=== PATIENT | male | born 1945 | race Caucasian/White ===

== ENCOUNTER 2016-05-06 10:18 | Emergency (ER) | payer MEDICARE ==
[~2016-05-06 10:18] MED LIST: ALLO100T PO; ALLO15TA GT; ASPI81TA85 PO; CARB20TA PO; CORD200T PO; CORE25TA PO; DEMA20TA6 PO; DIAB2.5T PO; GLIM2TAB PO; GLYB25TA PO; HUMA100I5 SC; INDO50CA PO; IRBE300T10 PO; LEVE1INJ5 SC; LIPI20TA PO; MECL-68 PO; METF1000 PO; PRIL20CA PO; TORS20TA2 PO; VITA500046 PO
[2016-05-06] MEDS ORDERED: hydrOXYzine 25 MG TAB As Ordered ONE (11:11)
[2016-05-06 11:15] LABS: BASO % 0.3 % (0.0-1.0); EOS # 0.3 K/mm3 (0.0-0.50); EOS % 3.7 % (0.0-3.0); LARGE UNSTAINED CELL # 0.4 K/mm3 (0.0-0.4); LARGE UNSTAINED CELL % 4.1 % (0.0-4.0); LYMPH # 1.6 K/mm3 (1.5-4.5); LYMPH % 18.3 % (24.0-44.0); MEAN CORPUSCULAR HEMOGLOBIN 31.2 pg (27.0-33.0); MEAN CORPUSCULAR HGB CONC 33.1 g/dl (32.0-36.5); MEAN CORPUSCULAR VOLUME 94.3 fl (80.0-96.0); MONO # 0.4 K/mm3 (0.0-0.8); MONO % 4.7 % (0.0-5.0); NEUTROPHILS % 68.9 % (36.0-66.0); PLATELET COUNT, AUTOMATED 284 k/mm3 (150-450); RED CELL DISTRIBUTION WIDTH 14.4 % (11.5-14.5); WHITE BLOOD COUNT 8.7 K/mm3 (4.0-10.0)
--- NOTE | 2016-05-06 11:52 | REP ---
Clinical: The left upper extremity swelling. Technique: Siu scale and color Doppler evaluation using linear high frequency transducer. Findings: Ultrasound examination of the left upper extremity deep venous structures including the jugular, subclavian, axillary, basilic, brachial, and cephalic veins demonstrates normal compressibility flow and wave patterns in response to respiration and augmentation. There is no evidence for deep venous thrombosis. Impression: No evidence for deep venous thrombosis. Signed by Nikunj Mathews MD 05/06/2016 11:44 A
[2016-05-06 12:30] LABS: ALBUMIN 3.2 GM/DL (3.2-5.2); ALBUMIN/GLOBULIN RATIO 0.86 (1.00-1.93); ALKALINE PHOSPHATASE 189 U/L (45-117); ALT/SGPT 23 U/L (12-78); ANION GAP 11 MEQ/L (8-16); AST/SGOT 10 U/L (15-37); BILIRUBIN,DIRECT < 0.1 MG/DL (0.0-0.2); BILIRUBIN,TOTAL 0.2 MG/DL (0.2-1.0); BLOOD UREA NITROGEN 80 MG/DL (7-18); CARBON DIOXIDE LEVEL 24 MEQ/L (21-32); CHLORIDE LEVEL 103 MEQ/L (98-107); GLOMERULAR FILTRATION RATE 22.1 (>42); GLUCOSE, FASTING 328 MG/DL (83-110); POTASSIUM SERUM 3.8 MEQ/L (3.5-5.1); SODIUM LEVEL 138 MEQ/L (136-145); TOTAL PROTEIN 6.9 GM/DL (6.4-8.2)
[2016-05-06 13:27] LABS: T UPTAKE 36 % (33-40)
[2016-05-06 13:40] LABS: MAGNESIUM LEVEL 2.3 MG/DL (1.8-2.4); PHOSPHORUS LEVEL 4.5 MG/DL (2.5-4.9); THYROXINE (T4) 6.4 UG/DL (4.5-12.0)
--- NOTE | 2016-05-06 13:40 | EDDOCDS ---
Nurse's Notes [facility] Name: Yovani Mead Age: 71 yrs Sex: Male : 1945 Arrival Date: 05/06/2016 Time: 10:18 Bed 15 Private MD: Maynor Tidwell A. Diagnosis: Pruritus;Unspecified kidney failure-chronic with acute worsening BUN/CRE 80/3 Presentation: 05/06 10:27 Presenting complaint: Patient states: rash and redness to left forearm and both lower po legs x3 days. Onset: The symptoms/episode began/occurred 3 day(s) ago. This patient has not experienced a previous allergic reaction. Anaphylaxis evaluation, the patient reports or I have noted the following symptoms which indicate a significant risk of anaphylaxis: no signs or symptoms of anaphylaxis were noted. Adult Sepsis Screening: The patient does not have new or worsening altered mentation. Patient's respiratory rate is less than 22. Systolic blood pressure is greater than 100. Patient has a qSOFA score of 0- Negative Sepsis Screen. Suicide/Homicide risk assessment- the patient denies having any suicidal and/or homicidal ideations and does not present with any other emotional, behavioral or mental health complaints. 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 Transition of care: patient was not received from another setting of care. 10:27 Acuity: NESTOR Level 3 po 10:27 Method Of Arrival: Walkin/Carried/Asstd po Triage Assessment: 10:35 General: Appears in no apparent distress, Behavior is appropriate for age, cooperative. po Pain: Denies pain. Respiratory: Airway is patent Respiratory effort is even, unlabored, Reports no respiratory complaints. Derm: Skin is pink, warm & dry. Rash noted that is red, raised, on right calf, right odn, left calf and left don. Historical: - Allergies: no known allergies; - Home Meds: 1. vit D2 1.25 mg weekly on 2. allopurinol 300 mg Oral tab 1 tab once daily 3. gabapentin 300 mg Oral cap 1 cap daily 4. calcitriol 0.25 mcg oral cap 1 cap once daily 5. atorvastatin 40 mg oral tab 1 tab nightly 6. aspirin 81 mg Oral chew 1 tab nightly 7. torsemide 20 mg oral tab 1 tab twice a day 2 tabs in the morning and one tab in the evening 8. amiodarone 200 mg Oral tab 1 tab once daily 9. fexofenadine 180 mg Oral tab 1 tab once daily 10. omeprazole 20 mg Oral cpDR 1 cap once daily 11. carvedilol 25 mg oral tab 1 tab 2 times per day 12. acetaminophen-codeine 325-30 mg Oral cap 1 tablet as needed 13. losartan 50 mg oral tab 1 tab once daily 14. carbamazepine 200 mg Oral tab even days 1 am 2 pm odd days 1 BID 15. Levemir FlexTouch 100 unit/mL (3 mL) subcutaneous inpn 20 unit nightly 16. Humalog Pen sliding scale Sub-Q 6 unit before meals sliding scale before each meal - PMHx: CAD; Diabetes - IDDM: controlled; GERD; Hypertension; Renal Failure w/o Dialysis; Gout; - PSHx: pacemaker/defibrillator; Hernia repair; removal skin cancer; - Social history: Smoking status: Patient states was never smoker of tobacco. No barriers to communication noted, The patient speaks fluent Khmer. - Family history: Not pertinent. - : The pt / caregiver states he / she is not on anticoagulants. Home medication list is obtained from the patient, pill bottles. - Exposure Risk Screening:: None identified. Screenin:54 Screening information is obtained from the patient. Fall risk: No risks identified. jjr Assistance ADL's: requires no assistance with activities of daily living. Abuse/DV Screen: The patient / caregiver reports he/she is: not in a situation that causes fear, pain or injury. Nutritional screening: No deficits noted. Advance Directives: There is no active DNR order. home support is adequate. Assessment: 10:53 General: Appears in no apparent distress, well nourished, well groomed, Behavior is jjr appropriate for age. Neurological: No deficits noted. Respiratory: Airway is patent Respiratory effort is even, unlabored, Respiratory pattern is regular, Breath sounds are clear bilaterally. Derm: Rash noted that is urticaria, on bilateral forearms, bilateral shins and calves, left forearm greater than right. 11:59 General: Appears in no apparent distress, Behavior is appropriate for age. Respiratory: jjr No deficits noted. Derm: no change in rash. 12:54 General: Appears in no apparent distress, Behavior is appropriate for age. Respiratory: jjr No deficits noted. Derm: no change in redness to forearms and lower legs. 13:35 Reassessment: Patient appears in no apparent distress at this time. pt states he is ttb comfortable going home. DC instructions given. . Adult Sepsis Screening: The patient does not have new or worsening altered mentation. Patient's respiratory rate is less than 22. Systolic blood pressure is greater than 100. Patient has a qSOFA score of 0- Negative Sepsis Screen. Pain: Denies pain. Cardiovascular: Chest pain is denied. Respiratory: No deficits noted. Airway is patent. Vital Signs: 10:20 BP 131 / 57; Pulse 61; Resp 18; Temp 95.2(T); Pulse Ox 99% on R/A; Weight 102.97 kg; sar1 Height 5 ft. 6 in. (167.64 cm); Pain 4/10; 13:31 BP 121 / 55 (auto/); ttb 13:32 Resp 18 S; Temp 97.4(TE); Pulse Ox 95% on R/A; Pain 0/10; ttb 10:20 Body Mass Index 36.64 (102.97 kg, 167.64 cm) [facility] Vitals: 10:20 Log In Time: May 06, 2016 at 10:21. sar1 ED Course: 10:20 Patient visited by Nan Garcia, Debby Ramachandran. sar1 10:20 Maynor Tidwell is Private Physician. sar1 10:20 Patient moved to Waiting sar1 10:25 Patient moved to Pre RCE sar1 10:28 Triage Initiated po 10:35 Arm band placed on left wrist. Patient placed in waiting room. po 10:37 Patient visited by Ashkan Garcia RN. po 10:38 Patient moved to 15 po 10:40 Nia Willoughby MD is Attending Physician. sd1 10:43 Patient visited by Nia Willoughby MD. sd1 10:54 The patient / caregiver is instructed regarding the plan of care and ED course. jjr 10:55 Patient visited by Cortney Acosta RN. jjr 11:09 Sed Rate Sent. jjr 11:09 Liver Profile Sent. jjr 11:09 MED Profile Sent. jjr 11:09 CBC with Diff Sent. jjr 11:10 Missed attempts: 22 gauge X 1 in right antecubital area, Bleeding controlled, band aid jjr applied, catheter tip intact. Labs drawn. (by ED staff). Sent per order to lab. 11:18 Patient moved to Ultrasound hgl 11:36 Patient moved to 15 hgl 12:00 Patient visited by Cortney Acosta RN. jjr 12:17 Upper Extremity R/O DVT Returned. EDMS 12:54 Patient visited by Cortney Acosta RN. jjr 13:21 Meagan Garcia is Referral Physician. sd1 13:22 Maynor Tidwell MD is Referral Physician. sd1 13:37 Patient visited by Rhiannon Beavers RN. ttb 13:37 No procedures done that require assistance. ttb Administered Medications: 11:15 Drug: hydrOXYzine 25 mg [hydroxyzine HCl 25 mg tablet (1 tabs)] Route: PO; jjr Order Results: Lab Order: CBC with Diff; SPEC'M 05/06/16 11:07 Test: WHITE BLOOD COUNT; Value: 8.7; Range: 4.0-10.0; Units: K/mm3; Status: F Test: RED BLOOD COUNT; Value: 3.72; Range: 4.30-6.10; Abnormal: Below low normal; Units: M/mm3; Status: F Test: HEMOGLOBIN; Value: 11.6; Range: 14.0-18.0; Abnormal: Below low normal; Units: g/dl; Status: F Test: HEMATOCRIT; Value: 35.1; Range: 42.0-52.0; Abnormal: Below low normal; Units: %; Status: F Test: MEAN CORPUSCULAR VOLUME; Value: 94.3; Range: 80.0-96.0; Units: fl; Status: F Test: MEAN CORPUSCULAR HEMOGLOBIN; Value: 31.2; Range: 27.0-33.0; Units: pg; Status: F Test: MEAN CORPUSCULAR HGB CONC; Value: 33.1; Range: 32.0-36.5; Units: g/dl; Status: F Test: RED CELL DISTRIBUTION WIDTH; Value: 14.4; Range: 11.5-14.5; Units: %; Status: F Test: PLATELET COUNT, AUTOMATED; Value: 284; Range: 150-450; Units: k/mm3; Status: F Test: NEUTROPHILS %; Value: 68.9; Range: 36.0-66.0; Abnormal: Above high normal; Units: %; Status: F Test: LYMPH %; Value: 18.3; Range: 24.0-44.0; Abnormal: Below low normal; Units: %; Status: F Test: MONO %; Value: 4.7; Range: 0.0-5.0; Units: %; Status: F Test: EOS %; Value: 3.7; Range: 0.0-3.0; Abnormal: Above high normal; Units: %; Status: F Test: BASO %; Value: 0.3; Range: 0.0-1.0; Units: %; Status: F Test: LARGE UNSTAINED CELL %; Value: 4.1; Range: 0.0-4.0; Abnormal: Above high normal; Units: %; Status: F Test: NEUTROPHILS #; Value: 6.0; Range: 1.8-7.7; Units: K/mm3; Status: F Test: LYMPH #; Value: 1.6; Range: 1.5-4.5; Units: K/mm3; Status: F Test: MONO #; Value: 0.4; Range: 0.0-0.8; Units: K/mm3; Status: F Test: EOS #; Value: 0.3; Range: 0.0-0.50; Units: K/mm3; Status: F Test: BASO #; Value: 0.0; Range: 0.0-0.2; Units: K/mm3; Status: F Test: LARGE UNSTAINED CELL #; Value: 0.4; Range: 0.0-0.4; Units: K/mm3; Status: F Lab Order: [facility] Profile; SPEC'M 05/06/16 11:51 Test: GLUCOSE, FASTING; Value: 328; Range: 83-110; Abnormal: Above high normal; Units: MG/DL; Status: F Test: BLOOD UREA NITROGEN; Value: 80; Range: 7-18; Abnormal: Above high normal; Units: MG/DL; Status: F Test: CREATININE FOR GFR; Value: 3.00; Range: 0.70-1.30; Abnormal: Above high normal; Units: MG/DL; Status: F Test: GLOMERULAR FILTRATION RATE; Value: 22.1; Range: >42; Abnormal: Below low normal; Status: F Test: SODIUM LEVEL; Value: 138; Range: 136-145; Units: MEQ/L; Status: F Test: POTASSIUM SERUM; Value: 3.8; Range: 3.5-5.1; Units: MEQ/L; Status: F Test: CHLORIDE LEVEL; Value: 103; Range: 98-107; Units: MEQ/L; Status: F Test: CARBON DIOXIDE LEVEL; Value: 24; Range: 21-32; Units: MEQ/L; Status: F Test: ANION GAP; Value: 11; Range: 8-16; Units: MEQ/L; Status: F Test: CALCIUM LEVEL; Value: 8.0; Range: 8.8-10.2; Abnormal: Below low normal; Units: MG/DL; Status: F Test Note: ; Units are mL/min/1.73 m2 Chronic Kidney Disease Staging per NKF: Stage I & II GFR >=60 Normal to Mildly Decreased Stage III GFR 30-59 Moderately Decreased Stage IV GFR 15-29 Severely Decreased Stage V GFR <15 Very Little GFR Left ESRD GFR <15 on ELIGIBILITY COUNSELOR Lab Order: Liver Profile; [facility] 05/06/16 11:51 Test: AST/SGOT; Value: 10; Range: 15-37; Abnormal: Below low normal; Units: U/L; Status: F Test: ALT/SGPT; Value: 23; Range: 12-78; Units: U/L; Status: F Test: ALKALINE PHOSPHATASE; Value: 189; Range: 45-117; Abnormal: Above high normal; Units: U/L; Status: F Test: BILIRUBIN,TOTAL; Value: 0.2; Range: 0.2-1.0; Units: MG/DL; Status: F Test: BILIRUBIN,DIRECT; Value: < 0.1; Range: 0.0-0.2; Units: MG/DL; Status: F Test: TOTAL PROTEIN; Value: 6.9; Range: 6.4-8.2; Units: GM/DL; Status: F Test: ALBUMIN; Value: 3.2; Range: 3.2-5.2; Units: GM/DL; Status: F Test: ALBUMIN/GLOBULIN RATIO; Value: 0.86; Range: 1.00-1.93; Abnormal: Below low normal; Status: F Lab Order: Sed Rate; [facility] 11:07 Test: ERYTHROCYTE SEDIMENTATION RATE; Value: 41; Range: 0-20; Abnormal: Above high normal; Units: mm/hr; Status: F Lab Order: C REACTIVE PROTEIN QUANTITATIV; 05/06/16 11:51 Test: C REACTIVE PROTEIN QUANTITATIV; Value: 1.75; Range: 0.00-0.30; Abnormal: Above high normal; Units: MG/DL; Status: F Lab Order: MAGNESIUM LEVEL; 05/06/16 11:51 Test: MAGNESIUM LEVEL; Range: 1.8-2.4; Units: MG/DL; Status: I Lab Order: PHOSPHOROUS LEVEL; 05/06/16 11:51 Test: PHOSPHORUS LEVEL; Range: 2.5-4.9; Units: MG/DL; Status: I Lab Order: THYROID PROFILE; 05/06/16 11:51 Test: T UPTAKE; Range: 33-40; Units: %; Status: I Test: THYROXINE (T4); Range: 4.5-12.0; Units: UG/DL; Status: I Test: FREE THYROXINE INDEX; Range: 1.4-3.8; Units: %; Status: I Test: THYROID STIMULATING HORMONE; Range: 0.358-3.740; Units: uIU/ML; Status: I Radiology Order: US Upper Extremity R/O DVT Test: US Upper Extremity R/O DVT REASON FOR EXAMINATION: swelling; Clinical: The left upper extremity swelling.; ; Technique: Siu scale and color Doppler evaluation using linear high frequency; transducer.; ; Findings:; Ultrasound examination of the left upper extremity deep venous structures; including the jugular, subclavian, axillary, basilic, brachial, and cephalic; veins demonstrates normal compressibility flow and wave patterns in response to; respiration and augmentation. There is no evidence for deep venous thrombosis.; ; Impression:; No evidence for deep venous thrombosis.; ; ; Signed by; Nikunj Mathews MD 05/06/2016 11:44 A; Outcome: 13:23 Discharge ordered by Provider. sd1 13:32 Discharge Assessment: Patient awake, alert and oriented x 3. No cognitive and/or ttb functional deficits noted. Patient verbalized understanding of disposition instructions. Patient awake and alert. patient administered narcotics - no. The following High Risk Discharge criteria are identified: None. Discharged to home ambulatory, with significant other. Condition: good Condition: stable Condition: improved. Discharge instructions given to patient, significant other, Instructed on discharge instructions, follow up and referral plans. medication usage, no change in meds at this time. Use cool compresses, showers for itch relief. Demonstrated understanding of instructions, medications, Pt was receptive of discharge instructions/ teaching. Ultrasound Study completed. Property :Personal belongings accompany Pt. 13:39 Patient left the ED. ttb Signatures: Dispatcher [employer] EDAL Nia Willoughby MD MD sd1 Ashkan GarciaRN RN po Cortney Acosta RN RN jr Diana, Rhiannon Barron RN RN ttb Nan Garcia, Detective Sergeant Unit sar1 Corrections: (The following items were deleted from the chart) 10:37 10:27 Presenting complaint: Patient states: rash and redness to left forearm x3 days po po 10:37 10:35 Derm: Skin is pink, warm & dry. Rash noted that is red, raised, on left forearm efrain 11:58 11:09 C REACTIVE PROTEIN QUANTITATIV+LAB sent. [facility] EDAL 13:37 13:32 No special radiology studies were completed ttb ttb MTDD
--- NOTE | 2016-05-06 13:40 | EDDOCDS ---
Physician Documentation [facility] Name: Yovani Mead Age: 71 yrs Sex: Male : 1945 Arrival Date: 05/06/2016 Time: 10:18 Bed 15 Private MD: Maynor Tidwell A. Disposition: 05/06/16 13:23 Discharged to Home/Self Care. Impression: Pruritus, Unspecified kidney failure - chronic with acute worsening BUN/CRE 80/3 . - Condition is Stable. - Discharge Instructions: End-Stage Kidney Disease, Pruritus. - Medication Reconciliation, Local Pharmacy Hours, Work Release Form - 1 day form. - Follow up: Meagan Garcia; When: 1 - 2 days. Follow up: Maynor Tidwell MD; When: 1 - 2 days. - Problem is chronic. - Symptoms are unchanged. Historical: - Allergies: no known allergies; - Home Meds: 1. vit D2 1.25 mg weekly on 2. allopurinol 300 mg Oral tab 1 tab once daily 3. gabapentin 300 mg Oral cap 1 cap daily 4. calcitriol 0.25 mcg oral cap 1 cap once daily 5. atorvastatin 40 mg oral tab 1 tab nightly 6. aspirin 81 mg Oral chew 1 tab nightly 7. torsemide 20 mg oral tab 1 tab twice a day 2 tabs in the morning and one tab in the evening 8. amiodarone 200 mg Oral tab 1 tab once daily 9. fexofenadine 180 mg Oral tab 1 tab once daily 10. omeprazole 20 mg Oral cpDR 1 cap once daily 11. carvedilol 25 mg oral tab 1 tab 2 times per day 12. acetaminophen-codeine 325-30 mg Oral cap 1 tablet as needed 13. losartan 50 mg oral tab 1 tab once daily 14. carbamazepine 200 mg Oral tab even days 1 am 2 pm odd days 1 BID 15. Levemir FlexTouch 100 unit/mL (3 mL) subcutaneous inpn 20 unit nightly 16. Humalog Pen sliding scale Sub-Q 6 unit before meals sliding scale before each meal - PMHx: CAD; Diabetes - IDDM: controlled; GERD; Hypertension; Renal Failure w/o Dialysis; Gout; - PSHx: pacemaker/defibrillator; Hernia repair; removal skin cancer; - Social history: Smoking status: Patient states was never smoker of tobacco. No barriers to communication noted, The patient speaks fluent Swedish. - Family history: Not pertinent. - : The pt / caregiver states he / she is not on anticoagulants. Home medication list is obtained from the patient, pill bottles. - Exposure Risk Screening:: None identified. Vital Signs: 05/06 10:20 BP 131 / 57; Pulse 61; Resp 18; Temp 95.2(T); Pulse Ox 99% on R/A; Weight 102.97 kg / sar1 227.01 lbs; Height 5 ft. 6 in. (167.64 cm); Pain 4/10; 13:31 BP 121 / 55 (auto/); ttb 13:32 Resp 18 S; Temp 97.4(TE); Pulse Ox 95% on R/A; Pain 0/10; ttb 10:20 Body Mass Index 36.64 (102.97 kg, 167.64 cm) sar1 MDM: 10:52 IV Saline Lock ordered. sd1 10:52 hydrOXYzine 25 mg PO once ordered. sd1 10:52 CBC with Diff Ordered. EDMS 10:52 MED Profile Ordered. EDMS 10:52 Liver Profile Ordered. EDMS 10:54 US Upper Extremity R/O DVT Ordered. EDMS 10:55 Sed Rate Ordered. EDMS 11:57 C REACTIVE PROTEIN QUANTITATIV Ordered. EDMS 12:34 CBC with Diff Reviewed. sd1 12:34 MED Profile Reviewed. sd1 12:34 Liver Profile Reviewed. sd1 12:34 Sed Rate Reviewed. sd1 12:34 C REACTIVE PROTEIN QUANTITATIV Reviewed. sd1 12:34 US Upper Extremity R/O DVT Reviewed. sd1 13:19 MAGNESIUM LEVEL Ordered. EDMS 13:19 PHOSPHOROUS LEVEL Ordered. EDMS 13:19 THYROID PROFILE Ordered. EDMS 13:21 MED Profile Reviewed. sd1 13:21 Liver Profile Reviewed. sd1 13:21 C REACTIVE PROTEIN QUANTITATIV Reviewed. sd1 Administered Medications: 11:15 Drug: hydrOXYzine 25 mg [hydroxyzine HCl 25 mg tablet (1 tabs)] Route: PO; jjr Signatures: Dispatcher [employer] EDMS Nia Willoughby MD MD sd1 Ashkan Garcia RN RN po Conner, Teresa, RN RN ttb Cortney Acosta RN jjr The chart was reviewed and I authenticate all verbal orders and agree with the evaluation and treatment provided.Corrections: (The following items were deleted from the chart) 11:58 10:55 C REACTIVE PROTEIN QUANTITATIV+LAB ordered. EDMS EDMS 13:19 13:16 MAGNESIUM LEVEL+LAB ordered. EDMS EDMS 13:19 13:16 PHOSPHOROUS LEVEL+LAB ordered. EDMS EDMS 13:19 13:16 THYROID PROFILE+LAB ordered. EDMS EDMS MTDD
--- NOTE | 2016-05-08 14:40 | EDDOCDS ---
Physician Documentation [facility] Name: Yovani Mead Age: 71 yrs Sex: Male : 1945 Arrival Date: 05/06/2016 Time: 10:18 Bed 15 Private MD: Maynor Tidwell A. Disposition: 05/06/16 13:23 Discharged to Home/Self Care. Impression: Pruritus, Unspecified kidney failure - chronic with acute worsening BUN/CRE 80/3 . - Condition is Stable. - Discharge Instructions: End-Stage Kidney Disease, Pruritus. - Medication Reconciliation, Local Pharmacy Hours, Work Release Form - 1 day form. - Follow up: Meagan Garcia; When: 1 - 2 days. Follow up: Maynor Tidwell MD; When: 1 - 2 days. - Problem is chronic. - Symptoms are unchanged. Historical: - Allergies: no known allergies; - Home Meds: 1. vit D2 1.25 mg weekly on 2. allopurinol 300 mg Oral tab 1 tab once daily 3. gabapentin 300 mg Oral cap 1 cap daily 4. calcitriol 0.25 mcg oral cap 1 cap once daily 5. atorvastatin 40 mg oral tab 1 tab nightly 6. aspirin 81 mg Oral chew 1 tab nightly 7. torsemide 20 mg oral tab 1 tab twice a day 2 tabs in the morning and one tab in the evening 8. amiodarone 200 mg Oral tab 1 tab once daily 9. fexofenadine 180 mg Oral tab 1 tab once daily 10. omeprazole 20 mg Oral cpDR 1 cap once daily 11. carvedilol 25 mg oral tab 1 tab 2 times per day 12. acetaminophen-codeine 325-30 mg Oral cap 1 tablet as needed 13. losartan 50 mg oral tab 1 tab once daily 14. carbamazepine 200 mg Oral tab even days 1 am 2 pm odd days 1 BID 15. Levemir FlexTouch 100 unit/mL (3 mL) subcutaneous inpn 20 unit nightly 16. Humalog Pen sliding scale Sub-Q 6 unit before meals sliding scale before each meal - PMHx: CAD; Diabetes - IDDM: controlled; GERD; Hypertension; Renal Failure w/o Dialysis; Gout; - PSHx: pacemaker/defibrillator; Hernia repair; removal skin cancer; - Social history: Smoking status: Patient states was never smoker of tobacco. No barriers to communication noted, The patient speaks fluent Czech. - Family history: Not pertinent. - : The pt / caregiver states he / she is not on anticoagulants. Home medication list is obtained from the patient, pill bottles. - Exposure Risk Screening:: None identified. Vital Signs: 05/06 10:20 BP 131 / 57; Pulse 61; Resp 18; Temp 95.2(T); Pulse Ox 99% on R/A; Weight 102.97 kg / sar1 227.01 lbs; Height 5 ft. 6 in. (167.64 cm); Pain 4/10; 13:31 BP 121 / 55 (auto/); ttb 13:32 Resp 18 S; Temp 97.4(TE); Pulse Ox 95% on R/A; Pain 0/10; ttb 10:20 Body Mass Index 36.64 (102.97 kg, 167.64 cm) sar1 MDM: 10:52 IV Saline Lock ordered. sd1 10:52 hydrOXYzine 25 mg PO once ordered. sd1 10:52 CBC with Diff Ordered. EDMS 10:52 MED Profile Ordered. EDMS 10:52 Liver Profile Ordered. EDMS 10:54 US Upper Extremity R/O DVT Ordered. EDMS 10:55 Sed Rate Ordered. EDMS 11:57 C REACTIVE PROTEIN QUANTITATIV Ordered. EDMS 12:34 CBC with Diff Reviewed. sd1 12:34 MED Profile Reviewed. sd1 12:34 Liver Profile Reviewed. sd1 12:34 Sed Rate Reviewed. sd1 12:34 C REACTIVE PROTEIN QUANTITATIV Reviewed. sd1 12:34 US Upper Extremity R/O DVT Reviewed. sd1 13:19 MAGNESIUM LEVEL Ordered. EDMS 13:19 PHOSPHOROUS LEVEL Ordered. EDMS 13:19 THYROID PROFILE Ordered. EDMS 13:21 MED Profile Reviewed. sd1 13:21 Liver Profile Reviewed. sd1 13:21 C REACTIVE PROTEIN QUANTITATIV Reviewed. sd1 13:41 [facility] Payment Agreement was scanned into [employer] and attached to record. jp5 13:41 Financial registration complete. jp5 16:58 T-Sheet-- Draft Copy was scanned into [employer] and attached to record. klr Administered Medications: 11:15 Drug: hydrOXYzine 25 mg [hydroxyzine HCl 25 mg tablet (1 tabs)] Route: PO; jjr Signatures: Dispatcher [employer] EDMS Nia Willoughby MD MD sd1 Ashkan Garcia,RN RN Rhiannon Shannon RN RN Ignacia Reyes jp5 Linda Gaines Jessica RN jjr The chart was reviewed and I authenticate all verbal orders and agree with the evaluation and treatment provided.Corrections: (The following items were deleted from the chart) 11:58 10:55 C REACTIVE PROTEIN QUANTITATIV+LAB ordered. EDMS EDMS 13:19 13:16 MAGNESIUM LEVEL+LAB ordered. EDMS EDMS 13:19 13:16 PHOSPHOROUS LEVEL+LAB ordered. EDMS EDMS 13:19 13:16 THYROID PROFILE+LAB ordered. EDMS EDMS Attachments: 13:41 [facility] Payment Agreement jp5 16:58 T-Sheet-- Draft Copy klr Chart Complete [id number]
--- NOTE | 2016-05-08 14:40 | EDDOCDS ---
Nurse's Notes [facility] Name: Yovani Mead Age: 71 yrs Sex: Male : 1945 Arrival Date: 05/06/2016 Time: 10:18 Bed 15 Private MD: Maynor Tidwell A. Diagnosis: Pruritus;Unspecified kidney failure-chronic with acute worsening BUN/CRE 80/3 Presentation: 05/06 10:27 Presenting complaint: Patient states: rash and redness to left forearm and both lower po legs x3 days. Onset: The symptoms/episode began/occurred 3 day(s) ago. This patient has not experienced a previous allergic reaction. Anaphylaxis evaluation, the patient reports or I have noted the following symptoms which indicate a significant risk of anaphylaxis: no signs or symptoms of anaphylaxis were noted. Adult Sepsis Screening: The patient does not have new or worsening altered mentation. Patient's respiratory rate is less than 22. Systolic blood pressure is greater than 100. Patient has a qSOFA score of 0- Negative Sepsis Screen. Suicide/Homicide risk assessment- the patient denies having any suicidal and/or homicidal ideations and does not present with any other emotional, behavioral or mental health complaints. Status: Patient is not a health services information specialist or dependent. Transition of care: patient was not received from another setting of care. 10:27 Acuity: NESTOR Level 3 po 10:27 Method Of Arrival: Walkin/Carried/Asstd po Triage Assessment: 10:35 General: Appears in no apparent distress, Behavior is appropriate for age, cooperative. po Pain: Denies pain. Respiratory: Airway is patent Respiratory effort is even, unlabored, Reports no respiratory complaints. Derm: Skin is pink, warm & dry. Rash noted that is red, raised, on right calf, right don, left calf and left don. Historical: - Allergies: no known allergies; - Home Meds: 1. vit D2 1.25 mg weekly on 2. allopurinol 300 mg Oral tab 1 tab once daily 3. gabapentin 300 mg Oral cap 1 cap daily 4. calcitriol 0.25 mcg oral cap 1 cap once daily 5. atorvastatin 40 mg oral tab 1 tab nightly 6. aspirin 81 mg Oral chew 1 tab nightly 7. torsemide 20 mg oral tab 1 tab twice a day 2 tabs in the morning and one tab in the evening 8. amiodarone 200 mg Oral tab 1 tab once daily 9. fexofenadine 180 mg Oral tab 1 tab once daily 10. omeprazole 20 mg Oral cpDR 1 cap once daily 11. carvedilol 25 mg oral tab 1 tab 2 times per day 12. acetaminophen-codeine 325-30 mg Oral cap 1 tablet as needed 13. losartan 50 mg oral tab 1 tab once daily 14. carbamazepine 200 mg Oral tab even days 1 am 2 pm odd days 1 BID 15. Levemir FlexTouch 100 unit/mL (3 mL) subcutaneous inpn 20 unit nightly 16. Humalog Pen sliding scale Sub-Q 6 unit before meals sliding scale before each meal - PMHx: CAD; Diabetes - IDDM: controlled; GERD; Hypertension; Renal Failure w/o Dialysis; Gout; - PSHx: pacemaker/defibrillator; Hernia repair; removal skin cancer; - Social history: Smoking status: Patient states was never smoker of tobacco. No barriers to communication noted, The patient speaks fluent Khmer. - Family history: Not pertinent. - : The pt / caregiver states he / she is not on anticoagulants. Home medication list is obtained from the patient, pill bottles. - Exposure Risk Screening:: None identified. Screenin:54 Screening information is obtained from the patient. Fall risk: No risks identified. jjr Assistance ADL's: requires no assistance with activities of daily living. Abuse/DV Screen: The patient / caregiver reports he/she is: not in a situation that causes fear, pain or injury. Nutritional screening: No deficits noted. Advance Directives: There is no active DNR order. home support is adequate. Assessment: 10:53 General: Appears in no apparent distress, well nourished, well groomed, Behavior is jjr appropriate for age. Neurological: No deficits noted. Respiratory: Airway is patent Respiratory effort is even, unlabored, Respiratory pattern is regular, Breath sounds are clear bilaterally. Derm: Rash noted that is urticaria, on bilateral forearms, bilateral shins and calves, left forearm greater than right. 11:59 General: Appears in no apparent distress, Behavior is appropriate for age. Respiratory: jjr No deficits noted. Derm: no change in rash. 12:54 General: Appears in no apparent distress, Behavior is appropriate for age. Respiratory: jjr No deficits noted. Derm: no change in redness to forearms and lower legs. 13:35 Reassessment: Patient appears in no apparent distress at this time. pt states he is ttb comfortable going home. DC instructions given. . Adult Sepsis Screening: The patient does not have new or worsening altered mentation. Patient's respiratory rate is less than 22. Systolic blood pressure is greater than 100. Patient has a qSOFA score of 0- Negative Sepsis Screen. Pain: Denies pain. Cardiovascular: Chest pain is denied. Respiratory: No deficits noted. Airway is patent. Vital Signs: 10:20 BP 131 / 57; Pulse 61; Resp 18; Temp 95.2(T); Pulse Ox 99% on R/A; Weight 102.97 kg; sar1 Height 5 ft. 6 in. (167.64 cm); Pain 4/10; 13:31 BP 121 / 55 (auto/); ttb 13:32 Resp 18 S; Temp 97.4(TE); Pulse Ox 95% on R/A; Pain 0/10; ttb 10:20 Body Mass Index 36.64 (102.97 kg, 167.64 cm) [facility] Vitals: 10:20 Log In Time: May 06, 2016 at 10:21. sar1 ED Course: 10:20 Patient visited by Nan Garcia, Debby Ramachandran. sar1 10:20 Maynor Tidwell is Private Physician. sar1 10:20 Patient moved to Waiting sar1 10:25 Patient moved to Pre RCE sar1 10:28 Triage Initiated po 10:35 Arm band placed on left wrist. Patient placed in waiting room. po 10:37 Patient visited by Ashkan Garcia RN. po 10:38 Patient moved to 15 po 10:40 Nia Willoughby MD is Attending Physician. sd1 10:43 Patient visited by Nia Willoughby MD. sd1 10:54 The patient / caregiver is instructed regarding the plan of care and ED course. jjr 10:55 Patient visited by Cortney Acosta RN. jjr 11:09 Sed Rate Sent. jjr 11:09 Liver Profile Sent. jjr 11:09 MED Profile Sent. jjr 11:09 CBC with Diff Sent. jjr 11:10 Missed attempts: 22 gauge X 1 in right antecubital area, Bleeding controlled, band aid jjr applied, catheter tip intact. Labs drawn. (by ED staff). Sent per order to lab. 11:18 Patient moved to Ultrasound hgl 11:36 Patient moved to 15 hgl 12:00 Patient visited by Cortney Acosta RN. jjr 12:17 Upper Extremity R/O DVT Returned. EDMS 12:54 Patient visited by Cortney Acosta RN. jjr 13:21 Meagan Garcia is Referral Physician. sd1 13:22 Maynor Tidwell MD is Referral Physician. sd1 13:37 Patient visited by Rhiannon Beavers RN. ttb 13:37 No procedures done that require assistance. ttb 13:41 [facility] [place] [place] Payment Agreement was scanned into [employer] and attached to record. jp5 16:58 T-Sheet-- Draft Copy was scanned into [employer] and attached to record. klr Administered Medications: 11:15 Drug: hydrOXYzine 25 mg [hydroxyzine HCl 25 mg tablet (1 tabs)] Route: PO; jjr Order Results: Lab Order: CBC with Diff; SPEC'M 05/06/16 11:07 Test: WHITE BLOOD COUNT; Value: 8.7; Range: 4.0-10.0; Units: K/mm3; Status: F Test: RED BLOOD COUNT; Value: 3.72; Range: 4.30-6.10; Abnormal: Below low normal; Units: M/mm3; Status: F Test: HEMOGLOBIN; Value: 11.6; Range: 14.0-18.0; Abnormal: Below low normal; Units: g/dl; Status: F Test: HEMATOCRIT; Value: 35.1; Range: 42.0-52.0; Abnormal: Below low normal; Units: %; Status: F Test: MEAN CORPUSCULAR VOLUME; Value: 94.3; Range: 80.0-96.0; Units: fl; Status: F Test: MEAN CORPUSCULAR HEMOGLOBIN; Value: 31.2; Range: 27.0-33.0; Units: pg; Status: F Test: MEAN CORPUSCULAR HGB CONC; Value: 33.1; Range: 32.0-36.5; Units: g/dl; Status: F Test: RED CELL DISTRIBUTION WIDTH; Value: 14.4; Range: 11.5-14.5; Units: %; Status: F Test: PLATELET COUNT, AUTOMATED; Value: 284; Range: 150-450; Units: k/mm3; Status: F Test: NEUTROPHILS %; Value: 68.9; Range: 36.0-66.0; Abnormal: Above high normal; Units: %; Status: F Test: LYMPH %; Value: 18.3; Range: 24.0-44.0; Abnormal: Below low normal; Units: %; Status: F Test: MONO %; Value: 4.7; Range: 0.0-5.0; Units: %; Status: F Test: EOS %; Value: 3.7; Range: 0.0-3.0; Abnormal: Above high normal; Units: %; Status: F Test: BASO %; Value: 0.3; Range: 0.0-1.0; Units: %; Status: F Test: LARGE UNSTAINED CELL %; Value: 4.1; Range: 0.0-4.0; Abnormal: Above high normal; Units: %; Status: F Test: NEUTROPHILS #; Value: 6.0; Range: 1.8-7.7; Units: K/mm3; Status: F Test: LYMPH #; Value: 1.6; Range: 1.5-4.5; Units: K/mm3; Status: F Test: MONO #; Value: 0.4; Range: 0.0-0.8; Units: K/mm3; Status: F Test: EOS #; Value: 0.3; Range: 0.0-0.50; Units: K/mm3; Status: F Test: BASO #; Value: 0.0; Range: 0.0-0.2; Units: K/mm3; Status: F Test: LARGE UNSTAINED CELL #; Value: 0.4; Range: 0.0-0.4; Units: K/mm3; Status: F Lab Order: MED Profile; SPEC'M 05/06/16 11:51 Test: GLUCOSE, FASTING; Value: 328; Range: 83-110; Abnormal: Above high normal; Units: MG/DL; Status: F Test: BLOOD UREA NITROGEN; Value: 80; Range: 7-18; Abnormal: Above high normal; Units: MG/DL; Status: F Test: CREATININE FOR GFR; Value: 3.00; Range: 0.70-1.30; Abnormal: Above high normal; Units: MG/DL; Status: F Test: GLOMERULAR FILTRATION RATE; Value: 22.1; Range: >42; Abnormal: Below low normal; Status: F Test: SODIUM LEVEL; Value: 138; Range: 136-145; Units: MEQ/L; Status: F Test: POTASSIUM SERUM; Value: 3.8; Range: 3.5-5.1; Units: MEQ/L; Status: F Test: CHLORIDE LEVEL; Value: 103; Range: 98-107; Units: MEQ/L; Status: F Test: CARBON DIOXIDE LEVEL; Value: 24; Range: 21-32; Units: MEQ/L; Status: F Test: ANION GAP; Value: 11; Range: 8-16; Units: MEQ/L; Status: F Test: CALCIUM LEVEL; Value: 8.0; Range: 8.8-10.2; Abnormal: Below low normal; Units: MG/DL; Status: F Test Note: ; Units are mL/min/1.73 m2 Chronic Kidney Disease Staging per NKF: Stage I & II GFR >=60 Normal to Mildly Decreased Stage III GFR 30-59 Moderately Decreased Stage IV GFR 15-29 Severely Decreased Stage V GFR <15 Very Little GFR Left ESRD GFR <15 on E[employer] ASSISTANT MANAGER Lab Order: Liver Profile; SPEC'M 05/06/16 11:51 Test: AST/SGOT; Value: 10; Range: 15-37; Abnormal: Below low normal; Units: U/L; Status: F Test: ALT/SGPT; Value: 23; Range: 12-78; Units: U/L; Status: F Test: ALKALINE PHOSPHATASE; Value: 189; Range: 45-117; Abnormal: Above high normal; Units: U/L; Status: F Test: BILIRUBIN,TOTAL; Value: 0.2; Range: 0.2-1.0; Units: MG/DL; Status: F Test: BILIRUBIN,DIRECT; Value: < 0.1; Range: 0.0-0.2; Units: MG/DL; Status: F Test: TOTAL PROTEIN; Value: 6.9; Range: 6.4-8.2; Units: GM/DL; Status: F Test: ALBUMIN; Value: 3.2; Range: 3.2-5.2; Units: GM/DL; Status: F Test: ALBUMIN/GLOBULIN RATIO; Value: 0.86; Range: 1.00-1.93; Abnormal: Below low normal; Status: F Lab Order: Sed Rate; [facility] 05/06/16 11:07 Test: ERYTHROCYTE SEDIMENTATION RATE; Value: 41; Range: 0-20; Abnormal: Above high normal; Units: mm/hr; Status: F Lab Order: C REACTIVE PROTEIN QUANTITATIV; 05/06/16 11:51 Test: C REACTIVE PROTEIN QUANTITATIV; Value: 1.75; Range: 0.00-0.30; Abnormal: Above high normal; Units: MG/DL; Status: F Lab Order: MAGNESIUM LEVEL; 05/06/16 11:51 Test: MAGNESIUM LEVEL; Value: 2.3; Range: 1.8-2.4; Units: MG/DL; Status: F Lab Order: PHOSPHOROUS LEVEL; [facility] 05/06/16 11:51 Test: PHOSPHORUS LEVEL; Value: 4.5; Range: 2.5-4.9; Units: MG/DL; Status: F Lab Order: THYROID PROFILE; 05/06/16 11:51 Test: T UPTAKE; Value: 36; Range: 33-40; Units: %; Status: F Test: THYROXINE (T4); Value: 6.4; Range: 4.5-12.0; Units: UG/DL; Status: F Test: FREE THYROXINE INDEX; Value: 2.3; Range: 1.4-3.8; Units: %; Status: F Test: THYROID STIMULATING HORMONE; Value: 2.720; Range: 0.358-3.740; Units: uIU/ML; Status: F Radiology Order: US Upper Extremity R/O DVT Test: US Upper Extremity R/O DVT REASON FOR EXAMINATION: swelling; Clinical: The left upper extremity swelling.; ; Technique: Siu scale and color Doppler evaluation using linear high frequency; transducer.; ; Findings:; Ultrasound examination of the left upper extremity deep venous structures; including the jugular, subclavian, axillary, basilic, brachial, and cephalic; veins demonstrates normal compressibility flow and wave patterns in response to; respiration and augmentation. There is no evidence for deep venous thrombosis.; ; Impression:; No evidence for deep venous thrombosis.; ; ; Signed by; Nikunj Mathews MD 05/06/2016 11:44 A; Outcome: 13:23 Discharge ordered by Provider. sd1 13:32 Discharge Assessment: Patient awake, alert and oriented x 3. No cognitive and/or ttb functional deficits noted. Patient verbalized understanding of disposition instructions. Patient awake and alert. patient administered narcotics - no. The following High Risk Discharge criteria are identified: None. Discharged to home ambulatory, with significant other. Condition: good Condition: stable Condition: improved. Discharge instructions given to patient, significant other, Instructed on discharge instructions, follow up and referral plans. medication usage, no change in meds at this time. Use cool compresses, showers for itch relief. Demonstrated understanding of instructions, medications, Pt was receptive of discharge instructions/ teaching. Ultrasound Study completed. Property :Personal belongings accompany Pt. 13:39 Patient left the ED. ttb Signatures: Dispatcher [employer] EDMS Nia Willoughby MD MD sd1 Ashkan Garcia,RN RN po Cortney Acosta RN RN jjr Diana, Rhiannon Barron RN RN ttb Nan Garcia, Director Funds Development Unit sar1 Ignacia Suresh Kathie klr Corrections: (The following items were deleted from the chart) 10:37 10:27 Presenting complaint: Patient states: rash and redness to left forearm x3 days po po 10:37 10:35 Derm: Skin is pink, warm & dry. Rash noted that is red, raised, on left forearm efrain 11:58 11:09 C REACTIVE PROTEIN QUANTITATIV+LAB sent. j EDND 13:37 13:32 No special radiology studies were completed ttb ttb Chart Complete MTDD
--- NOTE | 2016-05-08 14:40 | EDDOCDS ---
Physician Documentation [facility] Name: Yovani Mead Age: 71 yrs Sex: Male : 1945 Arrival Date: 05/06/2016 Time: 10:18 Bed 15 Private MD: Maynor Tidwell A. Disposition: 05/06/16 13:23 Discharged to Home/Self Care. Impression: Pruritus, Unspecified kidney failure - chronic with acute worsening BUN/CRE 80/3 . - Condition is Stable. - Discharge Instructions: End-Stage Kidney Disease, Pruritus. - Medication Reconciliation, Local Pharmacy Hours, Work Release Form - 1 day form. - Follow up: Meagan Garcia; When: 1 - 2 days. Follow up: Maynor Tidwell MD; When: 1 - 2 days. - Problem is chronic. - Symptoms are unchanged. Historical: - Allergies: no known allergies; - Home Meds: 1. vit D2 1.25 mg weekly on 2. allopurinol 300 mg Oral tab 1 tab once daily 3. gabapentin 300 mg Oral cap 1 cap daily 4. calcitriol 0.25 mcg oral cap 1 cap once daily 5. atorvastatin 40 mg oral tab 1 tab nightly 6. aspirin 81 mg Oral chew 1 tab nightly 7. torsemide 20 mg oral tab 1 tab twice a day 2 tabs in the morning and one tab in the evening 8. amiodarone 200 mg Oral tab 1 tab once daily 9. fexofenadine 180 mg Oral tab 1 tab once daily 10. omeprazole 20 mg Oral cpDR 1 cap once daily 11. carvedilol 25 mg oral tab 1 tab 2 times per day 12. acetaminophen-codeine 325-30 mg Oral cap 1 tablet as needed 13. losartan 50 mg oral tab 1 tab once daily 14. carbamazepine 200 mg Oral tab even days 1 am 2 pm odd days 1 BID 15. Levemir FlexTouch 100 unit/mL (3 mL) subcutaneous inpn 20 unit nightly 16. Humalog Pen sliding scale Sub-Q 6 unit before meals sliding scale before each meal - PMHx: CAD; Diabetes - IDDM: controlled; GERD; Hypertension; Renal Failure w/o Dialysis; Gout; - PSHx: pacemaker/defibrillator; Hernia repair; removal skin cancer; - Social history: Smoking status: Patient states was never smoker of tobacco. No barriers to communication noted, The patient speaks fluent Serbian. - Family history: Not pertinent. - : The pt / caregiver states he / she is not on anticoagulants. Home medication list is obtained from the patient, pill bottles. - Exposure Risk Screening:: None identified. Vital Signs: 05/06 10:20 BP 131 / 57; Pulse 61; Resp 18; Temp 95.2(T); Pulse Ox 99% on R/A; Weight 102.97 kg / sar1 227.01 lbs; Height 5 ft. 6 in. (167.64 cm); Pain 4/10; 13:31 BP 121 / 55 (auto/); ttb 13:32 Resp 18 S; Temp 97.4(TE); Pulse Ox 95% on R/A; Pain 0/10; ttb 10:20 Body Mass Index 36.64 (102.97 kg, 167.64 cm) sar1 MDM: 10:52 IV Saline Lock ordered. sd1 10:52 hydrOXYzine 25 mg PO once ordered. sd1 10:52 CBC with Diff Ordered. EDMS 10:52 MED Profile Ordered. EDMS 10:52 Liver Profile Ordered. EDMS 10:54 US Upper Extremity R/O DVT Ordered. EDMS 10:55 Sed Rate Ordered. EDMS 11:57 C REACTIVE PROTEIN QUANTITATIV Ordered. EDMS 12:34 CBC with Diff Reviewed. sd1 12:34 MED Profile Reviewed. sd1 12:34 Liver Profile Reviewed. sd1 12:34 Sed Rate Reviewed. sd1 12:34 C REACTIVE PROTEIN QUANTITATIV Reviewed. sd1 12:34 US Upper Extremity R/O DVT Reviewed. sd1 13:19 MAGNESIUM LEVEL Ordered. EDMS 13:19 PHOSPHOROUS LEVEL Ordered. EDMS 13:19 THYROID PROFILE Ordered. EDMS 13:21 MED Profile Reviewed. sd1 13:21 Liver Profile Reviewed. sd1 13:21 C REACTIVE PROTEIN QUANTITATIV Reviewed. sd1 13:41 [facility] [place] Payment Agreement was scanned into [employer] and attached to record. jp5 13:41 Financial registration complete. jp5 16:58 T-Sheet-- Draft Copy was scanned into [employer] and attached to record. klr Administered Medications: 11:15 Drug: hydrOXYzine 25 mg [hydroxyzine HCl 25 mg tablet (1 tabs)] Route: PO; jjr Signatures: Dispatcher [employer] EDMS Nia Willoughby MD MD sd1 Ashkan Garcia,RN RN Rhiannon Shannon RN RN Ignacia Reyes jp5 Linda Gaines Jessica RN jjr The chart was reviewed and I authenticate all verbal orders and agree with the evaluation and treatment provided.Corrections: (The following items were deleted from the chart) 11:58 10:55 C REACTIVE PROTEIN QUANTITATIV+LAB ordered. EDMS EDMS 13:19 13:16 MAGNESIUM LEVEL+LAB ordered. EDMS EDMS 13:19 13:16 PHOSPHOROUS LEVEL+LAB ordered. EDMS EDMS 13:19 13:16 THYROID PROFILE+LAB ordered. EDMS EDMS Attachments: 13:41 [facility] Payment Agreement jp5 16:58 T-Sheet-- Draft Copy klr Chart Complete [email or web address]
== END 2016-05-06 13:39 | disposition home or self-care (01) ==
LOC: M ED 10:18
DX: L29.9 Pruritus, unspecified (principal); I25.10 Atherosclerotic heart disease of native coronary artery without angina pectoris; E10.22 Type 1 diabetes mellitus with diabetic chronic kidney disease; I12.0 Hypertensive chronic kidney disease with stage 5 chronic kidney disease or end stage renal disease; N18.6 End stage renal disease; M10.9 Gout, unspecified; K21.9 Gastro-esophageal reflux disease without esophagitis; Z95.0 Presence of cardiac pacemaker; Z85.828 Personal history of other malignant neoplasm of skin; Z79.82 Long term (current) use of aspirin; Z79.4 Long term (current) use of insulin; Z79.899 Other long term (current) drug therapy

== ENCOUNTER 2018-01-24 10:33 | Emergency (ER) | payer OTHER, MEDICARE | END 2018-01-24 12:20 | disposition home or self-care (01) | LOC: M ED 10:33 | DX: S40.021A Contusion of right upper arm, initial encounter (principal); S70.11XA Contusion of right thigh, initial encounter; W01.0XXA Fall on same level from slipping, tripping and stumbling without subsequent striking against object, initial encounter; Y92.9 Unspecified place or not applicable; Y93.9 Activity, unspecified; Y99.0 Civilian activity done for income or pay; I50.9 Heart failure, unspecified; I10 Essential (primary) hypertension; E11.9 Type 2 diabetes mellitus without complications; R56.9 Unspecified convulsions; E78.00 Pure hypercholesterolemia, unspecified; G47.30 Sleep apnea, unspecified; K21.9 Gastro-esophageal reflux disease without esophagitis; N17.9 Acute kidney failure, unspecified; M16.11 Unilateral primary osteoarthritis, right hip; M17.11 Unilateral primary osteoarthritis, right knee; M79.89 Other specified soft tissue disorders; I70.201 Unspecified atherosclerosis of native arteries of extremities, right leg; Z79.82 Long term (current) use of aspirin; Z79.4 Long term (current) use of insulin; Z79.899 Other long term (current) drug therapy | CPT/HCPCS: 73060 ==

== ENCOUNTER → 2018-04-03 | Outpatient (CLI) | payer OTHER, MEDICARE | LOC: M RAD 09:17 | DX: M17.11 Unilateral primary osteoarthritis, right knee (principal); S80.01XA Contusion of right knee, initial encounter; M25.561 Pain in right knee; M79.601 Pain in right arm; I70.201 Unspecified atherosclerosis of native arteries of extremities, right leg; X58.XXXA Exposure to other specified factors, initial encounter; Y92.9 Unspecified place or not applicable; Y93.9 Activity, unspecified; Y99.9 Unspecified external cause status | CPT/HCPCS: 73700 ==

== ENCOUNTER 2018-05-25 15:07 | Inpatient (IN) | payer MEDICARE, OTHER ==
[~2018-05-25] VITALS: Ht 165.1 cm; Wt 108.6 kg
[~2018-05-25 15:07] MED LIST changes: +FLUT0.003; +GABAPOW41; -METF1000 PO; +METF10004 PO; -PRIL20CA PO; +PRIL20CA9 PO
[2018-05-25] MEDS ORDERED: DEXTROSE 50% 50 ML SYRINGE IV STA (15:26)
[2018-05-25] MEDS ORDERED: DEXTROSE 50% 50 ML SYRINGE As Ordered ONE (15:26)
[2018-05-25] MEDS ORDERED: NS 1,000 ML IV ONE (15:30)
[2018-05-25 15:37] LABS: ABG BASE EXCESS -5.2 (-2.0-2.0); ABG HCO3 20.4 MEQ/L (22.0-26.0); ABG O2 SATURATION 96.7 % (95.0-99.0); ABG PARTIAL PRESSURE O2 92.1 mmHg (75.0-100.0); ABG STANDARD HCO3 20.2 MEQ/L (22.0-26.0); ABG TOTAL CO2 21.6 MEQ/L (23.0-31.0); ABG pH (ARTERIAL) 7.325 UNITS (7.350-7.450)
[2018-05-25 15:48] LABS: BASO % 0.2 % (0.0-1.0); EOS # 0.1 10^3/uL (0.0-0.50); EOS % 0.7 % (0.0-3.0); HEMATOCRIT 34.5 % (42.0-52.0); HEMOGLOBIN 11.6 g/dl (13.5-17.5); LYMPH # 1.5 10^3/uL (1.5-4.5); LYMPH % 8.6 % (24.0-44.0); MEAN CORPUSCULAR HGB CONC 33.6 g/dl (32.0-36.5); MONO # 1.7 10^3/uL (0.0-0.8); MONO % 9.3 % (0.0-5.0); NEUTROPHILS # 14.4 10^3/uL (1.8-7.7); NEUTROPHILS % 79.9 % (36.0-66.0); PLATELET COUNT, AUTOMATED 229 10^3/uL (150-450); RED BLOOD COUNT 3.63 10^6/uL (4.30-6.10)
[2018-05-25] MEDS ORDERED: NS 2,140 ML in APPROPRIATE DILUENT 1 EA IV ONE (16:00)
[2018-05-25] MEDS ORDERED: PIPERACILLIN/TAZOBACTAM SOD 4.5 GM in D5W MINI-BAG PLUS 50 ML IV ONE (16:00)
[2018-05-25] MEDS ORDERED: TAMS1CAP17 PO (16:06)
[2018-05-25] MEDS ORDERED: MINO100C4 PO (16:06)
[2018-05-25] MEDS ORDERED: VITA200028 PO (16:06)
[2018-05-25] MEDS ORDERED: CALC1CAP31 PO (16:06)
[2018-05-25] MEDS ORDERED: LOSA50TA88 PO (16:06)
[2018-05-25] MEDS ORDERED: GABA-843 PO (16:06)
[2018-05-25 16:14] LABS: INR 1.05; PROTHROMBIN TIME 13.8 SECONDS (12.1-14.4)
[2018-05-25 16:15] LABS: PARTIAL THROMBOPLASTIN TIME 39.2 SECONDS (25.4-37.6)
[2018-05-25 16:27] LABS: ALBUMIN 2.3 GM/DL (3.2-5.2); ALT/SGPT 27 U/L (12-78); AMYLASE 74 U/L (25-115); BILIRUBIN,DIRECT < 0.1 MG/DL (0.0-0.2); BILIRUBIN,TOTAL 0.5 MG/DL (0.2-1.0); BLOOD UREA NITROGEN 91 MG/DL (7-18); C REACTIVE PROTEIN QUANTITATIV 3.53 MG/DL (0.00-0.30); CALCIUM LEVEL 7.4 MG/DL (8.8-10.2); CARBON DIOXIDE LEVEL 20 MEQ/L (21-32); CHLORIDE LEVEL 105 MEQ/L (98-107); CPK CREATINE PHOSPHOKINASE 98 U/L (39-308); CREATININE FOR GFR 2.37 MG/DL (0.70-1.30); FREE T4 0.64 NG/DL (0.76-1.46); GLOMERULAR FILTRATION RATE 28.9 (>42); GLUCOSE, FASTING 69 MG/DL (70-100); LIPASE 249 U/L (73-393); MB/CK RELATIVE INDEX 2.35 (< OR =4); POTASSIUM SERUM 4.9 MEQ/L (3.5-5.1); SODIUM LEVEL 136 MEQ/L (136-145); TOTAL PROTEIN 5.7 GM/DL (6.4-8.2); TROPONIN I 0.02 NG/ML (< 0.10)
[2018-05-25] MEDS ORDERED: CARB20TA PO (17:03)
[2018-05-25] MEDS ORDERED: ATOR40TA75 PO (17:03)
[2018-05-25] MEDS ORDERED: AMIO0.1T PO (17:03)
[2018-05-25 17:07] LABS: APPEARANCE, URINE HAZY (CLEAR); BACTERIA, URINE AUTO NEGATIVE (NEGATIVE); BILIRUBIN, URINE AUTO NEGATIVE (NEGATIVE); BLOOD, URINE BLOOD NEGATIVE (NEGATIVE); COLOR, URINE YELLOW (YELLOW); GLUCOSE, URINE (UA) AUTO NEGATIVE (NEGATIVE); KETONE, URINE AUTO NEGATIVE (NEGATIVE); LEUKOCYTE ESTERASE, URINE AUTO NEGATIVE (NEGATIVE); NITRITE, URINE AUTO NEGATIVE (NEGATIVE); PROTEIN, URINE AUTO NEGATIVE (NEGATIVE); RBC, URINE AUTO 2 /HPF (0-3); SPECIFIC GRAVITY URINE AUTO 1.008 (1.002-1.035); SQUAMOUS EPITHELIAL CELL UR AU 0 /HPF (0-6); UROBILINOGEN, URINE AUTO 0.2 mg/dL (0.0-2.0); WBC, URINE AUTO 1 /HPF (0-3)
[2018-05-25] MEDS ORDERED: OMEP20CA3 PO (17:08)
[2018-05-25] MEDS ORDERED: TORS20TA2 PO ×2 (17:10)
[2018-05-25 17:23] LABS: INFLUENZA A AMPLIFICATION NEGATIVE (NEGATIVE); INFLUENZA B AMPLIFICATION NEGATIVE (NEGATIVE)
[2018-05-25] MEDS ORDERED: NS 1,000 ML IV SCH (18:39)
[2018-05-25] MEDS ORDERED: ACETAMINOPHEN TAB 650MG DOSE (2X325MG) PO PRN (18:45)
--- NOTE | 2018-05-25 18:59 | ECGEPIP ---
Stationary ECG Study 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
[2018-05-25] MEDS ORDERED: GLUCAGON FOR INJ 1 MG VIAL (J1610) SC PRN ×2 (19:15→21:45)
[2018-05-25] MEDS ORDERED: GLUCOSE 4 GM CHEW TABLET PO PRN ×2 (19:15→21:45)
[2018-05-25] MEDS ORDERED: DEXTROSE 50% 50 ML SYRINGE IV PRN ×2 (19:15→21:45)
[2018-05-25 21:00] VITALS: BP 130/61
[2018-05-25] MEDS ORDERED: HumaLOG INSULIN (NovoLOG) PER UNIT SC SCH (21:00)
[2018-05-25] MEDS: ATORVASTATIN 20 MG TAB PO SCH (22:17)
[2018-05-25] MEDS: GABAPENTIN 300 MG CAP PO SCH (22:17)
[2018-05-25] MEDS: carBAMazepine 200 MG TAB PO SCH (22:18)
[2018-05-25] MEDS: HEPARIN SOD (PORCINE) 5000 UNITS/ML VIAL SQ SCH (22:25)
[2018-05-26] VITALS (7 sets, daily range): BP systolic 104–134; BP diastolic 60–68
[2018-05-26] MEDS: PIPERACILLIN/TAZOBACTAM SOD 2.25 GM in D5W MINI-BAG PLUS 50 ML IV SCH ×4 (01:47→17:14)
[2018-05-26 05:34] LABS: BASO % 0.2 % (0.0-1.0); EOS # 0.2 10^3/uL (0.0-0.50); HEMATOCRIT 33.4 % (42.0-52.0); HEMOGLOBIN 11.1 g/dl (13.5-17.5); LYMPH # 1.8 10^3/uL (1.5-4.5); LYMPH % 10.9 % (24.0-44.0); MEAN CORPUSCULAR HEMOGLOBIN 31.7 pg (27.0-33.0); MEAN CORPUSCULAR HGB CONC 33.2 g/dl (32.0-36.5); MEAN CORPUSCULAR VOLUME 95.4 fl (80.0-96.0); MONO # 1.5 10^3/uL (0.0-0.8); MONO % 8.8 % (0.0-5.0); NEUTROPHILS # 13.1 10^3/uL (1.8-7.7); NEUTROPHILS % 78.1 % (36.0-66.0); PLATELET COUNT, AUTOMATED 198 10^3/uL (150-450); WHITE BLOOD COUNT 16.8 10^3/uL (4.0-10.0)
[2018-05-26 05:50] LABS: CALCIUM LEVEL 7.1 MG/DL (8.8-10.2); CREATININE FOR GFR 2.18 MG/DL (0.70-1.30); GLOMERULAR FILTRATION RATE 31.8 (>42); POTASSIUM SERUM 4.2 MEQ/L (3.5-5.1)
--- NOTE | 2018-05-26 08:00 | REP ---
CT BRAIN WITHOUT CONTRAST: 05/25/2018. COMPARISON: 02/28/2016, 05/22/2014. CLINICAL HISTORY: Altered mental status. FINDINGS: Noncontrast images of the brain with bone and soft tissue windows reviewed for each slice level. Ventricles are midline, mildly dilated but without a shift. The bifrontal diameter 46 mm is unchanged. Slight prominence of the third and fourth ventricles. All this is proportionate to the moderately severe diffuse atrophy. There is no intracranial intraventricular hemorrhage or mass. Basal ganglia are symmetric except for old lacunar infarct of the inferior margin of the right globus pallidus, which is seen dating back to 2006 on MRI. Temporal and frontal lobes show the greatest atrophy. There is heterogeneous low attenuation white matter change consistent with chronic small vessel ischemic disease. The cortical stripe, although atrophic, is otherwise preserved without vascular territory infarct, hemorrhage, mass or mass effect. No extra-axial fluid collection. Brainstem intact. Cerebellum shows some atrophy. The basal cisterns are intact. There is no posterior fossa hemorrhage. Mastoids, visualized sinuses, skull base and calvarium are grossly unremarkable. There are vascular calcifications, fairly heavy, in the carotid siphons. IMPRESSION: 1. Atrophy and ventricular dilatation in proportion. Unchanged from multiple prior studies. 2. Old lacunar infarct suggested left basal ganglia, unchanged from multiple prior studies dating back to an MRI in 2006. 3. No acute infarct, intracranial hemorrhage, mass or mass effect. 4. Chronic small vessel white matter ischemic change in both hemispheres stable. 5. Heavy vascular calcifications in the carotid siphons with the sinuses, mastoids, skull base and calvarium show no acute finding. Electronically Signed by Az Blel MD 05/26/2018 01:03 P
--- NOTE | 2018-05-26 08:03 | REP ---
AP PORTABLE CHEST: 05/25/2018 CLINICAL HISTORY: Altered mental status. COMPARISON: AP chest 05/22/2014. FINDINGS: Single AP portable view shows a multilead AICD pacer with those leads in the right atrium, right ventricle and an epicardial lead, all unchanged. Lungs are adequately inflated. There is no pleural effusion, lateral pleural thickening apical scar or pneumothorax. No parenchymal lung mass, nodule or infiltrate. Some oxygen tubing overlies the right lung field. Suspect some mild cardiomegaly but no vascular redistribution, pulmonary edema or other acute finding. The aorta is mildly tortuous but without aneurysm. The airway is intact. Bones without acute finding. There is some minor degenerative changes spine and shoulders. IMPRESSION: 1. Mild cardiomegaly without edema or effusion. 2. Multilead AICD pacer unchanged. 3. No effusion, infiltrate, edema, pulmonary nodule or parenchymal mass. Electronically Signed by Az Bell MD 05/26/2018 01:04 P
--- NOTE | 2018-05-26 08:13 | REP ---
CT ABDOMEN PELVIS WITHOUT CONTRAST: 05/25/2018. CLINICAL HISTORY: SIRS. Evaluate for infection or other inflammatory process. COMPARISON: CT 04/18/2014. TECHNIQUE: Noncontrast images with coronal and sagittal reconstructions performed. FINDINGS: CT ABDOMEN: There is no hiatal hernia. Stomach partially filled with some retained food material. No gross mass or air-fluid levels. I see no hepatomegaly, focal hepatic lesion, intrahepatic biliary dilatation or cyst. Gallbladder shows no definite calcified stone or mass. Pancreas shows no calcification or mass. In the tail of the pancreas, there is some mild stranding and fat adjacent to it. I could not exclude some mild pancreatitis. No fluid collection, adenopathy, abscess or mass. Lung window review of all CT slices in the abdomen pelvis shows no perforation or free air. Spleen is not grossly enlarged and shows no masses. No adjacent ascites. There is a tiny splenule adjacent to the upper pole of the spleen and measuring about 8 mm. Two views are visualized on the previous study. Only one today. Adrenal glands normal. No periaortic or retroperitoneal pathologic sized adenopathy. The aorta has atherosclerotic calcification without aneurysm. Right and left kidneys show no mass, cyst, hydronephrosis or stone. Ureters show normal course to the bladder without dilatation or stone. Small bowel loops grossly unremarkable. Colon shows stool and gas scattered throughout without signs of colitis or diverticulitis. Appendix is seen and normal. No umbilical or ventral hernia. Bone windows show diffuse degenerative disc changes and vacuum phenomenon from L1-2 through L4-5. Narrowing of all those disc levels with less narrowing and no vacuum phenomena at L5-S1. No compression deformity in any of the lumbar lower thoracic vertebral levels visible. Some hypertrophic facet changes lower lumbar spine but no spondylolysis. CT PELVIS: SI joints, sacrum, pelvis and hip show no fracture. There are degenerative changes at the bilateral hips but these are mild. There is a bone island in the right. Heavy atherosclerotic calcification of the iliac vessels without aneurysm. There is no ventral or inguinal hernia. Bladder only minimally filled therefore, wall thickness is difficult to data entry representative. However no gross mass and no calcifications within the bladder. The distal left colon, sigmoid and rectum are filled with stool but not abnormally dilated without mass, colitis or diverticulitis. Appendix seen and normal. No ventral or inguinal hernia. IMPRESSION: 1. Infiltration of the peripancreatic fat around the tail of the pancreas which may reflect some early pancreatitis. No definite fluid collection or abscess. No peripancreatic adenopathy or pseudocyst at this time. 2. Liver, spleen, gallbladder, adrenal glands, kidneys and small bowel loops grossly unremarkable. 3. Stool and gas scattered throughout the colon without signs of colitis or diverticulitis. 4. No sign of appendicitis, abscess, perforation or free air. A few scattered diverticula without diverticulitis in the colon. 5. Bones without destructive lesion, fracture or other acute abnormality. 6. No renal, ureteral or bladder stone. No hydronephrosis. Electronically Signed by Az Bell MD 05/26/2018 01:06 P
--- NOTE | 2018-05-26 08:27 | REP ---
CT CHEST WITHOUT CONTRAST: 05/25/2018. Clinical history: SIRS. Technique: Noncontrast CT chest with axial soft-tissue and lung windows and both coronal and sagittal reconstructions. Comparison: Portable chest 05/25/2018. Findings: The lung coffey are well inflated. There is no pleural effusion, lateral pleural thickening, calcified pleural plaque or pleural-based mass. I see no pulmonary nodule, parenchymal mass, acute infiltrate or pneumothorax. There is no pneumomediastinum. Heart is not grossly enlarged. There is no pericardial thickening or effusion. A multi-lead pacer is present over the left upper chest and leads are the right atrium, right ventricle and an epicardial lead is also present. There are some calcifications over the aortic root and mitral annulus. Calcifications in the ascending arch and descending aorta noted without aneurysm. No pathologic sized mediastinal or hilar adenopathy. No significant pericardial thickening or effusion. There are some coronary artery calcifications. There is no axillary or supraclavicular mass. Bone windows show the sternum, manubrium, medial clavicles, right AC joint, visualized portions of scapulae, that portion of humeral heads, ribs all intact. The spine shows marginal osteophytes at all thoracic levels but no compression deformity or destructive lesions. There was no hiatal hernia. Please see the CT abdomen report this date for details of the abdominal structures. Impression: 1. Lung coffey are well inflated and clear and without infiltrate, effusion, nodule or mass. 2. Multi-lead AICD pacer without gross cardiomegaly, there is no pericardial effusion and no mediastinal or hilar mass. 3. No aortic aneurysm and no pathologic sized adenopathy. 4. Degenerative changes throughout the thoracic spine without compression deformity. The other bones unremarkable. Electronically Signed by Az Bell MD 05/26/2018 01:06 P
[2018-05-26] MEDS ORDERED: FLUBLOK(EGG FREE)(QUAD)INFLUENZA VACC 0.5ML SYRINGE (90682)18YRS&OLDER IM ONE (09:00)
[2018-05-26 09:32] LABS: CREATININE,RANDOM URINE 35.3 MG/DL
[2018-05-26] MEDS: HumaLOG INSULIN (NovoLOG) PER UNIT SC SCH ×3 (09:43→17:13)
[2018-05-26] MEDS: HEPARIN SOD (PORCINE) 5000 UNITS/ML VIAL SQ SCH ×2 (09:43→20:20)
[2018-05-26] MEDS: OMEPRAZOLE 20 MG CAP PO SCH (09:44)
[2018-05-26] MEDS: CARVedilol 12.5 MG TAB PO SCH ×2 (09:44→20:20)
[2018-05-26] MEDS: GABAPENTIN 300 MG CAP PO SCH ×3 (09:44→20:20)
[2018-05-26] MEDS: ASPIRIN 81 MG ENTERIC TAB PO SCH (09:45)
--- NOTE | 2018-05-26 10:39 | HPE ---
DATE OF ADMISSION: 05/25/2018 73-year-old male with a past medical history of seizure disorder, congestive heart failure (CHF), history of diabetes, coronary artery disease, chronic kidney disease stage III, who presents to the emergency room after being found altered at home. Apparently, the patient was out in the cold trying to clear the car. When he finished cleaning the car, his son-in-law found him sleeping in the car, difficult to arouse and so brought him to the emergency room for evaluation. As of yesterday, he was fine and today he was found altered. In the emergency room, he was found to be hypothermic with a rectal temperature of 94 and hypotensive with a systolic blood pressure of 80. He was given bolus 1 liter of normal saline and was given another liter, which brought his blood pressure up to systolic 130. They put the heating lamps on him and his new rectal temperature was 97. He was started on IV Zosyn empirically and blood cultures were sent out. The patient at this time is awake, alert, oriented times three. He was found to give a good history, though he does not really remember the morning that well. The was there to help connect the puzzle of what happened and verify what I was told by the emergency room attending. The patient denies any subjective feeling of fevers, aches or chills. He did have a CT scan of the chest, abdomen, pelvis and head, all which were negative. Urinalysis was negative as well. At this time, since his septic shock was reversed with IV fluids only, he will be admitted to the progressive care unit (PCU) for further management. PAST MEDICAL HISTORY: 1. Seizure disorder. 2. Congestive heart failure (CHF). 3. History of diabetes type 2. 4. Gout. 5. History of melanoma of the head, status post resection. 6. Coronary artery disease. 7. History of sleep apnea, on CPAP. 8. Chronic kidney disease stage III, baseline creatinine approximately 2.5. ALLERGIES: He has no known drug allergies. FAMILY HISTORY: Noncontributory. SOCIAL HISTORY: He denies tobacco, alcohol or illicit drugs. MEDICATIONS: He takes at home: - allopurinol 100 mg orally daily - amiodarone 100 mg orally daily - aspirin 81 mg orally daily - atorvastatin 40 mg orally at bedtime - calcitriol 0.25 mg orally daily - Tegretol 200 mg orally twice a day - carbamazepine 200 mg orally every two days - Coreg 25 mg orally twice a day - cholecalciferol 50,000 units weekly - gabapentin 300 mg orally three times a day - insulin Detemir 36 units subcutaneously at night - insulin Lispro per sliding scale - losartan 50 mg orally daily - minocycline 100 mg orally twice a day - omeprazole 20 mg orally daily - tamsulosin 0.4 mg orally at bedtime - torsemide 40 mg orally daily REVIEW OF SYSTEMS: Negative for all ten major systems except what is mentioned in the history of present illness. VITAL SIGNS: Blood pressure 109/50, heart rate 63 and regular, respiratory rate is 15, temperature 96.9 rectally, oxygen saturation 100% on room air. Head is atraumatic, normocephalic. Neck is supple with no jugular venous distention (JVD). Lungs are clear to auscultation. S1, S2 audible. No murmurs appreciated. Abdomen is soft. Positive bowel sounds. No pedal edema. Skin intact. Erythematous rash noted across his lower abdomen where his pannus is located. Neurologic examination, the patient is awake, alert and oriented times three. LABORATORIES: WBC 18,000, hemoglobin is 11.6, hematocrit 34.5, platelets 229,000. Neutrophil percent was 79.9. Sodium 136, potassium 4.9, chloride 105, CO2 of 20, anion gap 11, BUN 91, creatinine 2.37, glucose 69, lactic acid is 0.5, lipase 249, TSH 1.5, troponin 0.02. Urinalysis is negative for urinary tract infection (UTI) IMPRESSION: 1. Septic shock. 2. Cellulitis. PLAN: The patient is to be admitted to the progressive care unit (PCU). We will continue the patient on IV Zosyn. He patient was mildly hypoglycemic with a fingerstick of 60. For this, I will just hold him on a sliding scale for this evening and then we can resume his long-acting insulin in the morning. We will followup pancultures and continue his IV fluids at this time of normal saline at 125 an hour and titrate it down as needed. Right now he is responding very well to fluids. We will get morning CBC, BMP, and we will continue following his care in the progressive care unit (PCU).
[2018-05-26] MEDS: carBAMazepine 200 MG TAB PO SCH ×2 (10:46→20:21)
[2018-05-26] MEDS: AMIODARONE 100MG TABLET (PACERONE) PO SCH (10:46)
[2018-05-26] MEDS: NYSTATIN 100,000 UNITS/GM TOPICAL PWD 15 GM TOP SCH ×2 (12:00→20:21)
[2018-05-26] MEDS: D5W/0.9% SODIUM CHLORIDE 1,000 ML IV SCH ×2 (14:58→20:19)
--- NOTE | 2018-05-26 16:07 | IPNPDOC ---
Text Note Date of Service The patient was seen on 05/26/18. NOTE Subjective: Pt states he is felling much better. No longer has generalized we akness. Had fevers yesterday. Objective: Vitals: (see below) General: No acute distress, laying comfortably in bed. HEENT: Moist mucous membranes. Neck: No JVD or lymphadenopathy Cardiac: RRR, No murmurs Pulm: Diminished breath sounds b/l. No wheezing, rhonchi Abd: NT/ND + BS. Fungal rash in groin skin folds. Ext: 1+ edema BLE. No cyanosis Labs (see below) Images: CT Abd/pelvis 05/25/18 IMPRESSION: 1. Infiltration of the peripancreatic fat around the tail of the pancreas which may reflect some early pancreatitis. No definite fluid collection or abscess. No peripancreatic adenopathy or pseudocyst at this time. 2. Liver, spleen, gallbladder, adrenal glands, kidneys and small bowel loops grossly unremarkable. 3. Stool and gas scattered throughout the colon without signs of colitis or diverticulitis. 4. No sign of appendicitis, abscess, perforation or free air. A few scattered diverticula without diverticulitis in the colon. 5. Bones without destructive lesion, fracture or other acute abnormality. 6. No renal, ureteral or bladder stone. No hydronephrosis. CT Chest 05/25/18 Impression: 1. Lung coffey are well inflated and clear and without infiltrate, effusion, nodule or mass. 2. Multi-lead AICD pacer without gross cardiomegaly, there is no pericardial effusion and no mediastinal or hilar mass. 3. No aortic aneurysm and no pathologic sized adenopathy. 4. Degenerative changes throughout the thoracic spine without compression deformity. The other bones unremarkable CT Head 05/25/18 IMPRESSION: 1. Atrophy and ventricular dilatation in proportion. Unchanged from multiple prior studies. 2. Old lacunar infarct suggested left basal ganglia, unchanged from multiple prior studies dating back to an MRI in 2006. 3. No acute infarct, intracranial hemorrhage, mass or mass effect. 4. Chronic small vessel white matter ischemic change in both hemispheres stable. 5. Heavy vascular calcifications in the carotid siphons with the sinuses, mastoids, skull base and calvarium show no acute finding. Assessment/Plan 1. Sepsis 2/2 Cellulitis of skin groin folds. On Zosyn. Started on Nystatin as well. Improving. Received IVF. Blood cx pending. 2. H/o CHF s/p AICD. Compensated. Hold diuretics for now. 3. DM - cont SSI. Consistent carb diet. 4. H/o CAD - cont home meds 5. H/o VENTURA on CPAP 6. H/o CKD baseline Cr. 2.5. Avoid nephrotoxins. 7. H/o Melanoma of the head. s/p resection. 8. H/o seizure d/o. Cont carbamazepine. DVT prophy: Hep SQ Overall prognosis guarded. VS,Fishbone, I+O VS, Fishbone, I+O Laboratory Tests 05/26/18 04:49 Red Blood Count 3.50 L, Mean Corpuscular Volume 95.4, Mean Corpuscular Hemog lobin 31.7, Mean Corpuscular Hemoglobin Concent 33.2, Red Cell Distribution Width 14.3, Neutrophils (%) (Auto) 78.1 H, Lymphocytes (%) (Auto) 10.9 L, Monocytes (%) (Auto) 8.8 H, Eosinophils (%) (Auto) 1.0, Basophils (%) (Auto) 0.2, Neutrophils # (Auto) 13.1 H, Lymphocytes # (Auto) 1.8, Monocytes # (Auto) 1.5 H, Eosinophils # (Auto) 0.2, Basophils # (Auto) 0.0, Calcium Level 7.1 L Vital Signs Date Time Temp Pulse Resp B/P (MAP) Pulse Ox O2 Delivery O2 Flow Rate FiO2 05/26/18 12:00 97.8 70 19 124/61 (82) 98 05/26/18 08:00 Room Air I&O- Last 24 Hours up to 6 AM 05/26/18 06:00 Intake Total 3250 ml Output Total 400 ml Balance 2850 ml DIO KURTZ MD May 26, 2018 16:07
[2018-05-26] MEDS: ATORVASTATIN 20 MG TAB PO SCH (20:19)
[2018-05-26] MEDS ORDERED: TORSEMIDE 20 MG TAB PO SCH (21:00)
[2018-05-27] MEDS: PIPERACILLIN/TAZOBACTAM SOD 2.25 GM in D5W MINI-BAG PLUS 50 ML IV SCH ×2 (01:25→09:50)
[2018-05-27] MEDS: HumaLOG INSULIN (NovoLOG) PER UNIT SC SCH ×3 (07:25→17:20)
[2018-05-27 08:00] VITALS: BP 132/60
[2018-05-27] MEDS: NYSTATIN 100,000 UNITS/GM TOPICAL PWD 15 GM TOP SCH ×2 (08:02→20:34)
[2018-05-27] MEDS: HEPARIN SOD (PORCINE) 5000 UNITS/ML VIAL SQ SCH ×2 (08:02→20:33)
[2018-05-27] MEDS: ASPIRIN 81 MG ENTERIC TAB PO SCH (08:03)
[2018-05-27] MEDS: carBAMazepine 200 MG TAB PO SCH ×2 (08:03→20:33)
[2018-05-27] MEDS: CARVedilol 12.5 MG TAB PO SCH ×2 (08:03→20:33)
[2018-05-27] MEDS: OMEPRAZOLE 20 MG CAP PO SCH (08:03)
[2018-05-27] MEDS: GABAPENTIN 300 MG CAP PO SCH ×3 (08:03→20:33)
[2018-05-27] MEDS: AMIODARONE 100MG TABLET (PACERONE) PO SCH (08:03)
[2018-05-27 08:42] LABS: BASO % 0.2 % (0.0-1.0); EOS # 0.2 10^3/uL (0.0-0.50); EOS % 1.5 % (0.0-3.0); HEMATOCRIT 31.9 % (42.0-52.0); HEMOGLOBIN 10.6 g/dl (13.5-17.5); LYMPH # 1.4 10^3/uL (1.5-4.5); LYMPH % 10.8 % (24.0-44.0); MEAN CORPUSCULAR HEMOGLOBIN 32.1 pg (27.0-33.0); MEAN CORPUSCULAR HGB CONC 33.2 g/dl (32.0-36.5); MEAN CORPUSCULAR VOLUME 96.7 fl (80.0-96.0); MONO # 1.2 10^3/uL (0.0-0.8); MONO % 8.8 % (0.0-5.0); NEUTROPHILS # 10.1 10^3/uL (1.8-7.7); NEUTROPHILS % 77.9 % (36.0-66.0); PLATELET COUNT, AUTOMATED 175 10^3/uL (150-450)
[2018-05-27 09:03] LABS: ALBUMIN 2.1 GM/DL (3.2-5.2); BILIRUBIN,TOTAL 0.3 MG/DL (0.2-1.0); C REACTIVE PROTEIN QUANTITATIV 7.14 MG/DL (0.00-0.30); CALCIUM LEVEL 7.2 MG/DL (8.8-10.2); CREATININE FOR GFR 1.93 MG/DL (0.70-1.30); GLOMERULAR FILTRATION RATE 36.6 (>42); MAGNESIUM LEVEL 1.7 MG/DL (1.8-2.4); POTASSIUM SERUM 4.5 MEQ/L (3.5-5.1)
--- NOTE | 2018-05-27 09:09 | IPNPDOC ---
Date Seen The patient was seen on 05/27/18. Progress Note Subjective: 73 Year old male seen today and examined at bedside. States to be feeling great. Has no complaint this AM. Would like to know when he can go home. has not worked with PT yet and he is tolerating his medication. He denies SOB, CP, N/V/D/C. He has good urine output and is having good bowl movements with no problem. Objective: Vitals: (see below) General: No acute distress, laying comfortably in bed appriopately answering questions. HEENT: Moist mucous membranes. Neck: No JVD or lymphadenopathy Cardiac: RRR, No murmurs Pulm: CTA-B. No wheezing, rhonchi Abd: NT/ND + BS. Fungal rash in groin skin folds, slightly erythematous Ext: 1+ edema BLE. No cyanosis Labs (see below) Images: CT Abd/pelvis 05/25/18 IMPRESSION: 1. Infiltration of the peripancreatic fat around the tail of the pancreas which may reflect some early pancreatitis. No definite fluid collection or abscess. No peripancreatic adenopathy or pseudocyst at this time. 2. Liver, spleen, gallbladder, adrenal glands, kidneys and small bowel loops grossly unremarkable. 3. Stool and gas scattered throughout the colon without signs of colitis or diverticulitis. 4. No sign of appendicitis, abscess, perforation or free air. A few scattered diverticula without diverticulitis in the colon. 5. Bones without destructive lesion, fracture or other acute abnormality. 6. No renal, ureteral or bladder stone. No hydronephrosis. CT Chest 05/25/18 Impression: 1. Lung coffey are well inflated and clear and without infiltrate, effusion, nodule or mass. 2. Multi-lead AICD pacer without gross cardiomegaly, there is no pericardial effusion and no mediastinal or hilar mass. 3. No aortic aneurysm and no pathologic sized adenopathy. 4. Degenerative changes throughout the thoracic spine without compression d eformity. The other bones unremarkable CT Head 05/25/18 IMPRESSION: 1. Atrophy and ventricular dilatation in proportion. Unchanged from multiple prior studies. 2. Old lacunar infarct suggested left basal ganglia, unchanged from multiple prior studies dating back to an MRI in 2006. 3. No acute infarct, intracranial hemorrhage, mass or mass effect. 4. Chronic small vessel white matter ischemic change in both hemispheres stable. 5. Heavy vascular calcifications in the carotid siphons with the sinuses, mastoids, skull base and calvarium show no acute finding. Assessment/Plan 1. Sepsis 2/2 Cellulitis of skin groin folds. -clinically improving -d.c Dinahn for board coverage. -start renal dosed cefdinir x9 DAYS -c/w Nystatin -Blood cx x2 negative for growth. -Leukocytosis improving 2. H/o CHF s/p AICD. -Compensated. -continue to hold diuretics. -c/w Coreg, 3. DM -c/w SSI -Home levemir 36 units held. current sugar are low. will continue to monitor before restarting. -Consistent carbohydrate diet. 4. H/o CAD -c/w Coreg, amiodarone, Lipitor 5. Hx of Hypertension: -Home medication held because of soft pressure (Losartan and Torsemide) -will continue to monitor 6. H/o VENTURA -c/w CPAP 7. H/o CKD baseline Cr. 2.5. -Avoid nephrotoxins (held lorsatan and allopurinol) 8. Hx of Gout -currently asymptomatic. 8. H/o Melanoma of the head. s/p resection. 9. H/o seizure d/o. -c/w carbamazepine. 10. DVT prophy: Hep SQ 11. PT - consulted. -awaiting clearance and recommendation prior to discharge. -possible D.C in 24-48 hours pending PT clearance, VS, I&O, 24H, Fishbone Vital Signs/I&O Vital Signs Date Time Temp Pulse Resp B/P (MAP) Pulse Ox O2 Delivery O2 Flow Rate FiO2 05/27/18 08:03 65 132/60 05/27/18 08:00 97.5 20 96 Room Air I&O- Last 24 Hours up to 6 AM 05/27/18 05:59 Intake Total 2190 ml Output Total 0 ml Balance 2190 ml Laboratory Data 24H LABS Laboratory Tests 2 05/26/18 08:59: Urine Random Creatinine 35.3, Urine Random Sodium 56 05/26/18 11:02: Bedside Glucose (Misc Panel) 209H 05/26/18 16:47: Bedside Glucose (Misc Panel) 129H 05/27/18 07:11: Bedside Glucose (Misc Panel) 161H 05/27/18 08:30: Immature Granulocyte % (Auto) 0.8, White Blood Count 13.0H, Red Blood Count 3.30L, Hemoglobin 10.6L, Hematocrit 31.9L, Mean Corpuscular Volume 96.7H, Mean Corpuscular Hemoglobin 32.1, Mean Corpuscular Hemoglobin Concent 33.2, Red Cell Distribution Width 14.4, Platelet Count 175, Neutrophils (%) (Auto) 77.9H, Lymphocytes (%) (Auto) 10.8L, Monocytes (%) (Auto) 8.8H, Eosinophils (%) (Auto) 1.5, Basophils (%) (Auto) 0.2, Neutrophils # (Auto) 10.1H, Lymphocytes # (Auto) 1.4L, Monocytes # (Auto) 1.2H, Eosinophils # (Auto) 0.2, Basophils # (Auto) 0.0, Nucleated Red Blood Cells % (auto) 0.0 CBC/BMP Laboratory Tests 05/27/18 08:30 Red Blood Count 3.30 L, Mean Corpuscular Volume 96.7 H, Mean Corpuscular Hemoglobin 32.1, Mean Corpuscular Hemoglobin Concent 33.2, Red Cell Distribution Width 14.4, Neutrophils (%) (Auto) 77.9 H, Lymphocytes (%) (Auto) 10.8 L, Monocytes (%) (Auto) 8.8 H, Eosinophils (%) (Auto) 1.5, Basophils (%) (Auto) 0.2, Neutrophils # (Auto) 10.1 H, Lymphocytes # (Auto) 1.4 L, Monocytes # (Auto) 1.2 H, Eosinophils # (Auto) 0.2, Basophils # (Auto) 0.0 Microbiology Microbiology 05/25/18 Blood Culture - Preliminary, Resulted No growth after 24 hours . All specim... 05/25/18 Blood Culture - Preliminary, Resulted No growth after 24 hours . All specim... 05/25/18 Urine Culture - Final, Complete GME ATTESTATION GME ATTESTATION My faculty preceptor for this patient encounter was physically present during the encounter and was fully available. All aspects of the patient interview, examination, medical decision making process, and medical care plan development were reviewed and approved by the faculty preceptor. The faculty preceptor is aware and concurs with the plan as stated in the body of this note and will attest to such by his/her cosignature. HAIDER SANCHEZ DO May 27, 2018 09:09
[2018-05-27] MEDS ORDERED: MAG SULF 1GM/100ML (MAG RUN) 1 GM in APPROPRIATE DILUENT 1 EA IV ONE (09:15)
[2018-05-27 12:00] VITALS: BP 124/68
[2018-05-27 16:00] VITALS: BP 151/64
[2018-05-27] MEDS ORDERED: SLF 3 ML SYR IV PRN (16:45)
[2018-05-27 20:00] VITALS: BP 166/62
[2018-05-27] MEDS: ATORVASTATIN 20 MG TAB PO SCH (20:32)
[2018-05-27] MEDS: SLF 3 ML SYR IV SCH (20:33)
[2018-05-27] MEDS: CEFDINIR 300 MG CAP (OMNICEF) PO SCH (21:24)
[2018-05-27] MEDS ORDERED: LABETALOL HCL 100 MG/20 ML VIAL IV STA (23:48)
[2018-05-27 23:59] VITALS: BP 180/60
[2018-05-28] MEDS: TORSEMIDE 20 MG TAB PO SCH ×2 (00:01→09:10)
[2018-05-28 01:07] VITALS: BP 140/80
[2018-05-28 04:00] VITALS: BP 160/64
[2018-05-28 05:39] LABS: BASO % 0.2 % (0.0-1.0); EOS # 0.3 10^3/uL (0.0-0.50); EOS % 2.2 % (0.0-3.0); HEMATOCRIT 33.5 % (42.0-52.0); HEMOGLOBIN 11.2 g/dl (13.5-17.5); LYMPH % 15.5 % (24.0-44.0); MEAN CORPUSCULAR HEMOGLOBIN 31.5 pg (27.0-33.0); MEAN CORPUSCULAR HGB CONC 33.4 g/dl (32.0-36.5); MEAN CORPUSCULAR VOLUME 94.1 fl (80.0-96.0); MONO % 7.5 % (0.0-5.0); NEUTROPHILS # 9.4 10^3/uL (1.8-7.7); NEUTROPHILS % 73.7 % (36.0-66.0); PLATELET COUNT, AUTOMATED 170 10^3/uL (150-450); RED BLOOD COUNT 3.56 10^6/uL (4.30-6.10); WHITE BLOOD COUNT 12.8 10^3/uL (4.0-10.0)
[2018-05-28] MEDS: SLF 3 ML SYR IV SCH (05:57)
[2018-05-28 06:04] LABS: ALBUMIN 2.1 GM/DL (3.2-5.2); BILIRUBIN,TOTAL 0.4 MG/DL (0.2-1.0); CALCIUM LEVEL 7.6 MG/DL (8.8-10.2); CREATININE FOR GFR 1.9 MG/DL (0.70-1.30); GLOMERULAR FILTRATION RATE 37.3 (>42); MAGNESIUM LEVEL 1.7 MG/DL (1.8-2.4); POTASSIUM SERUM 4.3 MEQ/L (3.5-5.1); TOTAL PROTEIN 5.7 GM/DL (6.4-8.2)
[2018-05-28] MEDS ORDERED: CEFD300CAP PO (07:59)
[2018-05-28 08:00] VITALS: BP 130/58
[2018-05-28] MEDS ORDERED: MAG SULF 1GM/100ML (MAG RUN) 1 GM in APPROPRIATE DILUENT 1 EA IV ONE (08:00)
[2018-05-28] MEDS ORDERED: LOSARTAN 50 MG TAB PO SCH (09:00)
[2018-05-28] MEDS: HumaLOG INSULIN (NovoLOG) PER UNIT SC SCH ×2 (09:09→12:00)
[2018-05-28] MEDS: CEFDINIR 300 MG CAP (OMNICEF) PO SCH (09:10)
[2018-05-28] MEDS: NYSTATIN 100,000 UNITS/GM TOPICAL PWD 15 GM TOP SCH (09:10)
[2018-05-28] MEDS: HEPARIN SOD (PORCINE) 5000 UNITS/ML VIAL SQ SCH (09:10)
[2018-05-28] MEDS: GABAPENTIN 300 MG CAP PO SCH (09:11)
[2018-05-28] MEDS: ASPIRIN 81 MG ENTERIC TAB PO SCH (09:11)
[2018-05-28] MEDS: OMEPRAZOLE 20 MG CAP PO SCH (09:11)
[2018-05-28 09:12] VITALS: BP 130/58
[2018-05-28] MEDS: CARVedilol 12.5 MG TAB PO SCH (09:12)
[2018-05-28] MEDS: AMIODARONE 100MG TABLET (PACERONE) PO SCH (10:29)
[2018-05-28] MEDS: carBAMazepine 200 MG TAB PO SCH (10:29)
--- NOTE | 2018-05-28 11:36 | DS.PDOC ---
Discharge Summary General Date of Admission May 25, 2018 at 18:39 Date of Discharge 05/28/18 Primary Care Physician: JESSE GUAJARDO MD [facility] Discharge Summary PROCEDURES PERFORMED DURING STAY: None. ADMITTING/DISCHARGE DIAGNOSES: 1. Sepsis 2/2 Cellulitis of skin groin folds. 2. H/o CHF s/p AICD. 3. DM 4. H/o CAD 5. Hx of Hypertension: 6. H/o VENTURA 7. H/o CKD baseline Cr. 2.5. 8. Hx of Gout 9. H/o Melanoma of the head. s/p resection. 10. H/o seizure d/o. COMPLICATIONS/CHIEF COMPLAINT: Colitis,Sepsis. HISTORY OF PRESENT ILLNESS/ HOSPITAL COURSE: 73-year-old male with a past medical history of seizure disorder, congestive heart failure (CHF), history of diabetes, coronary artery disease, chronic kidney disease stage III, who presents to the emergency room after being found altered at home. Apparently, the patient was out in the cold trying to clear the car. When he finished cleaning the car, his son-in-law found him sleeping in the car, difficult to arouse and so brought him to the emergency room for evaluation. As of yesterday, he was fine and today he was found altered. In the emergency room, he was found to be hypothermic with a rectal temperature of 94 and hypotensive with a systolic blood pressure of 80. He was given bolus 1 liter of normal saline and was given another liter, which brought his blood pressure up to systolic 130. They put the heating lamps on him and his new rectal temperature was 97. He was started on IV Zosyn empirically and blood cultures were sent out. The patient at this time is awake, alert, oriented times three. He was fo und to give a good history, though he does not really remember the morning that well. The was there to help connect the puzzle of what happened and verify what I was told by the emergency room attending. The patient denies any subjective feeling of fevers, aches or chills. He did have a CT scan of the chest, abdomen, pelvis and head, all which were negative. He Urinalysis was negative as well. At this time, since his septic shock was reversed with IV fluids only, He was admitted to PCU and was started on IV antibiotics as well as fluids. Symptoms improved with medical therapy. He was advised to follow up with his PCP in 7-10 days. PO antibiotics were sent to his pharamcy. He was cleared by PT as well. DISCHARGE MEDICATIONS: Please see below. ALLERGIES: Please see below. PHYSICAL EXAMINATION ON DISCHARGE: Vitals: (see below) General: No acute distress, laying comfortably in bed appriopately answering questions. HEENT: Moist mucous membranes. Neck: No JVD or lymphadenopathy Cardiac: RRR, No murmurs Pulm: CTA-B. No wheezing, rhonchi Abd: NT/ND + BS. Fungal rash in groin skin folds, slightly erythematous Ext: 1+ edema BLE. No cyanosis IMAGIN05/25/[address] IMPRESSION: 1. Atrophy and ventricular dilatation in proportion. Unchanged from multiple prior studies. 2. Old lacunar infarct suggested left basal ganglia, unchanged from multiple prior studies dating back to an MRI in 2006. 3. No acute infarct, intracranial hemorrhage, mass or mass effect. 4. Chronic small vessel white matter ischemic change in both hemispheres stable. 5. Heavy vascular calcifications in the carotid siphons with the sinuses, mastoids, skull base and calvarium show no acute finding. CXR IMPRESSION: 1. Mild cardiomegaly without edema or effusion. 2. Multilead AICD pacer unchanged. 3. No effusion, infiltrate, edema, pulmonary nodule or parenchymal mass. CHEST CT Impression: 1. Lung coffey are well inflated and clear and without infiltrate, effusion, nodule or mass. 2. Multi-lead AICD pacer without gross cardiomegaly, there is no pericardial effusion and no mediastinal or hilar mass. 3. No aortic aneurysm and no pathologic sized adenopathy. 4. Degenerative changes throughout the thoracic spine without compression deformity. The other bones unremarkable. ABD/PEL CT IMPRESSION: 1. Infiltration of the peripancreatic fat around the tail of the pancreas which may reflect some early pancreatitis. No definite fluid collection or abscess. No peripancreatic adenopathy or pseudocyst at this time. 2. Liver, spleen, gallbladder, adrenal glands, kidneys and small bowel loops grossly unremarkable. 3. Stool and gas scattered throughout the colon without signs of colitis or diverticulitis. 4. No sign of appendicitis, abscess, perforation or free air. A few scattered diverticula without diverticulitis in the colon. 5. Bones without destructive lesion, fracture or other acute abnormality. 6. No renal, ureteral or bladder stone. No hydronephrosis. PROGNOSIS: Fair ACTIVITY: As tolerated DIET: 2 GRAM Sodium + Consistent Carbohydrate +Low Fat Low Cholesterol diet DISPOSITION: Home DISCHARGE INSTRUCTIONS: 1. Follow with pcp in 7-10 days. 2. Complete antibiotics as proscribe. 3. If symptoms return or worsen call PCP or return to the ER. DISCHARGE CONDITION: Stable. TIME SPENT ON DISCHARGE: Greater than 35 minutes. Vital Signs/I&Os Vital Signs Date Time Temp Pulse Resp B/P (MAP) Pulse Ox O2 Delivery O2 Flow Rate FiO2 05/28/18 04:00 96.0 62 20 160/64 (96) 95 Room Air I&O- Last 24 Hours up to 6 AM 05/28/18 06:00 Intake Total 1910 ml Output Total 700 ml Balance 1210 ml Laboratory Data Labs 24H Laboratory Tests 2 05/27/18 08:30: Immature Granulocyte % (Auto) 0.8, White Blood Count 13.0H, Red Blood Count 3.30L, Hemoglobin 10.6L, Hematocrit 31.9L, Mean Corpuscular Volume 96.7H, Mean Corpuscular Hemoglobin 32.1, Mean Corpuscular Hemoglobin Concent 33.2, Red Cell Distribution Width 14.4, Platelet Count 175, Neutrophils (%) (Auto) 77.9H, Lymphocytes (%) (Auto) 10.8L, Monocytes (%) (Auto) 8.8H, Eosinophils (%) (Auto) 1.5, Basophils (%) (Auto) 0.2, Neutrophils # (Auto) 10.1H, Lymphocytes # (Auto) 1.4L, Monocytes # (Auto) 1.2H, Eosinophils # (Auto) 0.2, Basophils # (Auto) 0.0, Nucleated Red Blood Cells % (auto) 0.0, Anion Gap 7L, Glomerular Filtration Rate 36.6L, Blood Urea Nitrogen 53H, Creatinine 1.93H, Sodium Level 137, Potassium Level 4.5, Chloride Level 110H, Carbon Dioxide Level 20L, Calcium Level 7.2L, Aspartate Amino Transf (AST/SGOT) 16, Alanine Aminotransferase (ALT/SGPT) 22, Alkaline Phosphatase 149H, Total Bilirubin 0.3, Total Protein 5.0L, Albumin 2.1L, Magnesium Level 1.7L, C-Reactive Protein, Quantitative 7.14H, Albumin/Globulin Ratio 0.72L 05/27/18 11:56: Bedside Glucose (Misc Panel) 218H 05/27/18 17:16: Bedside Glucose (Misc Panel) 192H 05/27/18 20:40: Bedside Glucose (Misc Panel) 190H 05/28/18 05:20: Immature Granulocyte % (Auto) 0.9, White Blood Count 12.8H, Red Blood Count 3.56L, Hemoglobin 11.2L, Hematocrit 33.5L, Mean Corpuscular Volume 94.1, Mean Corpuscular Hemoglobin 31.5, Mean Corpuscular Hemoglobin Concent 33.4, Red Cell Distribution Width 13.8, Platelet Count 170, Neutrophils (%) (Auto) 73.7H, Lymphocytes (%) (Auto) 15.5L, Monocytes (%) (Auto) 7.5H, Eosinophils (%) (Auto) 2.2, Basophils (%) (Auto) 0.2, Neutrophils # (Auto) 9.4H, Lymphocytes # (Auto) 2.0, Monocytes # (Auto) 1.0H, Eosinophils # (Auto) 0.3, Basophils # (Auto) 0.0, Nucleated Red Blood Cells % (auto) 0.0, Anion Gap 6L, Glomerular Filtration Rate 37.3L, Blood Urea Nitrogen 43H, Creatinine 1.90H, Sodium Level 136, Potassium Level 4.3, Chloride Level 106, Carbon Dioxide Level 24, Calcium Level 7.6L, Aspartate Amino Transf (AST/SGOT) 16, Alanine Aminotransferase (ALT/SGPT) 26, Alkaline Phosphatase 152H, Total Bilirubin 0.4, Total Protein 5.7L, Albumin 2 .1L, Magnesium Level 1.7L, Albumin/Globulin Ratio 0.58L CBC/BMP Laboratory Tests 05/27/18 08:30 Red Blood Count 3.30 L, Mean Corpuscular Volume 96.7 H, Mean Corpuscular Hemoglobin 32.1, Mean Corpuscular Hemoglobin Concent 33.2, Red Cell Distribution Width 14.4, Neutrophils (%) (Auto) 77.9 H, Lymphocytes (%) (Auto) 10.8 L, Monocytes (%) (Auto) 8.8 H, Eosinophils (%) (Auto) 1.5, Basophils (%) (Auto) 0.2, Neutrophils # (Auto) 10.1 H, Lymphocytes # (Auto) 1.4 L, Monocytes # (Auto) 1.2 H, Eosinophils # (Auto) 0.2, Basophils # (Auto) 0.0, Calcium Level 7.2 L, Aspartate Amino Transf (AST/SGOT) 16, Alanine Aminotransferase (ALT/SGPT) 22, Alkaline Phosphatase 149 H, Total Bilirubin 0.3, Total Protein 5.0 L, Albumin 2.1 L 05/28/18 05:20 Red Blood Count 3.56 L, Mean Corpuscular Volume 94.1, Mean Corpuscular Hemoglobin 31.5, Mean Corpuscular Hemoglobin Concent 33.4, Red Cell Distribution Width 13.8, Neutrophils (%) (Auto) 73.7 H, Lymphocytes (%) (Auto) 15.5 L, Monocytes (%) (Auto) 7.5 H, Eosinophils (%) (Auto) 2.2, Basophils (%) (Auto) 0.2, Neutrophils # (Auto) 9.4 H, Lymphocytes # (Auto) 2.0, Monocytes # (Auto) 1.0 H, Eosinophils # (Auto) 0.3, Basophils # (Auto) 0.0, Calcium Level 7.6 L, Aspartate Amino Transf (AST/SGOT) 16, Alanine Aminotransferase (ALT/SGPT) 26, Alkaline Phosphatase 152 H, Total Bilirubin 0.4, Total Protein 5.7 L, Albumin 2.1 L FSBS Laboratory Tests Test 05/27/18 11:56 05/27/18 17:16 05/27/18 20:40 Range/Units Bedside Glucose (Misc Panel) 218 192 190 83-110 MG/DL Microbiology Microbiology 05/25/18 Blood Culture - Preliminary, Resulted No Growth after 48 hours. All Specime... 05/25/18 Blood Culture - Preliminary, Resulted No Growth after 48 hours. All Specime... 05/25/18 Urine Culture - Final, Complete Discharge Medications Scheduled (Tamsulosin Hydrochloride) 0.4 Mg Cap, 0.4 MG PO QHS, (Reported) Allopurinol (Allopurinol) 100 Mg Tab, 300 MG PO DAILY, (Reported) Amiodarone HCl (Amiodarone HCl) 100 Mg Tab, 100 MG PO DAILY, (Reported) Aspirin (Aspir-81) 81 Mg Tab, 81 MG PO DAILY, (Reported) Atorvastatin Calcium (Atorvastatin Calcium) 40 Mg Tab, 40 MG PO QHS, (Reported) Calcitriol (Calcitriol) 0.25 Mcg Cap, 0.25 MCG PO DAILY, (Reported) Carbamazepine (TEGretol) 200 Mg Tab, 200 MG PO BID, (Reported) Carbamazepine (TEGretol) 200 Mg Tab, 200 MG PO Q2D, (Reported) QHS: 400MG TOTAL. Carvedilol (Coreg) 25 Mg Tab, 25 MG PO BID, (Reported) Cefdinir (Cefdinir) 300 Mg Cap, 300 MG PO BID Ergocalciferol (Vitamin D2) 2,000 Unit Tab, 50,000 UNITS PO QWEEK, (Reported) TAKES ON THURSDAYS. Gabapentin (Gabapentin) 300 Mg Cap, 300 MG PO TID, (Reported) Insulin Detemir (Levemir Flextouch) 100 Unit/Ml Inj, 36 UNIT SC QHS, (Reported) Insulin Human Lispro (Humalog Kwikpen) 100 Unit/Ml Inj, SC ACHS, (Reported) PER SLIDING SCALE. Losartan Potassium (Losartan Potassium) 50 Mg Tab, 50 MG PO DAILY, (Reported) Minocycline HCl (Minocycline HCl) 100 Mg Cap, 100 MG PO BID, (Reported) Omeprazole (Omeprazole) 20 Mg Cap, 20 MG PO DAILY, (Reported) Torsemide (Torsemide) 20 Mg Tab, 40 MG PO DAILY, (Reported) Allergies Coded Allergies: No Known Allergies (Unverified , 04/18/14) GME ATTESTATION GME ATTESTATION My faculty preceptor for this patient encounter was physically present during the encounter and was fully available. All aspects of the patient interview, examination, medical decision making process, and medical care plan development were reviewed and approved by the faculty preceptor. The faculty preceptor is aware and concurs with the plan as stated in the body of this note and will attest to such by his/her cosignature. HAIDER SANCHEZ DO May 28, 2018 08:01
== END 2018-05-28 13:15 | disposition home or self-care (01) | DRG 872 ==
LOC: M ED 15:07 → M ED INP 18:39 → M PCU 20:48
PROVIDERS: ADMIT Internal Medicine; ATTEND Internal Medicine
DX: A41.9 Sepsis, unspecified organism (principal); L03.314 Cellulitis of groin; G40.909 Epilepsy, unspecified, not intractable, without status epilepticus; I50.9 Heart failure, unspecified; E11.22 Type 2 diabetes mellitus with diabetic chronic kidney disease; M10.9 Gout, unspecified; I25.10 Atherosclerotic heart disease of native coronary artery without angina pectoris; N18.3 Chronic kidney disease, stage 3 (moderate); G47.33 Obstructive sleep apnea (adult) (pediatric); Z79.82 Long term (current) use of aspirin; Z79.4 Long term (current) use of insulin; Z79.899 Other long term (current) drug therapy; Z85.820 Personal history of malignant melanoma of skin; Z95.810 Presence of automatic (implantable) cardiac defibrillator; T68.XXXA Hypothermia, initial encounter; X31.XXXA Exposure to excessive natural cold, initial encounter; Y92.009 Unspecified place in unspecified non-institutional (private) residence as the place of occurrence of the external cause

== ENCOUNTER 2018-06-07 07:48 | Inpatient (IN) | payer MEDICARE ==
[~2018-06-07] VITALS: Ht 162.6 cm; Wt 116.6 kg
[~2018-06-07 07:48] MED LIST changes: +AMIO0.1T PO; +ATOR40TA75 PO; +CALC1CAP31 PO; +CEFD300CAP PO; +GABA-843 PO; +LOSA50TA88 PO; +MINO100C4 PO; +OMEP20CA3 PO; +TAMS1CAP17 PO; +VITA200028 PO
--- NOTE | 2018-06-07 08:49 | ECGEPIP ---
Stationary ECG Study [facility] - ED Test Date: 2018-06-07 Pat Name: RUPAL CARVER Department: Room: - Gender: M Technical Producer: : [id number] Requested By: Nia Willoughby Order Number: [id number] Reading MD: Nia Willoughby Measurements Intervals [place] Rate: 60 P: 259 CA: 198 QRS: 241 QRSD: 171 T: 26 QT: 513 QTc: 513 Interpretive Statements ELECTRONIC ATRIAL PACEMAKER ELECTRONIC VENTRICULAR PACEMAKER ABNORMAL RHYTHM ECG SIMILAR 05/25/18 Electronically Signed On 06-07-2018 8:49:26 EST by Nia Willoughby
[2018-06-07 08:54] LABS: ABG BASE EXCESS -5.3 (-2.0-2.0); ABG HCO3 20.9 MEQ/L (22.0-26.0); ABG O2 SATURATION 96.5 % (95.0-99.0); ABG PARTIAL PRESSURE CO2 43.2 mmHg (35.0-45.0); ABG PARTIAL PRESSURE O2 95.8 mmHg (75.0-100.0); ABG STANDARD HCO3 20.1 MEQ/L (22.0-26.0); ABG TOTAL CO2 22.2 MEQ/L (23.0-31.0); ABG pH (ARTERIAL) 7.302 UNITS (7.350-7.450)
[2018-06-07] MEDS ORDERED: ZYLO300T6 PO (08:56)
[2018-06-07] MEDS ORDERED: CARB20TA PO (08:56)
[2018-06-07] MEDS ORDERED: CEFD1CAP8 PO (08:59)
[2018-06-07] MEDS ORDERED: TORS20TA2 PO (09:04)
[2018-06-07 09:08] LABS: INFLUENZA A AMPLIFICATION NEGATIVE (NEGATIVE); INFLUENZA B AMPLIFICATION NEGATIVE (NEGATIVE)
[2018-06-07 09:11] LABS: BASO % 0.6 % (0.0-1.0); EOS # 0.1 10^3/uL (0.0-0.50); EOS % 1.8 % (0.0-3.0); HEMATOCRIT 39.3 % (42.0-52.0); LYMPH # 1.1 10^3/uL (1.5-4.5); LYMPH % 16.1 % (24.0-44.0); MEAN CORPUSCULAR HEMOGLOBIN 31.7 pg (27.0-33.0); MEAN CORPUSCULAR HGB CONC 33.1 g/dl (32.0-36.5); MEAN CORPUSCULAR VOLUME 95.9 fl (80.0-96.0); MONO # 0.4 10^3/uL (0.0-0.8); MONO % 5.8 % (0.0-5.0); NEUTROPHILS % 73.9 % (36.0-66.0); PLATELET COUNT, AUTOMATED 220 10^3/uL (150-450); WHITE BLOOD COUNT 6.7 10^3/uL (4.0-10.0)
[2018-06-07 09:19] LABS: INR 1.03; PROTHROMBIN TIME 13.6 SECONDS (12.1-14.4)
--- NOTE | 2018-06-07 09:19 | REP ---
Clinical: Sepsis . Comparison: 05/25/2018 . Findings: The mediastinum and cardiac silhouette are stable and within normal limits for portable technique. Pacemaker in stable position. The lung coffey are clear without acute consolidation, effusion, or pneumothorax. Skeletal structures are intact. Impression: No acute cardiopulmonary process appreciated. Electronically Signed by Nikunj Mathews MD 06/07/2018 09:09 A
[2018-06-07 09:20] LABS: PARTIAL THROMBOPLASTIN TIME 49.4 SECONDS (25.4-37.6)
[2018-06-07 09:36] LABS: ALBUMIN 2.9 GM/DL (3.2-5.2); ALT/SGPT 39 U/L (12-78); AMYLASE 79 U/L (25-115); BILIRUBIN,DIRECT 0.1 MG/DL (0.0-0.2); BILIRUBIN,TOTAL 0.2 MG/DL (0.2-1.0); BLOOD UREA NITROGEN 36 MG/DL (7-18); C REACTIVE PROTEIN QUANTITATIV 1.72 MG/DL (0.00-0.30); CALCIUM LEVEL 7.9 MG/DL (8.8-10.2); CARBON DIOXIDE LEVEL 26 MEQ/L (21-32); CHLORIDE LEVEL 102 MEQ/L (98-107); CPK CREATINE PHOSPHOKINASE 44 U/L (39-308); CREATININE FOR GFR 1.62 MG/DL (0.70-1.30); GLOMERULAR FILTRATION RATE 44.8 (>42); GLUCOSE, FASTING 104 MG/DL (70-100); MB/CK RELATIVE INDEX 5.45 (< OR =4); POTASSIUM SERUM 4.3 MEQ/L (3.5-5.1); SODIUM LEVEL 135 MEQ/L (136-145); TOTAL PROTEIN 6.8 GM/DL (6.4-8.2); TROPONIN I < 0.02 NG/ML (< 0.10)
[2018-06-07 11:39] LABS: FREE T4 0.78 NG/DL (0.76-1.46)
[2018-06-07] MEDS ORDERED: DEXTROSE 50% 50 ML SYRINGE IV PRN (11:45)
[2018-06-07] MEDS ORDERED: GLUCOSE 4 GM CHEW TABLET PO PRN (11:45)
[2018-06-07] MEDS ORDERED: GLUCAGON FOR INJ 1 MG VIAL (J1610) SC PRN (11:45)
[2018-06-07] MEDS ORDERED: HumaLOG INSULIN (NovoLOG) PER UNIT SC SCH (12:00)
[2018-06-07 12:16] LABS: HEMOGLOBIN A1c 9.7 %
[2018-06-07 12:41] LABS: AMPHETAMINES LEVEL URINE NEGATIVE (NEGATIVE); BARBITURATES URINE NEGATIVE (NEGATIVE); BENZODIAZEPINES URINE NEGATIVE (NEGATIVE); CANNABINOIDS URINE NEGATIVE (NEGATIVE); COCAINE METABOLITE URINE NEGATIVE (NEGATIVE); METHADONE URINE NEGATIVE (NEGATIVE); OPIATES URINE NEGATIVE (NEGATIVE); PHENCYCLIDINE URINE NEGATIVE (NEGATIVE)
--- NOTE | 2018-06-07 12:58 | HPEPDOC ---
General Date of Admission 06/07/2018 Primary Care Physician: JESSE GUAJARDO MD [facility] Attending Physician: SIS MALIK MD Chief Complaint The patient is a 73-year-old male admitted with a reason for visit of hypoglycemia. Source: Patient, Family, Old records Exam Limitations: No limitations Timing/Duration: 4-6 hours History of Present Illness Mr. Mead 73-year-old male who presents to [facility]'s emergency Department with unwitnessed syncope. Patient is accompanied by his . Patient's provides much of the history. She notes that approximately around 6:30 to 7 AM this morning she heard what sounded like a wounded animal with loud moaning and yowling. She got up to investigate and called for her who did not respond. She noted that the bathroom light was on and she found her laying on the bathroom floor. She says that he was noncommunicative and that his eyes were "as round as saucers." Patient and note that these episodes have never occurred before. The does not recall noticing urine or stool and the patient was not noted to be shaking. called EMS and when they arrived they checked the patient's blood sugar which was 41. EMS administered glucose and patient was able to correctly identify his name and location. Patient states that he remembers getting up this morning to use the restroom and feeling dizzy, which he describes as being off balance, while standing to pull up his pants after using the toilet. The next thing he remembers is being taken down the stairs by EMS. He is currently alert and oriented 4. Patient notes that for dinner the prior evening they had chicken and rice. Later on in the evening he had a bowl of cereal. He states that he checks his blood glucose level 3 times a day before meals. His blood glucose was in the mid 100s prior to dinner. He administered short-acting insulin using his sliding scale. He also takes his long-acting insulin in the evening which he did last evening. 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 notes that patient has history of hyperglycemia, but recently his blood glucose levels have normalized which she thinks is unusual. Patient notes that he is always cold. Emergency department evaluation reveals a rectal temperature 94.9 with a r espiratory rate of 11 at time of presentation. CBC and BMP were within normal limits. No lactic acidosis identified. Influenza screen was negative. ABG was obtained with a pH of 7.3, PCO2 43, PO2 of 96. Chest x-ray was negative. Head CT did not reveal any acute intracranial pathology. EKG revealed atrial pacemaker. Hospitalist service was consulted and patient was admitted for further medical management. Home Medications Scheduled (Tamsulosin Hydrochloride) 0.4 Mg Cap, 0.4 MG PO QHS, (Reported) Allopurinol (Zyloprim) 300 Mg Tab, 300 MG PO DAILY, (Reported) Amiodarone HCl (Amiodarone HCl) 100 Mg Tab, 100 MG PO DAILY, (Reported) Aspirin (Aspir-81) 81 Mg Tab, 81 MG PO DAILY, (Reported) Atorvastatin Calcium (Atorvastatin Calcium) 40 Mg Tab, 40 MG PO QHS, (Reported) Calcitriol (Calcitriol) 0.25 Mcg Cap, 0.25 MCG PO DAILY, (Reported) Carbamazepine (TEGretol) 200 Mg Tab, 200 MG PO DAILY, (Reported) Carbamazepine (TEGretol) 200 Mg Tab, 200 MG PO Q2D, (Reported) ON ODD DAYS TAKES ONE 200MG TABLET AT BEDTIME. ON EVEN DAYS TAKES TWO 200MG TABLETS AT BEDTIME. Carbamazepine (TEGretol) 200 Mg Tab, 400 MG PO Q2D, (Reported) ON ODD DAYS TAKES ONE 200MG TABLET AT BEDTIME. ON EVEN DAYS TAKES TWO 200MG TABLETS AT BEDTIME. Carvedilol (Coreg) 25 Mg Tab, 25 MG PO BID, (Reported) Cefdinir (Cefdinir) 300 Mg Cap, 300 MG PO BID, (Reported) X 9 DAYS. STARTED: 05/29/18 ENDED: 06/09/18. Ergocalciferol (Vitamin D2) 2,000 Unit Tab, 50,000 UNITS PO QWEEK, (Reported) TAKES ON THURSDAYS. Gabapentin (Gabapentin) 300 Mg Cap, 300 MG PO TID, (Reported) Insulin Detemir (Levemir Flextouch) 100 Unit/Ml Inj, 34 UNIT SC QHS, (Reported) Insulin Human Lispro (Humalog Kwikpen) 100 Unit/Ml Inj, 48 UNITS SC TID, (Reported) PER SLIDING SCALE. Losartan Potassium (Losartan Potassium) 50 Mg Tab, 50 MG PO DAILY, (Reported) Minocycline HCl (Minocycline HCl) 100 Mg Cap, 100 MG PO BID, (Reported) Omeprazole (Omeprazole) 20 Mg Cap, 20 MG PO DAILY, (Reported) Torsemide (Torsemide) 20 Mg Tab, 40 MG PO DAILY, (Reported) TAKES TWO 20MG TABLETS IN THE MORNING AND ONE 20MG TABLET IN THE EVENING. Torsemide (Torsemide) 20 Mg Tab, 20 MG PO QHS, (Reported) TAKES TWO 20MG TABLETS IN THE MORNING AND ONE 20MG TABLET IN THE EVENING. Allergies Coded Allergies: No Known Allergies (Unverified , 04/18/14) Past Medical History Medical History 1. Seizure disorder 2. Congestive heart failure, unspecified type 3. Diabetes mellitus 4. Diabetic neuropathy 5. Coronary artery disease 6. Chronic kidney disease, stage III 7. White count 8. History of melanoma the 9. Obstructive sleep apnea 10. History of basal cell carcinoma 11. History of atrial fibrillation 12. Dyslipidemia 13. Benign prostatic hyperplasia 14. Gastroesophageal reflux disease Surgical History 1. Upper endoscopy 2. Colonoscopy 3. Pacemaker and defibrillator insertion 4. Inguinal hernia repair 5. Scalp melanoma removal Family History Father is in his 80s from heart disease. Mother is in her 80s from urinary cancer. Patient has 2 brothers who are alive and in their 60s. They have significant history of heart disease and diabetes. Social History Patient lives independently at home with his of 22 years. They have a arellano retriever in the home named Kaley. Patient is a lifelong tobacco abstainer. Has a remote history of alcohol dependence. Does not currently drink alcohol. Denies illicit drug use. 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 Patient has 1 biological child. His has 4 biological children. Together they have 12 grandchildren. Review of Systems Constitutional: Denies: Chills, Fever, Night Sweats, Weakness Eyes: Denies: Vision change ENT: Denies: Head Aches, Dysphagia, Sinus Congestion, Post Nasal Drip, Sore Throat, Epistaxis Skin: Denies: Rash, Lesions, Bruising Pulmonary: Denies: Dyspnea, Cough, Pleuritic Chest Pain Cardiovascular: Reports: Lt Headedness (note this morning prior to syncope); Denies: Chest Pain, Orthopnea, Paroxysmal Noc. Dyspnea, Edema Gastrointestinal: Denies: Nausea, Vomiting, Abdominal Pain, Diarrhea, Constipation, Melena, Hematochezia Genitourinary: Denies: Dysuria, Frequency, Incontinence, Hematuria Hematologic: Denies: Bruising, Bleeding Excessively Endocrine: Reports: Cold Intolerance; Denies: Polydipsia, Polyphagia Musculoskeletal: Denies: Neck Pain, Back Pain, Joint Pain, Muscle Pain Neurological: Denies: Weakness, Numbness Physical Examination General Exam: Positive: Alert, Cooperative, No Acute Distress Eye Exam: Positive: PERRLA, Conjunctiva & lids normal, EOMI; Negative: Sclera icteric, Ptosis ENT Exam: Positive: Atraumatic, Mucous membr. moist/pink, Pharynx Normal, Tongue Midline, Nares Patent; Negative: Pharyngeal Edema Neck Exam: Positive: Supple, Other (very subtle radiating systolic murmurs to the bilateral carotids); Negative: JVD, thyromegaly, Lymphadenopathy Chest Exam: Positive: Clear to auscultation, Normal air movement, Wheezing (inspiratory wheeze noted in the right midlung); Negative: Rales, Rhonchi, Diminished Heart Exam: Positive: Rate Normal, Regular Rhythm, Normal S1, Normal S2, Murmurs (grade II/ systolic murmur appreciated in the second intercostal space on the right); Negative: Gallops, Rubs Telemetry: Positive: Other Telemetry: (atrial pacemaker) Abdomen Exam: Positive: Normal bowel sounds, Soft; Negative: Tenderness, Hepatospenomegaly, Mass, Hernia Extremity Exam: Positive: Normal pulses, Other; Negative: Clubbing, Cyanosis, Edema, Tenderness, Swelling Skin Exam: Positive: Other skin issue (dry skin, chronic-appearing stasis dermatitis noted to the bilateral lower extremities); Negative: Rash, Lesion Neuro Exam: Positive: Normal Speech, Cranial Nerves 3-12 NL Psych Exam: Positive: Oriented x 3 Vital Signs Vital Signs Date Time Temp Pulse Resp B/P (MAP) Pulse Ox O2 Delivery O2 Flow Rate FiO2 06/07/18 10:33 60 98 06/07/18 10:32 94.9 06/07/18 10:31 141/61 (87) 06/07/18 08:05 11 Room Air Height (in): 64 Weight (kg): 106.7 BMI (kg): 40.4 Laboratory Data Labs 24H Laboratory Tests 2 06/07/18 08:05: Bedside Glucose (Misc Panel) 79L 06/07/18 08:30: Influenza Type A (RT-PCR) NEGATIVE, Influenza Type B (RT-PCR) NEGATIVE 06/07/18 08:34: 06/07/18 08:40: Immature Granulocyte % (Auto) 1.8, White Blood Count 6.7, Red Blood Count 4.10L, Hemoglobin 13.0L, Hematocrit 39.3L, Mean Corpuscular Volume 95.9, Mean Corpuscu lar Hemoglobin 31.7, Mean Corpuscular Hemoglobin Concent 33.1, Red Cell Distribution Width 14.0, Platelet Count 220, Neutrophils (%) (Auto) 73.9H, Lymphocytes (%) (Auto) 16.1L, Monocytes (%) (Auto) 5.8H, Eosinophils (%) (Auto) 1.8, Basophils (%) (Auto) 0.6, Neutrophils # (Auto) 5.0, Lymphocytes # (Auto) 1.1L, Monocytes # (Auto) 0.4, Eosinophils # (Auto) 0.1, Basophils # (Auto) 0.0, Nucleated Red Blood Cells % (auto) 0.0, Prothrombin Time 13.6, Prothromb Time International Ratio 1.03, Activated Partial Thromboplast Time 49.4H, Anion Gap 7L, Glomerular Filtration Rate 44.8, Lactic Acid Level 0.8, Calcium Level 7.9L, Aspartate Amino Transf (AST/SGOT) 22, Alanine Aminotransferase (ALT/SGPT) 39, Alkaline Phosphatase 230H, Total Bilirubin 0.2, Direct Bilirubin 0.1, Total Creatine Kinase 44, Creatine Kinase MB 2.0, Creatine Kinase MB Relative Index 5.45H, Troponin I < 0.02, C-Reactive Protein, Quantitative 1.72H, Total Protein 6.8, Albumin 2.9L, Albumin/Globulin Ratio 0.74L, Amylase Level 79, Thyroid Stimulating Hormone (TSH) 2.680, Free Thyroxine 0.78, Carbamazepine (Tegretol) Level 9.2 06/07/18 08:45: Blood Gas Bicarbonate Standard 20.1L, Arterial Blood pH 7.302L, Arterial Blood Partial Pressure CO2 43.2, Arterial Blood Partial Pressure O2 95.8, Arterial Blood Total CO2 22.2L, Arterial Blood HCO3 20.9L, Arterial Blood Base Excess - 5.3L, Arterial Blood Oxygen Saturation 96.5 06/07/18 09:31: Bedside Glucose (Misc Panel) 94 06/07/18 10:32: Bedside Glucose (Misc Panel) 84 CBC/BMP Laboratory Tests 06/07/18 08:40 Red Blood Count 4.10 L, Mean Corpuscular Volume 95.9, Mean Corpuscular Hemoglobin 31.7, Mean Corpuscular Hemoglobin Concent 33.1, Red Cell Distribution Width 14.0, Neutrophils (%) (Auto) 73.9 H, Lymphocytes (%) (Auto) 16.1 L, Monocytes (%) (Auto) 5.8 H, Eosinophils (%) (Auto) 1.8, Basophils (%) (Auto) 0.6, Neutrophils # (Auto) 5.0, Lymphocytes # (Auto) 1.1 L, Monocytes # (Auto) 0.4, Eosinophils # (Auto) 0.1, Basophils # (Auto) 0.0 Microbiology Microbiology 06/07/18 Blood Culture, Received Pending 06/07/18 Blood Culture, Received Pending RAD Interpretation STUDY: CXR Rad Actions: Report Reviewed RAD Interpretation: Normal Plan / VTE VTE Prophylaxis Ordered?: Yes (heparin 5000 units subcutaneous every 8 hours) Plan Plan 1. Unwitnessed syncope: Autoimmune versus cardiac versus medication versus infectious (less likely). Possibly secondary to insulin usage patient's blood glucose level was 41. Sliding scale insulin before meals at bedtime with hypoglycemic protocol. Could consider restarting long-acting insulin based on blood glucose levels. Holding home dose of sliding scale insulin for the time being. TSH within normal limits. Vitamin B12 and vitamin D levels are pending. Lactic acid level was normal. Obtaining a hemoglobin A1c. Pending toxicology scr een. Blood cultures are pending. Urinalysis with urine cultures pending. Imaging has been negative. Patient may be out of bed ad valentina. with assistance. Obtaining transthoracic echocardiogram. Obtain orthostatic vital signs. Carbamazepine level was within normal limits. Physical therapy has been ordered. 2. Hypothermia: TSH within normal limits. Samara hugger in place. 3. Diabetes mellitus with diabetic neuropathy: Holding patient's long-acting insulin Levemir 34 units subcutaneous daily at bedtime and short-acting insulin Humalog 48 units of cutaneous 3 times a day per sliding scale. Managed with sliding scale insulin and could consider addition of patient's long-acting insulin depending on blood glucose levels. May need adjustments prior to discharge. Finger sticks before meals and at bedtime, hypoglycemic protocol. Consistent carbohydrate diet. Gabapentin. 4. Seizure disorder: Continue carbamazepine. Carbamazepine level within normal limits. 5. Hypertension: Continue Losartan and Carvedilol. 6. Congestive heart failure, unspecific type: Currently compensated. Transthoracic echocardiogram ordered. Continue Torsemide. Monitor renal function. 7. History of atrial fibrillation: Continue Amiodarone and Aspirin. 8. History of pacemaker and defibrillator 9. Systolic heart murmur: Identified on physical exam. Obtaining transthoracic echocardiogram. 10. Chronic kidney disease, stage III: Baseline creatinine 2.5. Current better than baseline. Monitor renal function. 11. Gastroesophageal reflux disease: Continue Omeprazole. 12. Recent history of cellulitis: Complete course of oral antibiotic, Cefdinir. Completion date 06/09/2018. 13. Dyslipidemia: Continue Atorvastatin. 14. Gout: Continue Allopurinol. 15. Benign prostatic hyperplasia: Continue tamsulosin. Disposition Admit: Medical surgical unit Anticipated hospitalization: 2 nights Attending: Dr. Malik Diet: Continue Current (consistent carbohydrate) Activity: Continue Current (out of bed ad valentina. with assistance) Therapy: PT Diagnostics: Check Labs, Repeat Labs in AM, Obtain Cultures, TTE Anticipated Discharge: Home FRIEDAVIVIANASKYEVENS Jun 07, 2018 12:31
[2018-06-07 13:30] VITALS: BP 160/67
[2018-06-07] MEDS: ALLOPURINOL 300 MG TAB PO SCH (16:03)
[2018-06-07] MEDS: HEPARIN SOD (PORCINE) 5000 UNITS/ML VIAL SQ SCH ×2 (16:03→20:40)
[2018-06-07] MEDS: OMEPRAZOLE 20 MG CAP PO SCH (16:03)
[2018-06-07] MEDS: LOSARTAN 50 MG TAB PO SCH (16:10)
[2018-06-07] MEDS: ASPIRIN 81 MG ENTERIC TAB PO SCH (16:10)
[2018-06-07] MEDS: carBAMazepine 200 MG TAB PO SCH (16:10)
[2018-06-07] MEDS: GABAPENTIN 300 MG CAP PO SCH ×2 (16:10→20:39)
[2018-06-07] MEDS: AMIODARONE 100MG TABLET (PACERONE) PO SCH (16:12)
[2018-06-07] MEDS: HumaLOG INSULIN (NovoLOG) PER UNIT SC SCH ×2 (18:03→20:40)
[2018-06-07] MEDS: TAMSULOSIN 0.4 MG CAP PO SCH (20:38)
[2018-06-07] MEDS: CEFDINIR 300 MG CAP (OMNICEF) PO SCH (20:39)
[2018-06-07] MEDS: ATORVASTATIN 20 MG TAB PO SCH (20:39)
[2018-06-07] MEDS: CARVedilol 12.5 MG TAB PO SCH (20:39)
[2018-06-07] MEDS ORDERED: TORSEMIDE 20 MG TAB PO SCH (21:00)
[2018-06-07] MEDS ORDERED: carBAMazepine 200 MG TAB PO SCH (21:00)
[2018-06-07 22:00] VITALS: BP 129/63
[2018-06-08] MEDS: HEPARIN SOD (PORCINE) 5000 UNITS/ML VIAL SQ SCH ×3 (05:43→20:59)
[2018-06-08 06:00] VITALS: BP 129/59
[2018-06-08 06:27] LABS: HEMATOCRIT 30.3 % (42.0-52.0); MEAN CORPUSCULAR HEMOGLOBIN 31.9 pg (27.0-33.0); MEAN CORPUSCULAR HGB CONC 33.7 g/dl (32.0-36.5); MEAN CORPUSCULAR VOLUME 94.7 fl (80.0-96.0); PLATELET COUNT, AUTOMATED 214 10^3/uL (150-450); WHITE BLOOD COUNT 8.7 10^3/uL (4.0-10.0)
[2018-06-08 06:38] LABS: HEMOGLOBIN 10.2 g/dl (13.5-17.5)
[2018-06-08 07:05] LABS: CALCIUM LEVEL 7.4 MG/DL (8.8-10.2); CREATININE FOR GFR 2.3 MG/DL (0.70-1.30); GLOMERULAR FILTRATION RATE 29.9 (>42); POTASSIUM SERUM 4.7 MEQ/L (3.5-5.1)
[2018-06-08] MEDS: CALCITRIOL 0.25 MCG CAP (S0169) PO SCH (08:56)
[2018-06-08] MEDS: NS 1,000 ML IV SCH ×2 (08:56→20:30)
[2018-06-08] MEDS ORDERED: TORSEMIDE 20 MG TAB PO SCH (09:00)
[2018-06-08] MEDS: GABAPENTIN 300 MG CAP PO SCH ×3 (09:03→20:58)
[2018-06-08] MEDS: CEFDINIR 300 MG CAP (OMNICEF) PO SCH ×2 (09:03→20:58)
[2018-06-08] MEDS: OMEPRAZOLE 20 MG CAP PO SCH (09:03)
[2018-06-08] MEDS: LOSARTAN 50 MG TAB PO SCH (09:04)
[2018-06-08] MEDS: ALLOPURINOL 300 MG TAB PO SCH (09:04)
[2018-06-08] MEDS: CARVedilol 12.5 MG TAB PO SCH ×2 (09:04→20:58)
[2018-06-08] MEDS: ASPIRIN 81 MG ENTERIC TAB PO SCH (09:04)
[2018-06-08] MEDS: carBAMazepine 200 MG TAB PO SCH (09:04)
[2018-06-08] MEDS: AMIODARONE 100MG TABLET (PACERONE) PO SCH (09:05)
[2018-06-08] MEDS: HumaLOG INSULIN (NovoLOG) PER UNIT SC SCH ×4 (09:06→21:00)
[2018-06-08 13:00] LABS: CALCIUM LEVEL 7.5 MG/DL (8.8-10.2); CREATININE FOR GFR 2.21 MG/DL (0.70-1.30); GLOMERULAR FILTRATION RATE 31.3 (>42); MAGNESIUM LEVEL 1.7 MG/DL (1.8-2.4); POTASSIUM SERUM 4.1 MEQ/L (3.5-5.1)
[2018-06-08] MEDS: LEVEMIR (INSULIN DETEMIR) 1 UNITS/0.01ML SC SCH ×2 (13:47→20:59)
[2018-06-08 14:00] VITALS: BP 153/64
--- NOTE | 2018-06-08 16:02 | IPNPDOC ---
Text Note Date of Service The patient was seen on 06/08/18. NOTE Subjective: Patient is a 73-year-old male with a PMHx of A. fib, CHF, CAD, DLP, DM2, VENTURA on CPAP, CKD3, Seizure disorder, Neuropathy, and GERD who presented to the ER, brought in by EMS because he was found down in the bathroom of his home with confusion and a blood sugar of 41. EMS had provided him with glucagon and D50 and upon arrival to the ER his glucose levels had improved and his mentation was improving. In the ER Patient was found to be hypothermic. He was admitted to the hospital service for further evaluation and treatment Patient was seen and examined at the bedside. Currently patient has no new complaints. He denies any CP, SOB or palpitations. Is fully oriented without confusion. Denies any N/V, abdominal pain, C/D. Denies any dysuria. Objective: Vitals (See below) General: Lying in bed, no acute distress, comfortable, AAOx3 HEENT: NC, AT CVS: RRR, +S1S2, + Systolic murmur Lungs: Fair air entry b/l, -w/r/r Abdomen: Soft, ND, NT, Obesity Extremities: - Edema, - Calf tenderness Assessment and plan: Syncope - likely 2/2 hypoglycemia, less likely 2/2 orthostatic hypotension, cardiac etiology, vasovagal or neurogenic etiology - Patient noted that over the last several weeks his blood sugars have been very well controlled 80s - 100s - He notes that this level is usually abnormal - No seizure like activity noted; no incontinence, no tongue biting - He denies any recent change to his medications; other than discontinuing prednisone - Physical is nonrevealing - ECHO complete; report pending - c/w Telemetry monitoring for now - c/w PT; cleared for DC home s/p Hypothermia - likely 2/2 above - Thyroid function noted - Will check B1 level IDDM2 with hypoglycemia - Discontinued Levemir on admission; used 36 units QHS as outpatient - Will c/w ISS - Will restart Levemir today; at 10 units BID Elevation of Cr on CKD3 - Baseline Cr ~2 - Hold diuretics - Start IV fluid hydration with 1 liter Recent infection / sepsis - c/w Cefdinir for completion of antibiotic course A. fib - c/w Rate / rhythm control with Carvedilol and Amiodarone - c/w ASA; not on full anticoagulation HTN - c/w Losartan and Carvedilol Chronic compensated CHF - No evidence of exacerbation - ECHO complete; report pending - Hold diuresis (re: Elevated Cr) CAD - c/w ASA, Carvedilol, Atorvastatin DLP - c/w Atorvastatin VENTURA on CPAP Seizure disorder - Levels noted - c/w Carbamazepine Neuropathy - c/w Gabapentin Gout - c/w Allopurinol BPH - c/w Tamsulosin GERD - c/w Omeprazole DVT prophylaxis - c/w Heparin VS,Fishbone, I+O VS, Fishbone, I+O Laboratory Tests 06/08/18 06:02 Red Blood Count 3.20 L, Mean Corpuscular Volume 94.7, Mean Corpuscular Hemoglobin 31.9, Mean Corpuscular Hemoglobin Concent 33.7, Red Cell Distribution Width 13.9, Calcium Level 7.4 L 06/08/18 12:24 Calcium Level 7.5 L Vital Signs Date Time Temp Pulse Resp B/P (MAP) Pulse Ox O2 Delivery O2 Flow Rate FiO2 06/08/18 14:00 98.4 68 17 153/64 (93) 98 06/07/18 08:05 Room Air I&O- Last 24 Hours up to 6 AM 06/08/18 06:00 Intake Total 1000 ml Output Total 0 ml Balance 1000 ml SIS WILCOX MD Jun 08, 2018 16:02
[2018-06-08] MEDS ORDERED: MAG SULF 1GM/100ML (MAG RUN) 1 GM in APPROPRIATE DILUENT 1 EA IV ONE (17:00)
[2018-06-08] MEDS: ATORVASTATIN 20 MG TAB PO SCH (20:57)
[2018-06-08] MEDS: TAMSULOSIN 0.4 MG CAP PO SCH (20:58)
[2018-06-08] MEDS ORDERED: carBAMazepine 200 MG TAB PO SCH (21:00)
[2018-06-08 22:00] VITALS: BP 151/67
[2018-06-09] MEDS: HEPARIN SOD (PORCINE) 5000 UNITS/ML VIAL SQ SCH ×2 (05:26→13:44)
[2018-06-09 05:42] LABS: HEMATOCRIT 30.1 % (42.0-52.0); HEMOGLOBIN 9.9 g/dl (13.5-17.5); MEAN CORPUSCULAR HEMOGLOBIN 31.3 pg (27.0-33.0); MEAN CORPUSCULAR HGB CONC 32.9 g/dl (32.0-36.5); MEAN CORPUSCULAR VOLUME 95.3 fl (80.0-96.0); PLATELET COUNT, AUTOMATED 239 10^3/uL (150-450); RED BLOOD COUNT 3.16 10^6/uL (4.30-6.10); WHITE BLOOD COUNT 6.9 10^3/uL (4.0-10.0)
[2018-06-09 06:00] VITALS: BP 145/67
[2018-06-09 06:01] LABS: CALCIUM LEVEL 7.6 MG/DL (8.8-10.2); CREATININE FOR GFR 1.93 MG/DL (0.70-1.30); GLOMERULAR FILTRATION RATE 36.6 (>42); POTASSIUM SERUM 4.4 MEQ/L (3.5-5.1)
--- NOTE | 2018-06-09 06:48 | ECHO ---
DATE OF PROCEDURE: 06/07/2018 DATE OF : 1945 AGE: 73 REFERRING PROVIDER: Dr. Jennifer Ricardo. PATIENT LOCATION: Room 4201 REASON FOR ECHOCARDIOGRAM: Syncope. 2D MEASUREMENTS: IVS: 1.4 cm LV: 5.5 cm LVPW: 1.7 cm LA: 4.2 cm Aorta: 3.4 cm IVC: 1.8 cm DOPPLER MEASUREMENTS: Peak velocity across the aortic valve: 3.3 m/s Peak velocity across the LVOT: 1.0 m/s Mitral E: 0.84 Mitral A: 1.83 Ratio 0.7 Maximum tricuspid valve velocity: 2.7 m/s 2D COMMENTS: 1. Mildly to moderately increased left ventricular wall thickness with normal left ventricular size and normal global left ventricular systolic function. The estimated left ventricular systolic ejection fraction is 65% to 70%. 2. Mildly enlarged left atrium. Normal right atrium and right ventricle. 3. The atrial septum appeared to be normal without evidence of defect or shunt. 4. Normal aortic root. 5. No pericardial effusion seen. 6. Mildly to moderately calcified aortic valve, leaflet excursion appeared to be restricted. Mildly calcified mitral annulus with normal anterior mitral valve leaflet motion. Normal tricuspid valve. The pulmonic valve and proximal pulmonary artery branches appear to be normal in limited views. 7. The inferior vena cava was normal in size, central venous pressure is most likely normal. DOPPLER: It detects trace aortic regurgitation, mild tricuspid regurgitation, trace pulmonic regurgitation. The calculated pulmonary artery systolic pressure varies between 30 to 40 mmHg. Abnormal relaxation pattern was noted across the mitral valve leaflets as well as the mitral valve annulus consistent with delayed relaxation. IMPRESSION: 1. Normal global left ventricular systolic function with mild to moderate concentric left ventricular hypertrophy. There are features of left ventricular diastolic dysfunction manifested by abnormal relaxation. 2. Aortic valve sclerosis with trace aortic regurgitation and probably moderate aortic stenosis. There was a peak gradient of 43 mmHg across the aortic valve with a mean gradient of 26 mmHg. 3. Elevated mildly dilated left atrium with mitral annulus calcification but no significant mitral regurgitation. 4. Trace to mild tricuspid regurgitation with mild pulmonary hypertension. 5. Pacemaker/AICD wire artifact noted in the right heart chambers.
[2018-06-09] MEDS: CALCITRIOL 0.25 MCG CAP (S0169) PO SCH (07:56)
[2018-06-09] MEDS: CEFDINIR 300 MG CAP (OMNICEF) PO SCH (07:56)
[2018-06-09] MEDS: carBAMazepine 200 MG TAB PO SCH (07:56)
[2018-06-09] MEDS: GABAPENTIN 300 MG CAP PO SCH (07:56)
[2018-06-09] MEDS: HumaLOG INSULIN (NovoLOG) PER UNIT SC SCH ×2 (07:56→12:08)
[2018-06-09 07:57] VITALS: BP 146/75
[2018-06-09] MEDS: OMEPRAZOLE 20 MG CAP PO SCH (07:57)
[2018-06-09] MEDS: CARVedilol 12.5 MG TAB PO SCH (07:57)
[2018-06-09] MEDS: ALLOPURINOL 300 MG TAB PO SCH (07:57)
[2018-06-09] MEDS: ASPIRIN 81 MG ENTERIC TAB PO SCH (07:57)
[2018-06-09] MEDS: LOSARTAN 50 MG TAB PO SCH (07:57)
[2018-06-09] MEDS: AMIODARONE 100MG TABLET (PACERONE) PO SCH (07:57)
[2018-06-09] MEDS: LEVEMIR (INSULIN DETEMIR) 1 UNITS/0.01ML SC SCH (07:58)
[2018-06-09 09:40] LABS: TOTAL 25(OH) VITAMIN D 107.1 NG/ML (30.0-100.0); TOTAL T3 77.5 NG/DL (60.0-181.0)
[2018-06-09] MEDS ORDERED: INSUDET SC (11:19)
[2018-06-09] MEDS ORDERED: INSUHUMDS SC ×2 (11:19)
--- NOTE | 2018-06-09 12:16 | DS.PDOC ---
Discharge Summary General Date of Admission Jun 07, 2018 at 12:05 Date of Discharge 06/09/2018 Discharge Summary PROCEDURES PERFORMED DURING STAY: [None]. ADMITTING DIAGNOSES / DISCHARGE DIAGNOSES: Syncope - likely 2/2 hypoglycemia, less likely 2/2 orthostatic hypotension, cardiac etiology, vasovagal or neurogenic etiology s/p Hypothermia - likely 2/2 above IDDM2 with hypoglycemia s/p Elevation of Cr on CKD3 Recent infection / sepsis A. fib HTN Chronic compensated CHF CAD DLP VENTURA on CPAP Seizure disorder Neuropathy Gout BPH GERD DVT prophylaxis COMPLICATIONS/CHIEF COMPLAINT: Found collapsed in bathroom HISTORY OF PRESENT ILLNESS: Patient is a 73-year-old male with a PMHx of A. fib, CHF, CAD, DLP, DM2, VENTURA on CPAP, CKD3, Seizure disorder, Neuropathy, and GERD who presented to the ER, brought in by EMS because he was found down in the bathroom of his home with confusion and a blood sugar of 41. EMS had provided him with glucagon and D50 and upon arrival to the ER his glucose levels had improved and his mentation was improving. In the ER Patient was found to be hypothermic. He was admitted to the hospital service for further evaluation and treatment. HOSPITAL COURSE: Syncope - likely 2/2 hypoglycemia, less likely 2/2 orthostatic hypotension, cardiac etiology, vasovagal or neurogenic etiology - Patient noted that over the last several weeks his blood sugars have been very well controlled 80s - 100s - He notes that this level is usually abnormal - No seizure like activity noted; no incontinence, no tongue biting - He denies any recent change to his medications; other than discontinuing prednisone - Physical is nonrevealing - c/w Telemetry monitoring for now - c/w PT; cleared for DC home s/p Hypothermia - likely 2/2 above - Thyroid function noted - Vitamin B1 level pending IDDM2 with hypoglycemia - Discontinued Levemir on admission; used 36 units QHS as outpatient - c/w ISS - c/w Levemir 10 units BID s/p Elevation of Cr on CKD3 - Baseline Cr ~2 - Hold diuretics - s/p IV fluid hydration Recent infection / sepsis - c/w Cefdinir for completion of antibiotic course A. fib - c/w Rate / rhythm control with Carvedilol and Amiodarone - c/w ASA; not on full anticoagulation HTN - c/w Losartan and Carvedilol Chronic compensated CHF - No evidence of exacerbation - ECHO 06/07: Diastolic disfunction, AV sclerosis, Trace AR, Moderate , Mild TR, Mild Pulmonary HTN - Will resume diuresis tomorrow - Patient is scheduled for an outpatient aortic valve replacement in [place] CAD - c/w ASA, Carvedilol, Atorvastatin DLP - c/w Atorvastatin VENTURA on CPAP Seizure disorder - Levels noted - c/w Carbamazepine Neuropathy - c/w Gabapentin Gout - c/w Allopurinol BPH - c/w Tamsulosin GERD - c/w Omeprazole DVT prophylaxis - c/w Heparin DISCHARGE MEDICATIONS: Please see below. ALLERGIES: Please see below. PHYSICAL EXAMINATION ON DISCHARGE: Vitals (See below) General: Lying in bed, no acute distress, comfortable, AAOx3 HEENT: NC, AT CVS: RRR, +S1S2, + Systolic murmur Lungs: Fair air entry b/l, no evidence of wheezing / rales / rhonchi Abdomen: Soft, ND, non-tender, Obesity Extremities: No evidence of edema, - Calf tenderness LABORATORY DATA: Please see below. ACTIVITY: [As tolerated]. DISCHARGE PLAN: Follow up with . Remain compliant with treatment plan and medications. Return to the ER if you experience any problems. DISPOSITION: Home DISCHARGE CONDITION: [Stable]. TIME SPENT ON DISCHARGE: Greater than [35] minutes. Vital Signs/I&Os Vital Signs Date Time Temp Pulse Resp B/P (MAP) Pulse Ox O2 Delivery O2 Flow Rate FiO2 06/09/18 07:57 81 146/75 06/09/18 06:00 97.7 18 96 06/07/18 08:05 Room Air I&O- Last 24 Hours up to 6 AM 06/09/18 06:00 Intake Total 2550 ml Output Total 0 ml Balance 2550 ml Laboratory Data Labs 24H Laboratory Tests 2 06/08/18 12:24: Anion Gap 5L, Glomerular Filtration Rate 31.3L, Blood Urea Nitrogen 41H, Creatinine 2.21H, Sodium Level 136, Potassium Level 4.1, Chloride Level 105, Carbon Dioxide Level 26, Calcium Level 7.5L, Magnesium Level 1.7L 06/08/18 16:43: Cortisol Baseline 9.4 06/08/18 16:59: Bedside Glucose (Misc Panel) 188H 06/08/18 20:09: Bedside Glucose (Misc Panel) 175H 06/09/18 05:31: Nucleated Red Blood Cells % (auto) 0.0, Anion Gap 6L, Glomerular Filtration Rate 36.6L, Blood Urea Nitrogen 33H, Creatinine 1.93H, Sodium Level 138, Potassium Level 4.4, Chloride Level 107, Carbon Dioxide Level 25, Calcium Level 7.6L 06/09/18 11:32: Bedside Glucose (Misc Panel) 235H CBC/BMP Laboratory Tests 06/08/18 12:24 Calcium Level 7.5 L 06/09/18 05:31 Calcium Level 7.6 L, Red Blood Count 3.16 L, Mean Corpuscular Volume 95.3, Mean Corpuscular Hemoglobin 31.3, Mean Corpuscular Hemoglobin Concent 32.9, Red Cell Distribution Width 13.9 FSBS Laboratory Tests Test 06/08/18 16:59 06/08/18 20:09 06/09/18 11:32 Range/Units Bedside Glucose (Misc Panel) 188 175 235 83-110 MG/DL Microbiology Microbiology 06/07/18 Blood Culture - Preliminary, Resulted No Growth after 48 hours. All Specime... 06/07/18 Blood Culture - Preliminary, Resulted No Growth after 48 hours. All Specime... Discharge Medications Scheduled (Tamsulosin Hydrochloride) 0.4 Mg Cap, 0.4 MG PO QHS, (Reported) Allopurinol (Zyloprim) 300 Mg Tab, 300 MG PO DAILY, (Reported) Amiodarone HCl (Amiodarone HCl) 100 Mg Tab, 100 MG PO DAILY, (Reported) Aspirin (Aspir-81) 81 Mg Tab, 81 MG PO DAILY, (Reported) Atorvastatin Calcium (Atorvastatin Calcium) 40 Mg Tab, 40 MG PO QHS, (Reported) Calcitriol (Calcitriol) 0.25 Mcg Cap, 0.25 MCG PO DAILY, (Reported) Carbamazepine (TEGretol) 200 Mg Tab, 200 MG PO DAILY, (Reported) Carbamazepine (TEGretol) 200 Mg Tab, 200 MG PO Q2D, (Reported) ON ODD DAYS TAKES ONE 200MG TABLET AT BEDTIME. ON EVEN DAYS TAKES TWO 200MG TABLETS AT BEDTIME. Carbamazepine (TEGretol) 200 Mg Tab, 400 MG PO Q2D, (Reported) ON ODD DAYS TAKES ONE 200MG TABLET AT BEDTIME. ON EVEN DAYS TAKES TWO 200MG TABLETS AT BEDTIME. Carvedilol (Coreg) 25 Mg Tab, 25 MG PO BID, (Reported) Cefdinir (Cefdinir) 300 Mg Cap, 300 MG PO BID, (Reported) X 9 DAYS. STARTED: 05/29/18 ENDED: 06/09/18. Ergocalciferol (Vitamin D2) 2,000 Unit Tab, 50,000 UNITS PO QWEEK, (Reported) TAKES ON THURSDAYS. Gabapentin (Gabapentin) 300 Mg Cap, 300 MG PO TID, (Reported) Insulin Detemir (Levemir) 1 Units/0.01 Ml Susp, 10 UNITS SC BID Insulin Human Lispro (Humalog Kwikpen) 100 Unit/Ml Inj, 48 UNITS SC TID, (Reported) PER SLIDING SCALE. Insulin Human Lispro (Humalog) 1 Units/0.01 Ml Inj, 0 UNITS SC AC Insulin Human Lispro (Humalog) 1 Units/0.01 Ml Inj, 0 UNITS SC QHS Losartan Potassium (Losartan Potassium) 50 Mg Tab, 50 MG PO DAILY, (Reported) Minocycline HCl (Minocycline HCl) 100 Mg Cap, 100 MG PO BID, (Reported) Omeprazole (Omeprazole) 20 Mg Cap, 20 MG PO DAILY, (Reported) Torsemide (Torsemide) 20 Mg Tab, 40 MG PO DAILY, (Reported) TAKES TWO 20MG TABLETS IN THE MORNING AND ONE 20MG TABLET IN THE EVENING. Allergies Coded Allergies: No Known Allergies (Unverified , 04/18/14) SIS WILCOX MD Jun 09, 2018 12:16
[2018-06-09] MEDS ORDERED: HUMA100I5 SC ×2 (12:21→12:33)
--- NOTE | 2018-06-09 12:25 | REP ---
Clinical: Altered mental status. Comparison: 05/25/2018 . Findings: Age-related atrophy and microvascular ischemic changes are appreciated. The ventricles and sulci are symmetric. Siu-white differentiation is maintained. There is no evidence for acute intracranial hemorrhage, mass/mass effect, pathology or infarction. No extra-axial fluid collection. Calvarium is intact. Paranasal sinuses and mastoid air cells are clear. Impression: Age related atrophy and microvascular ischemic changes. No acute intracranial hemorrhage, infarction, or mass/mass effect. Electronically Signed by Nikunj Mathews MD 06/07/2018 09:11 A
[2018-06-10 08:57] LABS: VITAMIN B12 LEVEL 1014 PG/ML (232-1245)
== END 2018-06-09 14:41 | disposition home or self-care (01) | DRG 638 ==
LOC: M ED 07:48 → EDBD 07:48 → M ED INP 12:05 → M MSPAV 13:29
PROVIDERS: ADMIT Internal Medicine; ATTEND Internal Medicine
DX: E11.649 Type 2 diabetes mellitus with hypoglycemia without coma (principal); I13.0 Hypertensive heart and chronic kidney disease with heart failure and stage 1 through stage 4 chronic kidney disease, or unspecified chronic kidney disease; I50.32 Chronic diastolic (congestive) heart failure; R68.0 Hypothermia, not associated with low environmental temperature; E11.40 Type 2 diabetes mellitus with diabetic neuropathy, unspecified; G40.909 Epilepsy, unspecified, not intractable, without status epilepticus; I48.91 Unspecified atrial fibrillation; I35.0 Nonrheumatic aortic (valve) stenosis; N18.3 Chronic kidney disease, stage 3 (moderate); E78.5 Hyperlipidemia, unspecified; M10.9 Gout, unspecified; N40.0 Benign prostatic hyperplasia without lower urinary tract symptoms; I27.20 Pulmonary hypertension, unspecified; I25.10 Atherosclerotic heart disease of native coronary artery without angina pectoris; G47.33 Obstructive sleep apnea (adult) (pediatric); Z95.810 Presence of automatic (implantable) cardiac defibrillator; Z85.820 Personal history of malignant melanoma of skin; Z85.828 Personal history of other malignant neoplasm of skin; Z79.82 Long term (current) use of aspirin; Z79.4 Long term (current) use of insulin; Z79.899 Other long term (current) drug therapy

== ENCOUNTER → 2018-08-21 | Outpatient (REF) | payer MEDICARE ==
[~2018-08-21] MED LIST changes: -ALLO15TA GT; +ALLO300T2 GT; +CEFD1CAP8 PO; -INDO50CA PO; +INDO50CA11 PO; +INSUDET SC; +INSUHUMDS SC; +ZYLO300T6 PO
== END ==
LOC: M SFHCPLAZ 15:47
PROVIDERS: ATTEND Dermatology
DX: D22.5 Melanocytic nevi of trunk (principal)

== ENCOUNTER → 2018-09-25 | Outpatient (REF) | payer MEDICARE | LOC: M SFHCPLAZ 15:49 | PROVIDERS: ATTEND Dermatology | DX: L12.0 Bullous pemphigoid (principal); Z53.8 Procedure and treatment not carried out for other reasons ==

== ENCOUNTER → 2019-01-14 | Outpatient (REF) | payer MEDICARE ==
[~2019-01-14] MED LIST changes: -INDO50CA11 PO; +INDO50CA91 PO; -OMEP20CA3 PO; +OMEP20CA4 PO
[2019-01-14 13:04] LABS: BASO # 0.1 10^3/uL (0.0-0.2); BASO % 0.8 % (0.0-1.0); EOS # 0.2 10^3/uL (0.0-0.5); EOS % 1.6 % (0.0-3.0); HEMATOCRIT 37.8 % (42.0-52.0); HEMOGLOBIN 12.5 g/dl (13.5-17.5); LYMPH % 18.6 % (24.0-44.0); MEAN CORPUSCULAR HEMOGLOBIN 32.2 pg (27.0-33.0); MEAN CORPUSCULAR HGB CONC 33.1 g/dl (32.0-36.5); MEAN CORPUSCULAR VOLUME 97.4 fl (80.0-96.0); MONO % 9.3 % (0.0-5.0); NEUTROPHILS # 7.3 10^3/uL (1.5-8.5); NEUTROPHILS % 68.8 % (36.0-66.0); PLATELET COUNT, AUTOMATED 277 10^3/uL (150-450); RED BLOOD COUNT 3.88 10^6/uL (4.30-6.10); WHITE BLOOD COUNT 10.7 10^3/uL (4.0-10.0)
[2019-01-14 13:21] LABS: CREATININE FOR GFR 1.89 MG/DL (0.70-1.30); FREE T4 0.78 NG/DL (0.76-1.46); GLOMERULAR FILTRATION RATE 37.5 (>42); POTASSIUM SERUM 4.9 MEQ/L (3.5-5.1); THYROID STIMULATING HORMONE 1.35 uIU/ML (0.358-3.740)
[2019-01-14 13:35] LABS: HEMOGLOBIN A1c 8.5 %
[2019-01-14 13:39] LABS: BACTERIA, URINE AUTO NEGATIVE (NEGATIVE); MUCUS, URINE SMALL (NEGATIVE); RBC, URINE AUTO 0 /HPF (0-3); SQUAMOUS EPITHELIAL CELL UR AU 0 /HPF (0-6); WBC, URINE AUTO 0 /HPF (0-3)
[2019-01-14 14:02] LABS: APPEARANCE, URINE CLEAR (CLEAR); BILIRUBIN, URINE AUTO NEGATIVE (NEGATIVE); BLOOD, URINE BLOOD NEGATIVE (NEGATIVE); COLOR, URINE STRAW (YELLOW); GLUCOSE, URINE (UA) AUTO NEGATIVE (NEGATIVE); KETONE, URINE AUTO NEGATIVE (NEGATIVE); LEUKOCYTE ESTERASE, URINE AUTO NEGATIVE (NEGATIVE); NITRITE, URINE AUTO NEGATIVE (NEGATIVE); PROTEIN, URINE AUTO NEGATIVE (NEGATIVE); SPECIFIC GRAVITY URINE AUTO 1.006 (1.002-1.035); UROBILINOGEN, URINE AUTO 0.2 mg/dL (0.0-2.0)
== END ==
LOC: M SFHCPLAZ 11:30
PROVIDERS: ATTEND Family Medicine
DX: D64.9 Anemia, unspecified (principal); E03.9 Hypothyroidism, unspecified; E11.22 Type 2 diabetes mellitus with diabetic chronic kidney disease
CPT/HCPCS: 36415; 80048; 81001; 83036; 84439; 84443; 85025; 85046; G0463

== ENCOUNTER → 2019-05-27 | Outpatient (REF) | payer MEDICARE ==
[~2019-05-27] MED LIST changes: -GLIM2TAB PO; +GLIM2TAB4 PO; -IRBE300T10 PO; +IRBE300T7 PO; -MECL-68 PO; +MECL1TAB31 PO; +OMEP1CAP73 PO; -OMEP20CA4 PO
[2019-05-27 14:03] LABS: FREE T4 0.89 NG/DL (0.76-1.46); THYROID STIMULATING HORMONE 3.58 uIU/ML (0.358-3.740)
[2019-05-27 14:31] LABS: CREATININE, URINE 33.1 MG/DL; MALB URINE SIEMENS 27.7 MG/L; MAU/CREAT RATIO 83.6 MCG/MG (0.0-30.0)
[2019-05-27 15:18] LABS: HEMOGLOBIN A1c 8.2 %
== END ==
LOC: M SFHCPLAZ 11:02
PROVIDERS: ATTEND Family Medicine
DX: E11.22 Type 2 diabetes mellitus with diabetic chronic kidney disease (principal); E03.9 Hypothyroidism, unspecified
CPT/HCPCS: 36415; 82043; 83036; 84439; 84443; G0463

== ENCOUNTER → 2019-09-10 | Outpatient (REF) | payer MEDICARE ==
[~2019-09-10] MED LIST changes: +AUGM0.05 TOP; +LEVO30TA PO
[2019-09-15 00:06] LABS: AMIODARONE (CORDARONE) 0.3 ug/mL (1.0-2.5); NORAMIODARONE LEVEL None Detected ug/mL (1.0-2.5)
== END ==
LOC: M SHH 13:27
PROVIDERS: ATTEND Student in an Organized Health Care Education/Training Program
DX: Z86.79 Personal history of other diseases of the circulatory system (principal); Z87.898 Personal history of other specified conditions

== ENCOUNTER → 2019-10-12 | Outpatient (CLI) | payer MEDICARE ==
[~2019-10-12] MED LIST changes: +NOVO1INJ18
[2019-10-12 11:27] LABS: BASO # 0.1 10^3/uL (0.0-0.2); BASO % 0.6 % (0.0-1.0); EOS # 0.2 10^3/uL (0.0-0.5); EOS % 2.1 % (0.0-3.0); HEMATOCRIT 39.6 % (42.0-52.0); HEMOGLOBIN 12.6 g/dl (13.5-17.5); LYMPH # 2.1 10^3/uL (1.5-5.0); LYMPH % 18.9 % (24.0-44.0); MEAN CORPUSCULAR HEMOGLOBIN 30.7 pg (27.0-33.0); MEAN CORPUSCULAR HGB CONC 31.8 g/dl (32.0-36.5); MEAN CORPUSCULAR VOLUME 96.4 fl (80.0-96.0); MONO # 0.8 10^3/uL (0.0-0.8); MONO % 6.9 % (0.0-5.0); NEUTROPHILS # 7.7 10^3/uL (1.5-8.5); NEUTROPHILS % 70.3 % (36.0-66.0); PLATELET COUNT, AUTOMATED 262 10^3/uL (150-450); RED BLOOD COUNT 4.11 10^6/uL (4.30-6.10)
== END ==
LOC: M PLALAB 08:14
PROVIDERS: ATTEND Internal Medicine Hematology & Oncology
DX: C43.9 Malignant melanoma of skin, unspecified (principal)

== ENCOUNTER → 2019-10-19 | Outpatient (REF) | payer MEDICARE ==
[~2019-10-19] MED LIST changes: -ASPI81TA85 PO; +ASPI81TA86 PO
[2019-10-19 11:30] LABS: HEMATOCRIT 37.4 % (42.0-52.0); HEMOGLOBIN 12.2 g/dl (13.5-17.5); MEAN CORPUSCULAR HEMOGLOBIN 30.9 pg (27.0-33.0); MEAN CORPUSCULAR HGB CONC 32.6 g/dl (32.0-36.5); MEAN CORPUSCULAR VOLUME 94.7 fl (80.0-96.0); PLATELET COUNT, AUTOMATED 255 10^3/uL (150-450); RED BLOOD COUNT 3.95 10^6/uL (4.30-6.10); WHITE BLOOD COUNT 10.2 10^3/uL (4.0-10.0)
[2019-10-19 11:31] LABS: CALCIUM LEVEL 8.2 MG/DL (8.8-10.2); CREATININE FOR GFR 1.8 MG/DL (0.70-1.30); GLOMERULAR FILTRATION RATE 39.6 (>42); POTASSIUM SERUM 4.1 MEQ/L (3.5-5.1)
[2019-10-19 11:47] LABS: MAU/CREAT RATIO 97.6 MCG/MG (0.0-30.0)
== END ==
LOC: M SFHCPLAZ 07:58
PROVIDERS: ATTEND Family Medicine
DX: E11.22 Type 2 diabetes mellitus with diabetic chronic kidney disease (principal)
CPT/HCPCS: 11042; 36415; 80048; 82043; 83036; 85027; G0463

== ENCOUNTER → 2019-10-27 | Outpatient (CLI) | payer MEDICARE ==
[~2019-10-27] MED LIST changes: +ASPI81TA85 PO; -ASPI81TA86 PO
--- NOTE | 2019-11-02 09:26 | RADONC ---
RADIATION ONCOLOGY CONSULTATION REPORT DATE OF SERVICE: 10/27/2019 CHIEF COMPLAINT: Cutaneous malignant melanoma. HISTORY OF PRESENT ILLNESS: Mr. Mead is a 74-year-old gentleman whose has multiple cutaneous malignancies in the past presented with a lesion in the right heel in June of this year. 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 Dr. Newman performed the resection of the lesion in the aspect of left heel, and the pathology showed acral lentiginous melanoma, at least Isac's level III, with deep margin involved. On 08/14/2019, the patient underwent re-excision of the left heel lesion and left inguinal sentinel lymph node biopsy. Pathology from the left heel revealed residual melanoma that is extensively ulcerated with Breslow depth of 1.9 mm, Isac level IV, satellite lesions are not identified, melanoma extended to 1 cm, and the melanoma extends 9 mm of the deep margin and the final pathology stage was pT2bN1. Then, left inguinal sentinel lymph nodes also showed metastatic melanoma. PAST MEDICAL HISTORY: Significant for diabetes, cardiac arrhythmia, hypertension, sleep apnea, gout, bullous pemphigoid. SURGICAL HISTORY: Includes pacemaker placement, hernia surgery, and he has diagnosis of pemphigoid in 2019. As mentioned, the patient underwent resection of a superficial melanoma in situ in 2013. SOCIAL HISTORY: He chews tobacco approximately 20 years, but quit more than 20 years ago. He never used cigarettes. He uses alcohol socially. FAMILY HISTORY: The patient's father at age of 83 from organic heart disease. The patient's mother at the age of 81 from cancer of the kidney. SYSTEMIC REVIEW: GENERAL/CONSTITUTIONAL: He denies chills, fatigue, malaise, loss of appetite. Constitutional - denies chills, fatigue, weight loss. HEENT: Denies headache, dysphagia, sore throat, visual disturbances, hearing problem. RESPIRATORY: Denies cough, shortness of breath. CARDIAC: Denies palpitations. However, the patient does have exertional dyspnea upon walking less than 1 block, and there is a history of leg edema. GASTROINTESTINAL: Denies nausea, vomiting, abdominal pain, diarrhea. GENITOURINARY: Denies urinary frequency, hematuria, has occasional nocturia. MUSCULOSKELETAL: The patient has mild chronic joint discomfort. HEMATOLOGIC: Denies bruising and petechia. PHYSICAL EXAMINATION: GENERAL: The patient is obese, well-developed, alert and oriented. HEENT: Atraumatic. Conjunctivae and lids normal. There is a scar on top of the scalp from previous melanoma excision. There are no palpable lymphadenopathies. CHEST: Lungs are clear. HEART: Regular rhythm and rate. ABDOMEN: Not examined. EXTREMITIES: There is an open lesion in the left heel. There is 1+ edema of both lower extremities. No clubbing. MEDICATIONS: - allopurinol 300 mg daily - atorvastatin 20 mg daily - irbesartan 300 mg daily - carvedilol 25 mg twice daily - fluticasone spray - metformin 1000 mg daily - omeprazole 20 mg daily - amiodarone 200 mg daily - Tegretol 200 mg three times daily - Hytrin 2 mg daily - Demadex 20 mg daily - spironolactone 25 mg daily - glyburide 2.5 mg daily He has NO KNOWN DRUG ALLERGIES. Pathologic find as mentioned in HPI. Radiologic finding as mentioned in HPI. STAGING: Stage III, pT2bN1. ASSESSMENT: Mr. Mead is a 74-year-old gentleman who was evaluated by the data analyst in June who notice the lesion in the left heel. Subsequently, it was biopsied on 06/08/2019 and pathology showed lentiginous melanoma, at least Isac's level III with deep margin involvement. Subsequently, the patient underwent re-excision of the tumor on the left heel and sentinel lymph node biopsy on the left inguinal area. Pathology again showed the residual carcinoma, extensive, ulcerated with Breslow depth of 1.9 mm; it is Isac level IV. The closest margin was 1 cm and the sentinel lymph node was positive for metastatic metastasis and pathology stage was pT2bN1. The patient still has open wound at the excision site. RECOMMENDATIONS: The patient was accompanied by his . We have discussed the nature of the disease , role of radiation therapy. I discussed with them that radiation therapy isnotused for initial primary treatment and it is rarely necessary following adequate excision of a primary melanoma with some exceptions, maybe desmoplastic neurotropic melanoma or the patient non surgical candidate. Radiation therapy may be considered for patient with positive margins, especially head/neck region. However, adjuvant radiation therapy has a role in controlling relapse in a patient at risk. The patient is scheduled of surgical consultation of potential inguinal node dissection and with medical oncologist with future immunotherapy. I discussed role of radiation therapy and potential side effect. I have given them a chance to ask questions and concerns. They were answered to their satisfaction. I informed the patient for followup in 1 month for further discussion of treatment. MTDD
== END ==
LOC: M ONCR 10:24
PROVIDERS: ATTEND Radiology Radiation Oncology
DX: C43.4 Malignant melanoma of scalp and neck (principal)

== ENCOUNTER → 2019-11-17 | Outpatient (CLI) | payer MEDICARE ==
[~2019-11-17] MED LIST changes: -ASPI81TA85 PO; +ASPI81TA86 PO
--- NOTE | 2019-11-17 10:47 | REP ---
REASON: Nonhealing foot ulcer. LEFT SIDE: Ankle brachial index: No flow in the [employer]ANT OPERATOR, unobtainable. Common femoral artery 72 cm/s Biphasic Profunda 80 cm/s Biphasic SFA proximal 80 cm/s Biphasic to triphasic SFA mid 66 cm/s Biphasic SFA distal 51 cm/s Biphasic Popliteal 45-258 cm/s Monophasic NAN proximal 78 cm/s Monophasic Tibioperoneal trunk 54 cm/s Monophasic [employer] OPERATOR proximal 50 cm/s Monophasic [employer] OPERATOR distal No flow NAN distal 86 cm/s Monophasic Heavily calcified vessels were seen in the calf with moderate plaque in the common femoral and superficial femoral arterial system. No significant stenosis was identified until imaging the popliteal artery distally where a moderate stenosis was identified just proximal to the anterior tibial artery. No flow is seen in the distal posterior tibial artery and slow flow was seen in the proximal posterior tibial artery to the mid posterior tibial artery with collateral vascular flow noted off the mid and distal portions. Anterior tibial artery was seen to be small in caliber with heavy calcification. Increased velocity and increased diastolic flow is seen into the foot. Electronically Signed by Yonatan Phillips DO 11/17/2019 11:40 A
== END ==
LOC: M RAD 07:05
PROVIDERS: ATTEND Surgery
DX: L97.422 Non-pressure chronic ulcer of left heel and midfoot with fat layer exposed (principal)

== ENCOUNTER → 2019-11-30 | Outpatient (REF) | payer MEDICARE | LOC: M LAB REF 09:10 | PROVIDERS: ATTEND Surgery | DX: C43.72 Malignant melanoma of left lower limb, including hip (principal) ==

== ENCOUNTER 2020-05-19 19:21 | Emergency (ER) | payer MEDICARE ==
[~2020-05-19] VITALS: Ht 165.1 cm; Wt 108.6 kg
[~2020-05-19 19:21] MED LIST changes: +GLYB2.5T7 PO; -GLYB25TA PO
--- OUTSIDE RECORDS SUMMARY | 2020-05-19 19:54 | CCD ---
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 Name Role Phone Vincent Marcano Unavailable PROBLEMS Type Condition ICD9-CM Code OOK53-EG Code Onset Dates Condition S tatus SNOMED Code Notes Problem Type 2 diabetes mellitus with diabetic chronic kidney disease E11.22 Active 70441609 Problem Chronic combined systolic and diastolic heart failure I50.42 Active 490860755132407 Problem Pacemaker Z95.0 Active 452388749 Problem Nonrheumatic aortic valve stenosis I35.0 Activ e 842515194 Problem Chronic kidney disease, stage III (moderate) N18.3 Active 302360564 Problem Benign prostatic hyperplasia with lower urinary tract symptoms, symptom details unspecified N40.1 Active 757006868 Problem [facility] current use of insulin Z79.4 Active 512463395 Problem Failed skin graft T86.821 Active 048641119 Problem Bullous pemphigoid L12.0 Active 25868540 Was on shaquille, pred, clobetasol in past Problem Wound dehiscence T81.30XA Active 462792404 Problem History of nonmelanoma skin cancer Z85.828 Activ e 486884789 Problem Hypomagnesemia E83.42 Active 157188959 Problem Hypertensive heart disease with heart failure I11.0 Active 1581064 Problem Acquired hypothyroidism E03.9 Active 46806143 2 Problem Lentigines L81.4 Active 594213393 Problem Ecchymoses, spontaneous R23.3 Active 63084067 7 Problem Seborrheic keratoses L82.1 Active 962155464 Problem Malignant melanoma of left foot C43.72 Active 273867680 Problem Acute left-sided low back pain with left-sided sciatica M54.42 Active 413406572 Problem 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 midfoot with fat layer exposed L97.422 Active 268011140 Problem History of melanoma in situ Z86.008 Active 1251 931936825 Problem Hypothyroidism, unspecified type E03.9 Active 65444123 Problem History of melanoma in situ Z86.006 Active 1251 823762226 Problem History of malignant melanoma Z85.820 Active 16 8949520 Problem Melanocytic nevi of face D22.30 Active 5791381 04 Problem Melanocytic nevi of trunk D22.5 Active 899730 002 Problem Pulmonary HTN I27.20 Active 47141916 Problem Melanocytic nevi of scalp and neck D22.4 Activ e 934600811 Problem AICD (automatic cardioverter/defibrillator) present Z95.810 Active 538026766 Problem Erectile dysfunction, unspecified erectile dysfunction typ e N52.9 Active 999399269 Problem Melanocytic nevi of left lower limb, including hip D22.72 Active 556446727 Problem Melanocytic nevi of right lower limb, including hip D22.71 Active 436212101 Problem Melanocytic nevi of left upper limb, including shoulder D22.62 Active 866651933 Problem Melanocytic nevi of right upper limb, including shoulder D22.61 Active 112911832 ALLERGIES No Known Allergies ENCOUNTERS from 1945 to 2020 Encounter Location Date Provider Diagnosis [address] [address] Apr, [facility] IMMUNIZATIONS No Information SOCIAL HISTORY Tobacco Use: Social History Observation Description Date Details (start date - stop date) Never Smoker Sex Assigned At : Social History Observation Description Sex Assigned At Unknown Education: Question Answer Notes Level of Education: Not Finished College Audit Question Answer Notes Total Score: 1 Interpretation: Alcohol Education Language: Question Answer Notes Languages spoken: Czech Latter Day: Question Answer Notes Latter Day No pentecostal beliefs that would impact health care. Drug and Alcohol Question Answer Notes Total Score: 0 Interpretation: No problems reported Alcohol Screening: Question Answer Notes Did you have a drink containing alcohol in the past year? Ye s Points 1 Interpretation Negative How often did you have six or more drinks on one occas ion in the past year? Never (0 points) How many drinks did you have on a typica l day when you were drinking in the past year? 1 or 2 (0 points) How often did you have a drink containing alcohol in t he past year? Monthly or less (1 point) Tobacco Use: Question Answer Notes Are you a: never smoker Additional Findings: Tobacco Non-User ed chewing tobacco >10 years REASON FOR REFERRAL No Information VITAL SIGNS No information MEDICATIONS Medication SIG (Take, Route, Frequency, Duration) Notes Start Da te End Date Status Omeprazole 20 MG 1 capsule Orally Once a day for 90 day(s) Active Betamethasone Dipropionate Aug 0.05 % 1 application to affected area Externally BID to areas of body neck down with rash Active Torsemide 20 MG 1 tablet Orally twice a day Active Carvedilol 6.25 MG 1 tablet Orally twice a day Active Imatinib Mesylate 400 MG 1 tablet with a meal and a l arge glass of water Orally Once a day for 30 day(s) Active Losartan Potassium 50 MG 1 tablet Orally Once a day Active Levothyroxine Sodium 25 MCG 1 tablet on an empty stoma ch in the morning Orally Once a day for 90 Active Tamsulosin HCl 0.4 MG 1 capsule Orally Once a day Active Blood Glucose Test - as directed In Vitro Twice d aily before breakfast and dinner. DX: E11.65 for 90 Active Pen [place] 32G X 4 MM as directed subcutaneously, DX: E11.22 Daily for 50 Active Vitamin D (Ergocalciferol) 26602 UNIT 1 capsule Orally once a week Active Allopurinol 300 MG 1 tablet Orally Once a day for 90 Active Test Strips - as directed intradermally three times daily for 90 days Feb, Active Calcitriol 0.25 MCG 1 capsule Orally Once a day for 30 day(s) Active Aspirin Adult Low Dose 81 MG 1 tablet Orally Once a day Active NovoLIN 70/30 FlexPen (70-30) 100 UNIT/ML as directed Subcutaneous 33units at breakfast & dinner for 30 days A ctive Atorvastatin Calcium 40 MG 1 tablet Orally Once a day Active Gabapentin 300 MG 1 capsule Orally Daily for 90 Active Carbamazepine 200 MG 1 tablet Orally Twice a day Active PROCEDURES No Information RESULTS No Results REASON FOR VISIT COL referral MEDICAL (GENERAL) HISTORY Type Description Date Medical History Hx of V-tach; Sees Dr. Kaitlin Rodriguez Medical History IDDM Medical History Cardiac arrest Medical History Pacemaker and AICD Medical History CKD; Sees Sindu Medical History Chronic congestive heart failure Medical History BPH Medical History Bulous pemphigoid; Follows with Derm Medical History HTN Medical History Seizure episode x1; on Carbamezapine, Dr Ramirez Medical History Gout (toe, ankle, knee, elbow) Medical History Neuropathy- Follows with Josh jaramillo Surgical History hernia repair 1966 Surgical History pacemaker 09/2012 Surgical History removal of cancer, left heel, left groin lymph node 08/2019 Hospitalization History hypoglycemia 06/2018 Hospitalization History sepsis 05/2018 Hospitalization History Cardiac arrest 09/15 Hospitalization History sepsis 2018 Goals Section No Information Health Concerns No Information MEDICAL EQUIPMENT No Information MENTAL STATUS No Information FUNCTIONAL STATUS No Information ASSESSMENTS No Information PLAN OF TREATMENT Next Appt Details Provider Name:Vincent Mracano, 2020-05-19 0 8:30:00 AM, [address] [place], [address], Insurance Providers Payer Name Payer Address Payer Phone Insured Name Patient Relati onship to Insured Coverage Start Date Coverage End Date MEDICARE Part A and B [address] [facility] [id number] [employer] self [facility] OPTIONS [facility] CLAIM DIV [address] [facility] [phone] [place] self
--- OUTSIDE RECORDS SUMMARY | 2020-05-19 19:55 | CCD ---
Author Author [facility] Organization [facility] Address Unknown Phone Unavailable Care Team Providers Care Patient Ambassador Name Role Phone Trickey, J Sherrell PA Unavailable Unavailable Trickey, J Sherrell PA Unavailable Unavailable Trickey, J Sherrell PA Unavailable Unavailable Trickey, J Sherrell PA Unavailable Unavailable Trickey, J Sherrell PA Unavailable Unavailable Trickey, J Sherrell PA Unavailable Unavailable Trickey, J Sherrell PA Unavailable Unavailable Trickey, J Sherrell PA Unavailable Unavailable Trickey, J Sherrell PA Unavailable Unavailable Trickey, J Sherrell PA Unavailable Unavailable Trickey, J Sherrell PA Unavailable Unavailable Trickey, J Sherrlel PA Unavailable Unavailable Trickey, J Sherrell PA Unavailable Unavailable Trickey, J Sherrell PA Unavailable Unavailable Trickey, J Sherrell PA Unavailable Unavailable Trickey, J Sherrell PA Unavailable Unavailable Trickey, J Sherrell PA Unavailable Unavailable Trickey, J Sherrell PA Unavailable Unavailable Trickey, J Sherrell PA Unavailable Unavailable Trickey, J Sherrell PA Unavailable Unavailable Trickey, J Sherrell PA Unavailable Unavailable Trickey, J Sherrell PA Unavailable Unavailable Trickey, J Sherrell PA Unavailable Unavailable Trickey, J Sherrell PA Unavailable Unavailable Trickey, J Sherrell PA Unavailable Unavailable Trickey, J Sherrell PA Unavailable Unavailable Trickey, J Sherrell PA Unavailable Unavailable Trickey, J Sherrell PA Unavailable Unavailable Trickey, J Sherrell PA Unavailable Unavailable Trickey, J Sherrell PA Unavailable Unavailable Trickey, J Sherrell PA Unavailable Unavailable Trickey, J Sherrell PA Unavailable Unavailable Trickey, J Sherrell PA Unavailable Unavailable Trickey, J Sherrell PA Unavailable Unavailable Trickey, J Sherrell PA Unavailable Unavailable Trickey, J Sherrell PA Unavailable Unavailable Trickey, J Sherrell PA Unavailable Unavailable Trickey, J Sherrell PA Unavailable Unavailable Trickey, J Sherrell PA Unavailable Unavailable Trickey, J Sherrell PA Unavailable Unavailable Trickey, J Sherrell PA Unavailable Unavailable Trickey, J Sherrell PA Unavailable Unavailable Trickey, J Sherrell PA Unavailable Unavailable Trickey, J Sherrell PA Unavailable Unavailable Trickey, J Sherrell PA Unavailable Unavailable Trickey, J Sherrell PA Unavailable Unavailable Trickey, J Sherrell PA Unavailable Unavailable Trickey, J Sherrell PA Unavailable Unavailable Trickey, J Sherrell PA Unavailable Unavailable Trickey, J Sherrell PA Unavailable Unavailable Trickey, J Sherrell PA Unavailable Unavailable Trickey, J Sherrell PA Unavailable Unavailable Re-disclosure Warning The records that you are about to access may contain information from federally-assisted alcohol or drug abuse programs. If such information is present, then the following federally mandated warning applies: This information has been disclosed to you from records protected by federal confidentiality rules (42 CFR part 2). The federal rules prohibit you from making any further disclosure of this information unless further disclosure is expressly permitted by the written consent of the person to whom it pertains or as otherwise permitted by 42 CFR part 2. A general authorization for the release of medical or other information is NOT sufficient for this purpose. The Federal rules restrict any use of the information to criminally investigate or prosecute any alcohol or drug abuse patient.The records that you are about to access may contain highly sensitive health information, the redisclosure of which is protected by Article 27-F of the [facility] Public Health law. If you continue you may have access to information: Regarding HIV / AIDS; Provided by facilities licensed or operated by the [facility] Office of Mental Health; or Provided by the [facility] Office for People With Developmental Disabilities. If such information is present, then the following [facility] mandated warning applies: This information has been disclosed to you from confidential records which are protected by state law. State law prohibits you from making any further disclosure of this information without the specific written consent of the person to whom it pertains, or as otherwise permitted by law. Any unauthorized further disclosure in violation of state law may result in a fine or fci sentence or both. A general authorization for the release of medical or other information is NOT sufficient authorization for further disc losure. Allergies and Adverse Reactions Type Description Substance Reaction Status Data Source(s ) Drug Class NO KNOWN ALLERGIES NO KNOWN ALLERGIES [facility] Family History Family Member Name Family Member Gender Family Member Status Date o f Status Description Data Source(s) Unknown Male Problem [facility] ([facility] Unknown Male Problem MED[facility] ([facility]) Unknown Unknown Problem MED[facility] ([facility]) Unknown Unknown Problem [facility] ([facility]) Unknown Unknown Problem [facility] ([facility]) Unknown Unknown Problem [facility] ([facility]) Encounters Encounter Providers Location Date Indications Data Source(s ) Unknown [address] [facility] [address] 04/11/2020 12:00:00 AM EST [facility]CW1 [facility]) Unknown [address] [facility] [address] 02/04/2020 12:00:00 AM EDT eCW1 ([facility]) Unknown [address] [facility] [place] [address] 02/02/2020 12:00:00 AM EDT eCW1 ([facility]) [facility] [address] [facility] [place] [address] 12/14/2019 12:00:00 AM EDT eCW1 ([facility]) Outpatient Attender: Sherrell MOON [facility] 12/08/2019 08:15:00 AM EDT MEDENT ([facility]) Outpatient [address] [facility] Y [address] 11/24/2019 12:00:00 AM EDT [facility]CW1 [facility] Outpatient [address] [facility] [address] 11/23/2019 12:00:00 AM EDT eCW1 ([facility]) ([id number]) For Template [place] [address] [place] [address] 11/23/2019 12:00:00 AM EDT eCW1 ([facility]) ([id number]) For Template [place] [address] [place] [address] 11/18/2019 12:00:00 AM EDT eCW1 ([facility]) Unknown [address] [facility] [address] 11/18/2019 12:00:00 AM EDT eCW1 ([facility]) ([id number]) For Template [place] [address] [place] [address] 11/16/2019 12:00:00 AM EDT eCW1 ([facility]) Outpatient [address] [facility] [address] 10/23/2019 12:00:00 AM EDT eCW1 ([facility]) [facility] [address] [place] [address] 10/22/2019 12:00:00 AM EDT eCW1 ([facility]) (WND NP120) New Patient [address] [place] [address] 10/19/2019 12:00:00 AM EDT eCW1 ([facility]) Unknown [address] [facility] [address] 10/19/2019 12:00:00 AM EDT eCW1 ([facility]) [facility] Resident [address] [place] [address] 10/09/2019 12:00:00 AM EDT eCW1 ([facility]) [facility] [address] [place] [address] 10/02/2019 12:00:00 AM EDT eCW1 ([facility]) [facility] [address] [place] [address] 09/23/2019 12:00:00 AM EDT eCW1 ([facility]) [facility] [address] [place] [address], [place] [address] 09/23/2019 12:00:00 AM EDT eCW1 ([facility]) [address] [address] 09/18/2019 12:00:00 AM EDT eCW1 ([facility]) [address] [address] 09/15/2019 12:00:00 AM EDT eCW1 ([facility]) TeleMedicine Phone E/M by Cecilio 11-[address] [place] [address] 09/03/2019 12:00:00 AM EDT eCW1 ([facility]) [address] [address] 09/03/2019 12:00:00 AM EDT eCW1 ([facility]) [address] [address] 08/27/2019 12:00:00 AM EDT eCW1 ([facility]) [address] [address] 08/26/2019 12:00:00 AM EDT eCW1 ([facility]) [address] [address] 08/24/2019 12:00:00 AM EDT eCW1 ([facility]) [address] [address] 08/19/2019 12:00:00 AM EDT eCW1 ([facility]) [address] [address] 08/04/2019 12:00:00 AM EDT eCW1 ([facility]) [facility] [address] [place] [address], [place] [address] 08/04/2019 12:00:00 AM EDT [facility]CW1 [facility] [address] [address] 07/29/2019 12:00:00 AM EDT eCW1 ([facility]) [address] [place] [address] 07/29/2019 12:00:00 AM EDT eCW1 ([facility]) [address] [address] 07/06/2019 12:00:00 AM EST eCW1 ([facility]) [facility] GME Resident [address] [place] [address] 06/24/2019 12:00:00 AM EST eCW1 ([facility]) [address] [address] 06/23/2019 12:00:00 AM EST eCW1 ([facility]) Unknown [address] [place] [address] 06/17/2019 12:00:00 AM EST eCW1 ([facility]) [facility] [address] [place] [address] 06/17/2019 12:00:00 AM EST eCW1 ([facility]) Outpatient Attender: Sherrell Simms [facility] 06/09/2019 07:15:00 AM EST MEDENT ([facility]) [address] [address] 06/03/2019 12:00:00 AM EST eCW1 ([facility]) [address] [place] [address] 06/02/2019 12:00:00 AM EST eCW1 ([facility]) [address] [place] [address] 06/01/2019 12:00:00 AM EST eCW1 ([facility]) [facility] GME Resident [address] [place] [address] 05/27/2019 12:00:00 AM EST eCW1 ([facility]) [facility] [address] [place] [address], [place] [address] 05/12/2019 12:00:00 AM EST eCW1 ([facility]) [facility] [address] [place] [address] Y [address] 05/12/2019 12:00:00 AM EST eCW1 ([facility]) [facility] GME Resident [address] [place] [address] 05/01/2019 12:00:00 AM EST eCW1 ([facility]) [address] [place] [address] 04/21/2019 12:00:00 AM EST eCW1 ([facility]) [facility] GME Resident [address] [place] [address] 04/15/2019 12:00:00 AM EST eCW1 ([facility]) [address] [address] 04/06/2019 12:00:00 AM EST eCW1 ([facility]) [address] [place] [address] 03/25/2019 12:00:00 AM EST eCW1 ([facility]) Medications Medication Brand Name Start Date Product Form Dose Route Admi nistrative Instructions Pharmacy Instructions Status Indications Reaction Description Data Source(s) Test Strips - UNK 02/05/2020 12:00:00 AM EDT acti ve Test Strips - eCW1 ([facility]) Test Strips - UNK 02/05/2020 12:00:00 AM EDT acti ve Test Strips - eCW1 ([facility]) Test Strips - UNK 02/05/2020 12:00:00 AM EDT acti ve Test Strips - eCW1 ([facility]) Loperamide Hydrochloride 2 MG Oral Capsule Loperamide HCl 2 MG Loperamide HCl 2 MG 08/27/2019 12:00:00 AM EDT 1.0 {capsule_as_needed} active Loperamide HCl 2 MG eCW1 ([facility]) Loperamide Hydrochloride 2 MG Oral Capsule Loperamide HCl 2 MG Loperamide HCl 2 MG 08/27/2019 12:00:00 AM EDT 1.0 {capsule_as_needed} active Loperamide HCl 2 MG eCW1 ([facility]) Loperamide Hydrochloride 2 MG Oral Capsule Loperamide HCl 2 MG Loperamide HCl 2 MG 08/27/2019 12:00:00 AM EDT active 1 capsule as needed eCW1 ([facility]) Insurance Providers Payer name Policy type / Coverage type Policy ID Covered republican ID Covered republican's relationship to larkin Policy [place] Plan Information MEDICARE [id number] SP [id number] AARP HEALTH CARE OPTIONS [id number] SP [id number] AARP O [id number] S [id number] MEDICARE C [id number] S [id number] EXCELLUS BCBS B [id number] S [id number] [id number] WELLCARE [id number] SP [id number] ALLA MEDICARE SP EXCELLUS MEDICARE BLUE PPO G [id number] Self [id number] WELLCARE [id number] SP [id number] MEDICARE [id number] SP [id number] A ANSI-Health Maintenance Organization ( O) [id number] ANSI-Health Maintenance Organization ( O) [id number] ANSI-Health Maintenance Organization ( O) [id number] ANSI-Health Maintenance Organization ( O) [id number] ANSI-Health Maintenance Organization ( O) [id number] Medicare Blue Commercial [id number] Self [id number] [employer] Commercial [id number] Self [id number] ANSI-Health Maintenance Organization ( O) [id number] BCBS Ppo Commercial [id number] BCBS Ppo Commercial [id number] [facility] Medicare Commercial [id number] Self [id number] Medicare Blue Ppo Commercial [id number] Self [id number] [employer] Commercial [id number] Self [id number] ANSI-Health Maintenance Organization ( O) [id number] ANSI-Health Maintenance Organization ( O) [id number] ANSI-Health Maintenance Organization ( O) [id number] ANSI-Health Maintenance Organization ( O) [id number] ANSI-Health Maintenance Organization ( O) [id number] [facility] ([facility]) Medigap Part B [id number] Self [id number] State Ins Fund () Workers Compensation [id number] Self [id number] [facility] (Medicare) Medigap Part B [id number] Self [id number] [facility] Medigap Part B [id number] Self [id number] ANSI-Health Maintenance Organization ( O) [id number] ANSI-Health Maintenance Organization ( O) [id number] ANSI-Health Maintenance Organization ( O) [id number] WELLCARE O [id number] S [id number] [facility] ([facility]) Medigap Part B [id number] Self [id number] State Ins Fund () Workers Compensation [id number] Self [id number] MEDICARE BLUE PPO 306 [id number] SP [id number] STATE INSURANCE FUND [id number] SP [id number] [facility] ([facility]) Medigap Part B [id number] Self [id number] State Ins Fund () Workers Compensation [id number] Self [id number] [facility] ([facility]) Medigap Part B [id number] Self [id number] State Ins Fund () Workers Compensation [id number] Self [id number] STATE INSURANCE FUND O [id number] S [id number] [facility] [id number] S VYM [id number] [facility] ([facility]) Medigap Part B [id number] Self [id number] State Ins Fund () Workers Compensation [id number] Self [id number] MEDICARE BLUE PPO 306 [id number] SP [id number] [facility] INSURANCE FUND [id number] SP [id number] O UNAVAILABLE UNAVAILA BLE OTHER WORKERS COMPENSATION [id number] SP [id number] OTHER WORKERS COMPENSATION [id number] SP [id number] MEDICARE BLUE PPO 306 [id number] SP [id number] Medicare Blue Commercial [id number] Self [id number] BS [place] Medigap Part B [id number] Family Depend ent [id number] BS [place] Medigap Part B [id number] Family Depend ent [id number] BS [place] Medigap Part B [id number] Family Depend ent [id number] [facility] (Medicare) Medigap Part B [id number] Self [id number] [facility] ([facility]) Medigap Part B [id number] Self [id number] Blue Shield MCR Advantage Commercial [id number] Self [id number] Medicare Blue Commercial [id number] Self [id number] [id number] Medicare Blue Commercial [id number] Self [id number] [id number] MEDICARE C [id number] S [id number] A BS [place] Medigap Part B [id number] Family Depend ent [id number] BS [place] Medigap Part B [id number] Family Depend ent [id number] BS [place] Medigap Part B [id number] Family Depend ent [id number] Medicare Blue Commercial [id number] Self [id number] [id number] BLUE CROSS BLUE SHIELD MCR -I/P [id number] 18 [id number] BLUE CROSS BLUE SHIELD MCR -O/P [id number] 18 [id number] UHC UNITED MEDICARE COMPLETE G [id number] Self [id number] Medicare Blue Commercial [id number] Self [id number] Medicare Solutions Commercial [id number] Self [id number] MEDICARE COMPLETE [id number] SP [id number] MEDICARE COMPLETE-UHC O [id number] S [id number] Medicare Solutions Commercial Self [employer] (Medicare) Commercial Self United [employer] (MCR) Commercial Self Medicare Solutions Commercial Self BS [place] Medigap Part B Family Dependent BS [place] Medigap Part B Family Dependent BS [place] Medigap Part B Family Dependent [employer] (Medicare) Medigap Part B Self United[employer]/Medicare Commercial Self United Healthcare Commercial Self MEDICARE COMPLETE [id number] SP [id number] MEDICARE A [id number] Self [id number] A MEDICARE COMPLETE-UH S [id number] S [id number] MEDICARE TE M [id number] S [id number] [facility] O [id number] S [id number] MEDICARE [id number] SP [id number] A BCBS [place] PPO 302/307 [id number] Problems, Conditions, and Diagnoses Code Display Name Description Problem Type Effective Dates Data Source(s) D22.61 206475097 Melanocytic nevi of right upper limb, including shoulder Problem 10/22/2019 12:00:00 AM EDT eCW1 ([facility]) D22.62 030198944 Melanocytic nevi of left upper l imb, including shoulder Problem 10/22/2019 12:00:00 AM EDT eCW1 ([facility]) D22.71 682960436 Melanocytic nevi of right lower limb, inc luding hip Problem 10/22/2019 12:00:00 AM EDT eCW1 ([facility]) D22.72 811455125 Melanocytic nevi of left lower limb, incl uding hip Problem 10/22/2019 12:00:00 AM EDT eCW1 ([facility]) D22.4 997229880 Melanocytic nevi of scalp and neck Proble m 10/22/2019 12:00:00 AM EDT eCW1 ([facility]) D22.5 066420734 Melanocytic nevi of trunk Problem 10/22/2019 12:00:00 AM EDT eCW1 ([facility]) D22.30 533503552 Melanocytic nevi of face Problem 10/22/2019 12:00:00 AM EDT eCW1 ([facility]) Z85.820 868423071 History of malignant melanoma Problem 10/22/2019 12:00:00 AM EDT eCW1 ([facility]) Z86.006 [id number] History of melanoma in situ Problem 10/22/2019 12:00:00 AM EDT eCW1 ([facility]) L97.422 124349031 Non-pressure chronic ulcer of left heel and midfoot with fat layer exposed Problem 10/19/2019 12:00:00 AM EDT eCW1 ([facility]) T81.30XA 479995359 Wound dehiscence Problem 10/19/2019 12:00:00 AM EDT eCW1 ([facility]) T86.821 321632165 Failed skin graft Problem 10/19/2019 12:00:0 0 AM EDT eCW1 ([facility]) C43.72 325561063 Malignant melanoma of left foot Problem 06/17/2019 12:00:00 AM EST eCW1 ([facility]) C43.72 519763569 Malignant melanoma of left foot Problem 06/17/2019 12:00:00 AM EST eCW1 ([facility]) E03.9 85223788 Hypothyroidism, unspecified type Problem 04/15/2019 12:00:00 AM EST eCW1 ([facility]) E03.9 19892151 Hypothyroidism, unspecified type Problem 04/15/2019 12:00:00 AM EST eCW1 ([facility]) Surgeries/Procedures Procedure Description Date Indications Data Source(s) FINE NEEDLE ASPIRATION W/O IMAGING GUIDANCE 11/23/2019 12:00:00 AM EDT eCW1 ([facility]) FINE NEEDLE ASPIRATION W/O IMAGING GUIDANCE 11/16/2019 12:00:00 AM EDT eCW1 ([facility]) FINE NEEDLE ASPIRATION W/O IMAGING GUIDANCE 10/19/2019 12:00:00 AM EDT eCW1 ([facility]) TeleMedicine For a follow up visit or re assessment, [id number], 15 minutes per unit 08/04/2019 12:00:00 AM EDT eCW1 ([facility]) Office Visit, Est Pt., Level 2 FC 06/24/2019 12:00:00 AM EST eCW1 ([facility]) Office Visit, Est Pt., Level 3 PC 06/24/2019 12:00:00 AM EST eCW1 ([facility]) MED NUTRITION INDIV SUBSEQ 06/23/2019 12:00:00 AM EST eCW1 ([facility]) Office Visit, Est Pt., Level 5 PC 06/17/2019 12:00:00 AM EST eCW1 ([facility]) Results ID Date Data Source Lower Extremity Arterial US 02/17/2020 11:27:20 AM EDT eCW1 ([facility]) Name Value Range Interpretation Code Description Data Cee rce(s) Supporting Document(s) Lower Extremity Arterial US eC W1 ([facility]) ID Date Data Source [id number] 12/22/2019 12:00:00 AM EDT [facility] John Rodriguez MD Patient Name: RUPAL MEAD [id number] Gopi Date of : 1945 203 Date of Exam: 12/22/2019E. KAYLA Justin [id number]#: Fax: [phone] EXAM: CHEST (2 VIEW) X-RAYCLINICAL INFORMATION: Dyspnea.Two views.The patient does know if he has priors or where they would be obtained.There is cardiomegaly. There is a dual chamber bipolar pacemaker devicewith AICD. The lung coffey are clear and the pleural angles are sharp.The osseous structures are within normal limits for the patient's age.IMPRESSION:Chronic changes as described above. No evidence of acute cardiopulmonarydisease.BERTO Mendoza/Pari you for referring RUPAL MEAD to our office. Electronically Signed - DANNIELLE BROWER DO 12/22/19 15:45 Name Value Range Interpretation Code Description Data Cee rce(s) Supporting Document(s) ID Date Data Source [id number] 12/18/2019 10:12:00 AM [facility]T [facility] Name Value Range Interpretation Code Description Data Cee rce(s) Supporting Document(s) Carbamazepine [Mass/volume] in Serum or Plasma 9.6 ug/mL 4.0-12.0 [facility] ([facility], ) A courtesy copy of this report has been sent to the patient, Laboratory test finding (navigational concept) [facility] result [facility] A courtesy copy of this report has been sent to the patient, ID Date Data Source [id number] 06/26/2019 08:35:00 AM EST [facility] ([facility], ) Name Value Range Interpretation Code Description Data Cee rce(s) Supporting Document(s) Carbamazepine [Mass/volume] in Serum or Plasma 12.3 ug/mL 4 .0-12.0 Above upper panic limits [facility] ([facility], ) <content>In conjunction with other antie pileptic drugs</content>
<content>Therapeutic 4.0 - 8.0</content>
<content>Toxicity 9.0 - 12.0</content>
<content>Carbamazepine alone</content>
<content>Therapeutic 8.0 - 12.0</content>
<content>Detection Limit = 2.0</content>
<content><2.0 indicated None Detected</content>
<content> Patient drug level exceeds published reference range. Evaluate</content>
<content>clinically for signs of potential toxicity.</content>
<content></content> Sodium [Moles/volume] in Serum or Plasma 138 mmol/L 134-144 [facility] ([facility], ) A courtesy copy of this report has been sent to the patient, Aspartate aminotransferase [Enzymatic activity/volume] in Serum or Plasma 15 IU/L 0-40 [facility] ([facility], ) A courtesy copy of this report has been sent to the patient, Alanine aminotransferase [Enzymatic activity/volume] in Seru m or Plasma 17 IU/L 0-44 [facility] ([facility], ) A courtesy copy of this report has been sent to the patient, Laboratory test finding (navigational concept) [facility] result [facility], ) A courtesy copy of this report has been sent to the patient, ID Date Data Source [id number] 06/26/2019 08:35:00 AM EST [facility]) Name Value Range Interpretation Code Description Data Cee rce(s) Supporting Document(s) Leukocytes [#/volume] in Blood by Automated count 7.7 x10E3/uL 3.4-10 .8 [facility] ([facility], ) A courtesy copy of this report has been sent to the patient, Hemoglobin [Mass/volume] in Blood 11.6 g/dL 13.0-17.7 [facility] ([facility]) A courtesy copy of this report has been sent to the patient, Hematocrit [Volume Fraction] of Blood by Automated count 34.8 % 3 7.5-51.0 [facility] ([facility]) A courtesy copy of this report has been sent to the patient, Erythrocytes [#/volume] in Blood by Automated count 3.71 x10E6/uL 4.1 4-5.80 [facility] ([facility]) A courtesy copy of this report has been sent to the patient, Erythrocyte mean corpuscular hemoglobin concentration [Mass/volume] by Automated count 33.3 g/dL 31.5-35.7 [facility] A courtesy copy of this report has been sent to the patient, Erythrocyte mean corpuscular volume [Entitic volume] by Auto mated count 94 fL 79-97 [facility] ([facility]) A courtesy copy of this report has been sent to the patient, Erythrocyte mean corpuscular hemoglobin [Entitic mass] by Automated count 31.3 pg 26.6-33.0 [facility] ([facility]) A courtesy copy of this report has been sent to the patient, Platelets [#/volume] in Blood by Automated count 225 x10E3/uL 150-450 [facility] ([facility]) A courtesy copy of this report has been sent to the patient, Lymphocytes/100 leukocytes in Blood by Automated count 21 % [facility] ([facility]) A courtesy copy of this report has been sent to the patient, Erythrocyte distribution width [Ratio] by Automated count 14.9 % 11.6-15.4 [facility] ([facility]) A courtesy copy of this report has been sent to the patient, Neutrophils/100 leukocytes in Blood by Automated count 67 % [facility] ([facility]) A courtesy copy of this report has been sent to the patient, Eosinophils/100 leukocytes in Blood by Automated count 2 % [facility] ([facility]) A courtesy copy of this report has been sent to the patient, Basophils/100 leukocytes in Blood by Automated count 0 % [facility] ([facility]) A courtesy copy of this report has been sent to the patient, Monocytes/100 leukocytes in Blood by Automated count 9 % [facility] ([facility]) A courtesy copy of this report has been sent to the patient, Immature cells [#/volume] in Blood Laboratory test result [facility]) A courtesy copy of this report has been sent to the patient, Lymphocytes [#/volume] in Blood 1.6 x10E3/uL 0.7-3.1 [facility]) A courtesy copy of this report has been sent to the patient, Neutrophils [#/volume] in Blood by Automated count 5.2 x10E3/uL 1.4-7 .0 [facility] ([facility]) A courtesy copy of this report has been sent to the patient, Basophils [#/volume] in Blood by Automated count 0.0 x10E3/uL 0.0-0.2 [facility] ([facility]) A courtesy copy of this report has been sent to the patient, Monocytes [#/volume] in Blood 0.7 x10E3/uL 0.1-0.9 [facility] ([facility]) A courtesy copy of this report has been sent to the patient, Eosinophils [#/volume] in Blood by Automated count 0.2 x10E3/uL 0.0-0 .4 [facility] ([facility]) A courtesy copy of this report has been sent to the patient, Immature granulocytes/100 leukocytes in Blood by Automated count 1 % [facility] ([facility]) A courtesy copy of this report has been sent to the patient, Nucleated erythrocytes/100 leukocytes [Ratio] in Blood by Automated count Laboratory test result [facility] ([facility]) A courtesy copy of this report has been sent to the patient, Immature granulocytes [#/volume] in Blood by Automated count 0.0 x10E3/uL 0.0-0.1 [facility] ([facility]) A courtesy copy of this report has been sent to the patient, Morphology [Interpretation] in Blood Narrative Laboratory test result [facility] ([facility]) A courtesy copy of this report has been sent to the patient, Procedure Social History Code Duration Value Status Description Data Source(s ) Smoking 04/18/2020 12:00:00 AM EST Never Smoker completed Never S moker eCW1 ([facility]) Smoking 11/24/2019 12:00:00 AM EDT Never Smoker completed Never S moker eCW1 ([facility]) Smoking 11/24/2019 12:00:00 AM EDT Never Smoker completed Never S moker eCW1 ([facility]) Smoking 11/24/2019 12:00:00 AM EDT Never Smoker completed Never S moker eCW1 ([facility]) Smoking 11/24/2019 12:00:00 AM EDT Never Smoker completed Never S moker eCW1 ([facility]) Smoking 11/24/2019 12:00:00 AM EDT Never Smoker completed Never S moker eCW1 ([facility]) Smoking 11/24/2019 12:00:00 AM EDT Never Smoker completed Never S moker eCW1 ([facility]) Smoking 11/23/2019 12:00:00 AM EDT Never Smoker completed Never S moker eCW1 ([facility]) Smoking 11/23/2019 12:00:00 AM EDT Never Smoker completed Never S moker eCW1 ([facility]) Smoking 11/18/2019 12:00:00 AM EDT Never Smoker completed Never S moker eCW1 ([facility]) Smoking 11/18/2019 12:00:00 AM EDT Never Smoker completed Never S moker eCW1 ([facility]) Smoking 10/22/2019 12:00:00 AM EDT Never Smoker completed Never S moker eCW1 ([facility]) Smoking 10/19/2019 12:00:00 AM EDT Never Smoker completed Never S moker eCW1 ([facility]) Smoking 10/09/2019 12:00:00 AM EDT Never Smoker completed Never S moker eCW1 ([facility]) Vital Signs ID Date Data Source UNK Name Value Range Interpretation Code Description Data Source(s) Respiratory rate 20 /min 20 /min [facility] ( [facility]) Heart rate 68 /min 68 /min [facility] ([facility]) Diastolic blood pressure 70 mm[Hg] 70 mm[Hg] [facility] ([facility]) Systolic blood pressure 120 mm[Hg] 120 mm[Hg] M [facility] ([facility], ) Diastolic blood pressure 70 mm[Hg] 70 mm[Hg] eCW1 ([facility]) Systolic blood pressure 130 mm[Hg] 130 mm[Hg] e CW1 ([facility]) Body temperature 98.1 [degF] 98.1 [degF] eCW1 ( [facility]) Respiratory rate 20 /min 20 /min eCW1 ([facility]) Heart rate 84 /min 84 /min eCW1 ([facility]) Body mass index (BMI) [Ratio] 37.77 kg/m2 37.77 kg/m2 W1 ([facility]) Body height 65 [in_i] 65 [in_i] eCW1 ([facility]) Body weight 227 [lb_av] 227 [lb_av] eCW1 ([facility]) Diastolic blood pressure 67 mm[Hg] 67 mm[Hg] eCW1 ([facility]) Systolic blood pressure 150 mm[Hg] 150 mm[Hg] e CW1 ([facility]) Body temperature 98.8 [degF] 98.8 [degF] eCW1 ( [facility]) Respiratory rate 18 /min 18 /min eCW1 ([facility]) Heart rate 73 /min 73 /min eCW1 ([facility]) Body mass index (BMI) [Ratio] 37.94 kg/m2 37.94 kg/m2 W1 ([facility]) Body height 65 [in_i] 65 [in_i] eCW1 ([facility]) Body weight kg eCW1 ([facility]) Body weight 228 [lb_av] 228 [lb_av] eCW1 ([facility]) Diastolic blood pressure 70 mm[Hg] 70 mm[Hg] eCW1 ([facility]) Systolic blood pressure 156 mm[Hg] 156 mm[Hg] e CW1 ([facility]) Body temperature 98.6 [degF] 98.6 [degF] eCW1 ( [facility]) Respiratory rate 20 /min 20 /min eCW1 ([facility]) Heart rate 67 /min 67 /min eCW1 ([facility]) Body mass index (BMI) [Ratio] 37.94 kg/m2 37.94 kg/m2 eCW1 ([facility]) Body height 65 [in_i] 65 [in_i] eCW1 ([facility]) Body weight kg eCW1 ([facility]) Body weight 228 [lb_av] 228 [lb_av] eCW1 ([facility]) Body mass index (BMI) [Ratio] 37.94 kg/m2 37.94 kg/m2 eCW1 ([facility]) Body height 65 [in_i] 65 [in_i] eCW1 ([facility]) Body weight kg eCW1 ([facility]) Body weight 228 [lb_av] 228 [lb_av] eCW1 ([facility]) Diastolic blood pressure 60 mm[Hg] 60 mm[Hg] eCW1 ([facility]) Systolic blood pressure 128 mm[Hg] 128 mm[Hg] e CW1 ([facility]) Body temperature 96.9 [degF] 96.9 [degF] eCW1 ( [facility]) Respiratory rate 18 /min 18 /min eCW1 ([facility]) Heart rate 68 /min 68 /min eCW1 ([facility]) Diastolic blood pressure 68 mm[Hg] 68 mm[Hg] eCW1 ([facility]) Systolic blood pressure 156 mm[Hg] 156 mm[Hg] e CW1 ([facility]) Body temperature 96.3 [degF] 96.3 [degF] eCW1 ( [facility]) Respiratory rate 18 /min 18 /min eCW1 ([facility]) Heart rate 67 /min 67 /min eCW1 ([facility]) Body mass index (BMI) [Ratio] 37.94 kg/m2 37.94 kg/m2 eCW1 ([facility]) Body height 65 [in_i] 65 [in_i] eCW1 ([facility]) Body weight kg eCW1 ([facility]) Body weight 228 [lb_av] 228 [lb_av] eCW1 ([facility]) Diastolic blood pressure 64 mm[Hg] 64 mm[Hg] eCW1 ([facility]) Systolic blood pressure 120 mm[Hg] 120 mm[Hg] e CW1 ([facility]) Body temperature 97.0 [degF] 97.0 [degF] eCW1 ( [facility]) Respiratory rate 20 /min 20 /min eCW1 ([facility]) Heart rate 74 /min 74 /min eCW1 ([facility]) Body mass index (BMI) [Ratio] 38.77 kg/m2 38.77 kg/m2 eCW1 ([facility]) Body height 65 [in_i] 65 [in_i] eCW1 ([facility]) Body weight 233 [lb_av] 233 [lb_av] eCW1 ([facility]) Diastolic blood pressure 60 mm[Hg] 60 mm[Hg] eCW1 ([facility]) Systolic blood pressure 139 mm[Hg] 139 mm[Hg] e CW1 ([facility]) Body temperature 98.5 [degF] 98.5 [degF] eCW1 ( [facility]) Respiratory rate 18 /min 18 /min eCW1 ([facility]) Heart rate 78 /min 78 /min eCW1 ([facility]) Body mass index (BMI) [Ratio] 37.77 kg/m2 37.77 kg/m2 W1 ([facility]) Body height 65 [in_i] 65 [in_i] eCW1 ([facility]) Body weight kg eCW1 ([facility]) Body weight 227 [lb_av] 227 [lb_av] eCW1 ([facility]) Diastolic blood pressure 60 mm[Hg] 60 mm[Hg] eCW1 ([facility]) Systolic blood pressure 139 mm[Hg] 139 mm[Hg] e CW1 ([facility]) Body temperature 98.5 [degF] 98.5 [degF] eCW1 ( [facility]) Respiratory rate 18 /min 18 /min eCW1 ([facility]) Heart rate 78 /min 78 /min eCW1 ([facility]) Body mass index (BMI) [Ratio] 37.77 kg/m2 37.77 kg/m2 eCW1 ([facility]) Body height 65 [in_i] 65 [in_i] eCW1 ([facility]) Body weight kg eCW1 ([facility]) Body weight 227 [lb_av] 227 [lb_av] eCW1 ([facility]) Body mass index (BMI) [Ratio] 39.10 kg/m2 39.10 kg/m2 eCW1 ([facility]) Body height 65 [in_us] 65 [in_us] eCW1 ([facility]) Body weight Measured [lb_av] eCW1 ([facility]) Diastolic blood pressure 70 mm[Hg] 70 mm[Hg] eCW1 ([facility]) Systolic blood pressure 138 mm[Hg] 138 mm[Hg] e CW1 ([facility]) Body temperature 97.5 [degF] 97.5 [degF] eCW1 ( [facility]) Respiratory rate 18 /min 18 /min eCW1 ([facility]) Heart rate 82 /min 82 /min eCW1 ([facility]) Body mass index (BMI) [Ratio] 39.57 kg/m2 39.57 kg/m2 eCW1 ([facility]) Body height 65 [in_us] 65 [in_us] eCW1 ([facility]) Body weight Measured 237.8 [lb_av] 237.8 [lb_av ] eCW1 ([facility]) Body mass index (BMI) [Ratio] 39.33 kg/m2 39.33 kg/m2 eCW1 ([facility]) Body height 65 [in_us] 65 [in_us] eCW1 ([facility]) Body weight Measured 236.4 [lb_av] 236.4 [lb_av ] eCW1 ([facility]) Respiratory rate 20 /min 20 /min eCW1 ([facility]) Heart rate 64 /min 64 /min eCW1 ([facility]) Body mass index (BMI) [Ratio] 39.04 kg/m2 39.04 kg/m2 eCW1 ([facility]) Body height 65 [in_us] 65 [in_us] eCW1 ([facility]) Body weight Measured 234.6 [lb_av] 234.6 [lb_av ] eCW1 ([facility]) Diastolic blood pressure 66 mm[Hg] 66 mm[Hg] eCW1 ([facility]) Systolic blood pressure 114 mm[Hg] 114 mm[Hg] e CW1 ([facility]) Body temperature 97.6 [degF] 97.6 [degF] eCW1 ( [facility]) Respiratory rate 16 /min 16 /min [facility] ( [facility] ) Heart rate 68 /min 68 /min [facility] ([facility] ) Diastolic blood pressure 80 mm[Hg] 80 mm[Hg] [facility] ([facility] ) Systolic blood pressure 110 mm[Hg] 110 mm[Hg] M [facility] ([facility] ) Diastolic blood pressure 70 mm[Hg] 70 mm[Hg] eCW1 ([facility]) Systolic blood pressure 120 mm[Hg] 120 mm[Hg] e CW1 ([facility]) Body temperature 97 [degF] 97 [degF] eCW1 ([facility]) Respiratory rate 20 /min 20 /min eCW1 ([facility]) Heart rate 72 /min 72 /min eCW1 ([facility]) Body mass index (BMI) [Ratio] 39.10 kg/m2 39.10 kg/m2 eCW1 ([facility]) Body height 65 [in_us] 65 [in_us] eCW1 ([facility]) Body weight Measured 235 [lb_av] 235 [lb_av] eC W1 ([facility]) Body mass index (BMI) [Ratio] 39.23 kg/m2 39.23 kg/m2 eCW1 ([facility]) Body height 65 [in_us] 65 [in_us] eCW1 ([facility]) Body weight Measured 235.8 [lb_av] 235.8 [lb_av ] eCW1 ([facility]) Diastolic blood pressure 80 mm[Hg] 80 mm[Hg] eCW1 ([facility]) Systolic blood pressure 110 mm[Hg] 110 mm[Hg] e CW1 ([facility]) Body temperature 97.4 [degF] 97.4 [degF] eCW1 ( [facility]) Respiratory rate 20 /min 20 /min eCW1 ([facility]) Heart rate 76 /min 76 /min eCW1 ([facility]) Body mass index (BMI) [Ratio] 39.27 kg/m2 39.27 kg/m2 eCW1 ([facility]) Body height 65 [in_us] 65 [in_us] eCW1 ([facility]) Body weight Measured 236 [lb_av] 236 [lb_av] eC W1 ([facility]) Patient Treatment Plan of Care Planned Activity Planned Date Details Description Data Source (s) Test Strips - 02/05/2020 12:00:00 AM EDT eCW1 ([facility]) Test Strips - 02/05/2020 12:00:00 AM EDT eCW1 ([facility]) Loperamide Hydrochloride 2 MG Oral Capsule 08/27/2019 12:00:00 AM E DT eCW1 ([facility])
[2020-05-19] MEDS ORDERED: NS 1,000 ML IV ONE (20:30)
--- OUTSIDE RECORDS SUMMARY | 2020-05-19 22:51 | CCD ---
Author Author [facility] Organization [facility] Address Unknown Phone Unavailable Care Team Providers Care [place] Bacon Tier Name Role Phone Trickey, J Sherrell PA [...] is protected by Article 27-F of the [facility] Public Health law. If you continue you may have access to information: Regarding HIV / AIDS; Provided by facilities licensed or operated by the [facility] Office of Mental Health; or Provided by the [facility] Office for People With Developmental Disabilities. If such information is present, then the following [facility] mandated warning applies: This information has [...] law may result in a fine or assisted sentence or both. A general authorization for the release of medical or other information is NOT sufficient authorization for further disc losure. Allergies and Adverse Reactions Type Description Substance Reaction Status Data Source(s ) Drug Class NO KNOWN ALLERGIES NO KNOWN ALLERGIES [facility] Family History Family Member Name Family Member Gender Family Member Status Date o f Status Description Data Source(s) Unknown Male Problem MED[facility] ([facility] Unknown Male Problem MED[facility] ([facility]) Unknown Unknown Problem MED[facility] ([facility]) Unknown Unknown Problem [facility] ([facility]) Unknown Unknown Problem [facility] ([facility]) Unknown Unknown Problem [facility] ([facility]) Encounters Encounter Providers Location Date Indications Data Source(s ) Unknown [address] [facility] [id number] 04/11/2020 12:00:00 AM EST eCW1 ([facility]) Unknown [address] [facility] [address] 02/04/2020 12:00:00 AM EDT eCW1 ([facility]) Unknown [address] [facility] [place] [address] 02/02/2020 12:00:00 AM EDT eCW1 ([facility]) [facility] [place] [address] [facility] [place] [address] 12/14/2019 12:00:00 AM EDT eCW1 ([facility]) Outpatient Attender: Sherrell MOON [facility] 12/08/2019 08:15:00 AM EDT MEDENT ([facility]) Outpatient [address] [facility] [place] [address] 11/24/2019 12:00:00 AM EDT eCW1 ([facility]) Outpatient [address] [facility] [address] 11/23/2019 12:00:00 AM EDT eCW1 ([facility]) ([id number]) For Template [place] [address] [place] [address] 11/23/2019 12:00:00 AM EDT eCW1 ([facility]) ([id number]) For Template [place] [address] [place] [address] 11/18/2019 12:00:00 AM EDT eCW1 ([facility]) Unknown [address] [facility] [address] 11/18/2019 12:00:00 AM EDT eCW1 ([facility]) ([id number]) For Template [place] [address] [place] [address] 11/16/2019 12:00:00 AM EDT eCW1 ([facility]) Outpatient [address] [facility] [address] 10/23/2019 12:00:00 AM EDT eCW1 ([facility]) [facility] Dermatology [address] [place] [address] 10/22/2019 12:00:00 AM EDT eCW1 ([facility]) (WND NP120) New Patient [address] [place] [address] 10/19/2019 12:00:00 AM EDT eCW1 ([facility]) Unknown [address] [facility] [address] 10/19/2019 12:00:00 AM EDT eCW1 ([facility]) [facility] [address] [place] [address] 10/09/2019 12:00:00 AM EDT eCW1 ([facility]) [facility] [address] [place] [address] 10/02/2019 12:00:00 AM EDT eCW1 ([facility]) [facility] Dermatology [address] [place] [address] 09/23/2019 12:00:00 AM EDT eCW1 ([facility]) [facility] [address] [place] [address], [place] [address] 09/23/2019 12:00:00 AM EDT eCW1 ([facility]) [address] [address] 09/18/2019 12:00:00 AM EDT eCW1 ([facility]) [address] [address] 09/15/2019 12:00:00 AM EDT eCW1 ([facility]) TeleMedicine Phone E/M by Cecilio 11-[address] [place] [address] 09/03/2019 12:00:00 AM EDT eCW1 ([facility]) [address] [address] 09/03/2019 12:00:00 AM EDT eCW1 ([facility]) [address] [address] 08/27/2019 12:00:00 AM EDT eCW1 ([facility]) [address] [address] 08/26/2019 12:00:00 AM EDT eCW1 ([facility]) [address] [address] 08/24/2019 12:00:00 AM EDT eCW1 ([facility]) [address] [address] 08/19/2019 12:00:00 AM EDT eCW1 ([facility]) [address] [address] 08/04/2019 12:00:00 AM EDT eCW1 ([facility]) [facility] [address] [place] [address], [place] [address] 08/04/2019 12:00:00 AM EDT eCW1 ([facility]) [address] [address] 07/29/2019 12:00:00 AM EDT eCW1 ([facility]) [address] [place] [address] 07/29/2019 12:00:00 AM EDT eCW1 ([facility]) [address] [address] 07/06/2019 12:00:00 AM EST eCW1 ([facility]) [facility] GME Resident [address] [place] [address] 06/24/2019 12:00:00 AM EST eCW1 ([facility]) [address] [address] 06/23/2019 12:00:00 AM EST eCW1 ([facility]) Unknown [address] [place] [address] 06/17/2019 12:00:00 AM EST eCW1 ([facility]) [facility] Dermatology [address] [place] [address] 06/17/2019 12:00:00 AM EST eCW1 ([facility]) Outpatient Attender: Sherrell Simms [facility] 06/09/2019 07:15:00 AM EST MEDENT ([facility]) [address] [address] 06/03/2019 12:00:00 AM EST eCW1 ([facility]) [address] [place] [address] 06/02/2019 12:00:00 AM EST eCW1 ([facility]) [address] [place] [address] 06/01/2019 12:00:00 AM EST eCW1 ([facility]) [facility] GME Resident [address] [place] [address] 05/27/2019 12:00:00 AM EST eCW1 ([facility]) [facility] [address] [place] [address], [place] [address] 05/12/2019 12:00:00 AM EST eCW1 ([facility]) [facility] [address] [place] [address] [place] [address] 05/12/2019 12:00:00 AM EST eCW1 ([facility]) [facility] GME Resident [address] [place] [address] 05/01/2019 12:00:00 AM EST eCW1 ([facility]) [address] [place] [address] 04/21/2019 12:00:00 AM EST eCW1 ([facility]) [facility] GME Resident [address] [place] [phone] 04/15/2019 12:00:00 AM EST eCW1 ([facility]) [address] [address] 04/06/2019 12:00:00 AM EST eCW1 ([facility]) [address] [place] [address] 03/25/2019 12:00:00 AM EST eCW1 ([facility]) Medications Medication Brand Name Start Date Product Form Dose Route Admi nistrative Instructions Pharmacy Instructions Status Indications Reaction Description Data Source(s) Test Strips - UNK 02/05/2020 12:00:00 AM EDT acti ve Test Strips - eCW1 ([facility]) Test Strips - UNK 02/05/2020 12:00:00 AM EDT acti ve Test Strips - eCW1 ([facility]) Test Strips - UNK 02/05/2020 12:00:00 AM EDT acti ve Test Strips - eCW1 ([facility]) Loperamide Hydrochloride 2 MG Oral Capsule Loperamide HCl 2 MG Loperamide HCl 2 MG 08/27/2019 12:00:00 AM EDT 1.0 {capsule_as_needed} active Loperamide HCl 2 MG eCW1 ([facility]) Loperamide Hydrochloride 2 MG Oral Capsule Loperamide HCl 2 MG Loperamide HCl 2 MG 08/27/2019 12:00:00 AM EDT 1.0 {capsule_as_needed} active Loperamide HCl 2 MG eCW1 ([facility]) Loperamide Hydrochloride 2 MG Oral Capsule Loperamide HCl 2 MG Loperamide HCl 2 MG 08/27/2019 12:00:00 AM EDT active 1 capsule as needed eCW1 ([facility]) Insurance Providers Payer name Policy type / Coverage type Policy ID Covered democrat ID Covered democrat's relationship to larkin Policy [place] Plan Information MEDICARE [id number] SP [id number] AARP HEALTH CARE OPTIONS [id number] SP [id number] AARP O [id number] S [id number] MEDICARE C [id number] S [id number] EXCELLUS BCBS B [id number] S VYM [id number] WELLCARE [id number] SP [id number] ALLA MEDICARE SP EXCELLUS MEDICARE BLUE PPO G [id number] Self [id number] WELLCARE [id number] SP [id number] MEDICARE [id number] SP [id number] A ANSI-Health Maintenance Organization ( O) [id number] ANSI-Health Maintenance Organization ( O) [id number] ANSI-Health Maintenance Organization ( O) [id number] ANSI-Health Maintenance Organization ( O) [id number] ANSI-Health Maintenance Organization ( O) [id number] Medicare Blue Commercial [id number] Self [id number] [employer] Commercial [id number] Self [id number] ANSI-Health Maintenance Organization ( O) [id number] BCBS Ppo Commercial [id number] BCBS Ppo Commercial [id number] [facility] Medicare Commercial [id number] Self [id number] Medicare Blue Ppo Commercial [id number] Self [id number] [employer] Commercial [id number] Self [id number] ANSI-Health Maintenance Organization ( O) [id number] ANSI-Health Maintenance Organization ( O) [id number] ANSI-Health Maintenance Organization ( O) [id number] ANSI-Health Maintenance Organization ( O) [id number] ANSI-Health Maintenance Organization ( O) [id number] [facility] ([facility]) Medigap Part B [id number] Self [id number] State Ins Fund () Workers Compensation [id number] Self [id number] [facility] (Medicare) Medigap Part B [id number] Self [id number] [facility] Medigap Part B [id number] Self [id number] ANSI-Health Maintenance Organization ( O) [id number] ANSI-Health Maintenance Organization ( O) [id number] ANSI-Health Maintenance Organization ( O) [id number] WELLCARE O [id number] S [id number] [facility] ([facility]) Medigap Part B [id number] Self [id number] State Ins Fund () Workers Compensation [id number] Self [id number] MEDICARE BLUE PPO 306 [id number] SP [id number] STATE INSURANCE FUND [id number] SP [id number] [facility] ([facility]) Medigap Part B [id number] Self [id number] State Ins Fund () Workers Compensation [id number] Self [id number] [facility] ([facility]) Medigap Part B [id number] Self [id number] State Ins Fund () Workers Compensation [id number] Self [id number] STATE INSURANCE FUND O [id number] S [id number] [facility] [id number] S VYM [id number] [facility] ([facility]) Medigap Part B [id number] Self [id number] State Ins Fund () Workers Compensation [id number] Self [id number] MEDICARE BLUE PPO 306 [id number] SP [id number] [facility] INSURANCE FUND [id number] SP [id number] O UNAVAILABLE UNAVAILA BLE OTHER WORKERS COMPENSATION [id number] SP [id number] OTHER WORKERS COMPENSATION [id number] SP [id number] MEDICARE BLUE PPO 306 [id number] SP [id number] Medicare Blue Commercial [id number] Self [id number] [place] Medigap Part B [id number] Family Depend ent [id number] [place] Medigap Part B [id number] Family Depend ent [id number] [place] Medigap Part B [id number] Family Depend ent [id number] [facility] (Medicare) Medigap Part B [id number] Self [id number] [facility] ([facility]) Medigap Part B [id number] Self [id number] Blue Shield MCR Advantage Commercial [id number] Self [id number] Medicare Blue Commercial [id number] Self [id number] Medicare Blue Commercial [id number] Self [id number] MEDICARE C [id number] S [id number] A BS [place] Medigap Part B [id number] Family Depend ent [id number] [place] Medigap Part B [id number] Family Depend ent [id number] BS [place] Medigap Part B [id number] Family Depend ent [id number] Medicare Blue Commercial [id number] Self [id number] [id number] BLUE CROSS BLUE SHIELD MCR -I/P [id number] 18 [id number] BLUE CROSS BLUE SHIELD MCR -O/P [id number] 18 [id number] UHC UNITED MEDICARE COMPLETE G [id number] Self [id number] Medicare Blue Commercial [id number] Self [id number] Medicare Solutions Commercial [id number] Self [id number] MEDICARE COMPLETE [id number] SP [id number] MEDICARE COMPLETE-UHC O [id number] S [id number] Medicare Solutions Commercial Self [employer] (Medicare) Commercial Self [employer] (MCR) Commercial Self Medicare Solutions Commercial Self BS [place] Medigap Part B Family Dependent BS [place] Medigap Part B Family Dependent BS [place] Medigap Part B Family Dependent [employer] (Medicare) Medigap Part B Self Unitedhealth[employer]/Medicare Commercial Self United Healthcare Commercial Self MEDICARE COMPLETE [id number] SP [id number] MEDICARE A [id number] Self [id number] A MEDICARE COMPLETE-UH S [id number] S [id number] MEDICARE TE M [id number] S [id number] [facility] O [id number] S [id number] MEDICARE [id number] SP [id number] A BCBS [place] PPO 302/307 [id number] Problems, Conditions, and Diagnoses Code Display Name Description Problem Type Effective Dates Data Source(s) D22.61 [id number] Melanocytic nevi of right upper limb, including shoulder Problem 10/22/2019 12:00:00 AM EDT eCW1 ([facility]) D22.62 605743149 Melanocytic nevi of left upper l imb, including shoulder Problem 10/22/2019 12:00:00 AM EDT eCW1 ([facility]) D22.71 461026010 Melanocytic nevi of right lower limb, inc luding hip Problem 10/22/2019 12:00:00 AM EDT eCW1 ([facility]) D22.72 904884603 Melanocytic nevi of left lower limb, incl uding hip Problem 10/22/2019 12:00:00 AM EDT eCW1 ([facility]) D22.4 350147506 Melanocytic nevi of scalp and neck Proble m 10/22/2019 12:00:00 AM EDT eCW1 ([facility]) D22.5 105007102 Melanocytic nevi of trunk Problem 10/22/2019 12:00:00 AM EDT eCW1 ([facility]) D22.30 461352295 Melanocytic nevi of face Problem 10/22/2019 12:00:00 AM EDT eCW1 ([facility]) Z85.820 215199169 History of malignant melanoma Problem 10/22/2019 12:00:00 AM EDT eCW1 ([facility]) Z86.006 [id number] History of melanoma in situ Problem 10/22/2019 12:00:00 AM EDT eCW1 ([facility]) L97.422 [id number] Non-pressure chronic ulcer of left heel and midfoot with fat layer exposed Problem 10/19/2019 12:00:00 AM EDT eCW1 ([facility]) T81.30XA 108019672 Wound dehiscence Problem 10/19/2019 12:00:00 AM EDT eCW1 ([facility]) T86.821 711538466 Failed skin graft Problem 10/19/2019 12:00:0 0 AM EDT eCW1 ([facility]) C43.72 683536757 Malignant melanoma of left foot Problem 06/17/2019 12:00:00 AM EST eCW1 ([facility]) C43.72 473922569 Malignant melanoma of left foot Problem 06/17/2019 12:00:00 AM EST eCW1 ([facility]) E03.9 29339196 Hypothyroidism, unspecified type Problem 04/15/2019 12:00:00 AM EST eCW1 ([facility]) E03.9 07238655 Hypothyroidism, unspecified type Problem 04/15/2019 12:00:00 AM EST eCW1 ([facility]) Surgeries/Procedures Procedure Description Date Indications Data Source(s) FINE NEEDLE ASPIRATION W/O IMAGING GUIDANCE 11/23/2019 12:00:00 AM EDT eCW1 ([facility]) FINE NEEDLE ASPIRATION W/O IMAGING GUIDANCE 11/16/2019 12:00:00 AM EDT eCW1 ([facility]) FINE NEEDLE ASPIRATION W/O IMAGING GUIDANCE 10/19/2019 12:00:00 AM EDT eCW1 ([facility]) TeleMedicine For a follow up visit or re assessment, [id number], 15 minutes per unit 08/04/2019 12:00:00 AM EDT eCW1 ([facility]) Office Visit, Est Pt., Level 2 FC 06/24/2019 12:00:00 AM EST eCW1 ([facility]) Office Visit, Est Pt., Level 3 PC 06/24/2019 12:00:00 AM EST eCW1 ([facility]) MED NUTRITION INDIV SUBSEQ 06/23/2019 12:00:00 AM EST eCW1 ([facility]) Office Visit, Est Pt., Level 5 PC 06/17/2019 12:00:00 AM EST eCW1 ([facility]) Results ID Date Data Source Lower Extremity Arterial US 02/17/2020 11:27:20 AM EDT eCW1 ([facility]) Name Value Range Interpretation Code Description Data Cee rce(s) Supporting Document(s) Lower Extremity Arterial US eC W1 ([facility]) ID Date Data Source [id number] 12/22/2019 12:00:00 AM EDT [facility] John Rodriguez MD Patient Name: RUPAL MEAD [id number] Gopi Date of : 1945 203 Date of Exam: 12/22/2019E. KAYLA Justin [id number]#: Fax: [id number] EXAM: CHEST (2 VIEW) X-RAYCLINICAL [...] rce(s) Supporting Document(s) ID Date Data Source [id number] 12/18/2019 10:12:00 AM EDT [facility], ) Name Value Range Interpretation Code Description Data Cee rce(s) Supporting Document(s) Carbamazepine [Mass/volume] in Serum or Plasma 9.6 ug/mL 4.0-12.0 [facility] ([facility], ) A courtesy copy of this report has been sent to the patient, Laboratory test finding (navigational concept) Laboratory test result [facility], ) A courtesy copy of this report has been sent to the patient, ID Date Data Source [id number] 06/26/2019 08:35:00 AM EST [facility] ([facility], ) Name Value Range Interpretation Code Description Data Cee rce(s) Supporting Document(s) Carbamazepine [Mass/volume] in Serum or Plasma 12.3 ug/mL 4 .0-12.0 Above upper panic limits [facility] ([facility] ) <content>In conjunction with other antie pileptic drugs</content>
<content>Therapeutic 4.0 - 8.0</content>
<content>Toxicity 9.0 - 12.0</content>
<content>Carbamazepine alone</content>
<content>Therapeutic 8.0 - 12.0</content>
<content>Detection Limit = 2.0</content>
<content><2.0 indicated None Detected</content>
<content> Patient drug level exceeds published reference range. Evaluate</content>
<content>clinically for signs of potential toxicity.</content>
<content></content> Sodium [Moles/volume] in Serum or Plasma 138 mmol/L 134-144 [facility] ([facility], ) A courtesy copy of this report has been sent to the patient, Aspartate aminotransferase [Enzymatic activity/volume] in Serum or Plasma 15 IU/L 0-40 [facility] ([facility] ) A courtesy copy of this report has been sent to the patient, Alanine aminotransferase [Enzymatic activity/volume] in Seru m or Plasma 17 IU/L 0-44 [facility] ([facility], ) A courtesy copy of this report has been sent to the patient, Laboratory test finding (navigational concept) Laboratory test result [facility] ([facility], ) A courtesy copy of this report has been sent to the patient, ID Date Data Source [id number] 06/26/2019 08:35:00 AM EST [facility] ([facility]) Name Value Range Interpretation Code Description Data Cee rce(s) Supporting Document(s) Leukocytes [#/volume] in Blood by Automated count 7.7 x10E3/uL 3.4-10 .8 [facility] ([facility], ) A courtesy copy of this report has been sent to the patient, Hemoglobin [Mass/volume] in Blood 11.6 g/dL 13.0-17.7 [facility] ([facility]) A courtesy copy of this report has been sent to the patient, Hematocrit [Volume Fraction] of Blood by Automated count 34.8 % 3 7.5-51.0 [facility] ([facility]) A courtesy copy of this report has been sent to the patient, Erythrocytes [#/volume] in Blood by Automated count 3.71 x10E6/uL 4.1 4-5.80 [facility] ([facility]) A courtesy copy of this report has been sent to the patient, Erythrocyte mean corpuscular hemoglobin concentration [Mass/volume] by Automated count 33.3 g/dL 31.5-35.7 [facility] A courtesy copy of this report has been sent to the patient, Erythrocyte mean corpuscular volume [Entitic volume] by Auto mated count 94 fL 79-97 [facility] ([facility]) A courtesy copy of this report has been sent to the patient, Erythrocyte mean corpuscular hemoglobin [Entitic mass] by Automated count 31.3 pg 26.6-33.0 [facility] ([facility]) A courtesy copy of this report has been sent to the patient, Platelets [#/volume] in Blood by Automated count 225 x10E3/uL 150-450 [facility] ([facility]) A courtesy copy of this report has been sent to the patient, Lymphocytes/100 leukocytes in Blood by Automated count 21 % [facility] ([facility]) A courtesy copy of this report has been sent to the patient, Erythrocyte distribution width [Ratio] by Automated count 14.9 % 11.6-15.4 [facility] ([facility]) A courtesy copy of this report has been sent to the patient, Neutrophils/100 leukocytes in Blood by Automated count 67 % [facility] ([facility]) A courtesy copy of this report has been sent to the patient, Eosinophils/100 leukocytes in Blood by Automated count 2 % [facility] ([facility]) A courtesy copy of this report has been sent to the patient, Basophils/100 leukocytes in Blood by Automated count 0 % [facility] ([facility]) A courtesy copy of this report has been sent to the patient, Monocytes/100 leukocytes in Blood by Automated count 9 % [facility] ([facility]) A courtesy copy of this report has been sent to the patient, Immature cells [#/volume] in Blood Laboratory test result [facility] ([facility]) A courtesy copy of this report has been sent to the patient, Lymphocytes [#/volume] in Blood 1.6 x10E3/uL 0.7-3.1 [facility] ([facility]) A courtesy copy of this report has been sent to the patient, Neutrophils [#/volume] in Blood by Automated count 5.2 x10E3/uL 1.4-7 .0 [facility] ([facility]) A courtesy copy of this report has been sent to the patient, Basophils [#/volume] in Blood by Automated count 0.0 x10E3/uL 0.0-0.2 [facility] ([facility]) A courtesy copy of this report has been sent to the patient, Monocytes [#/volume] in Blood 0.7 x10E3/uL 0.1-0.9 [facility] ([facility]) A courtesy copy of this report has been sent to the patient, Eosinophils [#/volume] in Blood by Automated count 0.2 x10E3/uL 0.0-0 .4 [facility] ([facility]) A courtesy copy of this report has been sent to the patient, Immature granulocytes/100 leukocytes in Blood by Automated count 1 % [facility] ([facility]) A courtesy copy of this report has been sent to the patient, Nucleated erythrocytes/100 leukocytes [Ratio] in Blood by Automated count Laboratory test result [facility] ([facility]) A courtesy copy of this report has been sent to the patient, Immature granulocytes [#/volume] in Blood by Automated count 0.0 x10E3/uL 0.0-0.1 [facility] ([facility]) A courtesy copy of this report has been sent to the patient, Morphology [Interpretation] in Blood Narrative Laboratory test result [facility] ([facility]) A courtesy copy of this report has been sent to the patient, Procedure Social History Code Duration Value Status Description Data Source(s ) Smoking 04/18/2020 12:00:00 AM EST Never Smoker completed Never S moker eCW1 (Formerly [facility]) Smoking 11/24/2019 12:00:00 AM EDT Never Smoker completed Never S moker eCW1 (Formerly [facility]) Smoking 11/24/2019 12:00:00 AM EDT Never Smoker completed Never S moker eCW1 (Formerly [facility]) Smoking 11/24/2019 12:00:00 AM EDT Never Smoker completed Never S moker eCW1 (Formerly [facility]) Smoking 11/24/2019 12:00:00 AM EDT Never Smoker completed Never S moker eCW1 (Formerly [facility]) Smoking 11/24/2019 12:00:00 AM EDT Never Smoker completed Never S moker eCW1 (Formerly [facility]) Smoking 11/24/2019 12:00:00 AM EDT Never Smoker completed Never S moker eCW1 (Formerly [facility]) Smoking 11/23/2019 12:00:00 AM EDT Never Smoker completed Never S moker eCW1 (Former[facility]) Smoking 11/23/2019 12:00:00 AM EDT Never Smoker completed Never S moker eCW1 (Former[facility]) Smoking 11/18/2019 12:00:00 AM EDT Never Smoker completed Never S moker eCW1 (Former[facility]) Smoking 11/18/2019 12:00:00 AM EDT Never Smoker completed Never S moker eCW1 (Formerly [facility]) Smoking 10/22/2019 12:00:00 AM EDT Never Smoker completed Never S moker eCW1 (Formerly [facility]) Smoking 10/19/2019 12:00:00 AM EDT Never Smoker completed Never S moker eCW1 (Formerly [facility]) Smoking 10/09/2019 12:00:00 AM EDT Never Smoker completed Never S moker eCW1 (Formerly [facility]) Vital Signs ID Date Data Source UNK Name Value Range Interpretation Code Description Data Source(s) Respiratory rate 20 /min 20 /min MED[facility] ( [facility]) Heart rate 68 /min 68 /min [facility] ([facility]) Diastolic blood pressure 70 mm[Hg] 70 mm[Hg] MEDENT ([facility]) Systolic blood pressure 120 mm[Hg] 120 mm[Hg] M EDENT ([facility] ) Diastolic blood pressure 70 mm[Hg] 70 mm[Hg] eCW1 ([facility]) Systolic blood pressure 130 mm[Hg] 130 mm[Hg] e CW1 ([facility]) Body temperature 98.1 [degF] 98.1 [degF] eCW1 ( [facility]) Respiratory rate 20 /min 20 /min eCW1 ([facility]) Heart rate 84 /min 84 /min eCW1 ([facility]) Body mass index (BMI) [Ratio] 37.77 kg/m2 37.77 kg/m2 W1 ([facility]ly [facility]) Body height 65 [in_i] 65 [in_i] eCW1 ([facility]) Body weight 227 [lb_av] 227 [lb_av] eCW1 ([facility]) Diastolic blood pressure 67 mm[Hg] 67 mm[Hg] eCW1 ([facility]) Systolic blood pressure 150 mm[Hg] 150 mm[Hg] e CW1 ([facility]) Body temperature 98.8 [degF] 98.8 [degF] eCW1 ( [facility]) Respiratory rate 18 /min 18 /min eCW1 ([facility]) Heart rate 73 /min 73 /min eCW1 ([facility]) Body mass index (BMI) [Ratio] 37.94 kg/m2 37.94 kg/m2 W1 ([facility]ly [facility]) Body height 65 [in_i] 65 [in_i] eCW1 ([facility]) Body weight kg eCW1 ([facility]) Body weight 228 [lb_av] 228 [lb_av] eCW1 ([facility]) Diastolic blood pressure 70 mm[Hg] 70 mm[Hg] eCW1 ([facility]) Systolic blood pressure 156 mm[Hg] 156 mm[Hg] e CW1 ([facility]) Body temperature 98.6 [degF] 98.6 [degF] eCW1 ( [facility]) Respiratory rate 20 /min 20 /min eCW1 ([facility]) Heart rate 67 /min 67 /min eCW1 ([facility]) Body mass index (BMI) [Ratio] 37.94 kg/m2 37.94 kg/m2 eCW1 ([facility]) Body height 65 [in_i] 65 [in_i] eCW1 ([facility]) Body weight kg eCW1 ([facility]) Body weight 228 [lb_av] 228 [lb_av] eCW1 ([facility]) Body mass index (BMI) [Ratio] 37.94 kg/m2 37.94 kg/m2 eCW1 ([facility]) Body height 65 [in_i] 65 [in_i] eCW1 ([facility]) Body weight kg eCW1 ([facility]) Body weight 228 [lb_av] 228 [lb_av] eCW1 ([facility]) Diastolic blood pressure 60 mm[Hg] 60 mm[Hg] eCW1 ([facility]) Systolic blood pressure 128 mm[Hg] 128 mm[Hg] e CW1 ([facility]) Body temperature 96.9 [degF] 96.9 [degF] eCW1 ( [facility]) Respiratory rate 18 /min 18 /min eCW1 ([facility]) Heart rate 68 /min 68 /min eCW1 ([facility]) Diastolic blood pressure 68 mm[Hg] 68 mm[Hg] eCW1 ([facility]) Systolic blood pressure 156 mm[Hg] 156 mm[Hg] e CW1 ([facility]) Body temperature 96.3 [degF] 96.3 [degF] eCW1 ( [facility]) Respiratory rate 18 /min 18 /min eCW1 ([facility]) Heart rate 67 /min 67 /min eCW1 ([facility]) Body mass index (BMI) [Ratio] 37.94 kg/m2 37.94 kg/m2 eCW1 ([facility]) Body height 65 [in_i] 65 [in_i] eCW1 ([facility]) Body weight kg eCW1 ([facility]) Body weight 228 [lb_av] 228 [lb_av] eCW1 ([facility]) Diastolic blood pressure 64 mm[Hg] 64 mm[Hg] eCW1 ([facility]) Systolic blood pressure 120 mm[Hg] 120 mm[Hg] e CW1 ([facility]) Body temperature 97.0 [degF] 97.0 [degF] eCW1 ( [facility]) Respiratory rate 20 /min 20 /min eCW1 ([facility]) Heart rate 74 /min 74 /min eCW1 ([facility]) Body mass index (BMI) [Ratio] 38.77 kg/m2 38.77 kg/m2 eCW1 ([facility]) Body height 65 [in_i] 65 [in_i] eCW1 ([facility]) Body weight 233 [lb_av] 233 [lb_av] eCW1 ([facility]) Diastolic blood pressure 60 mm[Hg] 60 mm[Hg] eCW1 ([facility]) Systolic blood pressure 139 mm[Hg] 139 mm[Hg] e CW1 ([facility]) Body temperature 98.5 [degF] 98.5 [degF] eCW1 ( [facility]) Respiratory rate 18 /min 18 /min eCW1 ([facility]) Heart rate 78 /min 78 /min eCW1 ([facility]) Body mass index (BMI) [Ratio] 37.77 kg/m2 37.77 kg/m2 W1 ([facility]) Body height 65 [in_i] 65 [in_i] eCW1 ([facility]) Body weight kg eCW1 ([facility]) Body weight 227 [lb_av] 227 [lb_av] eCW1 ([facility]) Diastolic blood pressure 60 mm[Hg] 60 mm[Hg] eCW1 ([facility]) Systolic blood pressure 139 mm[Hg] 139 mm[Hg] e CW1 ([facility]) Body temperature 98.5 [degF] 98.5 [degF] eCW1 ( [facility]) Respiratory rate 18 /min 18 /min eCW1 ([facility]) Heart rate 78 /min 78 /min eCW1 ([facility]) Body mass index (BMI) [Ratio] 37.77 kg/m2 37.77 kg/m2 eCW1 ([facility]) Body height 65 [in_i] 65 [in_i] eCW1 ([facility]) Body weight kg eCW1 ([facility]) Body weight 227 [lb_av] 227 [lb_av] eCW1 ([facility]) Body mass index (BMI) [Ratio] 39.10 kg/m2 39.10 kg/m2 eCW1 ([facility]) Body height 65 [in_us] 65 [in_us] eCW1 ([facility]) Body weight Measured [lb_av] eCW1 ([facility]) Diastolic blood pressure 70 mm[Hg] 70 mm[Hg] eCW1 ([facility]) Systolic blood pressure 138 mm[Hg] 138 mm[Hg] e CW1 ([facility]) Body temperature 97.5 [degF] 97.5 [degF] eCW1 ( [facility]) Respiratory rate 18 /min 18 /min eCW1 ([facility]) Heart rate 82 /min 82 /min eCW1 ([facility]) Body mass index (BMI) [Ratio] 39.57 kg/m2 39.57 kg/m2 eCW1 ([facility]) Body height 65 [in_us] 65 [in_us] eCW1 ([facility]) Body weight Measured 237.8 [lb_av] 237.8 [lb_av ] eCW1 ([facility]) Body mass index (BMI) [Ratio] 39.33 kg/m2 39.33 kg/m2 eCW1 ([facility]) Body height 65 [in_us] 65 [in_us] eCW1 ([facility]) Body weight Measured 236.4 [lb_av] 236.4 [lb_av ] eCW1 ([facility]) Respiratory rate 20 /min 20 /min eCW1 ([facility]) Heart rate 64 /min 64 /min eCW1 ([facility]) Body mass index (BMI) [Ratio] 39.04 kg/m2 39.04 kg/m2 eCW1 ([facility]) Body height 65 [in_us] 65 [in_us] eCW1 ([facility]) Body weight Measured 234.6 [lb_av] 234.6 [lb_av ] eCW1 ([facility]) Diastolic blood pressure 66 mm[Hg] 66 mm[Hg] eCW1 ([facility]) Systolic blood pressure 114 mm[Hg] 114 mm[Hg] e CW1 ([facility]) Body temperature 97.6 [degF] 97.6 [degF] eCW1 ( [facility]) Respiratory rate 16 /min 16 /min MEDENT ( [facility] ) Heart rate 68 /min 68 /min MEDENT ([facility] ) Diastolic blood pressure 80 mm[Hg] 80 mm[Hg] MEDENT ([facility] ) Systolic blood pressure 110 mm[Hg] 110 mm[Hg] M EDENT ([facility] ) Diastolic blood pressure 70 mm[Hg] 70 mm[Hg] eCW1 ([facility]) Systolic blood pressure 120 mm[Hg] 120 mm[Hg] e CW1 ([facility]) Body temperature 97 [degF] 97 [degF] eCW1 ([facility]) Respiratory rate 20 /min 20 /min eCW1 ([facility]) Heart rate 72 /min 72 /min eCW1 ([facility]) Body mass index (BMI) [Ratio] 39.10 kg/m2 39.10 kg/m2 eCW1 ([facility]) Body height 65 [in_us] 65 [in_us] eCW1 ([facility]) Body weight Measured 235 [lb_av] 235 [lb_av] eC W1 ([facility]) Body mass index (BMI) [Ratio] 39.23 kg/m2 39.23 kg/m2 eCW1 ([facility]) Body height 65 [in_us] 65 [in_us] eCW1 ([facility]) Body weight Measured 235.8 [lb_av] 235.8 [lb_av ] eCW1 ([facility]) Diastolic blood pressure 80 mm[Hg] 80 mm[Hg] eCW1 ([facility]) Systolic blood pressure 110 mm[Hg] 110 mm[Hg] e CW1 ([facility]) Body temperature 97.4 [degF] 97.4 [degF] eCW1 ( [facility]) Respiratory rate 20 /min 20 /min eCW1 ([facility]) Heart rate 76 /min 76 /min eCW1 ([facility]) Body mass index (BMI) [Ratio] 39.27 kg/m2 39.27 kg/m2 eCW1 ([facility]) Body height 65 [in_us] 65 [in_us] eCW1 ([facility]) Body weight Measured 236 [lb_av] 236 [lb_av] eC W1 ([facility]) Patient Treatment Plan of Care Planned Activity Planned Date Details Description Data Source (s) Test Strips - 02/05/2020 12:00:00 AM EDT eCW1 ([facility]) Test Strips - 02/05/2020 12:00:00 AM EDT eCW1 ([facility]) Loperamide Hydrochloride 2 MG Oral Capsule 08/27/2019 12:00:00 AM E DT eCW1 ([facility])
[2020-05-19 23:17] VITALS: BP 177/86
== END 2020-05-20 00:05 | disposition home or self-care (01) ==
LOC: M ED 19:21
DX: N18.9 Chronic kidney disease, unspecified (principal); E11.9 Type 2 diabetes mellitus without complications; I12.9 Hypertensive chronic kidney disease with stage 1 through stage 4 chronic kidney disease, or unspecified chronic kidney disease; Z95.0 Presence of cardiac pacemaker; Z79.899 Other long term (current) drug therapy; Z79.82 Long term (current) use of aspirin; Z79.4 Long term (current) use of insulin
CPT/HCPCS: 36415; 80053; 81001; 81002; 85025; 96360; 99284; G0463

== ENCOUNTER → 2020-05-19 | Outpatient (REF) | payer MEDICARE ==
[~2020-05-19] MED LIST changes: +GABA-282 PO; -GABA-843 PO
[2020-05-19 13:33] LABS: APPEARANCE, URINE CLEAR (CLEAR); BACTERIA, URINE AUTO NEGATIVE (NEGATIVE); BILIRUBIN, URINE AUTO NEGATIVE (NEGATIVE); BLOOD, URINE BLOOD 1+ (NEGATIVE); COLOR, URINE YELLOW (YELLOW); GLUCOSE, URINE (UA) AUTO NEGATIVE (NEGATIVE); KETONE, URINE AUTO NEGATIVE (NEGATIVE); LEUKOCYTE ESTERASE, URINE AUTO NEGATIVE (NEGATIVE); NITRITE, URINE AUTO NEGATIVE (NEGATIVE); PROTEIN, URINE AUTO 2+ mg/dL (NEGATIVE); RBC, URINE AUTO 2 /HPF (0-3); SPECIFIC GRAVITY URINE AUTO 1.019 (1.002-1.035); SQUAMOUS EPITHELIAL CELL UR AU 0 /HPF (0-6); UROBILINOGEN, URINE AUTO 0.2 mg/dL (0.0-2.0); WBC, URINE AUTO 0 /HPF (0-3)
== END ==
LOC: M SFHCPLAZ 13:07
PROVIDERS: ATTEND Student in an Organized Health Care Education/Training Program
DX: R35.0 Frequency of micturition (principal)

== ENCOUNTER → 2020-05-19 | Outpatient (REF) | payer MEDICARE ==
[2020-05-19 13:45] LABS: BASO # 0.1 10^3/uL (0.0-0.2); BASO % 0.4 % (0.0-1.0); EOS # 0.1 10^3/uL (0.0-0.5); EOS % 0.9 % (0.0-3.0); HEMOGLOBIN 12.8 g/dl (13.5-17.5); LYMPH # 1.5 10^3/uL (1.5-5.0); LYMPH % 9.2 % (24.0-44.0); MEAN CORPUSCULAR HEMOGLOBIN 31.4 pg (27.0-33.0); MEAN CORPUSCULAR HGB CONC 31.2 g/dl (32.0-36.5); MEAN CORPUSCULAR VOLUME 100.5 fl (80.0-96.0); MONO # 1.5 10^3/uL (0.0-0.8); MONO % 9.3 % (0.0-5.0); NEUTROPHILS # 12.7 10^3/uL (1.5-8.5); NEUTROPHILS % 79.5 % (36.0-66.0); PLATELET COUNT, AUTOMATED 317 10^3/uL (150-450); RED BLOOD COUNT 4.08 10^6/uL (4.30-6.10)
[2020-05-19 14:10] LABS: ALBUMIN 3.2 GM/DL (3.2-5.2); BILIRUBIN,TOTAL 0.5 MG/DL (0.2-1.0); CALCIUM LEVEL 8.8 MG/DL (8.8-10.2); CREATININE FOR GFR 2.52 MG/DL (0.70-1.30); GLOMERULAR FILTRATION RATE 26.8 (>42); POTASSIUM SERUM 4.7 MEQ/L (3.5-5.1); TOTAL PROTEIN 7.1 GM/DL (6.4-8.2)
== END ==
LOC: M SFHCPLAZ 09:53
PROVIDERS: ATTEND Family Medicine
DX: R35.0 Frequency of micturition (principal)

== ENCOUNTER → 2020-05-25 | Outpatient (REF) | payer MEDICARE ==
[~2020-05-25] MED LIST changes: -GLYB2.5T7 PO; +GLYB25TA PO
[2020-05-25 14:14] LABS: HEMOGLOBIN A1c 6.8 %
[2020-05-25 14:25] LABS: CALCIUM LEVEL 8.4 MG/DL (8.8-10.2); CREATININE FOR GFR 2.06 MG/DL (0.70-1.30); GLOMERULAR FILTRATION RATE 33.8 (>42); POTASSIUM SERUM 4.6 MEQ/L (3.5-5.1)
== END ==
LOC: M SFHCPLAZ 09:48
PROVIDERS: ATTEND Family Medicine
DX: N17.9 Acute kidney failure, unspecified (principal); E11.22 Type 2 diabetes mellitus with diabetic chronic kidney disease
CPT/HCPCS: 36415; 80048; 83036; 85025; G0463

== ENCOUNTER → 2020-05-25 | Outpatient (CLI) | payer MEDICARE ==
[2020-05-25 13:53] LABS: BASO # 0.1 10^3/uL (0.0-0.2); BASO % 0.5 % (0.0-1.0); EOS # 0.3 10^3/uL (0.0-0.5); EOS % 2.7 % (0.0-3.0); HEMATOCRIT 35.7 % (42.0-52.0); HEMOGLOBIN 11.4 g/dl (13.5-17.5); LYMPH # 1.1 10^3/uL (1.5-5.0); LYMPH % 11.9 % (24.0-44.0); MEAN CORPUSCULAR HEMOGLOBIN 31.7 pg (27.0-33.0); MEAN CORPUSCULAR HGB CONC 31.9 g/dl (32.0-36.5); MEAN CORPUSCULAR VOLUME 99.2 fl (80.0-96.0); MONO % 10.7 % (0.0-5.0); NEUTROPHILS # 6.9 10^3/uL (1.5-8.5); NEUTROPHILS % 73.2 % (36.0-66.0); PLATELET COUNT, AUTOMATED 275 10^3/uL (150-450); WHITE BLOOD COUNT 9.4 10^3/uL (4.0-10.0)
== END ==
LOC: M PLALAB 10:02
PROVIDERS: ATTEND Internal Medicine Hematology & Oncology
DX: C43.72 Malignant melanoma of left lower limb, including hip (principal)

== ENCOUNTER → 2020-06-07 | Outpatient (CLI) | payer MEDICARE ==
--- NOTE | 2020-06-07 16:25 | REPPI ---
INDICATION: R06.02 SHORTNESS OF BREATH ON EXERTION. COMPARISON: Comparison chest x-ray December 22, 2019. TECHNIQUE: Two views.. FINDINGS: A multilead pacemaker is again noted in the heart view of the left side. Mild cardiomegaly is observed unchanged. There is very slight blunting of the posterior pleural angles on the lateral film. Pulmonary vasculature is cephalized. No focal infiltrate is appreciated. There are a few Marie lines in the bases. IMPRESSION: CHF pattern cardiomegaly with pacemaker. Slight blunting of the pleural angles and basilar Marie B lines.. <Electronically signed by Conrad Hernandez > 06/07/20 0252
== END ==
LOC: M PLAIMG 13:23
PROVIDERS: ATTEND Student in an Organized Health Care Education/Training Program
DX: I51.7 Cardiomegaly (principal); R06.02 Shortness of breath; Z95.0 Presence of cardiac pacemaker
CPT/HCPCS: 71046; G0463

== ENCOUNTER 2020-07-05 10:21 | Inpatient (IN) | payer MEDICARE ==
[~2020-07-05] VITALS: Ht 165.1 cm; Wt 105.0 kg
[~2020-07-05 10:21] MED LIST changes: +GLYB2.5T7 PO; -GLYB25TA PO
[2020-07-05] MEDS ORDERED: ACETAMINOPHEN TAB 650MG DOSE (2X325MG) PO ONE (11:20)
[2020-07-05 11:21] LABS: BASO % 0.5 % (0.0-1.0); HEMATOCRIT 37.4 % (42.0-52.0); HEMOGLOBIN 12.1 g/dl (13.5-17.5); LYMPH # 0.6 10^3/uL (1.5-5.0); MEAN CORPUSCULAR HEMOGLOBIN 31.3 pg (27.0-33.0); MEAN CORPUSCULAR HGB CONC 32.4 g/dl (32.0-36.5); MEAN CORPUSCULAR VOLUME 96.9 fl (80.0-96.0); MONO # 0.8 10^3/uL (0.0-0.8); MONO % 9.7 % (2.0-8.0); NEUTROPHILS # 6.9 10^3/uL (1.5-8.5); NEUTROPHILS % 81.9 % (36.0-66.0); PLATELET COUNT, AUTOMATED 275 10^3/uL (150-450); RED BLOOD COUNT 3.86 10^6/uL (4.30-6.10); WHITE BLOOD COUNT 8.5 10^3/uL (4.0-10.0)
--- NOTE | 2020-07-05 11:49 | REP ---
INDICATION: DYSPNEA/COUGH COMPARISON: 06/07/2020 TECHNIQUE: Portable AP view of the chest FINDINGS: Mediastinum and cardiac silhouette are stable with mild cardiomegaly and pacemaker again noted. Bibasilar opacities suggesting elements of atelectasis and small pleural effusions. Underlying early CHF/pulmonary interstitial edema cannot be excluded. No pneumothorax. Skeletal structures stable. IMPRESSION: Bibasilar opacities including small pleural effusions. Cannot exclude early CHF/pulmonary edema. <Electronically signed by Nikunj Mathews > 07/05/20 1143
[2020-07-05 11:53] LABS: ALBUMIN 3.3 GM/DL (3.2-5.2); ALT/SGPT 24 U/L (12-78); BILIRUBIN,DIRECT < 0.1 MG/DL (0.0-0.2); BILIRUBIN,TOTAL 0.3 MG/DL (0.2-1.0); BLOOD UREA NITROGEN 41 MG/DL (7-18); CARBON DIOXIDE LEVEL 31 MEQ/L (21-32); CHLORIDE LEVEL 102 MEQ/L (98-107); CK-MB VALUE MASS < 1.0 NG/ML (<3.6); CPK CREATINE PHOSPHOKINASE 43 U/L (39-308); CREATININE FOR GFR 2.26 MG/DL (0.70-1.30); GLOMERULAR FILTRATION RATE 30.3 (>42); GLUCOSE, FASTING 150 MG/DL (70-100); MB/CK RELATIVE INDEX 2.33 (< OR =4); POTASSIUM SERUM 4.5 MEQ/L (3.5-5.1); SODIUM LEVEL 137 MEQ/L (136-145); TOTAL PROTEIN 7.4 GM/DL (6.4-8.2); TROPONIN I 0.09 NG/ML (< 0.10)
[2020-07-05] MEDS ORDERED: RITA5TAB PO (12:13)
[2020-07-05] MEDS ORDERED: IMAT400T PO (12:13)
[2020-07-05] MEDS ORDERED: LIDOCAINE 2% 5ML JELLY UROJET TOP ONE (12:50)
[2020-07-05 14:08] LABS: CARBAMAZEPINE (TEGRETOL) LEVEL 8.7 UG/ML (4.0-10.0)
--- NOTE | 2020-07-05 14:27 | REP ---
INDICATION: AMS COMPARISON: 06/07/2018 TECHNIQUE: Axial noncontrast images from the skull base to the thoracic inlet with coronal reformations. This CT examination was performed using the following dose reduction techniques: Automated exposure control, adjustment of mA and/or kv according to the patient's size, and use of iterative reconstruction technique. FINDINGS: Age-related atrophy and microvascular ischemic changes are appreciated. The ventricles and sulci are symmetric. Siu-white differentiation is maintained. There is no evidence for acute intracranial hemorrhage, mass/mass effect, pathology or infarction. No extra-axial fluid collection. Calvarium is intact. Paranasal sinuses and mastoid air cells are clear. IMPRESSION: Age related atrophy and microvascular ischemic changes. No acute intracranial hemorrhage, infarction, or mass/mass effect. <Electronically signed by Nikunj Mathews > 07/05/20 [id number]
--- NOTE | 2020-07-05 14:30 | REP ---
INDICATION: FUO COMPARISON: 05/25/2018 TECHNIQUE: Axial noncontrast images from the thoracic inlet to the upper abdomen with coronal and sagittal reformations. This CT examination was performed using the following dose reduction techniques: Automated exposure control, adjustment of mA and/or kv according to the patient's size, and use of iterative reconstruction technique. FINDINGS: Evaluation is somewhat limited due to respiratory motion artifact. Cardiomegaly is appreciated along with pulmonary vascular congestion, small bilateral pleural effusions, and bibasilar atelectasis. No pericardial effusion. No obvious adenopathy. Tracheobronchial tree is patent. Osseous structures demonstrate age-related degenerative changes. Pacemaker noted. IMPRESSION: Findings most compatible with early CHF/pulmonary vascular congestion. <Electronically signed by Nikunj Mathews > 07/05/20 [id number]
--- NOTE | 2020-07-05 14:37 | REP ---
INDICATION: FUO COMPARISON: 05/25/2018 TECHNIQUE: Axial noncontrast images from the lung bases to the pubic symphysis with coronal and sagittal reformations. This CT examination was performed using the following dose reduction techniques: Automated exposure control, adjustment of mA and/or kv according to the patient's size, and use of iterative reconstruction technique. FINDINGS: Lung bases demonstrate small pleural effusions with bibasilar atelectasis. Liver, spleen, pancreas, gallbladder, bilateral adrenal glands and kidneys are stable and essentially normal by noncontrast evaluation. The enteric system is unremarkable and without obstruction or acute inflammatory process. Normal terminal ileum and appendix identified in the right lower quadrant. Scattered diverticula noted without acute diverticulitis. There is significant new adenopathy involving the left hemipelvis and left groin extending cranially to the level of the aortic bifurcation. Largest lymph nodes along the left pelvic sidewall measure 4.7 cm maximal diameter while lymph nodes in the left groin measure 4.8 cm maximal diameter and lymph node adjacent to the proximal left common iliac artery measures 2.7 cm maximal diameter. Further evaluation of the pelvis demonstrates Brown catheter in collapsed bladder. The prostate gland is nonspecific by noncontrast CT and is minimally enlarged measuring roughly 4.5 cm maximal transverse diameter. No ascites. No obvious focal mass lesion. Atherosclerotic changes to the aorta and vasculature noted without aneurysm. Osseous structures demonstrate degenerative changes without focal sclerotic/lytic/blastic. IMPRESSION: 1. Significant new adenopathy primarily noted along the left hemipelvis as described above. Findings are concerning for malignancy unless proven otherwise and further investigation is necessary. 2. No further obvious acute abdominopelvic pathology or process appreciated. <Electronically signed by Nikunj Mathews > 07/05/20 0933
[2020-07-05 15:15] LABS: C REACTIVE PROTEIN QUANTITATIV 4.76 MG/DL (0.00-0.30)
--- NOTE | 2020-07-05 15:20 | REP ---
INDICATION: wound / fever COMPARISON: None. TECHNIQUE: Portable AP and lateral views of the left ankle FINDINGS: Extensive osteoarthritic degenerative changes and peripheral vascular disease noted. No obvious acute fracture or dislocation. No significant soft tissue swelling or subcutaneous emphysema identified. IMPRESSION: No obvious swelling or subcutaneous emphysema. <Electronically signed by Nikunj Mathews > 07/05/20 0703
[2020-07-05 15:25] LABS: AMPHETAMINES LEVEL URINE NEGATIVE (NEGATIVE); BARBITURATES URINE NEGATIVE (NEGATIVE); BENZODIAZEPINES URINE NEGATIVE (NEGATIVE); CANNABINOIDS URINE NEGATIVE (NEGATIVE); COCAINE METABOLITE URINE NEGATIVE (NEGATIVE); METHADONE URINE NEGATIVE (NEGATIVE); OPIATES URINE NEGATIVE (NEGATIVE); PHENCYCLIDINE URINE NEGATIVE (NEGATIVE)
--- NOTE | 2020-07-05 15:35 | REP ---
INDICATION: erythematous leg COMPARISON: None. TECHNIQUE: Siu scale and color Doppler evaluation left lower extremity using linear high frequency transducer. FINDINGS: Ultrasound examination of the left lower extremity deep venous structures from the common femoral vein to the popliteal vein demonstrates normal compressibility flow and wave patterns in response to respiration and augmentation. There is no evidence for deep venous thrombosis. Pathologic appearing lymph node in the left groin measures 3.1 x 5.1 x 2.3 cm. IMPRESSION: No evidence for deep venous thrombosis. Left groin adenopathy. <Electronically signed by Nikunj Mathews > 07/05/20 [id number]
[2020-07-05] MEDS ORDERED: ASPI-161 PO (16:02)
[2020-07-05] MEDS ORDERED: CARV6.25 PO (16:02)
[2020-07-05 16:07] LABS: ERYTHROCYTE SEDIMENTATION RATE 44 mm/hr (0-20)
[2020-07-05] MEDS ORDERED: MOM 30ML SUSPENSION UDC PO PRN (16:50)
[2020-07-05] MEDS ORDERED: GLUCAGON INJ 1MG VIAL SC PRN (16:50)
[2020-07-05] MEDS ORDERED: GLUCOSE 4GM CHEW TABLET PO PRN (16:50)
[2020-07-05] MEDS ORDERED: DEXTROSE 50% 50 ML SYRINGE IV PRN (16:50)
[2020-07-05] MEDS ORDERED: IMATINIB 400 MG PO SCH (17:30)
[2020-07-05] MEDS: HumaLOG INSULIN (NovoLOG) PER UNIT SC SCH (17:30)
[2020-07-05 17:35] VITALS: BP 131/86
--- NOTE | 2020-07-05 17:53 | HPEPDOC ---
[facility] Medical History & Physical Date of Admission Jul 05, 2020 Date of Service: Jul 05, 2020 Attending Physician: JEREMIAH DUBOIS MD History and Physical CHIEF COMPLAINT: acute confusion HISTORY OF PRESENT ILLNESS: 75 yo M with metastatic melanoma previously diagnosed with scalp melanoma and more recently L ankle melanoma with mets to inguinal nodes and L groin who follows at [facility] with Dr. Peter Medellin and has been on imatinib for 2 months, CAD, HFpEF, at least moderate aortic stenosis with deferred valve replacement due to illness and covid pandemic, IDDM, CKD, and s/p PPM, who is completely independent at baseline and drives, who woke up with acute confusion with inability to form coherent full sentences and inability to ambulate with inability to follow instruction which prompted his to call EMS. On arrival to the ED, he was hemodynamically stable and while in the ED was noted to have a fever to 101.1 that improved with tylenol and was hypoxemic r equiring 2L NC. Studies were notable for WBC of 8.5, Hgb 12.1, platelets 275, Na 137, K 4.5, BUN 41, Cr 2.26 close to baseline, glucose 150, LFTs wnl with an alk phos of 185, lactate wnl, troponin of 0.09, CRP 4.76, negative tox screen, UA without bacteria, 1 WBC and negative leuk esterase. Imaging was notable for CXR that showed bibasilar opacities, pulmonary vascular congestion and small bilater al effusion, which was also the conclusion of a non contrast CT chest, CT A/P showed significant L hemipelvis and L groin lymphadenopathy without ascites or focal masses, while head CT showed age related atrophy and microvascular changes without noted masses or bleeding, duplex LE venous US showed no DVTs and L ankle XR showed no swelling or subcutaneous emphysema. Upon discussion with his , reported that he was recently started on ritalin approximately 2 weeks ago by his PCP for increased daytime sleeping and lethargy but has otherwise not had any other med changes. He is now being admitted for acute encephalopathy and noted fever without SIRS or evidence of ongoing infection at this time. MEDICAL HISTORY: 1. Seizure disorder 2. Congestive heart failure, unspecified type 3. Diabetes mellitus 4. Diabetic neuropathy 5. Coronary artery disease 6. Chronic kidney disease, stage III 7. 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 Initially had remote scalp melanoma 8. Obstructive sleep apnea 9. History of basal cell carcinoma 10. History of atrial fibrillation 11. Dyslipidemia 12. Benign prostatic hyperplasia with a chronic guzman 13. Gastroesophageal reflux disease 14. History of VT s/p PPM SURGICAL HISTORY: 1. Upper endoscopy 2. Colonoscopy 3. Pacemaker and defibrillator insertion 4. Inguinal hernia repair 5. Scalp melanoma removal FAMILY HISTORY: Father is in his 80s from heart disease. Mother is in her 80s from urinary cancer. Patient has 2 brothers who are alive and in their 60s. They have significant history of heart disease and diabetes. SOCIAL HISTORY: Patient lives independently at home with his of 22 years. Has a remote history of alcohol dependence and is never smoker. Does not currently drink alcohol. Denies illicit drug use. 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 Has 12 grandchildren. REVIEW OF SYSTEMS: Was unable to corroborate history given his altered mentation. denied recent history of fevers noted at home. Had acute SOB this morning at home but no chronic orthopnea, PND, cough, rhinorrhea, or home oxygen use. She also denied any recent diarrhea, complaints of abdominal pain, chest pain, palpitations, poor PO, polydipsia, polyuria, drainage of L ankle melanoma wound or focal neurological deficits. She reports that his inability to ambulate appeared a result of confusion with inability to coordinate his movement or follow directions. PHYSICAL EXAMINATION: GEN: NAD, confused, unable to speak in full sentences though speech is clear, pointing to the light Head: sparse hair, normocephalic, atraumatic Eyes: EOMI, PERRLA, anicteric ENT: dry MM, poor dentition Pulm: Crackles at bilateral posterior lower lung coffey, no wheezing or rhonchi Cardiac: loud 3/6 pansystolic murmur, heard throughout precordium that is loudest at RUSB, regular rhythm and rate Abd: obese, soft, normoactive bowel sounds, NTND, no palpated masses Ext: bilateral LE dependent edema with chronic skin changes. L ankle with black large hypertrophied eschar-like wound without drainage Neuro: CN 2-12 appears to be intact, speech is clear but disorganized and unable to complete sentences. Unable to follow commands at this time so the rest of the neuro exam could not be corroborated. Assessment: 75 yo M with metastatic melanoma previously diagnosed with scalp melanoma and more recently L ankle melanoma with mets to inguinal nodes and L groin who follows at [facility] with Dr. Peter Medellin and has been on imatinib for 2 months, CAD, HFpEF, at least moderate aortic stenosis with deferred valve replacement due to illness and covid pandemic, IDDM, CKD, and s/p PPM, who is completely independent at baseline and drives, who woke up with acute confusion with inability to form coherent full sentences and inability to ambulate with inability to follow instruction now admitted with acute encephalopathy possibly 2/2 recent initiation of ritalin vs. potential infection though thus far source and evidence is not apparent vs. potential brain mets. Encephalopathy: toxic/iatrogenic vs. metabolic -hold ritalin -check TSH and free T4 -carbamazepine levels was wnl -CT head was without acute pathology -will consider MRI if AMS persists -UA was without evidence of infection -f/u BCx -may consider EEG Fever: -negative SIRS -UA bland -f/u BCx -skin without convincing evidence of potential cellulitis -will hold off abx for now -CT chest without PNA -CT A/P without evidence of potential infection with noted adenopathy most likely 2/2 malignancy -PRN tylenol -monitor fever curve for now Diabetes mellitus with diabetic neuropathy: -hold 70/30 until we witness consistent PO -will place on AC/HS SSI -consistent carb diet -hypoglycemia protocol -Gabapentin Seizure disorder: Continue carbamazepine. -check Carbamazepine levels Hypertension: -Continue Losartan and Carvedilol. HFpEF: decompensated -continue her torsemide, will plan for IV diuretics tomorrow after noting UOP on home diuretic regimen first. -Continue Torsemide. -Monitor renal function. -strict I/Os and daily weights History of atrial fibrillation: -Continue Amiodarone and Aspirin. History of VT: -Has pacemaker and defibrillator Chronic kidney disease, stage III: Baseline creatinine 2.5. -At baseline -Monitor renal function. Gastroesophageal reflux disease: -Continue Omeprazole. Dyslipidemia: -Continue Atorvastatin. Gout: -Continue Allopurinol. Benign prostatic hyperplasia: -Continue tamsulosin. Metastatic melanoma: -continue imatinib -f/u at [facility] after discharge Dispo: medicine floor with telemetry, inpatient Vital Signs Vital Signs Date Time Temp Pulse Resp B/P (MAP) Pulse Ox O2 Delivery O2 Flow Rate FiO2 3/2/21 16:03 97 24 96 Nasal Cannula 2.0 07/05/20 16:00 167/83 (111) 07/05/20 13:54 99.0 Laboratory Data Labs 24H Laboratory Tests 2 07/05/20 11:05: Immature Granulocyte % (Auto) 0.9, Neutrophils (%) (Auto) 81.9H, Lymphocytes (%) (Auto) 7.0L, Monocytes (%) (Auto) 9.7H, Eosinophils (%) (Auto) 0.0, Basophils (%) (Auto) 0.5, Neutrophils # (Auto) 6.9, Lymphocytes # (Auto) 0.6L, Monocytes # (Auto) 0.8, Eosinophils # (Auto) 0.0, Basophils # (Auto) 0.0, Nucleated Red Blood Cells % (auto) 0.0, Erythrocyte Sedimentation Rate 44H, Anion Gap 4L, Glomerular Filtration Rate 30.3L, Lactic Acid Level 1.2, Calcium Level 9.0, Total Bilirubin 0.3, Direct Bilirubin < 0.1, Aspartate Amino Transf (AST/SGOT) 24, Alanine Aminotransferase (ALT/SGPT) 24, Alkaline Phosphatase 185H, Total Creatine Kinase 43, Creatine Kinase MB < 1.0, Creatine Kinase MB Relative Index 2.33, Troponin I 0.09, C-Reactive Protein, Quantitative 4.76H, Total Protein 7.4, Albumin 3.3, Albumin/Globulin Ratio 0.8, Carbamazepine (Tegretol) Level 8.7 07/05/20 11:24: SARS Antigen (LFIA) NEGATIVE 07/05/20 12:40: Urine Color YELLOW, Urine Appearance CLEAR, Urine pH 6.0, Urine Specific [place] 1.015, Urine Protein 2+H, Urine Glucose (UA) NEGATIVE, Urine Ketones NEGATIVE, Urine Blood 1+H, Urine Nitrite NEGATIVE, Urine Bilirubin NEGATIVE, Urine Urobilinogen 0.2, Urine Leukocyte Esterase NEGATIVE, Urine WBC (Auto) 1, Urine RBC (Auto) 5H, Urine Hyaline Casts (Auto) 0, Urine Bacteria (Auto) NEGATIVE, Urine Squamous Epithelial Cells 0, Urine Sperm (Auto) 07/05/20 14:41: Urine Opiates Screen NEGATIVE, Urine Methadone Screen NEGATIVE, Urine Barbiturates Screen NEGATIVE, Urine Phencyclidine Screen NEGATIVE, Urine Amphetamines Screen NEGATIVE, Urine Benzodiazepines Screen NEGATIVE, Urine Cocaine Metabolite Screen NEGATIVE, Urine Cannabinoids Screen NEGATIVE 07/05/20 16:01: Bedside Glucose (Misc Panel) 101 CBC/BMP Laboratory Tests 07/05/20 11:05 Microbiology Microbiology 07/05/20 Respiratory Virus Panel (PCR) (JOSE) - Final, Complete 07/05/20 Blood Culture, Received Pending 07/05/20 Blood Culture, Received Pending Home Medications Scheduled Allopurinol (Zyloprim) 300 Mg Tab, 300 MG PO DAILY Aspirin (Aspirin EC) 81 Mg Tablet.dr, 81 MG PO QHS Atorvastatin Calcium (Atorvastatin Calcium) 40 Mg Tab, 40 MG PO QHS Calcitriol (Calcitriol) 0.25 Mcg Cap, 0.25 MCG PO DAILY Carbamazepine (Carbamazepine) 200 Mg Tab, 200 MG PO TID Carvedilol (Carvedilol) 6.25 Mg Tablet, 6.25 MG PO BID Gabapentin (Gabapentin) 300 Mg Cap, 300 MG PO QHS Imatinib Mesylate (Imatinib Mesylate) 400 Mg Tablet, 400 MG PO QPM Insulin NPH Hum/Reg Insulin Hm (Novolin 70-30 Flexpen) 100 Unit/1 Ml Insuln.pen, 32 UNIT BID Levothyroxine Sodium (Levo-T) 25 Mcg Tablet, 25 MCG PO DAILY Methylphenidate HCl (Ritalin) 5 Mg Tablet, 5 MG PO DAILY Omeprazole (Omeprazole) 20 Mg Cap, 20 MG PO DAILY Torsemide (Torsemide) 20 Mg Tab, 20 MG PO BID Allergies Coded Allergies: No Known Allergies (Unverified , 04/18/14) A-FIB/CHADSVASC A-FIB History Current/History of A-Fib/PAF?: Yes Current PO Anticoag Therapy: No Age/Risk Factor Scoring CHADSVASC: CHADSVASC Response (Comments) Value Age Risk Factor Age 65-74 years old 1 Gender Risk Factor Male 0 Hx of CHF Yes 1 Hx of HTN Yes 1 Hx of Stroke/TIA/or VTE No 0 Hx of Diabetes Yes 1 Hx of Vascular Disease Yes 1 Total 5 Treatment Treatment ordered: NONE Reason Anticoagulant not given: Other Other reason anticoagulant not: prediscussed with outpatient providers JEREMIAH DUBOIS MD Jul 05, 2020 17:01
[2020-07-05 19:27] LABS: FREE T4 0.84 NG/DL (0.76-1.46); THYROID STIMULATING HORMONE 0.823 uIU/ML (0.358-3.740)
[2020-07-05] MEDS ORDERED: ATORVASTATIN 20 MG TAB PO SCH (21:00)
[2020-07-05] MEDS ORDERED: ASPIRIN 81MG ENTERIC TABLET PO SCH (21:00)
[2020-07-05] MEDS ORDERED: HumaLOG INSULIN (NovoLOG) PER UNIT SC SCH (21:00)
[2020-07-05] MEDS ORDERED: GABAPENTIN 300 MG CAP PO SCH (21:00)
[2020-07-05] MEDS: carBAMazepine 200MG TABLET PO SCH (21:47)
[2020-07-05] MEDS: CARVedilol 6.25 MG TAB PO SCH (21:48)
[2020-07-05] MEDS: HEPARIN SOD (PORCINE) 5000UNITS/ML 1ML VIAL/SYRINGE SC SCH (21:49)
[2020-07-05] MEDS: ACETAMINOPHEN TAB 650MG DOSE (2X325MG) PO PRN (21:51)
[2020-07-05 22:00] VITALS: BP 137/84
[2020-07-06] VITALS (37 sets, daily range): BP systolic 98–163; BP diastolic 54–90; O2SAT 96
[2020-07-06] MEDS ORDERED: LEVOTHYROXINE 25MCG TABLET (0.025MG) PO SCH (06:00)
[2020-07-06] MEDS: HEPARIN SOD (PORCINE) 5000UNITS/ML 1ML VIAL/SYRINGE SC SCH ×3 (06:03→22:25)
[2020-07-06 06:09] LABS: HEMATOCRIT 37.4 % (42.0-52.0); HEMOGLOBIN 11.8 g/dl (13.5-17.5); MEAN CORPUSCULAR HEMOGLOBIN 31.3 pg (27.0-33.0); MEAN CORPUSCULAR HGB CONC 31.6 g/dl (32.0-36.5); MEAN CORPUSCULAR VOLUME 99.2 fl (80.0-96.0); PLATELET COUNT, AUTOMATED 213 10^3/uL (150-450); RED BLOOD COUNT 3.77 10^6/uL (4.30-6.10); WHITE BLOOD COUNT 8.3 10^3/uL (4.0-10.0)
[2020-07-06 06:46] LABS: CALCIUM LEVEL 8.4 MG/DL (8.8-10.2); CREATININE FOR GFR 2.27 MG/DL (0.70-1.30); GLOMERULAR FILTRATION RATE 30.2 (>42); POTASSIUM SERUM 5.5 MEQ/L (3.5-5.1)
[2020-07-06] MEDS ORDERED: HumuLIN (NovoLIN)70/30 INSULIN INJ PER UNIT SC SCH (07:30)
[2020-07-06] MEDS ORDERED: TAMSULOSIN 0.4 MG CAP PO SCH (09:00)
[2020-07-06] MEDS ORDERED: CALCITRIOL 0.25 MCG CAP (S0169) PO SCH (09:00)
[2020-07-06] MEDS ORDERED: TORSEMIDE 20 MG TAB PO SCH (09:00)
[2020-07-06] MEDS ORDERED: allopurinoL 300 MG TAB PO SCH (09:00)
[2020-07-06] MEDS ORDERED: OMEPRAZOLE 20 MG CAP PO SCH (09:00)
[2020-07-06] MEDS: CARVedilol 6.25 MG TAB PO SCH (09:57)
[2020-07-06] MEDS: HumaLOG INSULIN (NovoLOG) PER UNIT SC SCH ×3 (09:57→18:26)
[2020-07-06] MEDS: carBAMazepine 200MG TABLET PO SCH ×2 (09:58→16:00)
[2020-07-06] MEDS: ACETAMINOPHEN TAB 650MG DOSE (2X325MG) PO PRN (10:20)
[2020-07-06] MEDS: NS 1,000 ML IV SCH (10:31)
--- NOTE | 2020-07-06 10:47 | IPNPDOC ---
Text Note Date of Service The patient was seen on 07/06/20. NOTE SUBJECTIVE: -No acute events overnight. -Fever with rigors this morning --> BCx called from yesterday to have GPCs in clusters --> starting vanc/piptazo, hold diuretics, starting fluids 100cc/hr, holding imatinib, gabapentin PHYSICAL EXAMINATION: GEN: NAD, confused, unable to speak in full sentences though speech is clear, pointing to the light Head: sparse hair, normocephalic, atraumatic Eyes: EOMI, PERRLA, anicteric ENT: dry MM, poor dentition Pulm: Crackles at bilateral posterior lower lung coffey, no wheezing or rhonchi Cardiac: loud 3/6 pansystolic murmur, heard throughout precordium that is loudest at RUSB, regular rhythm and rate Abd: obese, soft, normoactive bowel sounds, NTND, no palpated masses Ext: bilateral LE dependent edema with chronic skin changes. L ankle with black large hypertrophied eschar-like wound without drainage, L great toe tip is black with swelling warm firm surrounding. Neuro: CN 2-12 appears to be intact, speech is clear but disorganized and unable to complete sentences. Unable to follow commands at this time so the rest of the neuro exam could not be corroborated. 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 Peter Medellin and has been on imatinib for 2 months, CAD, HFpEF, at least moderate aortic stenosis with deferred valve replacement due to illness and covid pandemic, IDDM, CKD, and s/p PPM, who is completely independent at baseline and drives, who woke up with acute confusion with inability to form coherent full sentences and inability to ambulate with inability to follow instruction now admitted with acute encephalopathy possibly 2/2 recent initiation of ritalin now declared victoria sepsis with +BCx, rigors, fevers this morning. Sepsis: - +BCx, rigors, fevers this morning. - repeat BCx - currently with GPCs in clusters --> starting vanc/pitazo, day 1 - MRSA PCR - L foot complete x-ray for that L great toe c/f deep infection and source - NS at 100cc/hr to 1L - tylenol PRN for fever and rigors - hold imatinib - CT chest without PNA - CT A/P without evidence of potential infection with noted adenopathy most likely 2/2 malignancy Encephalopathy: Most likely metabolic from infection -Vanc/piptazo, day 1 -continue holding ritalin -TSH and free T4 wnl -carbamazepine level wnl -CT head was without acute pathology -will consider MRI and EEG if AMS persists and does not improve -UA was without evidence of infection - currently with GPCs in clusters --> starting vanc/pitazo, day 1 Diabetes mellitus with diabetic neuropathy: -hold 70/30 until we witness consistent PO -wAC/HS SSI -consistent carb diet -hypoglycemia protocol -hold gabapentin Seizure disorder: Continue carbamazepine. -Carbamazepine level wnl Hypertension: -Hold antihypertensives i/s/o sepsis HFpEF: decompensated -Hold his torsemide, will resume when sepsis resolves -Monitor renal function. -strict I/Os and daily weights History of atrial fibrillation: -Continue Amiodarone and Aspirin. History of VT: -Has pacemaker and defibrillator Chronic kidney disease, stage III: Baseline creatinine 2.5. -At baseline -Monitor renal function. Gastroesophageal reflux disease: -Continue Omeprazole. Dyslipidemia: -Continue Atorvastatin. Gout: -Continue Allopurinol. Benign prostatic hyperplasia: -Continue tamsulosin. Metastatic melanoma: -Hold imatinib -f/u at [facility] after discharge Dispo: medicine floor with telemetry, inpatient VS,David, I+O VS, David I+O Laboratory Tests 07/05/20 11:05 07/06/20 05:57 Vital Signs Date Time Temp Pulse Resp B/P (MAP) Pulse Ox O2 Delivery O2 Flow Rate FiO2 07/06/20 06:00 98.8 84 18 149/75 (99) 94 Nasal Cannula 2.0 I&O- Last 24 Hours up to 6 AM 07/06/20 05:59 Intake Total 360 ml Output Total 1800 ml Balance -1440 ml JEREMIAH DUBOIS MD Jul 06, 2020 08:23
[2020-07-06] MEDS ORDERED: VANCOMYCIN HCL 1,000 MG, VIAL MATE ADAPTER 1 EACH in NS 250 ML IV SCH (11:00)
[2020-07-06] MEDS ORDERED: PIPERACILLIN/TAZOBACTAM SOD 3.375 GM in D5W MINI-BAG PLUS 50 ML IV SCH (11:00)
[2020-07-06] MEDS ORDERED: cefTRIAXone SOD 1 GM in D5W MINI-BAG PLUS 50 ML IV SCH (11:00)
[2020-07-06] MEDS ORDERED: cefTRIAXone SOD 2 GM in D5W MINI-BAG PLUS 50 ML IV SCH (11:00)
[2020-07-06] MEDS: VANCOMYCIN HCL 1,000 MG, VIAL MATE ADAPTER 1 EACH in NS 250 ML IV SCH (11:02)
[2020-07-06] MEDS ORDERED: METOPROLOL TART 12.5 MG PER 1/2 TAB PO SCH (12:00)
[2020-07-06] MEDS ORDERED: ACETAMINOPHEN *IV* 1,000 MG in IV 1 EA IV ONE (12:00)
[2020-07-06] MEDS ORDERED: VANCOMYCIN HCL 1,000 MG, VIAL MATE ADAPTER 1 EACH in NS 250 ML IV ONE (12:00)
[2020-07-06 13:06] LABS: ABG BASE EXCESS 2.1 (-2.0-2.0); ABG HCO3 25.6 MEQ/L (22.0-26.0); ABG O2 SATURATION 93.4 % (95.0-99.0); ABG PARTIAL PRESSURE CO2 35.9 mmHg (35.0-45.0); ABG PARTIAL PRESSURE O2 69.8 mmHg (75.0-100.0); ABG STANDARD HCO3 26.3 MEQ/L (22.0-26.0); ABG TOTAL CO2 26.7 MEQ/L (23.0-31.0); ABG pH (ARTERIAL) 7.471 UNITS (7.350-7.450)
--- NOTE | 2020-07-06 13:47 | REP ---
INDICATION: line placement COMPARISON: 07/05/2020 TECHNIQUE: Portable AP view of the chest FINDINGS: Triple-lumen central catheter with tip in the SVC. Examination is limited by portable technique and positioning. Stable cardiomegaly and chronic interstitial changes are suggested. Left lower lobe opacity suggesting atelectasis and possible layering effusion similar to prior examination when allowing for variation in technique. Right hemithorax appears relatively clear although trace basilar atelectasis cannot be excluded. No pneumothorax. IMPRESSION: Left lower lobe opacities similar to prior examination suggesting atelectasis and layering effusion. <Electronically signed by Nikunj Mathews > 07/06/20 [id number]
--- NOTE | 2020-07-06 14:10 | REP ---
INDICATION: necrotic left great toe COMPARISON: None. TECHNIQUE: Portable AP, lateral, oblique views of the left foot FINDINGS: Advanced osteoarthritic degenerative changes are appreciated along with evidence for peripheral vascular disease. First toe demonstrates periosteal reaction and presumed chronic partial fusion through the phalanges. No obvious soft tissue ulceration. No obvious acute fracture or dislocation. IMPRESSION: Extensive diffuse degenerative arthritic changes with the most pronounced findings involving the 1st toe. <Electronically signed by Nikunj Mathews > 07/06/20 [id number]
--- NOTE | 2020-07-06 14:20 | ECGEPIP ---
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
--- NOTE | 2020-07-06 14:54 | CCN ---
CRITICAL CARE NOTE DATE: 07/05/2020 SUBJECTIVE: I was called to the intensive care unit to evaluate this 75-year-old male admitted yesterday with fever and altered level of consciousness. Now, he is felt to be septic from soft tissue infection of his toe. He is quite somnolent, does respond to voice, but with nonverbal phonation. His Leonel Coma Score (GCS) calculates at 11. OBJECTIVE: VITAL SIGNS: At bedside, his temperature is 103.4, pulse rate 128, respirations 20, blood pressure 150/72. HEENT: Oral and nasal mucosa are pink. There is a lesion on his right lower lip. NECK: No adenopathy in the neck. No stridor over the trachea. HEART: Sounds are regular, rapid. LUNGS: Breath sounds diminished, mildly coarse. No focal adventitial breath sounds appreciated. ABDOMEN: Soft. There are bowel sounds appreciated. EXTREMITIES: Cool. Pulses are palpable. There is a large fungating necrotic tumor mass on his left ankle and his left great toe is black and discolored. DIAGNOSTIC STUDIES: His white cell count is 8.3, hemoglobin 11.8, hematocrit 37.4, platelet count 213,000. Differential white cell count yesterday showed 81.9% neutrophils. His electrolytes are sodium 134, potassium 5.5, chloride 103, CO2 of 26, BUN 41, creatinine 2.27, glucose 149. Lactic acid 2.3. Calcium is 8.4. An arterial blood gas was obtained stat and the results now show a pH of 7.47, pCO2 of 35, and pO2 of 69. Chest x-ray shows a biventricular pacemaker defibrillator in place. There are no obvious infiltrates. On review of previous records, the patient has a history of chronic kidney disease and melanoma of his foot. He has been on monoclonal antibody therapy for the past two months. He has known coronary artery disease, aortic stenosis, history of seizure disorder, obstructive sleep apnea syndrome. He in 2012 had a biventricular pacemaker with AICD placed for ventricular tachycardia and he has a history of hypothyroidism and diabetes. ASSESSMENT AND PLAN: 1. The primary problem requiring critical attention is sepsis. His blood cultures are showing gram-positives in clusters. I suspect Staph; however, his methicillin-resistant Staphylococcus aureus (MRSA) screen is positive. Appropriate antibiotics have been initiated pending sensitivities. 2. Fever. The patient's temperature is 105 at this point. Antipyretics will be administered for a temperature of greater than 102, and we will use external cooling methods. 3. Altered level of consciousness. I suspect this is secondary to his sepsis. We will continue with supportive care and close management. There is the possibility of metastatic spread of his melanoma. 4. Acute on chronic kidney disease. Brown catheter has been placed and he is making urine. We will closely follow renal function. 5. Hypoxemia. His central venous pressure (CVP) is somewhat high, but I would continue with hydration to assure adequate preload. 6. Tachycardia. We will arrange for interrogation of his pacemaker. 7. Deep vein thrombosis (DVT) prophylaxis being addressed with subcutaneous heparin. I have discussed the case with the attending hospitalist and also have reviewed the plans of care with the ICU staff. CRITICAL CARE TIME: 76 minutes spent in the provision of bedside critical care and coordination; exclusive of any time for the performance of procedures.
--- NOTE | 2020-07-06 15:00 | RO ---
OPERATIVE NOTE DATE OF OPERATION: / / PREOPERATIVE DIAGNOSIS: Hypovolemia. POSTOPERATIVE DIAGNOSIS: Hypovolemia. PROCEDURE PERFORMED: Emergent right subclavian central venous catheter placement. SURGEON: Yovani Coombs DO. GRAVITY MANAGER: Lauro Jones DO. ANESTHESIA: DESCRIPTION OF PROCEDURE: The patient was seen and the procedure explained to the patient as were all the possible complications pertaining thereto. The procedure was felt to be emergent given his lack of venous access and hypovolemic state. Skin overlying the right subclavian vein was prepped with ChloraPrep and draped in the sterile fashion. A 25 gauge needle was used to raise a skin wheal with 1% lidocaine. Thereafter, a 17 gauge introducer needle was placed in through the skin and into the right subclavian vein. Free return of venous blood was obtained. The vascular tip guidewire was advanced. A small incision made adjacent to the guidewire and a triple lumen catheter placed over the guidewire to a distance of 18 cm. The catheter was sewn in place and a sterile dressing applied. A post procedural chest x-ray confirmed adequate placement of the catheter. There were no apparent complications.
[2020-07-06] MEDS ORDERED: METOPROLOL 5 MG/5 ML VIAL IV SCH (16:00)
[2020-07-06] MEDS: ACETAMINOPHEN 650 MG SUPP PR PRN (16:53)
[2020-07-06] MEDS ORDERED: HumaLOG INSULIN (NovoLOG) PER UNIT SC SCH (17:00)
[2020-07-07] VITALS (25 sets, daily range): BP systolic 108–161; BP diastolic 54–72
[2020-07-07] MEDS: NS 1,000 ML IV SCH ×2 (02:39→16:00)
[2020-07-07 05:16] LABS: BASO % 0.1 % (0.0-1.0); HEMATOCRIT 33.8 % (42.0-52.0); HEMOGLOBIN 10.3 g/dl (13.5-17.5); LYMPH # 0.5 10^3/uL (1.5-5.0); LYMPH % 3.2 % (24.0-44.0); MEAN CORPUSCULAR HEMOGLOBIN 30.7 pg (27.0-33.0); MEAN CORPUSCULAR HGB CONC 30.5 g/dl (32.0-36.5); MEAN CORPUSCULAR VOLUME 100.6 fl (80.0-96.0); MONO # 0.9 10^3/uL (0.0-0.8); PLATELET COUNT, AUTOMATED 176 10^3/uL (150-450); RED BLOOD COUNT 3.36 10^6/uL (4.30-6.10); WHITE BLOOD COUNT 15.6 10^3/uL (4.0-10.0)
[2020-07-07 05:54] LABS: ALBUMIN 2.6 GM/DL (3.2-5.2); BILIRUBIN,TOTAL 0.4 MG/DL (0.2-1.0); CALCIUM LEVEL 7.8 MG/DL (8.8-10.2); CREATININE FOR GFR 2.49 MG/DL (0.70-1.30); GLOMERULAR FILTRATION RATE 27.1 (>42); PHOSPHORUS LEVEL 4.5 MG/DL (2.5-4.9); POTASSIUM SERUM 4.3 MEQ/L (3.5-5.1); TOTAL PROTEIN 6.1 GM/DL (6.4-8.2)
[2020-07-07] MEDS: HumaLOG INSULIN (NovoLOG) PER UNIT SC SCH ×5 (06:00→20:23)
[2020-07-07] MEDS: HEPARIN SOD (PORCINE) 5000UNITS/ML 1ML VIAL/SYRINGE SC SCH ×3 (06:17→21:18)
[2020-07-07] MEDS: LEVOTHYROXINE 100MCG (0.1MG) VIAL IV SCH (06:21)
[2020-07-07] MEDS ORDERED: ASPIRIN 300 MG SUPP PR SCH (09:00)
[2020-07-07] MEDS ORDERED: PANTOPRAZOLE 40MG VIAL (C9113 PER 1) IV SCH (09:00)
--- NOTE | 2020-07-07 09:59 | IPNPDOC ---
Text Note Date of Service The patient was seen on 07/07/20. NOTE SUBJECTIVE: -Went into florid severe sepsis yesterday with positive blood cultures with worsening now frankly gangrenous with surrounding erythema L great toe most likely being the source --> was transferred to ICU and TLC placed and started on vancomycin for GPCs in clusters with +MRSA PCR. Yesterday was mostly unresponsive with worsening hypoxemia and persistent high fevers. -Continues to have persistent fever now improving, with some acetaminophen and has shivers -This morning is now waking on voice, answering questions appropriately but still quite drowsy PHYSICAL EXAMINATION: GEN: NAD, lethargic but awakes on voice, difficulty speaking in full sentences but answering questions appropriately Head: sparse hair, normocephalic, atraumatic Eyes: EOMI, PERRLA, anicteric ENT: dry MM, poor dentition, has R lower lip lesion (reported chronic) Pulm: Crackles throughout lung coffey, clearer at the apices. No wheezing. Some rhonchi Cardiac: Regular rhythm and rate at 89, systolic murmur heard throughout precordium that is loudest at RUSB, regular rhythm and rate Abd: obese, soft, normoactive bowel sounds, NTND, no palpated masses Ext: bilateral LE dependent edema with chronic skin changes. L ankle with black large hypertrophied eschar-like wound without drainage, L great toe tip is black with swelling warm firm surrounding with erythema. Neuro: awake on voice, oriented to self, knows he is in a hospital, knows 's name. 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 Peter Medellin and has been on imatinib for 2 months, CAD, HFpEF, at least moderate aortic stenosis with deferred valve replacement due to illness and covid pandemic, IDDM, CKD, and s/p PPM, who is completely independent at baseline and drives, who woke up with acu te confusion with inability to form coherent full sentences and inability to ambulate with inability to follow instruction and admitted with acute encephalopathy with course c/b victoria severe sepsis with GPCs bacteremia most likely from L great toe infection. Severe sepsis: - +BCx, fevers this morning. - repeat BCx sent - currently with GPCs in clusters --> vanc day 2 - MRSA PCR + - L foot complete x-ray for that L great toe c/f deep infection and source - NS at 60cc/hr to 1L - tylenol PRN for fever and rigors - holding imatinib - CT chest without PNA - CT A/P without evidence of potential infection with noted adenopathy most likely 2/2 malignancy - reached out to Dr. Green to discuss their prior discussion about L leg amputation as reports there were conversations about a BKA and now he has a L great toe infection and we need to establish source control Encephalopathy: metabolic 2/2 severe infection -Vanc day 2 -continue holding ritalin -TSH and free T4 wnl -carbamazepine level wnl -CT head was without acute pathology -will consider MRI and EEG if AMS persists and does not improve after infection is treated -UA was without evidence of infection -currently with GPCs in clusters in blood--> vanc day 2 -investigating the appropriate approach for source control Diabetes mellitus with diabetic neuropathy: -hold 70/30 while NPO -Q6H SSI -hypoglycemia protocol -hold gabapentin Seizure disorder: Continue carbamazepine. -Carbamazepine level wnl, held currently while NPO Hypertension: -Hold antihypertensives i/s/o sepsis HFpEF: decompensated -Hold his torsemide, will resume when sepsis resolves -Monitor renal function. -strict I/Os and daily weights History of atrial fibrillation: -Continue Aspirin. History of VT: -Has pacemaker and defibrillator Chronic kidney disease, stage III: Baseline creatinine 2.5. -At baseline -Monitor renal function. Gastroesophageal reflux disease: -Continue protonix IV Dyslipidemia: -Continue Atorvastatin. Gout: -Continue Allopurinol. Benign prostatic hyperplasia: -Continue tamsulosin. Metastatic melanoma: -Holding imatinib -f/u at [facility] after discharge. Will update Dr. Green today Dispo: ICU, inpatient VS,Fishbone, I+O VS, Fishbone, I+O Laboratory Tests 07/07/20 05:07 Vital Signs Date Time Temp Pulse Resp B/P (MAP) Pulse Ox O2 Delivery O2 Flow Rate FiO2 07/07/20 06:00 100.6 89 30 108/58 (75) 96 Venturi Mask 6.0 28 I&O- Last 24 Hours up to 6 AM 07/07/20 06:00 Intake Total 2502 ml Output Total 1070 ml Balance 1432 ml JEREMIAH DUBOIS MD Jul 07, 2020 09:59
[2020-07-07 10:02] LABS: MAGNESIUM LEVEL 1.9 MG/DL (1.8-2.4)
[2020-07-07] MEDS: ACETAMINOPHEN 650 MG SUPP PR PRN ×2 (10:18→18:29)
[2020-07-07] MEDS ORDERED: PIPERACILLIN/TAZOBACTAM SOD 2.25 GM in D5W MINI-BAG PLUS 50 ML IV SCH (10:20)
[2020-07-07] MEDS: VANCOMYCIN HCL 1,000 MG, VIAL MATE ADAPTER 1 EACH in NS 250 ML IV SCH (11:32)
--- NOTE | 2020-07-07 11:59 | ECHO ---
DATE OF PROCEDURE: 07/06/2020 Age: 75 Gender: Male Height: 165 cm Weight: 106 kg REFERRING PHYSICIAN: Dr. Shaneka Jacinto. INDICATION: Heart failure, unspecified. MEASUREMENTS: 2D Measurements: Left ventricle diastole 7.7 cm Posterior wall 6.5 cm Intraventricular septum 0.82 cm Posterior wall 1.09 cm Aortic root 3.2 cm Left atrium 4.3 cm Aortic annulus 2.2 cm Inferior vena cava 1.9 cm (more than 50% respiratory variation) Doppler Measurements: Severe aortic stenosis No aortic regurgitation Peak aortic valve velocity 343 cm/s Aortic valve VTI 63.4 cm Peak aortic valve gradient 47 mmHg Mean aortic valve gradient 30 mmHg Aortic valve area (continuity equation, VTI) 0.95 cm2 Dimensionless index 0.25 LVOT velocity 68.5 cm/s LVOT VTI 15.8 cm Very mild mitral regurgitation Mild mitral stenosis Peak mitral E velocity (CW) 154 cm/s Mitral stenosis pressure gradient 4 mmHg Mitral E velocity (PW) 128 cm/s Mitral A velocity 110 cm/s (pulse wave) Mitral deceleration time 129 msec Mild tricuspid regurgitation Estimated right ventricle systolic pressure 47-52 mmHg Estimated CVP 5-10 mmHg Pulmonary artery acceleration time 95 msec No pulmonic regurgitation MITRAL ANNULAR TISSUE DOPPLER E prime lateral 7.5 cm/s, E prime septal 6.4 cm/s DESCRIPTION: Rhythm was sinus, P-synchronous biventricular paced rhythm. Image quality was moderately technically difficult. This was a 2D, M-mode, color flow Doppler, and pulsed wave Doppler examination including mitral annular tissue Doppler. CONCLUSIONS: 1. Severe focal thickening and focal calcific deposits of a 3-cusp aortic valve. Severe reduction in aortic cusp mobility. Severe aortic valve stenosis. No aortic regurgitation. 2. Severe left ventricle dilatation at both end-diastole and end-systole. Moderate global LV hypokinesis. Severe reduction in overall LV systolic function. LVEF 30% by visual estimate. Grade 2 LV diastolic dysfunction (pseudo- normal filling pattern). 3. Moderate mitral annular calcification. Mild mitral stenosis. Very mild mitral regurgitation. 4. Mild left atrial dilatation. 5. Suggestive of moderate elevation of estimated right ventricle systolic pressure. 6. Normal right ventricle size and systolic function. Normal right atrial size. Suggestive of normal CVP. 7. Minute amount of left atrial to right atrial shunting at mid atrial level consistent with either a tiny atrial septal defect or a patent foramen ovale. 8. No pericardial effusion. 9. Presence of cardiac rhythm management leads including an ICD coursing towards the right ventricle apex. MTDD
[2020-07-08] VITALS (8 sets, daily range): BP systolic 115–134; BP diastolic 54–70
[2020-07-08] MEDS ORDERED: MORPHINE 2 MG/ML 1ML VIAL (J2270) IV ONE (00:40)
[2020-07-08 04:56] LABS: BASO % 0.4 % (0.0-1.0); EOS % 0.1 % (0.0-3.0); HEMATOCRIT 31.4 % (42.0-52.0); HEMOGLOBIN 9.8 g/dl (13.5-17.5); LYMPH % 9.8 % (24.0-44.0); MEAN CORPUSCULAR HEMOGLOBIN 31.5 pg (27.0-33.0); MEAN CORPUSCULAR HGB CONC 31.2 g/dl (32.0-36.5); MONO # 1.1 10^3/uL (0.0-0.8); MONO % 11.1 % (2.0-8.0); NEUTROPHILS % 78.1 % (36.0-66.0); PLATELET COUNT, AUTOMATED 158 10^3/uL (150-450); RED BLOOD COUNT 3.11 10^6/uL (4.30-6.10); WHITE BLOOD COUNT 10.2 10^3/uL (4.0-10.0)
[2020-07-08 05:30] LABS: ALBUMIN 2.5 GM/DL (3.2-5.2); BILIRUBIN,TOTAL 0.3 MG/DL (0.2-1.0); CALCIUM LEVEL 7.4 MG/DL (8.8-10.2); CREATININE FOR GFR 2.6 MG/DL (0.70-1.30); GLOMERULAR FILTRATION RATE 25.8 (>42); PHOSPHORUS LEVEL 4.3 MG/DL (2.5-4.9); POTASSIUM SERUM 4.4 MEQ/L (3.5-5.1); TOTAL PROTEIN 5.9 GM/DL (6.4-8.2)
[2020-07-08] MEDS: HEPARIN SOD (PORCINE) 5000UNITS/ML 1ML VIAL/SYRINGE SC SCH ×3 (05:45→21:09)
[2020-07-08] MEDS: LEVOTHYROXINE 100MCG (0.1MG) VIAL IV SCH (05:45)
[2020-07-08] MEDS ORDERED: LEVOTHYROXINE 25MCG TABLET (0.025MG) PO SCH (06:00)
[2020-07-08] MEDS: HumaLOG INSULIN (NovoLOG) PER UNIT SC SCH ×4 (07:35→21:00)
[2020-07-08] MEDS ORDERED: ACETAMINOPHEN TAB 650MG DOSE (2X325MG) PO PRN (08:15)
[2020-07-08] MEDS: ASPIRIN 81 MG CHEW TABLET PO SCH (08:41)
[2020-07-08] MEDS: PANTOPRAZOLE 40MG TAB (PROTONIX) PO SCH (08:41)
[2020-07-08] MEDS: ATORVASTATIN 20 MG TAB PO SCH (08:42)
[2020-07-08] MEDS: allopurinoL 300 MG TAB PO SCH (08:42)
[2020-07-08] MEDS: HumuLIN (NovoLIN)70/30 INSULIN INJ PER UNIT SC SCH ×2 (09:23→16:33)
[2020-07-08] MEDS: CALCITRIOL 0.25 MCG CAP (S0169) PO SCH (09:23)
[2020-07-08] MEDS: carBAMazepine 200MG TABLET PO SCH ×3 (09:23→21:10)
[2020-07-08] MEDS: NAFCILLIN SOD 2 GM in D5W MINI-BAG PLUS 50 ML IV SCH ×4 (09:23→21:09)
--- NOTE | 2020-07-08 10:34 | IPNPDOC ---
Text Note Date of Service The patient was seen on 07/08/20. NOTE SUBJECTIVE: -was febrile yesterday, last charted fever was 101.1 on 07/07 at 6PM -Awake, alert, eating breakfast this morning PHYSICAL EXAMINATION: GEN: NAD, awake, alert, oriented and answering questions appropriately Head: sparse hair, normocephalic, atraumatic Eyes: EOMI, PERRLA, anicteric ENT: MMM, poor dentition, has R lower lip lesion (chronic) Pulm: Crackles throughout lung coffey, clearer at the apices. No wheezing. Some rhonchi. On 2L HFNC Cardiac: Regular rhythm and rate at 89, systolic murmur heard throughout precordium that is loudest at RUSB, regular rhythm and rate Abd: obese, soft, normoactive bowel sounds, NTND, no palpated masses Ext: bilateral LE dependent edema with chronic skin changes. L ankle with black large hypertrophied eschar-like wound without drainage, L great toe tip is black with swelling warm firm surrounding with erythema. 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 Peter Medellin and has been on imatinib for 2 months, CAD, HFpEF, at least moderate aortic stenosis with deferred valve replacement due to illness and covid pandemic, IDDM, CKD, and s/p PPM, who is completely independent at baseline and drives, who woke up with acute confusion with inability to form coherent full sentences and inability to ambulate with inability to follow instruction and admitted with acute encephalopathy with course c/b victoria severe sepsis with MSSA bacteremia most likely from L great toe infection and also noted to be MRSA positive by PCR screen. Severe sepsis: - +BCx with MSSA, thus far with 3/ and 07/08 cultures pending - currently with MSSA in blood --> vanc day 3 --> to discuss possible de-escalation with Dr. Kim - MRSA PCR + - L foot complete x-ray - NS at 60cc/hr to 1L - Tylenol PRN for fever and rigors - holding imatinib - CT chest without PNA - CT A/P without evidence of potential infection with noted adenopathy most likely 2/2 malignancy - reached out to Dr. Green to discuss their prior discussion about L leg amputation as reports there were conversations about a BKA and now he has a L great toe infection and we need to establish source control Encephalopathy: metabolic 2/2 severe infection -Vanc day 3, to discuss with Dr. Kim now that bacteremia identified as MSSA -continue holding ritalin -TSH and free T4 wnl -carbamazepine level wnl -CT head was without acute pathology -will consider MRI and EEG if AMS persists and does not improve after infection is treated -UA was without evidence of infection -investigating the appropriate approach for source control Diabetes mellitus with diabetic neuropathy: -restart 70/30 now that he is taking PO -AC/HS SSI -hypoglycemia protocol -continue holding gabapentin Seizure disorder: Continue carbamazepine. -Carbamazepine level wnl, held currently while NPO Hypertension: -Hold antihypertensives i/s/o sepsis HFpEF: decompensated -Holding his torsemide, will resume when sepsis resolves -Monitor renal function. -strict I/Os and daily weights History of atrial fibrillation: -Continue Aspirin as PO now History of VT: -Has pacemaker and defibrillator Chronic kidney disease, stage III: Baseline creatinine 2.5. -At baseline -Monitor renal function. Gastroesophageal reflux disease: -Continue protonix IV Dyslipidemia: -Continue Atorvastatin. Gout: -Continue Allopurinol. Benign prostatic hyperplasia: -Continue tamsulosin. Metastatic melanoma: -Holding imatinib -f/u at [facility] after discharge. Updated Dr. Green Dispo: downgrade to PCU from ICU today, inpatient, PT/OT VS,David, I+O VS, David, I+O Laboratory Tests 07/08/20 04:37 Vital Signs Date Time Temp Pulse Resp B/P (MAP) Pulse Ox O2 Delivery O2 Flow Rate FiO2 07/08/20 06:00 94 20 117/64 (81) 98 Nasal Cannula 2.0 07/08/20 04:00 98.3 07/07/20 06:00 28 l I&O- Last 24 Hours up to 6 AM 3/5/21 06:00 Intake Total 2930 ml Output Total 1025 ml Balance 1905 ml JEREMIAH DUBOIS MD Jul 08, 2020 08:13
--- NOTE | 2020-07-08 11:49 | CCN ---
CRITICAL CARE PROGRESS NOTE Dr. Lauro Jones Resident Physician dictating for Attending Physician Dr. Yovani Coombs. DATE OF VISIT: 07/07/2020 SUBJECTIVE: Anil was seen and examined this morning at the bedside in the Intensive Care Unit. On speaking with nursing and looking at his chart, his fever has steadily decreased since yesterday afternoon around 4:00 p.m. Most recent temperature reading this morning was 100.6. Overnight and into this morning his pressures have remained stable and he has not required any type of vasopressor pharmacotherapy. In terms of his breathing, he was switched early on in the overnight shift to a Venturi mask at 6 liters with 28% FiO2. The reported reason for this was due to his "mouth breathing." His saturations remained adequate overnight on the Venturi mask. Upon coming on shift this morning, nursing switched Anil back to humidified nasal cannula oxygen delivery. He continued to have good urinary output throughout the overnight. Of significant note, blood cultures ordered yesterday have returned with the preliminary reading of Gram-positive cocci in clusters. On speaking with his nurse this morning, he was quite responsive and oriented this morning at change of shift. In addition, it was communicated to us that yesterday his biventricular pacemaker was interrogated and in adequate working order. OBJECTIVE: Vitals: Temperature 100.6, heart rate 89, respiratory rate 30, blood pressure 108/58, SPO2 96% on Venturi mask 6 liters flow rate with 28% FiO2 (no vitals have been logged since he was switched over to humidified nasal cannula oxygen delivery around change of shift). General: Elderly, obese, male sick appearing in bed. He has full body shakes and chills. He responds to his name, but with non-verbal phonation and other than replying with yes he is unable to answer any questions and cannot complete commands. HEENT: Normocephalic, atraumatic. Non-injected, anicteric sclerae. Mucous membranes appear dry. There is poor dentition. There appears to be a growth on the right lateral upper lip. Neck: Supple. There is a triple lumen catheter present in the right subclavian vein. There is some minimal increase in JVP. Trachea midline. Cardiovascular: Borderline tachycardia rate, ventricularly paced rhythm. On telemetry there were some isolated PVCs noted. There is a 2/6 systolic ejection machine like murmur most prominent over the right parasternal intercostal space. Capillary refill is between 2 to 3 seconds. Respiratory: Patient is breathing on 3 liters nasal cannula oxygen at time of exam. Saturation is at 99%. Decreased breath sounds with a shallower tidal volume. No significant rhonchi, wheezing or crackles are appreciated. No accessory muscle use noted. Gastrointestinal: Obese, nontender. There is no rigidity appreciated. There are normal active bowel sounds throughout. Extremities: The necrotic left great toe appears to have some increased surrounding erythema today versus yesterday's exam. There is also a fungating mass on the left medial malleolus. Doppler showed good dorsal pedis pulse on the left. Extremities are cold to the touch with capillary refill between 2 to 3 seconds. No significant bilateral lower extremity pitting edema. Genitourinary: There is a Brown catheter in place that is draining mid to darker yellow urine. Neurologic: Patient is somewhat lethargic and as stated above he responds only to his name. Only able to phonate the word yes and does not properly answer questions or execute commands. LABORATORY DATA: WBC 15.6, hemoglobin 10.3, MCV 100.6, platelet count 176,000. There are no bands and increased percentage of neutrophils at 90%. Sodium 140, potassium 4.3, chloride 106, bicarb 28, BUN 55, creatinine 2.49, serum glucose 148. Follow up lactic acid 1.2 (previous was 2.3), calcium 7.8, AST 46, ALT 33. LDH 359, total protein 6.1, alkaline phosphatase 119. Repeat blood cultures obtained yesterday (07/06/2020): Both showed preliminary positive growth of Gram-positive cocci in clusters. Repeat blood cultures have been ordered for today, 07/07/2020. *Addendum: Upon review of the chart again while dictating both of the repeat blood cultures obtained on 07/06/2020 showed preliminary growth of Staphylococcus aureus. In addition, one of the two initial blood cultures from 07/05/2020 grew Staphylococcus aureus while the other had no growth after 24 hours. IMAGING: There is no new imaging done since Critical Care Service evaluated patient yesterday. IMPRESSION AND PLAN: 1. Sepsis due to Staphylococcus aureus bacteremia with presumed primary source of left great toe necrotic wound: With now the repeat blood culture showing Staphylococcus aureus as well as one of the two initial blood cultures having Staphylococcus aureus growth, current antibiotic regimen of vancomycin should be sufficient. It is important to note that patient likely has some element of immunocompromised state due to underlying long time poorly controlled insulin-dependent diabetes mellitus as well as his metastatic melanoma with current imatinib immunotherapy treatment. On review of CBC, it is a good sign that he has a bump today of his white count showing that he can mount some sort of an immune response and has an appropriately elevated neutrophil percentage. Another point of consideration is the primary control of infective source. As stated , it is believed the bacteremia is due to the left great toe infection. A left foot and ankle x-ray yesterday did not have impressions indicating osteomyelitis. We have spoken with the Hospitalist Service tending to the patient and they are in the process of further addressing how to control left great toe wound (whether that be vascular surgery or podiatry). In addition, consideration must be given to risk of bacterial seeding of the aortic valve now with his confirmed bacteremia and known significant aortic stenosis. His CVP actually decreased today to 13 from 16 yesterday. We will continue with the gentle hydration of 60 mL per hour. 2. Hypoxemia: This appears to be stable as he has had adequate saturations on humidified supplemental nasal cannula oxygen. He does have significant sleep apnea and perhaps the desaturation to the upper 80s last night likely could be senior account representative of the sleep apnea. At this time, we recommend that we continue with supplemental oxygenation in the form of humidified nasal cannula as Venturi mask is a dry air and it will be gentler to the airways to have humidification. 3. Overall fluid status: The central venous pressure decreased today to 13. Kidney function appears to be a little bit worse today, but with his sustained pressures overnight as well as adequate renal perfusion as evidenced by consistent good urine output, we suggest continuing with the fluid regimen as is at this time. 4. Altered level of consciousness: This is most likely a multifactorial process, but to this point there has been no evidence of any focal neurological contribution. It is most likely a toxic metabolic encephalopathic issue secondary to sepsis. 5. Acute renal failure on chronic kidney disease: He is nonoliguric and maintained good renal perfusion overnight as evidenced by his consistent adequate urinary output. He was given a dose of diuretic in the Emergency Department and perhaps this is factoring in as well to the JENNI. As stated above, we will continue with hydration in the form of normal saline at 60 mL an hour. Continue to watch urinary output and patient does have a Brown catheter in place. 6. Fever: Since 4:00 p.m. yesterday his fever has decreased from 104-105 down to 100.6. There are antipyretics ordered for the patient. We do not currently have the means for a cooling blanket and he is receiving cooling in the form of a cooled K-pad. 7. Leukocytosis: As stated above, it is a good sign that his white count bumped up today. WBC was 15.6 while it was 8 yesterday. This indicates that despite likely level of immunocompromised state from underlying poorly controlled long standing diabetes and malignant melanoma, his immune system itself can still react somewhat. In addition, there is an appropriate elevation of his neutrophils, also a good sign. 8. Hyperglycemia, mild: Due to his altered level of consciousness he has not received any oral nutrition over the past two days. He does have a history of insulin-dependent diabetes mellitus. His sugars are tolerable at this time, but the question of nutrition certainly within the next 24 hours will be something to address in terms of assessing his ability to safely tolerate oral intake. 9. Tachycardia: Borderline tachycardic through the overnight. Decreased rate from yesterday. He's been staying mostly in the upper 90s in terms of bpm. He does have a biventricular pacemaker that was placed in 2012. It was interrogated yesterday and found to be in adequate working order and it was reported to us via nursing that the cardiology technicians who interrogated it reported that the ventricles are relying on the pacemaker as they receive signaling from the SA node and atrial firing. 10. DVT prophylaxis: Patient is currently receiving subcutaneous heparin. This is appropriate because prophylaxis is warranted as patient is not ambulatory at this point, bed bound in the ICU. 11. GI prophylaxis: It appears that just this morning Protonix had been added onto his medication regimen. Dr. Coombs: I saw the patient with the resident today and have reviewed the plan outlined above. He remains bacteremic and critically ill. Prognosis is guarded 127 minutes was spent in the provision of critical care and care coordination. OCTAVIA
--- NOTE | 2020-07-08 12:39 | IPN ---
INFECTIOUS DISEASE PROGRESS NOTE DATE: 07/08/2020 SUBJECTIVE: Yovani is doing much better today. He is alert, oriented times three. He has difficulty sometimes finding his words and he realizes that. He was trying to tell me about his continuous positive airway pressure (CPAP) mask or sleep apnea, but could not figure out how to say the CPAP word. He had no nausea, vomiting or diarrhea. He has mild shortness of breath. He does not usually use oxygen at home, but uses his CPAP intermittently. He is afebrile today. Maximum temperature (T-max) yesterday was 101.1. PHYSICAL EXAMINATION: Temperature 98.7, pulse 94, respiratory rate 22, blood pressure 124/66, oxygen saturation 97% on 2 liters nasal cannula. HEART: Normal S1, S2 with a systolic ejection murmur 3/6 left upper sternal border. LUNGS: Diminished but clear. A few crackles at the bases. No wheezes, rales or rhonchi. ABDOMEN: Obese. Soft, nontender. EXTREMITIES: Trace edema. Left big toe has dry gangrenous distal phalanx with no purulence. Minimal erythema around the toe. He has melanoma skin lesion on the medial malleolus of the left leg. He has a skin graft from the left thigh that is well-healed. CHEST: Pacemaker pocket left upper. No redness. No tenderness. NEUROLOGIC: Alert, oriented times three. Clear, but sometimes forgetful about certain words. Motor strength is normal. LABORATORY DATA: Sodium 140, potassium 4.4, chloride 106, bicarbonate 29, BUN 67, creatinine 2.6 (which has increased from a couple of days ago at 2.2), glucose 169, lactic acid 2.3 down to 1.2, calcium 7.4, phosphorus 4.3. AST 44, ALT 44, alkaline phosphatase 114, LDH 308, total protein 5.9. Vancomycin trough 16.2. Methicillin-resistant Staphylococcus aureus (MRSA) screen positive. Blood cultures were positive on 07/05/2020. One out of two was positive for methicillin sensitive Streptococcus aureus (MSSA) on 07/06/2020. Both were positive for MSSA on 07/07/2020. Blood culture is again positive for Staphylococcus aureus. IMPRESSION: 1. Methicillin sensitive Streptococcus aureus (MSSA), Staphylococcus aureus bacteremia. Source of entry could have been the left toe, but it looks more gangrenous at this time and does not need surgical intervention. Patient is at high risk of endocarditis with pacemaker in place, severe aortic stenosis and the fact that he has persistent positive blood culture x 48 hours makes the diagnosis of endocarditis much more likely. He will be switched to IV nafcillin 2 grams every 4 hours. I do not see the need to undergo a transesophageal echocardiogram. At this point, I would suggest treating him with 6 weeks of antibiotic anyway. 2. Metastatic melanoma with poor response to imatinib with worsening adenopathy. CT abdomen showed significant new adenopathy in the left hemipelvis. Patient has a large lesion on his left leg. 3. Peripheral vascular disease with gangrene of the left big toe, which is dry. I do not see any indication for surgical intervention at this time. It could have been traumatic, but also could be a septic emboli if he has endocarditis. PLAN: Discontinue IV vancomycin. Switch to nafcillin 2 grams every 4 hours. Since he has persistent bacteremia, we will repeat blood cultures tomorrow. Once his cultures are negative, we will switch the central line to a peripherally inserted central catheter (PICC) line for IV antibiotic. Patient would like to go home early next week. This will depend on his clinical improvement. Case has been discussed with Dr. Jacinto. He is being transferred to the progressive care unit (PCU). I have discussed the case with his nurse at the bedside to remove the Brown catheter as well. OCTAVIA
--- NOTE | 2020-07-08 13:11 | CR ---
CONSULTATION DATE: 2020 REASON FOR CONSULTATION: Staph aureus bacteremia with sepsis and mental status changes. HISTORY OF PRESENT ILLNESS: Yovani is a 75-year-old gentleman with a history of metastatic melanoma initially diagnosed with melanoma of the left heel in June 2019 and then it has metastasized to the scalp, the left ankle, and to the inguinal lymph nodes and groin area. The patient follows up at [facility] and has been on imatinib for the past two months. The patient was brought to the hospital by his family because of acute confusion associated with a fever of 101.1. The patient was noted to have a discoloration of his left big toe. On admission, he did not receive antibiotics. The next day he had a temperature of 105 with hypotension, and the patient had a central line placed. Blood cultures turned out to be positive for Staph aureus, and the patient was started on IV vancomycin. Today he is feeling much better, although he still has encephalopathy and does not answer most of the questions. His chest x-ray showed pulmonary venous congestion with small bilateral effusion. He is on 2 liters of oxygen. The patient has not had any nausea, vomiting, diarrhea, or cough. PAST MEDICAL HISTORY: 1. Seizure disorder. 2. Congestive heart failure. 3. HFpEF. 4. Severe aortic stenosis. Aortic valve replacement had been deferred due to COVID pandemic and illness. 5. Diabetes with diabetic neuropathy. 6. Coronary artery disease. 7. Chronic kidney disease. 8. Stage 3 metastatic melanoma from the left heel with mets to the inguinal region and left groin. 9. Obstructive sleep apnea. 10. Basal cell carcinoma on the right back, excision in 2015. 11. Atrial fibrillation. 12. Dyslipidemia. 13. Benign prostatic hyperplasia with chronic Brown catheter. 14. Gastroesophageal reflux disease. 15. History of VT status post permanent pacemaker. PAST SURGICAL HISTORY: 1. Endoscopy. 2. Colonoscopy. 3. Pacemaker. 4. Defibrillator insertion. 5. Inguinal hernia repair. 6. Melanoma excision of the scalp. 7. Heel excision of melanoma on the left side with skin graft from the left thigh. FAMILY HISTORY: Mother from urinary cancer. Two brothers alive and well except for significant history of heart disease and diabetes. SOCIAL HISTORY: He lives with his at home of 22 years. He has a remote history of alcohol dependence. He never smoked. He does not drink currently. He drives. REVIEW OF SYSTEMS: Review of systems could not be obtained due to the patient being encephalopathic, but he had some mild shortness of breath. He had some oxygen. No cough or rhinorrhea. No diarrhea per nurses. No nausea or vomiting. No complaints of abdominal pain. PHYSICAL EXAMINATION: GENERAL: He is a sick looking gentleman. Unable to speak in full sentences. Answers some questions appropriately and others he falls asleep. HEAD: Scalp excision with an incision line well healed. Just anterior to the incision line there is about a 0.5 cm black nodule suspicious for possible recurrent melanoma. Atraumatic, normocephalic. Oropharynx is clear with no lesion. Dry mucous membranes. LUNGS: Crackles at both bases with no wheezes or rhonchi. Good air entry. HEART: Systolic ejection murmur, pansystolic, 3/6 heard throughout the precordium. Normal S1 and S2. ABDOMEN: Obese, soft, nontender. EXTREMITIES: Bilateral lower extremity edema. Left leg has a large 4 cm x 3 cm black nodule medially along the medial malleolus. Left heel has an incision where the melanoma was excised and heeled. Left upper thigh has an area of a skin graft that is well healed. The leg is swollen with some nodular elevation probably related to his metastatic spread. Left big toe black eschar without purulent discharge. CHEST: Chest wall has a pacemaker in the left upper chest and a central line on the right side. No redness or tenderness. LABORATORY DATA: White count 15.6, hemoglobin 10.3, hematocrit 33.8, platelets 176, 97% neutrophils, 3% lymphocytes, 6% monocytes, ESR 44. Sodium 140, potassium 4.3, chloride 106, bicarb 28, BUN 55, creatinine 2.49, glucose 148, lactic acid 2.3 down to 1.2, calcium 7.8, phosphorus 4.5, magnesium 1.9, AST 46, ALT 33, alkaline phosphatase 119, LDH 359, total CPK 77, total protein 6.1, albumin 2.6, triglycerides 134, and cholesterol 79. Urine drug screen was negative. Vancomycin trough was 16.2. Carbamazepine level was 8.7. MRSA screen was positive on 07/06, and SARS-CoV-2 antigen was negative. Blood cultures from 07/05: One out of two was positive for Staph aureus. Susceptibilities pending. Respiratory panel was negative. On 07/06, blood cultures two sets were positive for Staph aureus. On 07/07, two sets are still pending. IMAGING STUDIES: CT abdomen and pelvis showed new adenopathy involving the left hemipelvis, the left groin, extending cranially through the level of aortic bifurcation with largest lymph node along the left pelvic sidewall measuring 4.7 cm, in the left groin 4.8 cm, and a 2.7 cm common iliac lymph node. Findings are consistent with malignancy. No other pathologic finding noted. MEDICATIONS: 1. Insulin sliding scale. 2. Pantoprazole 40 mg IV daily. 3. Aspirin 300 mg DE daily. 4. Levothyroxine 25 mcg daily. 5. Vancomycin 1 gram IV q.24 hours. 6. Milk of Magnesia as needed. IMPRESSION: This is a 75-year-old gentleman with a history of metastatic melanoma with now involvement of the left leg and left groin. Has recently been started on imatinib two months ago. Admitted with Staph aureus sepsis. Origin of the infection could have been from his skin, but I am concerned about his pacemaker and lead infection. The patient also has severe aortic stenosis and at very high risk of having Staph aureus endocarditis. I suspect the big toe was the portal of entry but does not need to be amputated for SIRS control. It looks ischemic in origin and could be also an embolic phenomenon from endocarditis and not the other way around. PLAN: Continue blood cultures. Repeat until blood cultures are negative. He has two sets from 07/07. I am still waiting to see if they will turn positive. If positive, repeat two sets tomorrow. Continue vancomycin at 1 gram IV q.24 hours. Patient will need six weeks of IV antibiotic irrespective of KULDIP findings with a pacemaker in place and severe aortic stenosis. Patient is a very poor candidate due to metastatic melanoma. Discussion with a DNR with his family is on the way, but patient is not ready for that decision yet. His further course of treatment will depend on his clinical improvement and will discuss transesophageal echocardiogram MTDD
[2020-07-09] VITALS (7 sets, daily range): BP systolic 107–151; BP diastolic 56–71
[2020-07-09] MEDS: NAFCILLIN SOD 2 GM in D5W MINI-BAG PLUS 50 ML IV SCH ×6 (01:04→21:24)
[2020-07-09] MEDS ORDERED: RAMELTEON 8 MG TAB (ROZEREM) PO ONE (02:55)
[2020-07-09] MEDS: LEVOTHYROXINE 25MCG TABLET (0.025MG) PO SCH (05:03)
[2020-07-09] MEDS: HEPARIN SOD (PORCINE) 5000UNITS/ML 1ML VIAL/SYRINGE SC SCH ×3 (05:03→21:24)
[2020-07-09 05:27] LABS: HEMATOCRIT 29.9 % (42.0-52.0); HEMOGLOBIN 9.3 g/dl (13.5-17.5); MEAN CORPUSCULAR HEMOGLOBIN 31.2 pg (27.0-33.0); MEAN CORPUSCULAR HGB CONC 31.1 g/dl (32.0-36.5); MEAN CORPUSCULAR VOLUME 100.3 fl (80.0-96.0); PLATELET COUNT, AUTOMATED 144 10^3/uL (150-450); RED BLOOD COUNT 2.98 10^6/uL (4.30-6.10); WHITE BLOOD COUNT 7.5 10^3/uL (4.0-10.0)
[2020-07-09 05:32] LABS: CALCIUM LEVEL 8.1 MG/DL (8.8-10.2); CREATININE FOR GFR 2.41 MG/DL (0.70-1.30); GLOMERULAR FILTRATION RATE 28.2 (>42)
[2020-07-09] MEDS: HumaLOG INSULIN (NovoLOG) PER UNIT SC SCH ×4 (08:52→21:00)
[2020-07-09] MEDS: HumuLIN (NovoLIN)70/30 INSULIN INJ PER UNIT SC SCH ×2 (08:53→18:07)
[2020-07-09] MEDS: PANTOPRAZOLE 40MG TAB (PROTONIX) PO SCH (08:54)
[2020-07-09] MEDS: ASPIRIN 81 MG CHEW TABLET PO SCH (08:54)
[2020-07-09] MEDS: allopurinoL 300 MG TAB PO SCH (08:54)
[2020-07-09] MEDS: carBAMazepine 200MG TABLET PO SCH ×3 (08:54→21:24)
[2020-07-09] MEDS: CALCITRIOL 0.25 MCG CAP (S0169) PO SCH (08:54)
[2020-07-09] MEDS: ATORVASTATIN 20 MG TAB PO SCH (08:54)
--- NOTE | 2020-07-09 12:16 | IPNPDOC ---
Text Note Date of Service The patient was seen on 07/09/20. NOTE SUBJECTIVE: -Doing much better, afebrile, awake, alert, eating breakfast this morning PHYSICAL EXAMINATION: GEN: NAD, awake, alert, oriented and answering questions appropriately Head: sparse hair, normocephalic, atraumatic Eyes: EOMI, PERRLA, anicteric ENT: MMM, poor dentition, has R lower lip lesion (chronic) Pulm: Crackles throughout lung coffey, clearer at the apices. No wheezing. Some rhonchi. On 2L HFNC Cardiac: Regular rhythm and rate at 89, systolic murmur heard throughout precordium that is loudest at RUSB, regular rhythm and rate Abd: obese, soft, normoactive bowel sounds, NTND, no palpated masses Ext: bilateral LE dependent edema with chronic skin changes. L ankle with black large hypertrophied eschar-like wound without drainage, L great toe tip is black with swelling warm firm surrounding with erythema. 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 Peter Medellin and has been on imatinib for 2 months, CAD, HFpEF, at least moderate aortic stenosis with deferred valve replacement due to illness and covid pandemic, IDDM, CKD, and s/p PPM, who is completely independent at baseline and drives, who woke up with acute confusion with inability to form coherent full sentences and inability to ambulate with inability to follow instruction and admitted with acute encephal opathy with course c/b victoria severe sepsis with MSSA bacteremia most likely from L great toe infection. Severe sepsis: - +BCx with MSSA, thus far with 3/5 and 3/6 cultures pending - MSSA in blood --> abd day 4, now on nafcillin, waiting for bacteremia to clear. Will require 6 weeks given persistent >48h bacteremia and history of hardware and possible endocarditis. Dr. Kim onboard - MRSA PCR + - Tylenol PRN for fever and rigors - holding imatinib - CT chest without PNA - CT A/P without evidence of potential infection with noted adenopathy most likely 2/2 malignancy - reached out to Dr. Green to discuss their prior discussion about L leg amputation as reports there were conversations about a BKA and now he has a L great toe infection. Dr. 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 Encephalopathy: metabolic 2/2 severe infection -abx day 4, as per above. mentation improving -continue holding ritalin -TSH and free T4 wnl -carbamazepine level wnl -CT head was without acute pathology -will consider MRI and EEG if AMS persists and does not improve after infection is treated -UA was without evidence of infection Diabetes mellitus with diabetic neuropathy: -restart 70/30 now that he is taking PO -AC/HS SSI -hypoglycemia protocol -continue holding gabapentin Seizure disorder: Continue carbamazepine. -Carbamazepine level wnl, held currently while NPO Hypertension: -Hold antihypertensives i/s/o sepsis HFpEF: decompensated -Holding his torsemide, will resume when sepsis resolves -Monitor renal function. -strict I/Os and daily weights History of atrial fibrillation: -Continue Aspirin as PO now History of VT: -Has pacemaker and defibrillator Chronic kidney disease, stage III: Baseline creatinine 2.5. -At baseline -Monitor renal function. Gastroesophageal reflux disease: -Continue protonix IV Dyslipidemia: -Continue Atorvastatin. Gout: -Continue Allopurinol. Benign prostatic hyperplasia: -Continue tamsulosin. Metastatic melanoma: -Holding imatinib -f/u at [facility] after discharge. Updated Dr. Green Dispo: PCU, inpatient, PT/OT VS,Bgbone, I+O VS, Bgbone, I+O Laboratory Tests 07/09/20 05:01 07/09/20 05:18 Vital Signs Date Time Temp Pulse Resp B/P (MAP) Pulse Ox O2 Delivery O2 Flow Rate FiO2 07/09/20 08:00 97.2 86 16 107/56 (73) 96 High Flow Cannula 2.0 07/07/20 06:00 28 I&O- Last 24 Hours up to 6 AM 07/09/20 05:59 Intake Total 2686 ml Output Total 1420 ml Balance 1266 ml JEREMIAH DUBOIS MD Jul 09, 2020 09:13
[2020-07-10] MEDS: NAFCILLIN SOD 2 GM in D5W MINI-BAG PLUS 50 ML IV SCH ×6 (02:01→21:03)
[2020-07-10 06:00] VITALS: BP 139/74
[2020-07-10] MEDS: LEVOTHYROXINE 25MCG TABLET (0.025MG) PO SCH (06:03)
[2020-07-10] MEDS: HEPARIN SOD (PORCINE) 5000UNITS/ML 1ML VIAL/SYRINGE SC SCH ×3 (06:03→21:04)
[2020-07-10 06:04] LABS: HEMATOCRIT 30.8 % (42.0-52.0); HEMOGLOBIN 9.7 g/dl (13.5-17.5); MEAN CORPUSCULAR HEMOGLOBIN 31.2 pg (27.0-33.0); MEAN CORPUSCULAR HGB CONC 31.5 g/dl (32.0-36.5); PLATELET COUNT, AUTOMATED 160 10^3/uL (150-450); RED BLOOD COUNT 3.11 10^6/uL (4.30-6.10); WHITE BLOOD COUNT 8.3 10^3/uL (4.0-10.0)
[2020-07-10 06:31] LABS: CALCIUM LEVEL 8.1 MG/DL (8.8-10.2); CREATININE FOR GFR 2.21 MG/DL (0.70-1.30); GLOMERULAR FILTRATION RATE 31.1 (>42)
[2020-07-10] MEDS: allopurinoL 300 MG TAB PO SCH (08:32)
[2020-07-10] MEDS: HumuLIN (NovoLIN)70/30 INSULIN INJ PER UNIT SC SCH ×2 (08:33→17:23)
[2020-07-10] MEDS: CALCITRIOL 0.25 MCG CAP (S0169) PO SCH (08:33)
[2020-07-10] MEDS: PANTOPRAZOLE 40MG TAB (PROTONIX) PO SCH (08:33)
[2020-07-10] MEDS: ATORVASTATIN 20 MG TAB PO SCH (08:33)
[2020-07-10] MEDS: carBAMazepine 200MG TABLET PO SCH ×3 (08:33→21:02)
[2020-07-10] MEDS: ASPIRIN 81 MG CHEW TABLET PO SCH (08:33)
[2020-07-10] MEDS: HumaLOG INSULIN (NovoLOG) PER UNIT SC SCH ×4 (08:34→20:55)
[2020-07-10 09:16] LABS: MAGNESIUM LEVEL 2.2 MG/DL (1.8-2.4)
[2020-07-10] MEDS: FUROSEMIDE 40MG/4ML VIAL (J1940) IV SCH (09:52)
--- NOTE | 2020-07-10 10:33 | IPNPDOC ---
Text Note Date of Service The patient was seen on 07/10/20. NOTE SUBJECTIVE: -Was confused and awake most of the night --> got rozerem at 4AM --> now sleepy and confused. PHYSICAL EXAMINATION: GEN: NAD, sleeping detention through conversation, confused Head: sparse hair, normocephalic, atraumatic Eyes: EOMI, PERRLA, anicteric ENT: MMM, poor dentition, has R lower lip lesion (chronic) Pulm: Crackles throughout lung coffey, clearer at the apices. No wheezing. Some rhonchi. On 2L HFNC Cardiac: Regular rhythm and rate at 89, systolic murmur heard throughout precordium that is loudest at RUSB, regular rhythm and rate Abd: obese, soft, normoactive bowel sounds, NTND, no palpated masses Ext: bilateral LE dependent edema with chronic skin changes. L ankle with black large hypertrophied eschar-like wound without drainage, L great toe tip is black without drainage. 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 Peter Medellin and has been on imatinib for 2 months, CAD, HFpEF, at least moderate aortic stenosis with deferred valve replacement due to illness and covid pandemic, IDDM, CKD, and s/p PPM, who is completely independent at baseline and drives, who woke up with acute confusion with inability to form coherent full sentences and inability to ambulate with inability to follow instruction and admitted with acute encephalopathy with course c/b victoria severe sepsis with MSSA bacteremia most likely from L great toe infection. Severe sepsis: - +BCx with MSSA, thus far with 3/5 and 3/6 cultures pending - MSSA in blood --> abd day 4, now on nafcillin, waiting for bacteremia to clear. Will require 6 weeks given persistent >48h bacteremia and history of chey laura and possible endocarditis. Dr. Kim onboard - MRSA PCR + - Tylenol PRN for fever and rigors - holding imatinib - CT chest without PNA - CT A/P without evidence of potential infection with noted adenopathy most likely 2/2 malignancy - reached out to Dr. Green to discuss their prior discussion about L leg amputation as reports there were conversations about a BKA and now he has a L great toe infection. Dr. 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 Encephalopathy: metabolic 2/2 severe infection and also critical illness -abx day 2 after clearance of bacteremia, as per above. -continue holding ritalin -TSH and free T4 wnl -carbamazepine level wnl -CT head was without acute pathology -will consider MRI and EEG if AMS persists and does not improve after infection is treated -UA was without evidence of infection Diabetes mellitus with diabetic neuropathy: -restart 70/30 now that he is taking PO -AC/HS SSI -hypoglycemia protocol -continue holding gabapentin Seizure disorder: Continue carbamazepine. -Carbamazepine level wnl, held currently while NPO Hypertension: -Hold antihypertensives i/s/o sepsis HFpEF: decompensated -Will now give lasix 40 IV daily, as sepsis has resolved -Monitor renal function. -strict I/Os and daily weights History of atrial fibrillation: -Continue Aspirin -holding BB History of VT: -Has pacemaker and defibrillator Chronic kidney disease, stage III: Baseline creatinine 2.5. -At baseline -Monitor renal function. Gastroesophageal reflux disease: -Continue protonix IV Dyslipidemia: -Continue Atorvastatin. Gout: -Continue Allopurinol. Benign prostatic hyperplasia: -Continue tamsulosin. Metastatic melanoma: -Holding imatinib -f/u at [facility] after discharge. Updated Dr. Green Dispo: PCU, inpatient, PT/OT VS,David, I+O VS, David, I+O Laboratory Tests 07/10/20 05:24 Vital Signs Date Time Temp Pulse Resp B/P (MAP) Pulse Ox O2 Delivery O2 Flow Rate FiO2 07/10/20 06:00 97.0 78 20 139/74 (95) 92 High Flow Cannula 2.0 07/09/20 14:00 91 I&O- Last 24 Hours up to 6 AM 07/10/20 06:00 Intake Total 1640 ml Output Total 275 ml Balance 1365 ml JEREMIAH DUBOIS MD Jul 10, 2020 08:45
[2020-07-10] MEDS ORDERED: SODIUM CHLORIDE 0.9% INJ 10 ML SYR IV PRN (13:50)
[2020-07-10 14:00] VITALS: BP 148/71
[2020-07-10] MEDS: SODIUM CHLORIDE 0.9% INJ 10 ML SYR IV SCH ×2 (14:36→21:03)
[2020-07-10] MEDS ORDERED: RAMELTEON 8 MG TAB (ROZEREM) PO ONE (19:00)
[2020-07-10 22:00] VITALS: BP 158/79
[2020-07-11] MEDS: NAFCILLIN SOD 2 GM in D5W MINI-BAG PLUS 50 ML IV SCH ×6 (02:44→22:04)
[2020-07-11 03:55] VITALS: BP 142/73
[2020-07-11] MEDS: SODIUM CHLORIDE 0.9% INJ 10 ML SYR IV SCH ×2 (05:34→18:00)
[2020-07-11] MEDS: LEVOTHYROXINE 25MCG TABLET (0.025MG) PO SCH (05:34)
[2020-07-11] MEDS: HEPARIN SOD (PORCINE) 5000UNITS/ML 1ML VIAL/SYRINGE SC SCH ×3 (05:35→22:05)
[2020-07-11 06:00] VITALS: BP 133/84
[2020-07-11 06:09] LABS: BASO % 0.4 % (0.0-1.0); EOS # 0.2 10^3/uL (0.0-0.5); EOS % 2.2 % (0.0-3.0); HEMATOCRIT 30.4 % (42.0-52.0); HEMOGLOBIN 9.5 g/dl (13.5-17.5); LYMPH # 1.2 10^3/uL (1.5-5.0); MEAN CORPUSCULAR HEMOGLOBIN 30.4 pg (27.0-33.0); MEAN CORPUSCULAR HGB CONC 31.3 g/dl (32.0-36.5); MEAN CORPUSCULAR VOLUME 97.4 fl (80.0-96.0); MONO % 10.6 % (2.0-8.0); NEUTROPHILS # 6.7 10^3/uL (1.5-8.5); NEUTROPHILS % 72.4 % (36.0-66.0); PLATELET COUNT, AUTOMATED 195 10^3/uL (150-450); RED BLOOD COUNT 3.12 10^6/uL (4.30-6.10); WHITE BLOOD COUNT 9.3 10^3/uL (4.0-10.0)
[2020-07-11 06:38] LABS: CREATININE FOR GFR 2.12 MG/DL (0.70-1.30); GLOMERULAR FILTRATION RATE 32.7 (>42)
[2020-07-11 06:39] LABS: ALBUMIN 2.3 GM/DL (3.2-5.2); BILIRUBIN,TOTAL 0.9 MG/DL (0.2-1.0); CALCIUM LEVEL 7.8 MG/DL (8.8-10.2); POTASSIUM SERUM 3.5 MEQ/L (3.5-5.1)
[2020-07-11] MEDS: HumuLIN (NovoLIN)70/30 INSULIN INJ PER UNIT SC SCH ×2 (07:30→18:06)
[2020-07-11] MEDS: HumaLOG INSULIN (NovoLOG) PER UNIT SC SCH ×4 (07:30→21:00)
[2020-07-11 08:00] VITALS: BP 128/58
[2020-07-11] MEDS: ASPIRIN 81 MG CHEW TABLET PO SCH (08:44)
[2020-07-11] MEDS: PANTOPRAZOLE 40MG TAB (PROTONIX) PO SCH (08:44)
[2020-07-11] MEDS: ATORVASTATIN 20 MG TAB PO SCH (08:44)
[2020-07-11] MEDS: allopurinoL 300 MG TAB PO SCH (08:45)
[2020-07-11] MEDS: CALCITRIOL 0.25 MCG CAP (S0169) PO SCH (08:45)
[2020-07-11] MEDS: carBAMazepine 200MG TABLET PO SCH ×3 (08:46→22:05)
[2020-07-11] MEDS: FUROSEMIDE 40MG/4ML VIAL (J1940) IV SCH (08:48)
--- NOTE | 2020-07-11 11:53 | IPNPDOC ---
Text Note Date of Service The patient was seen on 07/11/20. NOTE SUBJECTIVE: -Was awake most of the night --> got rozerem 4mg at 7pm, no effect -Daughter reports sleep has always been disrupted even at home, but AMS is much worse than baseline -This morning, was sitting at bedside, awake, alert, conversational PHYSICAL EXAMINATION: GEN: NAD, sleeping longterm through conversation, confused Head: sparse hair, normocephalic, atraumatic Eyes: EOMI, PERRLA, anicteric ENT: MMM, poor dentition, has R lower lip lesion (chronic) Pulm: Crackles throughout lung coffey, clearer at the apices. No wheezing. Some rhonchi. On 2L HFNC Cardiac: Regular rhythm and rate at 89, systolic murmur heard throughout precordium that is loudest at RUSB, regular rhythm and rate Abd: obese, soft, normoactive bowel sounds, NTND, no palpated masses Ext: bilateral LE dependent edema with chronic skin changes. L ankle with black large hypertrophied eschar-like wound without drainage, L great toe tip is black without drainage. 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 Peter Medellin and has been on imatinib for 2 months, CAD, HFpEF, at least moderate aortic stenosis with deferred valve replacement due to illness and covid pandemic, IDDM, CKD, and s/p PPM, who is completely independent at baseline and drives, who woke up with acute confusion with inability to form coherent full sentences and inability to ambulate with inability to follow instruction and admitted with acute enceph alopathy with course c/b victoria severe sepsis with MSSA bacteremia most likely from L great toe infection. Severe sepsis: - +BCx with MSSA, thus far with 3/5 and 3/6 cultures pending - MSSA in blood --> abx day 4 since clearance of bacteremia, now on nafcillin. Will require 6 weeks given persistent >48h bacteremia and history of hardware and possible endocarditis. Dr. Kim onboard - MRSA PCR + - Tylenol PRN for fever and rigors - holding imatinib - CT chest without PNA - CT A/P without evidence of potential infection with noted adenopathy most likely 2/2 malignancy - reached out to Dr. Green to discuss their prior discussion about L leg amputation as reports there were conversations about a BKA and now he has a L great toe infection. Dr. 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 - PICC line placement, d/c TLC Encephalopathy: metabolic 2/2 severe infection and also critical illness -abx day 2 after clearance of bacteremia, as per above. -continue holding ritalin -TSH and free T4 wnl -carbamazepine level wnl -CT head was without acute pathology -will consider MRI and EEG if AMS persists and does not improve after infection is treated -UA was without evidence of infection -dc rozerem Diabetes mellitus with diabetic neuropathy: -restart 70/30 now that he is taking PO -AC/HS SSI -hypoglycemia protocol -continue holding gabapentin Seizure disorder: Continue carbamazepine. -Carbamazepine level wnl, held currently while NPO Hypertension: -Hold antihypertensives i/s/o sepsis HFpEF: decompensated -Will now give lasix 40 IV daily, as sepsis has resolved -Monitor renal function. -strict I/Os and daily weights History of atrial fibrillation: -Continue Aspirin -holding BB History of VT: -Has pacemaker and defibrillator Chronic kidney disease, stage III: Baseline creatinine 2.5. -At baseline -Monitor renal function. Gastroesophageal reflux disease: -Continue protonix IV Dyslipidemia: -Continue Atorvastatin. Gout: -Continue Allopurinol. Benign prostatic hyperplasia: -Continue tamsulosin. Metastatic melanoma: -Holding imatinib -f/u at [facility] after discharge. Updated Dr. Green Dispo: PCU, inpatient, PT/OT VS,Fishbone, I+O VS, Fishbone, I+O Laboratory Tests 07/11/20 05:51 Vital Signs Date Time Temp Pulse Resp B/P (MAP) Pulse Ox O2 Delivery O2 Flow Rate FiO2 07/11/20 06:00 98.0 83 20 133/84 (100) 92 Nasal Cannula 2.0 07/09/20 14:00 91 I&O- Last 24 Hours up to 6 AM 07/11/20 05:59 Intake Total 2090 ml Output Total 1450 ml Balance 640 ml JEREMIAH DUBOIS MD Jul 11, 2020 10:46
[2020-07-11] MEDS ORDERED: LIDOCAINE 1% MDV 20ML VIAL As Ordered ONE (13:11)
[2020-07-11 14:00] VITALS: BP 130/60
--- NOTE | 2020-07-11 15:45 | REP ---
INDICATION: PICC line insertion. COMPARISON: None. TECHNIQUE: The procedure was performed under the direct supervision of Dr. Siu. The risks and benefits of the procedure were explained and informed consent was obtained by the healthcare proxy.. The right basilic vein was localized using ultrasound guidance. The skin was prepped and draped in a sterile fashion. 2% lidocaine was used as a local anesthetic. Using ultrasound guidance the basilic vein was cannulated and a 0.018 guidewire was inserted and advanced to the SVC using fluoroscopic guidance. The needle was removed and a 4.5 Guyanese dilator and peel-away sheath was inserted over the guide wire. A 4.5 Guyanese single lumen catheter was cut to length of 39 cm. The dilator was removed and the catheter was inserted over the guide wire with the tip ending in the SVC. The peel-away sheath was removed and the catheter was flushed with heparinized saline as per Hospital protocol. The catheter was affixed to the skin and a sterile dressing was applied. The patient tolerated the procedure well and there were no immediate complications. 0.2 minutes of fluoro time was utilized for this procedure. FINDINGS: None IMPRESSION: PICC line insertion right basilic vein. <Electronically signed by Vimal Meza > 07/11/20 [id number] <Electronically signed by Billy Siu > 07/11/20 [id number]
[2020-07-11] MEDS: SODIUM CHLORIDE 0.9% INJ 10 ML SYR IV PRN ×2 (19:31→23:25)
--- NOTE | 2020-07-11 21:42 | IPN ---
PROGRESS NOTE DATE: 07/11/2020 Yovani seems to be doing better this afternoon, he is less confused than, according to his , over the weekend. He denies any complaints. He is sitting in his chair waiting for dinner. PHYSICAL EXAMINATION: In no acute distress, not confused. Oropharynx: No thrush. He has a right lower lip lesion which he states has been there for years. Lungs: A few crackles at the bases, clear at the apices, no wheezing, no rhonchi. On 2 liters. Heart: Normal S1, S2 with a systolic ejection murmur loudest at the right upper sternal border, 3/6. Abdomen: Obese, soft, nontender. Extremities: Bilateral +1 pitting edema, left ankle with a large necrotic mass measuring at least 8 cm, with foul smelling left great toe with a black eschar, minimal erythema around the toe. Neurologic exam: Alert, oriented times three, sometimes has difficulty with word finding but motor strength normal. Blood cultures positive on 07/05/2020, 07/06/2020, and 07/07/2020, negative on 07/08/2020. Cultures are positive for Staphylococcus aureus methicillin-sensitive Staphylococcus aureus (MSSA). LABORATORY DATA: White count 9.3, hemoglobin 9.5, hematocrit 30.4, platelets 195, 72% neutrophils, 13% lymphocytes, 10% monocytes, sodium 139, potassium 3.5, chloride 105, bicarbonate 29, BUN 58 creatinine 2.12, glucose 99, calcium 8, AST 20, ALT 34, alkaline phosphatase 129, ammonia 46. IMPRESSION/ PLAN: 1. 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 With presence of the pacemaker, I would recommend treating him with IV6 weeks of antibiotics from negative cultures. I have discussed the case with his who is willing to do his IV antibiotics. First negative culture was on 07/08/2020 and end of therapy planned for 08/19/2020. Followup with complete blood count (CBC), basic profile, C-reactive protein (CRP), erythrocyte sedimentation rate (ESR) weekly. Followup with cardiology at the end of treatment for echocardiogram. 2. Metastatic melanoma. Patient's also asked about hospice, whether it was time to discuss that. I advised her to discuss it with him as an outpatient and with his oncologist and primary care provider. I would still recommend doing IV antibiotics at this point. Case has also been discussed with Dr. Marcano, who is also his primary care provider. OCTAVIA
[2020-07-11 22:00] VITALS: BP 132/60
[2020-07-12] MEDS: NAFCILLIN SOD 2 GM in D5W MINI-BAG PLUS 50 ML IV SCH ×6 (02:35→21:31)
[2020-07-12] MEDS: SODIUM CHLORIDE 0.9% INJ 10 ML SYR IV PRN ×3 (04:01→22:49)
[2020-07-12 05:50] LABS: HEMATOCRIT 30.5 % (42.0-52.0); HEMOGLOBIN 9.7 g/dl (13.5-17.5); MEAN CORPUSCULAR HEMOGLOBIN 30.8 pg (27.0-33.0); MEAN CORPUSCULAR HGB CONC 31.8 g/dl (32.0-36.5); MEAN CORPUSCULAR VOLUME 96.8 fl (80.0-96.0); PLATELET COUNT, AUTOMATED 227 10^3/uL (150-450); RED BLOOD COUNT 3.15 10^6/uL (4.30-6.10); WHITE BLOOD COUNT 11.3 10^3/uL (4.0-10.0)
[2020-07-12 06:00] VITALS: BP 130/62
[2020-07-12 06:16] LABS: C REACTIVE PROTEIN QUANTITATIV 4.16 MG/DL (0.00-0.30)
[2020-07-12] MEDS: LEVOTHYROXINE 25MCG TABLET (0.025MG) PO SCH (06:17)
[2020-07-12] MEDS: HEPARIN SOD (PORCINE) 5000UNITS/ML 1ML VIAL/SYRINGE SC SCH ×3 (06:18→21:31)
[2020-07-12] MEDS: SODIUM CHLORIDE 0.9% INJ 10 ML SYR IV SCH ×2 (06:18→17:27)
[2020-07-12 07:06] LABS: ERYTHROCYTE SEDIMENTATION RATE 52 mm/hr (0-20)
[2020-07-12] MEDS: HumaLOG INSULIN (NovoLOG) PER UNIT SC SCH ×4 (08:45→20:49)
[2020-07-12] MEDS: PANTOPRAZOLE 40MG TAB (PROTONIX) PO SCH (08:45)
[2020-07-12] MEDS: HumuLIN (NovoLIN)70/30 INSULIN INJ PER UNIT SC SCH ×2 (08:45→17:27)
[2020-07-12] MEDS: carBAMazepine 200MG TABLET PO SCH ×3 (08:46→21:31)
[2020-07-12] MEDS: ASPIRIN 81 MG CHEW TABLET PO SCH (08:46)
[2020-07-12] MEDS: allopurinoL 300 MG TAB PO SCH (08:46)
[2020-07-12] MEDS: CALCITRIOL 0.25 MCG CAP (S0169) PO SCH (08:46)
[2020-07-12] MEDS: ATORVASTATIN 20 MG TAB PO SCH (08:46)
[2020-07-12 09:06] LABS: CREATININE FOR GFR 1.91 MG/DL (0.70-1.30); GLOMERULAR FILTRATION RATE 36.9 (>42); MAGNESIUM LEVEL 1.8 MG/DL (1.8-2.4); POTASSIUM SERUM 3.5 MEQ/L (3.5-5.1)
[2020-07-12] MEDS: FUROSEMIDE 40MG/4ML VIAL (J1940) IV SCH ×2 (10:32→17:26)
--- NOTE | 2020-07-12 12:16 | IPNPDOC ---
Text Note Date of Service The patient was seen on 07/12/20. NOTE SUBJECTIVE: -Awake, alert, conversational PHYSICAL EXAMINATION: GEN: NAD, alert, awake, oriented, but has some word finding difficulties Head: has alopecia, normocephalic, atraumatic Eyes: EOMI, PERRLA, anicteric ENT: MMM, poor dentition, has R lower lip lesion (chronic) Pulm: Crackles throughout lung coffey, clearer at the apices. No wheezing. Some rhonchi. On 2L HFNC Cardiac: Regular rhythm and rate at 89, systolic murmur heard throughout precordium that is loudest at RUSB, regular rhythm and rate Abd: obese, soft, normoactive bowel sounds, NTND, no palpated masses Ext: bilateral LE dependent edema with chronic skin changes. L ankle with black large hypertrophied eschar-like wound without drainage, L great toe tip is black without drainage. 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 Peter Medellin and has been on imatinib for 2 months, CAD, HFpEF, at least moderate aortic stenosis with deferred valve replacement due to illness and covid pandemic, IDDM, CKD, and s/p PPM, who is completely independent at baseline and drives, who woke up with acute confusion with inability to form coherent full sentences and inability to ambulate with inability to follow instruction and admitted with acute encephalopathy with course c/b victoria severe sepsis with MSSA bacteremia most likely from L great toe infection. Severe sepsis: - +BCx with MSSA, thus far with 3/5 and 3/6 cultures negative. - MSSA in blood --> abx day 5 since clearance of bacteremia, now on nafcillin. Will require 6 weeks given persistent >48h bacteremia and history of hardware and possible endocarditis, to complete course on 08/19. Dr. Kim onboard. PICC placed. - MRSA PCR + - Tylenol PRN - holding imatinib - CT chest without PNA - CT A/P without evidence of potential infection with noted adenopathy most likely 2/2 malignancy - reached out to Dr. Green to discuss their prior discussion about L leg amputation as reports there were conversations about a BKA and now he has a L great toe infection. Dr. 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 Encephalopathy: metabolic 2/2 severe infection and also critical illness -abx day 5 after clearance of bacteremia, as per above. -continue holding ritalin -TSH and free T4 wnl -carbamazepine level wnl -CT head was without acute pathology -To consider MRI as an outpatient at facility that can perform MRI with his known hardware, given metastatic melanoma and recent subacute word finding difficulty and episodic confusion. -UA was without evidence of infection Diabetes mellitus with diabetic neuropathy: - continue 70/30 insulin -AC/HS SSI -hypoglycemia protocol -continue holding gabapentin Seizure disorder: Continue carbamazepine. -Carbamazepine level wnl -continue per home dosing Hypertension: -Hold antihypertensives i/s/o recent sepsis. Restarted diuretic. HFpEF: decompensated -Will escalate lasix 40 IV daily to BID as sepsis has resolved for volume optimization and hypoxemia -Monitor renal function. -strict I/Os and daily weights History of atrial fibrillation: -Continue Aspirin -holding BB History of VT: -Has pacemaker and defibrillator Chronic kidney disease, stage III: Baseline creatinine 2.5. -At baseline -Monitor renal function. Gastroesophageal reflux disease: -Continue protonix IV Dyslipidemia: -Continue Atorvastatin. Gout: -Continue Allopurinol. Benign prostatic hyperplasia: -Continue tamsulosin. Metastatic melanoma: -Holding imatinib -f/u at [facility] after discharge. Updated Dr. Green Dispo: PCU, inpatient, PT/OT VS,Fishbone, I+O VS, Fishbone, I+O Laboratory Tests 07/12/20 05:22 Vital Signs Date Time Temp Pulse Resp B/P (MAP) Pulse Ox O2 Delivery O2 Flow Rate FiO2 07/12/20 06:00 98.6 80 18 130/62 (84) 98 Nasal Cannula 2.0 07/09/20 14:00 91 I&O- Last 24 Hours up to 6 AM 07/12/20 06:00 Intake Total 2300 ml Output Total 2620 ml Balance -320 ml JEREMIAH DUBOIS MD Jul 12, 2020 08:56
[2020-07-12 14:00] VITALS: BP 130/60
--- NOTE | 2020-07-12 16:29 | IPNPDOC ---
Text Note Date of Service The patient was seen on 07/12/20. NOTE SUBJECTIVE: Yovani is doing better this afternoon, but experienced some confusion over the night, requesting to go home and refusing to return to his room. His was called and is present at examination. He denies any complaints, and is lying in bed after eating lunch. OBJECTIVE: VITALS: See below GENERAL: patient is a pleasant man in no acute distress, lying comfortably in bed. He is not confused at time of examination and answers questions readily. OROPHARYNX: no thrush noted. Mucosa is pink and moist. HEART: Normal S1 and S2, with a systolic ejection murmur heard best at the R upper sternal border, 3/6. LUNGS: Distant cracking is auscultated at the lung bases bilaterally. Lungs are clear at the apex. No wheezing, rales or rhonchi is noted. He is breathing 2L of O2. ABDOMEN: Obese, nondistended, soft and nontender. EXTREMITIES: Bilateral nonpitting edema. There is a large, black, necrotic fungating mass on the medial malleolus of the L foot, as well as an enflamed, black, and necrotic left big toe. NEUROLOGICAL: AOx3, has some difficulties finding words, but readily answers questions. Motor strength is normal. MICROBIOLOGY: Last positive blood culture was on 07/07/2020, which grew methicillin sensitive staph aureus (MSSA). Blood cultures from 07/08 and 07/09 were both negative. LABORATORY DATA: White BC: 11.3, Hgb: 9.7, HCT: 30.5, Platelets: 227, Neutrophils: 72.4, Lymphocytes: 13, Monocytes: 10.6 Sodium: 139, Potassium: 3.5, Chloride: 104, Bicarbonate: 30, BUN: 51, Creatinine: 1.91, Glucose: 122, Calcium: 8 AST: 34 (from 07/11/20), ALT: 20 (from 07/11/20), Alk Phos: 129 (from 07/11/20), Ammonia: 46 (from 07/11/20) IMPRESSION: 1. 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 Predisposing factors include known valvular disease and pacemaker. The patient had fevers as well as positive blood cultures. he has had two subsequent days of negative blood cultures. Continue IV antibiotics until 6 weeks after his first negative culture, which will be August 19, 2020. The has been made aware of this plan and is willing to give him IV antibiotics daily at home. Followup with CBC, basic profile, CRP, ESR on a weekly basis. 2. Metastatic melanoma. The patient and his were advices to discuss hospice care as an outpatient with his oncologist and PCP. Recommending continued IV antibiotics at this time. The case has been discussed with Dr. Marcano, his primary care provider. VS,Fishbone, I+O VS, Fishbone, I+O Laboratory Tests 07/12/20 05:22 Vital Signs Date Time Temp Pulse Resp B/P (MAP) Pulse Ox O2 Delivery O2 Flow Rate FiO2 07/12/20 14:00 97.1 84 18 130/60 (83) 96 Nasal Cannula 2.0 07/09/20 14:00 91 I&O- Last 24 Hours up to 6 AM 07/12/20 06:00 Intake Total 2300 ml Output Total 2620 ml Balance -320 ml GME ATTESTATION GME ATTESTATION My faculty preceptor for this patient encounter was physically present during the encounter and was fully available. All aspects of the patient interview, examination, medical decision making process, and medical care plan development were reviewed and approved by the faculty preceptor. The faculty preceptor is aware and concurs with the plan as stated in the body of this note and will attest to such by his/her cosignature. RUPALI GIRALDO Jul 12, 2020 16:30
[2020-07-12 22:00] VITALS: BP 137/59
[2020-07-13] MEDS: NAFCILLIN SOD 2 GM in D5W MINI-BAG PLUS 50 ML IV SCH ×6 (02:35→21:28)
[2020-07-13] MEDS: SODIUM CHLORIDE 0.9% INJ 10 ML SYR IV PRN (03:40)
[2020-07-13 06:00] VITALS: BP 130/65
[2020-07-13] MEDS: SODIUM CHLORIDE 0.9% INJ 10 ML SYR IV SCH ×2 (06:04→17:58)
[2020-07-13] MEDS: LEVOTHYROXINE 25MCG TABLET (0.025MG) PO SCH (06:05)
[2020-07-13] MEDS: HEPARIN SOD (PORCINE) 5000UNITS/ML 1ML VIAL/SYRINGE SC SCH ×3 (06:05→21:28)
[2020-07-13 06:21] LABS: HEMATOCRIT 30.4 % (42.0-52.0); HEMOGLOBIN 9.9 g/dl (13.5-17.5); MEAN CORPUSCULAR HEMOGLOBIN 31.2 pg (27.0-33.0); MEAN CORPUSCULAR HGB CONC 32.6 g/dl (32.0-36.5); MEAN CORPUSCULAR VOLUME 95.9 fl (80.0-96.0); PLATELET COUNT, AUTOMATED 268 10^3/uL (150-450); RED BLOOD COUNT 3.17 10^6/uL (4.30-6.10); WHITE BLOOD COUNT 12.6 10^3/uL (4.0-10.0)
[2020-07-13 06:50] LABS: CALCIUM LEVEL 8.2 MG/DL (8.8-10.2); CREATININE FOR GFR 1.79 MG/DL (0.70-1.30); GLOMERULAR FILTRATION RATE 39.7 (>42); MAGNESIUM LEVEL 1.6 MG/DL (1.8-2.4); POTASSIUM SERUM 3.6 MEQ/L (3.5-5.1)
[2020-07-13] MEDS: HumaLOG INSULIN (NovoLOG) PER UNIT SC SCH ×4 (07:30→20:30)
[2020-07-13] MEDS ORDERED: MAG SULF 1GM/100ML (MAG RUN) 1 GM in IV 1 EA IV ONE (09:00)
[2020-07-13] MEDS: HumuLIN (NovoLIN)70/30 INSULIN INJ PER UNIT SC SCH ×2 (09:23→17:58)
[2020-07-13] MEDS: CALCITRIOL 0.25 MCG CAP (S0169) PO SCH (09:23)
[2020-07-13] MEDS: ASPIRIN 81 MG CHEW TABLET PO SCH (09:23)
[2020-07-13] MEDS: FUROSEMIDE 40MG/4ML VIAL (J1940) IV SCH ×2 (09:23→17:58)
[2020-07-13] MEDS: allopurinoL 300 MG TAB PO SCH (09:23)
[2020-07-13] MEDS: PANTOPRAZOLE 40MG TAB (PROTONIX) PO SCH (09:24)
[2020-07-13] MEDS: ATORVASTATIN 20 MG TAB PO SCH (09:24)
[2020-07-13] MEDS: carBAMazepine 200MG TABLET PO SCH ×3 (09:24→20:29)
--- NOTE | 2020-07-13 13:13 | IPNPDOC ---
Subjective Date Seen The patient was seen on 07/13/20. Subjective Chief Complaint/HPI Today patient calm and cooperative. last night was agitated, trying to hit staff, trying to walk out was confused. No fever over night. Denies SOB. Objective Physical Examination General Exam: Positive: Alert, Cooperative, No Acute Distress Eye Exam: Positive: PERRLA, Conjunctiva & lids normal, EOMI; Negative: Sclera icteric ENT Exam: Positive: Atraumatic, Mucous membr. moist/pink, Pharynx Normal Chest Exam: Positive: Normal air movement, Other (crackles at both the bases) Heart Exam: Positive: Rate Normal, Regular Rhythm, Normal S1, Normal S2, Murmurs (systolic murmur all throught out the precordium); Negative: Rubs Abdomen Exam: Positive: Normal bowel sounds, Soft; Negative: Tenderness Extremity Exam: Positive: Other (bilateral LE dependent edema with chronic skin changes. L ankle with black large hypertrophied eschar-like wound without drainage, L great toe tip is black without drainage.); Negative: Clubbing, Cyanosis, Edema Neuro Exam: Positive: Strength at 5/5 X4 ext, Normal Tone, Other (some word finding difficulties) Assessment /Plan Assessment 75 yo M with metastatic melanoma previously diagnosed with scalp melanoma and more recently L ankle melanoma ( august 2019) with mets to inguinal nodes and L groin who follows at [facility] with Dr. Peter Medellin and has been on imatinib for 2 months, CAD, HFpEF, severe , with deferred valve replacement due to Cancer and covid pandemic, IDDM, CKD, and s/p PPM, who is completely independent at baseline and drives, who woke up with acute confusion with inability to form coherent full sentences and inability to ambulate with inability to follow instruction and admitted with acute encephalopathy with course c/b victoria severe sepsis with MSSA bacteremia most likely endocarditis. Also noted to have left first toe dry gangrene. MSSA bacteremia likely has infective endocarditis +BCx with MSSA, thus far with 07/08 and 07/09 cultures negative. MSSA in blood --> abx day 6 since clearance of bacteremia, now on nafcillin. Will require 6 weeks given persistent >48h bacteremia and history of hardware and possible endocarditis, to complete course on 08/19. Dr. Kim on board. PICC placed. MRSA PCR + holding imatinib CT chest without PNA CT A/P without evidence of potential infection with noted adenopathy most likely 2/[address] 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 Patient cannot afford Nafcillin. Likely Infective endocarditis with MSSA antibiotic till 08/19 Left first toe dry gangrene not infected. Severe Sepsis resolved Encephalopathy: metabolic 2/2 severe infection and also critical illness continue holding ritalin TSH and free T4 wnl carbamazepine level wnl CT head was without acute pathology To consider MRI as an outpatient at facility that can perform MRI with his known hardware, given metastatic melanoma and recent subacute word finding difficulty and episodic confusion. UA was without evidence of infection Family does not want any psychotropics to help with delirium Diabetes mellitus with diabetic neuropathy: continue 70/30 insulin AC/HS SSI hypoglycemia protocol continue holding gabapentin Seizure disorder: Continue carbamazepine. Carbamazepine level wnl continue per home dosing Hypertension: Restarted diuretic and coreg Systolic and diastolic CHF with EF of 25% to 30% and grade 2 diastolic dysfunction lasix bid History of atrial fibrillation: Continue Aspirin and coreg History of VT: Has pacemaker and defibrillator Severe surgery deferred left to right Atrial shunt seen in Echo either small ASA or a patent foramen ovale. Chronic kidney disease, stage III: Baseline creatinine 2.5. creatinine better than baseline Monitor renal function. Gastroesophageal reflux disease: Continue protonix Dyslipidemia: Continue Atorvastatin. Gout: Continue Allopurinol. Benign prostatic hyperplasia: Continue tamsulosin. Metastatic melanoma: -Holding imatinib -f/u at [facility] after discharge. Updated Dr. Green Dispo: PCU, inpatient, PT/OT Plan/VTE VTE Prophylaxis Ordered?: Yes VS, I&O, 24H, [facility] Vital Signs/I&O Vital Signs Date Time Temp Pulse Resp B/P (MAP) Pulse Ox O2 Delivery O2 Flow Rate FiO2 07/13/20 06:00 97.7 80 18 130/65 (86) 100 Nasal Cannula 2.0 07/09/20 14:00 91 I&O- Last 24 Hours up to 6 AM 07/13/20 05:59 Intake Total 1820 ml Output Total 1440 ml Balance 380 ml Laboratory Data 24H LABS Laboratory Tests 2 07/12/20 16:40: Bedside Glucose (Misc Panel) 176H 07/12/20 20:27: Bedside Glucose (Misc Panel) 162H 07/13/20 04:50: Bedside Glucose (Misc Panel) 91 07/13/20 05:59: Nucleated Red Blood Cells % (auto) 0.2H, Anion Gap 2L, Glomerular Filtration Rate 39.7L, Calcium Level 8.2L, Magnesium Level 1.6L 07/13/20 11:19: Bedside Glucose (Misc Panel) 164H CBC/BMP Laboratory Tests 07/13/20 05:59 Microbiology Microbiology 07/09/20 Blood Culture - Preliminary, Resulted No Growth after 72 hours. All specime... 07/08/20 Blood Culture - Final, Complete NO GROWTH AFTER 5 DAYS 07/07/20 Blood Culture - Final, Complete Staphylococcus Aureus 07/07/20 Blood Culture - Final, Complete NO GROWTH AFTER 5 DAYS 07/06/20 Blood Culture - Final, Complete Staphylococcus Aureus 07/06/20 Blood Culture - Final, Complete Staphylococcus Aureus 07/05/20 Respiratory Virus Panel (PCR) (JOSE) - Final, Complete 07/05/20 Blood Culture - Final, Complete NO GROWTH AFTER 5 DAYS 07/05/20 Blood Culture - Final, Complete Staphylococcus Aureus JIM JAIME MD Jul 13, 2020 13:12
[2020-07-13 14:00] VITALS: BP 145/65
[2020-07-13] MEDS: GABAPENTIN 100 MG CAP PO SCH (20:29)
[2020-07-13] MEDS: CARVedilol 3.125 MG TAB PO SCH (20:29)
[2020-07-13 22:00] VITALS: BP 135/65
[2020-07-14] MEDS: NAFCILLIN SOD 2 GM in D5W MINI-BAG PLUS 50 ML IV SCH ×3 (02:47→11:31)
[2020-07-14] MEDS: HEPARIN SOD (PORCINE) 5000UNITS/ML 1ML VIAL/SYRINGE SC SCH ×3 (05:59→21:16)
[2020-07-14] MEDS: LEVOTHYROXINE 25MCG TABLET (0.025MG) PO SCH (05:59)
[2020-07-14 06:00] VITALS: BP 140/70
[2020-07-14] MEDS: SODIUM CHLORIDE 0.9% INJ 10 ML SYR IV SCH ×2 (06:00→17:47)
[2020-07-14 06:40] LABS: HEMATOCRIT 32.7 % (42.0-52.0); HEMOGLOBIN 10.5 g/dl (13.5-17.5); MEAN CORPUSCULAR HEMOGLOBIN 31.6 pg (27.0-33.0); MEAN CORPUSCULAR HGB CONC 32.1 g/dl (32.0-36.5); MEAN CORPUSCULAR VOLUME 98.5 fl (80.0-96.0); PLATELET COUNT, AUTOMATED 264 10^3/uL (150-450); RED BLOOD COUNT 3.32 10^6/uL (4.30-6.10); WHITE BLOOD COUNT 11.6 10^3/uL (4.0-10.0)
[2020-07-14 07:07] LABS: CALCIUM LEVEL 8.1 MG/DL (8.8-10.2); CREATININE FOR GFR 1.81 MG/DL (0.70-1.30); GLOMERULAR FILTRATION RATE 39.2 (>42); MAGNESIUM LEVEL 1.7 MG/DL (1.8-2.4); POTASSIUM SERUM 3.4 MEQ/L (3.5-5.1)
[2020-07-14] MEDS ORDERED: MAG SULF 1GM/100ML (MAG RUN) 1 GM in IV 1 EA IV ONE (07:55)
[2020-07-14] MEDS ORDERED: POTASSIUM CHLORIDE 10 MEQ SR TABLET PO ONE (07:55)
[2020-07-14 08:00] VITALS: BP 129/63
[2020-07-14] MEDS: HumaLOG INSULIN (NovoLOG) PER UNIT SC SCH ×4 (08:22→21:00)
[2020-07-14] MEDS: HumuLIN (NovoLIN)70/30 INSULIN INJ PER UNIT SC SCH ×2 (08:23→17:46)
[2020-07-14] MEDS: allopurinoL 300 MG TAB PO SCH (10:25)
[2020-07-14] MEDS: ASPIRIN 81 MG CHEW TABLET PO SCH (10:25)
[2020-07-14] MEDS: CALCITRIOL 0.25 MCG CAP (S0169) PO SCH (10:25)
[2020-07-14] MEDS: carBAMazepine 200MG TABLET PO SCH ×3 (10:25→21:15)
[2020-07-14] MEDS: PANTOPRAZOLE 40MG TAB (PROTONIX) PO SCH (10:26)
[2020-07-14] MEDS: ATORVASTATIN 20 MG TAB PO SCH (10:26)
[2020-07-14] MEDS: CARVedilol 3.125 MG TAB PO SCH ×2 (11:00→21:16)
[2020-07-14] MEDS: FUROSEMIDE 40MG/4ML VIAL (J1940) IV SCH ×2 (11:03→17:46)
[2020-07-14] MEDS: ceFAZolin SOD 2 GM in IV 1 EA IV SCH (15:21)
--- NOTE | 2020-07-14 16:18 | IPNPDOC ---
Subjective Date Seen The patient was seen on 07/14/20. Subjective Chief Complaint/HPI Had a good night as per at bedside. Now off oxygen. Alert and oriented, tolerating meals. Appetite not too good. No fever or chills. Objective Physical Examination General Exam: Positive: Alert, Cooperative, No Acute Distress Eye Exam: Positive: PERRLA, Conjunctiva & lids normal, EOMI; Negative: Sclera icteric ENT Exam: Positive: Atraumatic, Mucous membr. moist/pink, Pharynx Normal Chest Exam: Positive: Normal air movement, Other (crackles at both the bases) Heart Exam: Positive: Rate Normal, Regular Rhythm, Normal S1, Normal S2, Murmurs (systolic murmur all throught out the precordium); Negative: Rubs Abdomen Exam: Positive: Normal bowel sounds, Soft; Negative: Tenderness Extremity Exam: Positive: Other (bilateral LE dependent edema with chronic skin changes. L ankle with black large hypertrophied eschar-like wound without drainage, L great toe tip is black without drainage.); Negative: Clubbing, Cyanosis, Edema Neuro Exam: Positive: Strength at 5/5 X4 ext, Normal Tone, Other (some word finding difficulties) Assessment /Plan Assessment 75 yo M with metastatic melanoma previously diagnosed with scalp melanoma and more recently L ankle melanoma ( august 2019) with mets to inguinal nodes and L groin who follows at [facility] with Dr. Peter Medellin and has been on imatinib for 2 months, CAD, HFpEF, severe , with deferred valve replacement due to Cancer and covid pandemic, IDDM, CKD, and s/p PPM, who is completely independent at baseline and drives, who woke up with acute confusion with inability to form coherent full sentences and inability to ambulate with in ability to follow instruction and admitted with acute encephalopathy with course c/b victoria severe sepsis with MSSA bacteremia most likely endocarditis. Also noted to have left first toe dry gangrene. MSSA bacteremia likely has infective endocarditis +BCx with MSSA, thus far with 07/08 and 07/09 cultures negative. MSSA in blood --> abx day 6 since clearance of bacteremia, now on nafcillin. Will require 6 weeks given persistent >48h bacteremia and history of hardware and possible endocarditis, to complete course on 08/19. Dr. Kim on board. PICC placed. MRSA PCR + holding imatinib CT chest without PNA CT A/P without evidence of potential infection with noted adenopathy most likely 2/[address] 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 Patient cannot afford Nafcillin. Antibiotic changed to Cefazolin 2 gm iv q 12hours till 08/19/20 Likely Infective endocarditis with MSSA antibiotic till 08/19 Left first toe dry gangrene not infected. Severe Sepsis resolved Encephalopathy: metabolic 2/2 severe infection and also critical illness continue holding ritalin TSH and free T4 wnl carbamazepine level wnl CT head was without acute pathology To consider MRI as an outpatient at facility that can perform MRI with his known hardware, given metastatic melanoma and recent subacute word finding difficulty and episodic confusion. UA was without evidence of infection Family does not want any psychotropics to help with delirium Diabetes mellitus with diabetic neuropathy: continue 70/30 insulin AC/HS SSI hypoglycemia protocol gabapentin Seizure disorder: Continue carbamazepine. Carbamazepine level wnl continue per home dosing Hypertension: Restarted diuretic coreg stopped due to bradycardia. Systolic and diastolic CHF with EF of 25% to 30% and grade 2 diastolic dysfunction lasix bid History of atrial fibrillation: Continue Aspirin and coreg History of VT: Has pacemaker and defibrillator Severe surgery deferred Left to right Atrial shunt seen in Echo either small ASA or a patent foramen ovale. Chronic kidney disease, stage III: Baseline creatinine 2.5. creatinine better than baseline Monitor renal function. Gastroesophageal reflux disease: Continue Protonix Dyslipidemia: Continue Atorvastatin. Gout: Continue Allopurinol. Benign prostatic hyperplasia: Continue tamsulosin. Metastatic melanoma: Holding imatinib f/u at [facility] after discharge. Updated Dr. Green Dispo: PCU, inpatient, PT/OT Plan/VTE VTE Prophylaxis Ordered?: Yes VS, I&O, 24H, Fishbone Vital Signs/I&O Vital Signs Date Time Temp Pulse Resp B/P (MAP) Pulse Ox O2 Delivery O2 Flow Rate FiO2 07/14/20 08:00 97.5 89 16 129/63 (85) 95 Room Air 07/14/20 06:00 2.0 07/09/20 14:00 91 I&O- Last 24 Hours up to 6 AM 07/14/20 06:59 Intake Total 1560 ml Output Total 2800 ml Balance -1240 ml Laboratory Data 24H LABS Laboratory Tests 2 07/13/20 16:48: Bedside Glucose (Misc Panel) 197H 07/13/20 20:20: Bedside Glucose (Misc Panel) 255H 07/14/20 06:26: Nucleated Red Blood Cells % (auto) 0.3H, Anion Gap 5L, Glomerular Filtration Rate 39.2L, Calcium Level 8.1L, Magnesium Level 1.7L 07/14/20 11:44: Bedside Glucose (Misc Panel) 180H CBC/BMP Laboratory Tests 07/14/20 06:26 Microbiology Microbiology 07/09/20 Blood Culture - Final, Complete NO GROWTH AFTER 5 DAYS 07/08/20 Blood Culture - Final, Complete NO GROWTH AFTER 5 DAYS 07/07/20 Blood Culture - Final, Complete Staphylococcus Aureus 07/07/20 Blood Culture - Final, Complete NO GROWTH AFTER 5 DAYS 07/06/20 Blood Culture - Final, Complete Staphylococcus Aureus 07/06/20 Blood Culture - Final, Complete Staphylococcus Aureus 07/05/20 Respiratory Virus Panel (PCR) (JOSE) - Final, Complete 07/05/20 Blood Culture - Final, Complete NO GROWTH AFTER 5 DAYS 07/05/20 Blood Culture - Final, Complete Staphylococcus Aureus JIM JAIME MD Jul 14, 2020 16:18
[2020-07-14] MEDS: GABAPENTIN 100 MG CAP PO SCH (21:16)
[2020-07-14 22:00] VITALS: BP 131/67
[2020-07-15] MEDS: ceFAZolin SOD 2 GM in IV 1 EA IV SCH (01:07)
[2020-07-15] MEDS: LEVOTHYROXINE 25MCG TABLET (0.025MG) PO SCH (05:46)
[2020-07-15] MEDS: HEPARIN SOD (PORCINE) 5000UNITS/ML 1ML VIAL/SYRINGE SC SCH (05:46)
[2020-07-15] MEDS: SODIUM CHLORIDE 0.9% INJ 10 ML SYR IV SCH (05:46)
[2020-07-15 06:00] VITALS: BP 131/69
[2020-07-15 06:29] LABS: HEMATOCRIT 33.2 % (42.0-52.0); HEMOGLOBIN 10.6 g/dl (13.5-17.5); MEAN CORPUSCULAR HEMOGLOBIN 31.5 pg (27.0-33.0); MEAN CORPUSCULAR HGB CONC 31.9 g/dl (32.0-36.5); MEAN CORPUSCULAR VOLUME 98.8 fl (80.0-96.0); PLATELET COUNT, AUTOMATED 282 10^3/uL (150-450); RED BLOOD COUNT 3.36 10^6/uL (4.30-6.10); WHITE BLOOD COUNT 12.5 10^3/uL (4.0-10.0)
[2020-07-15 06:53] LABS: CALCIUM LEVEL 8.5 MG/DL (8.8-10.2); CREATININE FOR GFR 1.85 MG/DL (0.70-1.30); GLOMERULAR FILTRATION RATE 38.2 (>42); MAGNESIUM LEVEL 1.9 MG/DL (1.8-2.4); POTASSIUM SERUM 3.7 MEQ/L (3.5-5.1)
--- NOTE | 2020-07-15 08:12 | IPN ---
INFECTIOUS DISEASE PROGRESS NOTE DATE: 07/14/2020 ATTENDING PHYSICIAN: Marylene. Judy MD SUBJECTIVE: Anil was seen and examined this afternoon at the bedside by the infectious disease service while resting in his medical surgical bed. His Tamica is accompanying him in the room at the time of our visit. He continues to do well in terms of ambulating and is eating and drinking without any issues. We did speak with his primary hospitalist physician today, Dr. Helena Morales, and she informed us that due to cost reasons, his antimicrobial coverage was switched from Nafcillin to Cefazolin in preparation for likely discharge home tomorrow. Speaking with patient's , she reports the home PICC line I.V. service came to visit and instructed her on how to administer patient's Cefazolin while at home. He continues to report pain around the left medial malleolus and left heel associated with his fungating melanoma mass. On review, he denies any current or overnight fever, chills, night sweats, chest pain, palpitations, shortness of breath, cough, nausea, abdominal pain, vomiting, diarrhea or blood in stool. OBJECTIVE: PHYSICAL EXAMINATION: VITALS: Temperature 97.5 (T-max 98.2), heart rate 89, respiratory rate 16, blood pressure 129/62, SPO2 95% on room air. BMI 38.5. GENERAL: A pleasant elderly male resting comfortably in bedside chair, in no acute distress. He is not confused and responds appropriately for the most part to all questions and commands. HEENT: There is a healed scar on the vertex of the scalp along with one area of small circumferential erythema just anterior to that. Non-injected, anicteric sclerae. No significant conjunctival pallor. No significant pharyngeal erythema or exudate appreciated. Mucous membranes are moist. Missing some upper teeth. There continues to be a swelling of the right lateral upper lip with some darker discoloration; unchanged from previous days. NECK: Supple. Trachea midline. No lymphadenopathy appreciated. CARDIOVASCULAR: Regular rate, regular rhythm. There is a significant 3/6 systolic machine like murmur appreciated best over the right parasternal intercostal space. No rubs were appreciated. RESPIRATORY: Somewhat decreased breath sounds bilaterally with decreased tidal volume, but no significant adventitious breath sounds are appreciated. Symmetric chest expansion. Speaking full sentences. Breathing room air. GASTROINTESTINAL: Abdomen is soft, obese, nontender. Hypoactive bowel sounds throughout. No rigidity appreciated. EXTREMITIES: Continues to have the fungating dark colored mass over the left medial malleolus that is sensitive to the touch. This mass is foul smelling, measuring around 8 to 10 cm. Continues to also have the left great toe necrotic skin with dark discoloration; did not appear to be significantly changed from our last exam. Skin of his toes bilaterally is dry and flaky, and there is bilateral onychomycosis. PICC line is present in the left upper extremity. NEUROLOGIC: Patient is awake, alert and oriented x3. For the most part, he is answering questions appropriately, but at times still has difficulty with word finding and maintaining thought. LABORATORY DATA: CBC: WBC 11.6, hemoglobin 10.5, hematocrit 32.7, platelet count 264,000. BMP: Sodium 138, potassium 3.4, chloride 100, bicarb 33, BUN 40, creatinine 1.81, glucose 144, calcium 8.1, magnesium 1.7. MICROBIOLOGY: Blood cultures positive growing Staphylococcus Aureus on 07/06/2020 (times two), and on 07/07/2020. First negative blood culture was on 07/08/2020. Of note; the Staphylococcus Aureus is Methicillin sensitive Staph Aureus. IMAGING STUDIES: No new imaging. IMPRESSION AND PLAN: 1) Methicillin sensitive Staphylococcus Aureus bacteremia with possible MSSA endocarditis due to presenting fevers and severe aortic stenosis. The aforementioned valvular disease and presenting fevers predispose patient to endocarditis. In the setting of his biventricular pacemaker, we continue to recommend that he be treated for a total duration of six weeks with I.V. antibiotics from his negative cultures. As stated above, his first day of negative blood cultures was on 07/08/2020 and thus he will complete his six weeks of IV ABx administration on 08/19/2020. Patient's is willing to administer I.V. antibiotics at home and she was educated today by the [email or web address]. As stated above, due to financial reasons, patient was switched today from the Nafcillin that he has received for seven days and started Cefazolin. He will continue with the Cefazolin at home through 08/19/2020. Through the duration of the I.V. antibiotics, he should get weekly ESR, CRP and CBC labs. When he has completed the antibiotics, he should follow-up with cardiology as an outpatient for an echocardiogram - - due to the predisposing factors for endocarditis. 2) Metastatic melanoma: Patient has the primary fungating mass on the left medial malleolus with metastases to lymph nodes. Patient's primary care provider, Dr. Vincent Marcano, has been updated throughout patient's hospital stay. He follows in [place] with an oncologist and has been on Imatinib (Tyrosine Kinase inhibitor) for the past two months. OCTAVIA
[2020-07-15] MEDS: HumaLOG INSULIN (NovoLOG) PER UNIT SC SCH (08:46)
[2020-07-15] MEDS: ATORVASTATIN 20 MG TAB PO SCH (08:47)
[2020-07-15] MEDS: CALCITRIOL 0.25 MCG CAP (S0169) PO SCH (08:47)
[2020-07-15] MEDS: carBAMazepine 200MG TABLET PO SCH (08:47)
[2020-07-15] MEDS: HumuLIN (NovoLIN)70/30 INSULIN INJ PER UNIT SC SCH (08:47)
[2020-07-15] MEDS: ASPIRIN 81 MG CHEW TABLET PO SCH (08:47)
[2020-07-15] MEDS: allopurinoL 300 MG TAB PO SCH (08:47)
[2020-07-15] MEDS: PANTOPRAZOLE 40MG TAB (PROTONIX) PO SCH (08:47)
[2020-07-15 08:50] VITALS: BP 131/70
[2020-07-15] MEDS: CARVedilol 3.125 MG TAB PO SCH (08:50)
[2020-07-15] MEDS ORDERED: FUROSEMIDE 40 MG TAB PO SCH (09:00)
--- NOTE | 2020-07-15 11:20 | DS.PDOC ---
Discharge Summary General Date of Admission Jul 05, 2020 at 17:00 Date of Discharge 07/15/20 Discharge Summary PROCEDURES PERFORMED DURING STAY: [None]. 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 HOSPITAL COURSE: 75 yo M with metastatic melanoma previously diagnosed with scalp melanoma and more recently L ankle melanoma ( august 2019) with mets to i nguinal nodes and L groin who follows at [facility] with Dr. Peter Medellin and has been on imatinib for 2 months, CAD, HFpEF, severe , with deferred valve replacement due to Cancer and covid pandemic, IDDM, CKD, Systolic and diastolic CHF with EF of 25% to 30% and s/p AICD who is completely independent at baseline and drives, who woke up with acute confusion with inability to form coherent full sentences and inability to ambulate with inability to follow instruction and admitted with acute metabolic encephalopathy due to severe sepsis with MSSA bacteremia most likely endocarditis. Also noted to have left first toe dry gangrene. MSSA bacteremia likely has infective endocarditis Will require 6 weeks given persistent >48h bacteremia and history of hardware and possible endocarditis. As per ID cefazolin 2 gm iv q12 till 08/19/20. Patient could not pay for home Nafcillin therapy. Probable Infective endocarditis with MSSA Cefazolin till 08/19 Left first toe dry gangrene not infected. Severe Sepsis due to MSSA bacteremia , endocarditis resolved Acute metabolic Encephalopathy: 2/2 severe infection and also critical illness resolving continue holding ritalin To consider MRI as an outpatient at facility that can perform MRI with his known hardware, given metastatic melanoma and recent subacute word finding difficulty and episodic confusion. Family does not want any psychotropics to help with delirium Diabetes mellitus with diabetic neuropathy: continue 70/30 insulin, gabapentin Seizure disorder Continue carbamazepine. 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 History of VT Has pacemaker and defibrillator Severe surgery deferred Left to right Atrial shunt seen in Echo either small ASA or a patent foramen ovale. Chronic kidney disease, stage III: Baseline creatinine 2.5. creatinine better than baseline Monitor renal function. Gastroesophageal reflux disease: Continue Protonix Dyslipidemia: Continue Atorvastatin. Gout: Continue Allopurinol. Benign prostatic hyperplasia: Continue tamsulosin. Metastatic melanoma: Holding imatinib f/u at [facility] after discharge. Updated Dr. Green DISCHARGE MEDICATIONS: Please see below. ALLERGIES: Please see below. PHYSICAL EXAMINATION ON DISCHARGE: VITAL SIGNS: Please see below. General Exam: Positive: Alert, Cooperative, No Acute Distress Eye Exam: Positive: PERRLA, Conjunctiva & lids normal, EOMI; Negative: Sclera icteric ENT Exam: Positive: Atraumatic, Mucous membr. moist/pink, Pharynx Normal Chest Exam: Positive: Normal air movement, Other (crackles at both the bases) Heart Exam: Positive: Rate Normal, Regular Rhythm, Normal S1, Normal S2, Mur murs (systolic murmur all throught out the precordium); Negative: Rubs Abdomen Exam: Positive: Normal bowel sounds, Soft; Negative: Tenderness Extremity Exam: Positive: Other (bilateral LE dependent edema with chronic skin changes. L ankle with black large hypertrophied eschar-like wound without drainage, L great toe tip is black without drainage.); Negative: Clubbing, Cyanosis, Edema Neuro Exam: Positive: Strength at 5/5 X4 ext, Normal Tone, Other (some word finding difficulties) LABORATORY DATA: Please see below. IMAGING: Echo: CONCLUSIONS: 1. Severe focal thickening and focal calcific deposits of a 3-cusp aortic valve. Severe reduction in aortic cusp mobility. Severe aortic valve stenosis. No aortic regurgitation. 2. Severe left ventricle dilatation at both end-diastole and end-systole. Moderate global LV hypokinesis. Severe reduction in overall LV systolic function. LVEF 30% by visual estimate. Grade 2 LV diastolic dysfunction (pseudo- normal filling pattern). 3. Moderate mitral annular calcification. Mild mitral stenosis. Very mild mitral regurgitation. 4. Mild left atrial dilatation. 5. Suggestive of moderate elevation of estimated right ventricle systolic pressure. 6. Normal right ventricle size and systolic function. Normal right atrial size.Suggestive of normal CVP. 7. Minute amount of left atrial to right atrial shunting at mid atrial level consistent with either a tiny atrial septal defect or a patent foramen ovale. 8. No pericardial effusion. 9. Presence of cardiac rhythm management leads including an ICD coursing towards the right ventricle apex. ACTIVITY: [As tolerated]. DIET: Carb consistent, fluid restriction 2 l/ day DISCHARGE PLAN: home DISPOSITION: . DISCHARGE INSTRUCTIONS: Dr Kim in 2 to 3 weeks PMD in [address] Lainez in [address] Rodriguez in 2 to 4 weeks ITEMS TO FOLLOWUP ON ON OUTPATIENT: CBC, basic, ESR, crp every week as per Dr Kim DISCHARGE CONDITION: [Stable]. TIME SPENT ON DISCHARGE: 35 minutes. Vital Signs/I&Os Vital Signs Date Time Temp Pulse Resp B/P (MAP) Pulse Ox O2 Delivery O2 Flow Rate FiO2 07/15/20 08:50 90 131/70 07/15/20 06:00 96.8 16 90 Room Air 07/14/20 06:00 2.0 07/09/20 14:00 91 I&O- Last 24 Hours up to 6 AM 07/15/20 06:00 Intake Total 1920 ml Output Total 1300 ml Balance 620 ml Laboratory Data Labs 24H Laboratory Tests 2 07/14/20 11:44: Bedside Glucose (Misc Panel) 180H 07/14/20 16:51: Bedside Glucose (Misc Panel) 181H 07/14/20 20:38: Bedside Glucose (Misc Panel) 213H 07/15/20 05:58: Nucleated Red Blood Cells % (auto) 0.2H, Anion Gap 6L, Glomerular Filtration Rate 38.2L, Calcium Level 8.5L, Magnesium Level 1.9 CBC/BMP Laboratory Tests 07/15/20 05:58 FSBS Laboratory Tests Test 07/14/20 11:44 07/14/20 16:51 07/14/20 20:38 Range/Units Bedside Glucose (Misc Panel) 180 181 213 83-110 MG/DL Microbiology Microbiology 07/09/20 Blood Culture - Final, Complete NO GROWTH AFTER 5 DAYS 07/08/20 Blood Culture - Final, Complete NO GROWTH AFTER 5 DAYS 07/07/20 Blood Culture - Final, Complete Staphylococcus Aureus 07/07/20 Blood Culture - Final, Complete NO GROWTH AFTER 5 DAYS 07/06/20 Blood Culture - Final, Complete Staphylococcus Aureus 07/06/20 Blood Culture - Final, Complete Staphylococcus Aureus 07/05/20 Respiratory Virus Panel (PCR) (JOSE) - Final, Complete 07/05/20 Blood Culture - Final, Complete NO GROWTH AFTER 5 DAYS 07/05/20 Blood Culture - Final, Complete Staphylococcus Aureus Discharge Medications Scheduled Allopurinol (Zyloprim) 300 Mg Tab, 300 MG PO DAILY, (Reported) Aspirin (Aspirin EC) 81 Mg Tablet.dr, 81 MG PO QHS, (Reported) Atorvastatin Calcium (Atorvastatin Calcium) 40 Mg Tab, 40 MG PO QHS, (Reported) Calcitriol (Calcitriol) 0.25 Mcg Cap, 0.25 MCG PO DAILY, (Reported) Carbamazepine (Carbamazepine) 200 Mg Tab, 200 MG PO TID, (Reported) Carvedilol (Carvedilol) 6.25 Mg Tablet, 6.25 MG PO BID, (Reported) Gabapentin (Gabapentin) 300 Mg Cap, 300 MG PO QHS, (Reported) Insulin NPH Hum/Reg Insulin Hm (Novolin 70-30 Flexpen) 100 Unit/1 Ml Insuln.pen, 32 UNIT BID, (Reported) Levothyroxine Sodium (Levo-T) 25 Mcg Tablet, 25 MCG PO DAILY, (Reported) Omeprazole (Omeprazole) 20 Mg Cap, 20 MG PO DAILY, (Reported) Torsemide (Torsemide) 20 Mg Tab, 20 MG PO BID, (Reported) Allergies Coded Allergies: No Known Allergies (Unverified , 04/18/14) JIM JAIME MD Jul 15, 2020 11:20
--- NOTE | 2020-07-15 15:59 | IPNPDOC ---
Text Note Date of Service The patient was seen on 07/15/20. NOTE SUBJECTIVE: The infectious disease team saw the patient on 07/15/2020. Yovani is feeling better this morning and is eager to go home. He is eating well and denies any complaints. His is present, and home antibiotic care was reviewed with them. OBJECTIVE: VITALS: See below GENERAL: Patient is a cheerful man in no acute distress, sitting comfortably in his chair. His mentation is improved and he is answering questions readily. OROPHARYNX: no thrush noted. Mucosa is pink and moist. HEART: Normal S1 and S2, with a systolic ejection murmur heard best at the R upper sternal border, 2/6. LUNGS: Lungs are clear to auscultation bilaterally. No wheezing, rales or rhonch i is noted. He is breathing room air. ABDOMEN: Obese, nondistended, soft and nontender. Bowel sounds are heard in all four quadrants. EXTREMITIES: Bilateral nonpitting edema. There is a large, black, necrotic fungating mass on the medial malleolus of the L foot. There is an enflamed, black, and necrotic left big toe, though the margins of black pigmentation appear reduced from previous examination. NEUROLOGICAL: AOx3. Motor strength is normal and he moves all extremities well. MICROBIOLOGY: Last positive blood culture was on 07/07/2020, which grew methicillin sensitive staph aureus (MSSA). Blood cultures from 07/08 and 07/09 were both negative. LABORATORY DATA: White BC: 12.5, Hgb: 10.6, HCT: 33.2, Platelets: 282, Neutrophils: 72.4 (from 07/11/20), Lymphocytes: 13 (from 07/11/20), Monocytes: 10.6 (from 07/11/20) Sodium: 134, Potassium: 3.7, Chloride: 99, Bicarbonate: 29, BUN: 41, Creatinine: 1.85, Glucose: 129, Calcium: 8.5 AST: 34 (from 07/11/20), ALT: 20 (from 07/11/20), Alk Phos: 129 (from 07/11/20), Ammonia: 46 (from 07/11/20) IMPRESSION: 1. Possible methicillin-sensitive staph. aureus (MSSA) endocarditis with positive blood cultures. Predisposing factors include known valvular disease and pacemaker. The patient had fevers as well as positive blood cultures. He has had two subsequent days of negative blood cultures. Continue IV antibiotics for a total of 6 weeks after his first negative culture, with an end date of August 19, 2020. The has been made aware of this plan and is willing to give him IV antibiotics daily at home. Followup with CBC, basic profile, CRP, ESR on a weekly basis. 2. Metastatic melanoma. The patient and his were advices to discuss hospice care as an outpatient with his oncologist and PCP. Recommending continued IV antibiotics at this time. The case has been discussed with Dr. Marcano, his primary care provider. VS,Fishbone, I+O VS, Fishbone, I+O Laboratory Tests 07/15/20 05:58 Vital Signs Date Time Temp Pulse Resp B/P (MAP) Pulse Ox O2 Delivery O2 Flow Rate FiO2 07/15/20 08:50 90 131/70 07/15/20 06:00 96.8 16 90 Room Air 07/14/20 06:00 2.0 07/09/20 14:00 91 I&O- Last 24 Hours up to 6 AM 07/15/20 06:00 Intake Total 1920 ml Output Total 1300 ml Balance 620 ml GME ATTESTATION GME ATTESTATION My faculty preceptor for this patient encounter was physically present during the encounter and was fully available. All aspects of the patient interview, examination, medical decision making process, and medical care plan development were reviewed and approved by the faculty preceptor. The faculty preceptor is aware and concurs with the plan as stated in the body of this note and will attest to such by his/her cosignature. RUPALI GIRALDO Jul 15, 2020 15:59
== END 2020-07-15 11:18 | disposition home health service (06) | DRG 871 ==
LOC: EDBD 10:21 → M ED 10:21 → EEVIPCON 17:00 → M ED INP 17:00 → M MSPAV 17:41 → M PCU 07-06 11:31 → M ICU 07-06 12:36 → M MSPAV 07-09 12:42
PROVIDERS: ADMIT Internal Medicine; ATTEND Internal Medicine Nephrology
PROC: 02HV33Z Insertion of Infusion Device into Superior Vena Cava, Percutaneous Approach (ICD-10-PCS; principal; 2020-07-06)
PROC: 02HV33Z Insertion of Infusion Device into Superior Vena Cava, Percutaneous Approach (ICD-10-PCS; 2020-07-11)
DX: A41.01 Sepsis due to Methicillin susceptible Staphylococcus aureus (principal); I50.33 Acute on chronic diastolic (congestive) heart failure; G93.41 Metabolic encephalopathy; I33.0 Acute and subacute infective endocarditis; I13.0 Hypertensive heart and chronic kidney disease with heart failure and stage 1 through stage 4 chronic kidney disease, or unspecified chronic kidney disease; C77.4 Secondary and unspecified malignant neoplasm of inguinal and lower limb lymph nodes; N17.9 Acute kidney failure, unspecified; E11.52 Type 2 diabetes mellitus with diabetic peripheral angiopathy with gangrene; I48.20 Chronic atrial fibrillation, unspecified; E11.40 Type 2 diabetes mellitus with diabetic neuropathy, unspecified; E11.65 Type 2 diabetes mellitus with hyperglycemia; C43.72 Malignant melanoma of left lower limb, including hip; G40.909 Epilepsy, unspecified, not intractable, without status epilepticus; R65.20 Severe sepsis without septic shock; C43.4 Malignant melanoma of scalp and neck; K21.9 Gastro-esophageal reflux disease without esophagitis; B35.1 Tinea unguium; G47.33 Obstructive sleep apnea (adult) (pediatric); I35.0 Nonrheumatic aortic (valve) stenosis; N18.30 Chronic kidney disease, stage 3 unspecified; E78.5 Hyperlipidemia, unspecified; M10.9 Gout, unspecified; N40.0 Benign prostatic hyperplasia without lower urinary tract symptoms; I25.10 Atherosclerotic heart disease of native coronary artery without angina pectoris; Z95.810 Presence of automatic (implantable) cardiac defibrillator; Z85.828 Personal history of other malignant neoplasm of skin; Z79.82 Long term (current) use of aspirin; Z79.4 Long term (current) use of insulin; Z79.899 Other long term (current) drug therapy

== ENCOUNTER → 2020-07-18 | Outpatient (REF) | payer MEDICARE ==
[~2020-07-18] MED LIST changes: +ASPI-161 PO; +CARV6.25 PO; +IMAT400T PO; +RITA5TAB PO
[2020-07-18 14:55] LABS: HEMATOCRIT 29.3 % (42.0-52.0); HEMOGLOBIN 9.2 g/dl (13.5-17.5); MEAN CORPUSCULAR HEMOGLOBIN 32.4 pg (27.0-33.0); MEAN CORPUSCULAR HGB CONC 31.4 g/dl (32.0-36.5); MEAN CORPUSCULAR VOLUME 103.2 fl (80.0-96.0); PLATELET COUNT, AUTOMATED 291 10^3/uL (150-450); RED BLOOD COUNT 2.84 10^6/uL (4.30-6.10); WHITE BLOOD COUNT 13.1 10^3/uL (4.0-10.0)
[2020-07-18 15:14] LABS: ERYTHROCYTE SEDIMENTATION RATE 60 mm/hr (0-20)
== END ==
LOC: M SHH 14:40
PROVIDERS: ATTEND Internal Medicine Nephrology
DX: A49.01 Methicillin susceptible Staphylococcus aureus infection, unspecified site (principal); I33.9 Acute and subacute endocarditis, unspecified; R78.81 Bacteremia

== ENCOUNTER → 2020-07-25 | Outpatient (REF) | payer MEDICARE ==
[2020-07-25 14:37] LABS: HEMATOCRIT 30.4 % (42.0-52.0); HEMOGLOBIN 9.1 g/dl (13.5-17.5); MEAN CORPUSCULAR HEMOGLOBIN 32.5 pg (27.0-33.0); MEAN CORPUSCULAR HGB CONC 29.9 g/dl (32.0-36.5); MEAN CORPUSCULAR VOLUME 108.6 fl (80.0-96.0); PLATELET COUNT, AUTOMATED 307 10^3/uL (150-450); WHITE BLOOD COUNT 9.6 10^3/uL (4.0-10.0)
[2020-07-25 15:20] LABS: ERYTHROCYTE SEDIMENTATION RATE 61 mm/hr (0-20)
== END ==
LOC: M LAB REF 14:25
PROVIDERS: ATTEND Internal Medicine Nephrology
DX: A49.01 Methicillin susceptible Staphylococcus aureus infection, unspecified site (principal); I33.9 Acute and subacute endocarditis, unspecified; R78.81 Bacteremia

== ENCOUNTER → 2020-07-28 | Outpatient (CLI) | payer MEDICARE ==
[~2020-07-28] MED LIST changes: +APAP325T4 PO; +CARB1TAB20 PO; +CEFA10IN IV
--- NOTE | 2020-07-28 14:04 | REP ---
INDICATION: RIGHT LEG PAIN, DVT? COMPARISON: None. TECHNIQUE: Real time compression and duplex Doppler interrogation of the right lower extremity deep venous system is performed. FINDINGS: The right common femoral, superficial femoral and popliteal veins are fully compressible with transducer pressure and demonstrate normal spontaneous and phasic flow, without evidence of deep venous thrombosis. IMPRESSION: No evidence of deep venous thrombosis of the right lower extremity femoral popliteal venous system. <Electronically signed by Billy Siu > 07/28/20 [id number]
--- NOTE | 2020-07-28 14:08 | REP ---
INDICATION: ACUTE RIGHT ANKLE PAIN COMPARISON: None. TECHNIQUE: Four views right ankle. FINDINGS: There is no evidence of acute fracture, dislocation, or intrinsic bone disease.There is mild spurring of the distal fibula. There is moderate spurring of the medial malleolus. There is spurring of the posterior calcaneus. Fairly large spurs are seen of the anterior and posterior distal tibia. A large dorsal talar spur is noted. There is mild dorsal navicular spurring and dorsal cuneiform spurring. There is mild narrowing at the talonavicular joint. The ankle mortise is anatomic. There are diffuse vascular calcifications. There is mild soft tissue swelling. IMPRESSION: No fracture or dislocation. Arthritic and degenerative changes as above. <Electronically signed by Billy Siu > 07/28/20 [id number]
== END ==
LOC: M RAD 12:57
PROVIDERS: ATTEND Internal Medicine Infectious Disease
DX: M19.071 Primary osteoarthritis, right ankle and foot (principal); M25.571 Pain in right ankle and joints of right foot; R60.0 Localized edema
CPT/HCPCS: 73610; 93971; G0463

== ENCOUNTER → 2020-08-01 | Outpatient (REF) | payer MEDICARE ==
[~2020-08-01] MED LIST changes: -APAP325T4 PO; -CARB1TAB20 PO; -CEFA10IN IV
[2020-08-01 15:25] LABS: HEMATOCRIT 29.3 % (42.0-52.0); HEMOGLOBIN 8.9 g/dl (13.5-17.5); MEAN CORPUSCULAR HGB CONC 30.4 g/dl (32.0-36.5); MEAN CORPUSCULAR VOLUME 108.5 fl (80.0-96.0); PLATELET COUNT, AUTOMATED 267 10^3/uL (150-450); WHITE BLOOD COUNT 9.6 10^3/uL (4.0-10.0)
[2020-08-01 15:52] LABS: ERYTHROCYTE SEDIMENTATION RATE 54 mm/hr (0-20)
== END ==
LOC: M SHH 14:56
PROVIDERS: ATTEND Internal Medicine Nephrology
DX: A49.01 Methicillin susceptible Staphylococcus aureus infection, unspecified site (principal); I33.9 Acute and subacute endocarditis, unspecified; R78.81 Bacteremia

== ENCOUNTER → 2020-08-08 | Outpatient (REF) | payer MEDICARE ==
[~2020-08-08] MED LIST changes: +APAP325T4 PO; +CARB1TAB20 PO; +CEFA10IN IV
[2020-08-08 13:40] LABS: HEMATOCRIT 30.3 % (42.0-52.0); HEMOGLOBIN 9.1 g/dl (13.5-17.5); MEAN CORPUSCULAR HEMOGLOBIN 32.5 pg (27.0-33.0); MEAN CORPUSCULAR VOLUME 108.2 fl (80.0-96.0); PLATELET COUNT, AUTOMATED 249 10^3/uL (150-450); WHITE BLOOD COUNT 10.3 10^3/uL (4.0-10.0)
[2020-08-08 14:50] LABS: ERYTHROCYTE SEDIMENTATION RATE 52 mm/hr (0-20)
== END ==
LOC: M SHH 12:14
PROVIDERS: ATTEND Internal Medicine Nephrology
DX: A49.01 Methicillin susceptible Staphylococcus aureus infection, unspecified site (principal); I33.9 Acute and subacute endocarditis, unspecified; R78.81 Bacteremia

== ENCOUNTER 2020-08-09 12:55 | Inpatient (IN) | payer MEDICARE ==
[~2020-08-09] VITALS: Ht 167.6 cm; Wt 117.8 kg
[~2020-08-09 12:55] MED LIST changes: -APAP325T4 PO; -CARB1TAB20 PO; -CEFA10IN IV
[2020-08-09] MEDS ORDERED: CEFA10IN IV (13:10)
--- NOTE | 2020-08-09 13:40 | REP ---
INDICATION: DYSPNEA/COUGH. COMPARISON: Portable chest dated 07/06/2020. TECHNIQUE: Portable AP chest with the patient semi upright. FINDINGS: The lung coffey are clear. There is cardiomegaly, unchanged. There is a triple lead pacemaker, unchanged. The vamsi, mediastinum, and skeletal structures are unremarkable. IMPRESSION: There are no acute infiltrates or pleural effusions. The lung coffey are clear. Cardiomegaly, unchanged. Pacemaker, unchanged. <Electronically signed by Billy Blanco > 08/09/20 [id number]
[2020-08-09 14:18] LABS: BASO % 0.4 % (0.0-1.0); EOS # 0.3 10^3/uL (0.0-0.5); EOS % 2.7 % (0.0-3.0); HEMATOCRIT 29.8 % (42.0-52.0); HEMOGLOBIN 9.1 g/dl (13.5-17.5); LYMPH # 0.7 10^3/uL (1.5-5.0); LYMPH % 6.4 % (24.0-44.0); MEAN CORPUSCULAR HEMOGLOBIN 32.5 pg (27.0-33.0); MEAN CORPUSCULAR HGB CONC 30.5 g/dl (32.0-36.5); MEAN CORPUSCULAR VOLUME 106.4 fl (80.0-96.0); MONO # 1.3 10^3/uL (0.0-0.8); MONO % 11.4 % (2.0-8.0); NEUTROPHILS # 8.7 10^3/uL (1.5-8.5); NEUTROPHILS % 78.6 % (36.0-66.0); PLATELET COUNT, AUTOMATED 259 10^3/uL (150-450)
[2020-08-09 14:48] LABS: ALBUMIN 2.1 GM/DL (3.2-5.2); ALT/SGPT < 6 U/L (12-78); BILIRUBIN,DIRECT 0.1 MG/DL (0.0-0.2); BILIRUBIN,TOTAL 0.5 MG/DL (0.2-1.0); NT-PRO BNP 25279 PG/ML (<125); THYROID STIMULATING HORMONE 0.603 uIU/ML (0.358-3.740); TOTAL PROTEIN 6.2 GM/DL (6.4-8.2)
--- NOTE | 2020-08-09 14:48 | REP ---
INDICATION: swelling. COMPARISON: None. TECHNIQUE: Right lower extremity deep vein duplex ultrasound. FINDINGS: The deep veins demonstrate normal compression, normal Doppler color flow and normal Doppler waveforms with respiration augmentation at multiple levels from the popliteal vein to the common femoral vein. IMPRESSION: There is no right lower extremity deep vein thrombus. <Electronically signed by Billy Blanco > 08/09/20 [id number]
[2020-08-09 14:58] LABS: RSV AMPLIFICATION NEGATIVE (NEGATIVE)
[2020-08-09] MEDS ORDERED: LOSA50TA88 PO (15:40)
[2020-08-09] MEDS ORDERED: CARB1TAB20 PO (15:40)
[2020-08-09] MEDS ORDERED: APAP325T4 PO (15:40)
[2020-08-09] MEDS ORDERED: TAMS1CAP17 PO (15:40)
[2020-08-09] MEDS ORDERED: GLUCAGON INJ 1MG VIAL SC PRN (16:35)
[2020-08-09] MEDS ORDERED: DEXTROSE 50% 50 ML SYRINGE IV PRN (16:35)
[2020-08-09] MEDS ORDERED: GLUCOSE 4GM CHEW TABLET PO PRN (16:35)
[2020-08-09] MEDS ORDERED: ACETAMINOPHEN TAB 650MG DOSE (2X325MG) PO PRN (16:35)
--- NOTE | 2020-08-09 16:52 | HPEPDOC ---
[facility] Medical History & Physical Date of Admission Aug 09, 2020 Date of Service: Aug 09, 2020 History and Physical Chief complaint: Who presented to the emergency room at the direction of his office machine punch operator History of present illness: Patient is a 75-year-old male who presented to the emergency room at the direction of his office machine punch operator for suspected CHF exacerbation. Patient had seen his office machine punch operator and their office today and was told that he had an increase in approximately 19 pounds since his last visit lower extremities had revealed significant edema. The patient was admitted to the emergency room for further evaluation. Currently patient denies any chest pain, shortness of breath, cough, palpitations, nausea, vomiting, abdominal pain consultation, diarrhea, or urinary discomfort. As per patients , she has noted a decrease in his urination. She denies any recent fevers or chills. Patients also reported that his lower extremities have had worsening swelling. Patient denies any shortness of breath upon lying flat. Past Medical History: CHF; EF 30%; Grade 2 diastolic dysfunction Severe AV stenosis A fib (on ASA 81) Hx of V tach s/p PPM and AICD CAD; no stents DLP IDDM2 CKD3 VENTURA on CPAP Neuropathy Seizure disorder Metastatic melanoma; to L ankle / L inguinal region Basal Cell CA BPH GERD Past Surgical History: Upper endoscopy Colonoscopy Pacemaker and defibrillator insertion Left Inguinal hernia repair Scalp melanoma removal Allergies: See below Medications: See below Family History: - Mother with history of bladder cancer and - Father with a history of heart disease and - No history of malignancies Social History: - Denies the use of tobacco or illicit drugs; quit drinking several years ago - Denies recent travel or sick contacts - Lives with - 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; 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 Review of Systems: 10 point review of systems complete, all negative otherwise stated in HPI Physical exam: - Vitals: BP , HR , RR , Sat , Temp - General: Lying in bed, No acute distress, Speaking in full sentences, AAOx3 - HEENT: NC, AT, PERRLA, EOMI - CVS: RRR, +S1S2, - Murmurs / rubs / gallops - Lungs: Fair air entry bilaterally, Clear to auscultation, No appreciable wheezing / rales / rhonchi - Abdomen: Soft, Non-distended, Non-tender, + Bowel sounds x 4 - Extremities: + PPx4, No lower extremity edema, No calf tenderness - Neuro: No focal motor or sensory deficit - Skin: No visible rashes Labs: See below Imaging: ECHO 07/07/20: 1. Severe focal thickening and focal calcific deposits of a 3-cusp aortic valve. Severe reduction in aortic cusp mobility. Severe aortic valve stenosis. No aortic regurgitation. 2. Severe left ventricle dilatation at both end-diastole and end-systole. Moderate global LV hypokinesis. Severe reduction in overall LV systolic function. LVEF 30% by visual estimate. Grade 2 LV diastolic dysfunction (pseudo- normal filling pattern). 3. Moderate mitral annular calcification. Mild mitral stenosis. Very mild mitral regurgitation. 4. Mild left atrial dilatation. 5. Suggestive of moderate elevation of estimated right ventricle systolic pressure. 6. Normal right ventricle size and systolic function. Normal right atrial size.Suggestive of normal CVP. 7. Minute amount of left atrial to right atrial shunting at mid atrial level consistent with either a tiny atrial septal defect or a patent foramen ovale. 8. No pericardial effusion. 9. Presence of cardiac rhythm management leads including an ICD coursing towards the right ventricle apex. CXR 08/09: There are no acute infiltrates or pleural effusions. The lung coffey are clear. Cardiomegaly, unchanged. Pacemaker, unchanged. Vascular US 08/09: There is no right lower extremity deep vein thrombus. EKG: See below Assessment and Plan: Volume overload - Physical reveals evidence of fluid overload - Hx of CHF; EF 30%; Grade 2 diastolic dysfunction / Severe AV stenosis - Elevated BNP - Imaging reviewed - Will start strict ins/outs, daily weights, fluid restrictions - Will start Diuresis with Furosemide 80 IV [id number] JENNI on CKD - Likely 2/2 cardiorenal syndrome - Currently patient appears grossly volume overloaded - Will avoid nephrotoxic medications - Will check renal US - Will continue with diuresis Hyponatremia - Likely 2/2 fluid overload - Will continue with diuresis Leukocytosis - Likely 2/2 reactive etiology - Review of systems does not reveal any source of infection - Will check ESR / CRP Recent Staph Aureus bacteremia - Scheduled to complete Cefazolin infusion on 08/19 - Will check ESR / CRP - Follows with Dr. Kim as an outpatient A fib - Currently patient is rate controlled - c/w Carvedilol - c/w ASA 81 Hx of V tach s/p PPM and AICD - c/w Carvedilol HTN - BP well controlled - Will hold Losartan - c/w Carvedilol CAD; no stents - c/w ASA, Atorvastatin, Carvedilol, DLP - c/w Atorvastatin IDDM2 - c/w ISS VENTURA on CPAP - Allow home CPAP use while inpatient Hypothyroidism - c/w Levothyroxine Neuropathy - c/w Gabapentin at reduced dose Seizure disorder - c/w Carbamazepine Gout - c/w Allopurinol Metastatic melanoma; to L ankle / L inguinal region Basal Cell CA BPH - c/w Tamsulosin GERD - c/w Omeprazole DVT prophylaxis - Will start Heparin Vital Signs Vital Signs Date Time Temp Pulse Resp B/P (MAP) Pulse Ox O2 Delivery O2 Flow Rate FiO2 08/09/20 14:25 08/09/20 12:57 97.9 86 18 97 Room Air Laboratory Data Labs 24H Laboratory Tests 2 08/09/20 14:01: Immature Granulocyte % (Auto) 0.5, Neutrophils (%) (Auto) 78.6H, Lymphocytes (%) (Auto) 6.4L, Monocytes (%) (Auto) 11.4H, Eosinophils (%) (Auto) 2.7, Basophils (%) (Auto) 0.4, Neutrophils # (Auto) 8.7H, Lymphocytes # (Auto) 0.7L, Monocytes # (Auto) 1.3H, Eosinophils # (Auto) 0.3, Basophils # (Auto) 0.0, Nucleated Red Blood Cells % (auto) 0.0, Total Bilirubin 0.5, Direct Bilirubin 0.1, Aspartate Amino Transf (AST/SGOT) 39H, Alanine Aminotransferase (ALT/SGPT) < 6L, Alkaline Phosphatase 238H, XP-Woa-[id number]-Type Natriuretic Peptide 85208L, Total Protein 6.2L, Albumin 2.1L, Albumin/Globulin Ratio 0.5, Thyroid Stimulating Hormone (TSH) 0.603, Coronavirus (COVID-19)(PCR) NEGATIVE, Influenza Type A (RT-PCR) NEGATIVE, Influenza Type B (RT-PCR) NEGATIVE, Respiratory Syncytial Virus (PCR) NEGATIVE 08/09/20 14:24: POC Glucose (Misc Panel) 111H, POC Sodium (Misc Panel) 133L, POC Potassium (Misc Panel) 4.3, POC Chloride (Misc Panel) 96L, POC Total CO2 (Misc Panel) 25.0, POC Blood Urea Nitrogen (Misc Panel 89H, POC Ionized Calcium (Misc Panel) 4.4L, POC Creatinine (Misc Panel) 3.3H, POC Hematocrit (Misc Panel) 51.0 08/09/20 14:26: POC Troponin I (Misc) 0.04 CBC/BMP Laboratory Tests 08/09/20 14:01 Home Medications Scheduled Allopurinol (Zyloprim) 300 Mg Tab, 300 MG PO DAILY Aspirin (Aspirin EC) 81 Mg Tablet.dr, 81 MG PO QHS Atorvastatin Calcium (Atorvastatin Calcium) 40 Mg Tab, 40 MG PO QHS Calcitriol (Calcitriol) 0.25 Mcg Cap, 0.25 MCG PO DAILY Carbamazepine (Carbamazepine) 200 Mg Tab, 200 MG PO QAM Carbamazepine (Carbamazepine) 200 Mg Tablet, 400 MG PO Q2D HS ON EVEN DAYS Carbamazepine (Carbamazepine) 200 Mg Tablet, 200 MG PO Q2D HS ON ODD DAYS Carvedilol (Carvedilol) 6.25 Mg Tablet, 6.25 MG PO BID Cefazolin Sodium (Cefazolin Sodium) 10 Gm Vial, 1 GM IV BID WAS DUE FOR DOSE AT 1000 Gabapentin (Gabapentin) 300 Mg Cap, 300 MG PO QHS Insulin NPH Hum/Reg Insulin Hm (Novolin 70-30 Flexpen) 100 Unit/1 Ml Insuln.pen, 33 UNIT BID Levothyroxine Sodium (Levo-T) 25 Mcg Tablet, 25 MCG PO DAILY Losartan Potassium (Losartan Potassium) 50 Mg Tablet, 50 MG PO DAILY Omeprazole (Omeprazole) 20 Mg Cap, 20 MG PO DAILY Tamsulosin Hcl (Tamsulosin HCl) 0.4 Mg Capsule, 0.4 MG PO QHS Torsemide (Torsemide) 20 Mg Tab, 20 MG PO BID Scheduled PRN Acetaminophen (Acetaminophen) 325 Mg Tablet, 650 MG PO QID PRN for PAIN / FEVER Allergies Coded Allergies: No Known Allergies (Unverified , 04/18/14) SIS WILCOX MD Aug 09, 2020 16:52
[2020-08-09] MEDS: FUROSEMIDE 100MG/10ML VIAL (J1940) IV SCH (17:00)
--- NOTE | 2020-08-09 17:22 | REP ---
INDICATION: JENNI on CKD. COMPARISON: 07/28/2014. TECHNIQUE: Multiple sonographic images of the kidneys. FINDINGS: The right kidney measures 11.0 x 5.9 x 5.6 cm. Left kidney measures 11.6 x 5.4 x 6.1 cm. The kidneys are normal size. Renal cortical echogenicity is normal bilaterally. There is no hydronephrosis or calculus. There are no solid or cystic masses. Bladder: No bladder polyps or masses are identified. The study is technically difficult because of body habitus and patient unable to suspend respirations during the examination IMPRESSION: Technically difficult study. Essentially negative renal ultrasound. <Electronically signed by Billy Blanco > 08/09/20 [id number]
[2020-08-09 17:25] LABS: C REACTIVE PROTEIN QUANTITATIV 8.44 MG/DL (0.00-0.30)
[2020-08-09] MEDS: HumaLOG INSULIN (NovoLOG) PER UNIT SC SCH ×2 (17:30→21:00)
[2020-08-09 17:36] LABS: ERYTHROCYTE SEDIMENTATION RATE 54 mm/hr (0-20)
--- NOTE | 2020-08-09 18:00 | ECGEPIP ---
[facility] - ED Test Date: 2020-08-09 Pat Name: RUPAL CARVER Department: Room: - Gender: Male Dolly Driver: JAZ : 1945 Requested By: Nia Willoughby Order Number: [id number] Reading MD: Nia Willoughby Measurements Intervals [place] Rate: 85 P: 57 NH: 124 QRS: 247 QRSD: 164 T: 67 QT: 444 QTc: 528 Interpretive Statements Atrial-sensed ventricular-paced rhythm Biventricular pacemaker detected decreased rate 07/05/20 Electronically Signed on 08-09-2020 18:00:39 EDT by Nia Willoughby
[2020-08-09 18:10] VITALS: BP 107/67
[2020-08-09] MEDS: CARVedilol 6.25 MG TAB PO SCH (21:00)
[2020-08-09 21:09] VITALS: BP 110/60
[2020-08-09] MEDS: ceFAZolin SOD 1 GM in D5W MINI-BAG PLUS 50 ML IV SCH (21:10)
[2020-08-09] MEDS: GABAPENTIN 100 MG CAP PO SCH (21:12)
[2020-08-09] MEDS: ATORVASTATIN 20 MG TAB PO SCH (21:12)
[2020-08-09] MEDS: HEPARIN SOD (PORCINE) 5000UNITS/ML 1ML VIAL/SYRINGE SQ SCH (21:12)
[2020-08-09] MEDS: TAMSULOSIN 0.4 MG CAP PO SCH (21:12)
[2020-08-09] MEDS: ASPIRIN 81MG ENTERIC TABLET PO SCH (21:12)
[2020-08-09] MEDS: carBAMazepine 200MG TABLET PO SCH (21:19)
[2020-08-10] VITALS (7 sets, daily range): BP systolic 83–121; BP diastolic 47–80
[2020-08-10] MEDS ORDERED: FUROSEMIDE 100MG/10ML VIAL (J1940) As Ordered ONE (00:21)
[2020-08-10] MEDS: FUROSEMIDE 100MG/10ML VIAL (J1940) IV SCH ×3 (00:29→17:00)
[2020-08-10 05:33] LABS: BASO % 0.4 % (0.0-1.0); EOS # 0.2 10^3/uL (0.0-0.5); EOS % 2.6 % (0.0-3.0); HEMATOCRIT 30.1 % (42.0-52.0); HEMOGLOBIN 9.1 g/dl (13.5-17.5); LYMPH # 0.7 10^3/uL (1.5-5.0); MEAN CORPUSCULAR HEMOGLOBIN 31.7 pg (27.0-33.0); MEAN CORPUSCULAR HGB CONC 30.2 g/dl (32.0-36.5); MEAN CORPUSCULAR VOLUME 104.9 fl (80.0-96.0); MONO # 1.2 10^3/uL (0.0-0.8); MONO % 13.2 % (2.0-8.0); NEUTROPHILS # 6.8 10^3/uL (1.5-8.5); NEUTROPHILS % 75.2 % (36.0-66.0); PLATELET COUNT, AUTOMATED 239 10^3/uL (150-450); RED BLOOD COUNT 2.87 10^6/uL (4.30-6.10); WHITE BLOOD COUNT 9.1 10^3/uL (4.0-10.0)
[2020-08-10 06:01] LABS: CALCIUM LEVEL 7.8 MG/DL (8.8-10.2); CREATININE FOR GFR 3.49 MG/DL (0.70-1.30); GLOMERULAR FILTRATION RATE 18.4 (>42); MAGNESIUM LEVEL 2.1 MG/DL (1.8-2.4); POTASSIUM SERUM 4.6 MEQ/L (3.5-5.1)
[2020-08-10] MEDS: LEVOTHYROXINE 25MCG TABLET (0.025MG) PO SCH (06:16)
[2020-08-10] MEDS: HEPARIN SOD (PORCINE) 5000UNITS/ML 1ML VIAL/SYRINGE SQ SCH ×3 (06:16→22:10)
[2020-08-10] MEDS: HumaLOG INSULIN (NovoLOG) PER UNIT SC SCH ×4 (09:42→20:53)
[2020-08-10] MEDS: CARVedilol 6.25 MG TAB PO SCH (09:43)
[2020-08-10] MEDS: OMEPRAZOLE 20 MG CAP PO SCH (09:43)
[2020-08-10] MEDS: carBAMazepine 200MG TABLET PO SCH (09:43)
[2020-08-10] MEDS: CALCITRIOL 0.25 MCG CAP (S0169) PO SCH (09:43)
[2020-08-10] MEDS: allopurinoL 300 MG TAB PO SCH (09:43)
[2020-08-10] MEDS: ceFAZolin SOD 1 GM in D5W MINI-BAG PLUS 50 ML IV SCH (09:45)
--- NOTE | 2020-08-10 11:03 | IPNPDOC ---
Text Note Date of Service The patient was seen on 08/10/20. NOTE Subjective: Patient is a 75-year-old male who presented to the emergency room at the direction of his workforce management analyst for suspected CHF exacerbation. Patient had seen his workforce management analyst and their office today and was told that he had an increase in approximately 19 pounds since his last visit lower extremities had revealed significant edema. The patient was admitted to the emergency room for further evaluation. Patient was admitted to the hospital service for further evaluation and treatment. Patient was seen and examined at the bedside. Patient reports that he was able to sleep at night. Denies any chest pain, shortness of breath, palpitations. Objective: Vitals (See below) General: Lying in bed, appears comfortable, AAOx3 HEENT: NC, AT CVS: +S1S2 Lungs: Fair air entry b/l, no appreciable wheezing, crackles or rhonchi Abdomen: Soft, ND, NT Extremities: 2+ pitting edema, - Calf tenderness Imaging: ECHO 07/07/20: 1. Severe focal thickening and focal calcific deposits of a 3-cusp aortic valve. Severe reduction in aortic cusp mobility. Severe aortic valve stenosis. No aortic regurgitation. 2. Severe left ventricle dilatation at both end-diastole and end-systole. Moderate global LV hypokinesis. Severe reduction in overall LV systolic function. LVEF 30% by visual estimate. Grade 2 LV diastolic dysfunction (pseudo- normal filling pattern). 3. Moderate mitral annular calcification. Mild mitral stenosis. Very mild mitral regurgitation. 4. Mild left atrial dilatation. 5. Suggestive of moderate elevation of estimated right ventricle systolic pressure. 6. Normal right ventricle size and systolic function. Normal right atrial size.Suggestive of normal CVP. 7. Minute amount of left atrial to right atrial shunting at mid atrial level consistent with either a tiny atrial septal defect or a patent foramen ovale. 8. No pericardial effusion. 9. Presence of cardiac rhythm management leads including an ICD coursing towards the right ventricle apex. CXR 08/09: There are no acute infiltrates or pleural effusions. The lung coffey are clear. Cardiomegaly, unchanged. Pacemaker, unchanged. Vascular US 08/09: There is no right lower extremity deep vein thrombus. Renal US 08/09: Technically difficult study. Essentially negative renal ultrasound. Assessment and plan: Volume overload - Physical reveals evidence of fluid overload - Hx of CHF; EF 30%; Grade 2 diastolic dysfunction / Severe AV stenosis - Elevated BNP - Imaging reviewed - c/w strict ins/outs, daily weights, fluid restrictions - c/w Furosemide 80 IV [id number] - patient has not had significant output - Will consult nephrology JENNI on CKD - Likely 2/2 cardiorenal syndrome - Still appears grossly volume overloaded - Will avoid nephrotoxic medications - Renal US negative - Will continue with diuresis - Will consult nephrology Hyponatremia - Likely 2/2 fluid overload - Slight improvement noted - Will continue with diuresis s/p Leukocytosis - Likely 2/2 reactive etiology - Review of systems does not reveal any source of infection - CRP slightly elevated Recent Staph Aureus bacteremia - Scheduled to complete Cefazolin infusion on 08/19 - Will repeat blood cultures - Follows with Dr. Kim as an outpatient Chronic A fib - Currently patient is rate controlled - c/w Carvedilol - c/w ASA 81 Hx of V tach s/p PPM and AICD - c/w Carvedilol HTN - BP well controlled - Will hold Losartan - c/w Carvedilol CAD; no stents - c/w ASA, Atorvastatin, Carvedilol, DLP - c/w Atorvastatin Obesity - BMI of 41.0 - Complicating medical care IDDM2 - c/w ISS VENTURA on CPAP - Allow home CPAP use while inpatient Hypothyroidism - c/w Levothyroxine Neuropathy - c/w Gabapentin at reduced dose Seizure disorder - c/w Carbamazepine Gout - c/w Allopurinol Metastatic melanoma; to L ankle / L inguinal region Basal Cell CA BPH - c/w Tamsulosin GERD - c/w Omeprazole DVT prophylaxis - c/w Heparin Disposition: - Awaiting clinical improvement VSDavid I+O VS, David I+O Laboratory Tests 08/09/20 14:01 08/10/20 05:18 Vital Signs Date Time Temp Pulse Resp B/P (MAP) Pulse Ox O2 Delivery O2 Flow Rate FiO2 08/10/20 09:43 85 121/66 08/10/20 08:00 97.5 19 99 Nasal Cannula 2.0 I&O- Last 24 Hours up to 6 AM 08/10/20 06:00 Intake Total 120 ml Output Total 500 ml Balance -380 ml SIS WILCOX MD Aug 10, 2020 11:02
[2020-08-10] MEDS ORDERED: CHLOROTHIAZIDE 500 MG VIAL (J1205 PER 1) IV ONE (14:00)
[2020-08-10] MEDS ORDERED: PIPERACILLIN/TAZOBACTAM SOD 3.375 GM in D5W MINI-BAG PLUS 50 ML IV SCH (16:20)
[2020-08-10] MEDS ORDERED: VANCOMYCIN HCL 1,000 MG, VIAL MATE ADAPTER 1 EACH in NS 250 ML IV SCH (18:00)
[2020-08-10] MEDS: PIPERACILLIN/TAZOBACTAM SOD 2.25 GM in D5W MINI-BAG PLUS 50 ML IV SCH ×2 (18:16→22:10)
[2020-08-10] MEDS ORDERED: VANCOMYCIN HCL 1,000 MG, VIAL MATE ADAPTER 1 EACH in NS 250 ML IV ONE (19:00)
[2020-08-10 20:37] LABS: C REACTIVE PROTEIN QUANTITATIV 8.22 MG/DL (0.00-0.30)
[2020-08-10] MEDS: CARVedilol 3.125 MG TAB PO SCH (20:40)
[2020-08-10] MEDS: ASPIRIN 81MG ENTERIC TABLET PO SCH (20:46)
[2020-08-10] MEDS: TAMSULOSIN 0.4 MG CAP PO SCH (20:47)
[2020-08-10] MEDS: ATORVASTATIN 20 MG TAB PO SCH (20:47)
[2020-08-10] MEDS: GABAPENTIN 100 MG CAP PO SCH (20:47)
[2020-08-10] MEDS ORDERED: carBAMazepine 200MG TABLET PO SCH (21:00)
[2020-08-11] VITALS (15 sets, daily range): BP systolic 101–134; BP diastolic 52–71; O2SAT 88–100
[2020-08-11] MEDS: FUROSEMIDE 100MG/10ML VIAL (J1940) IV SCH ×2 (00:51→09:00)
[2020-08-11] MEDS ORDERED: SODIUM CHLORIDE 0.9% INJ 10 ML SYR IV PRN (01:50)
[2020-08-11] MEDS: PIPERACILLIN/TAZOBACTAM SOD 2.25 GM in D5W MINI-BAG PLUS 50 ML IV SCH ×2 (05:30→12:17)
[2020-08-11] MEDS: HEPARIN SOD (PORCINE) 5000UNITS/ML 1ML VIAL/SYRINGE SQ SCH ×2 (05:30→12:23)
[2020-08-11] MEDS: LEVOTHYROXINE 25MCG TABLET (0.025MG) PO SCH (05:30)
[2020-08-11 05:44] LABS: BASO # 0.1 10^3/uL (0.0-0.2); BASO % 0.7 % (0.0-1.0); EOS # 0.2 10^3/uL (0.0-0.5); EOS % 1.8 % (0.0-3.0); HEMATOCRIT 32.7 % (42.0-52.0); HEMOGLOBIN 9.7 g/dl (13.5-17.5); LYMPH # 0.7 10^3/uL (1.5-5.0); LYMPH % 7.6 % (24.0-44.0); MEAN CORPUSCULAR HEMOGLOBIN 31.7 pg (27.0-33.0); MEAN CORPUSCULAR HGB CONC 29.7 g/dl (32.0-36.5); MEAN CORPUSCULAR VOLUME 106.9 fl (80.0-96.0); MONO # 1.1 10^3/uL (0.0-0.8); MONO % 11.6 % (2.0-8.0); NEUTROPHILS # 7.1 10^3/uL (1.5-8.5); NEUTROPHILS % 77.6 % (36.0-66.0); PLATELET COUNT, AUTOMATED 251 10^3/uL (150-450); RED BLOOD COUNT 3.06 10^6/uL (4.30-6.10); WHITE BLOOD COUNT 9.1 10^3/uL (4.0-10.0)
[2020-08-11 06:04] LABS: C REACTIVE PROTEIN QUANTITATIV 7.22 MG/DL (0.00-0.30); CALCIUM LEVEL 7.8 MG/DL (8.8-10.2); CREATININE FOR GFR 3.85 MG/DL (0.70-1.30); GLOMERULAR FILTRATION RATE 16.4 (>42); MAGNESIUM LEVEL 2.2 MG/DL (1.8-2.4); POTASSIUM SERUM 5.1 MEQ/L (3.5-5.1)
[2020-08-11] MEDS: HumaLOG INSULIN (NovoLOG) PER UNIT SC SCH ×2 (07:30→12:24)
[2020-08-11] MEDS: CARVedilol 3.125 MG TAB PO SCH (09:00)
--- NOTE | 2020-08-11 09:33 | CR ---
CONSULTATION DATE: 08/10/2020 REQUESTING PHYSICIAN: SIS WILCOX MD REASON FOR CONSULTATION: Management of acute renal failure superimposed on chronic kidney disease and volume overload. CHIEF COMPLAINT: Patient was sent from Dr. Garcia's office because of worsening congestive heart failure and renal failure. HISTORY OF PRESENT ILLNESS: Yovani Mead is a 75-year-old male with a past medical history of chronic kidney disease Stage III with a best baseline creatinine of 2 as per previous records. History of combined systolic and diastolic congestive heart failure, recent MSSA bacteremia, was being given Cefazolin as an outpatient through a PICC line, history of severe aortic stenosis and diabetes mellitus Type 2. Other comorbidities as mentioned below. He was seen by Dr. Garcia in the office recently where he was found to be fluid overloaded and in decompensated congestive heart failure. He had gained about 19 pounds of weight. He was also found to be in acute renal failure superimposed on chronic kidney disease. The patient was sent to the Emergency Room for further evaluation and admission to the hospital. He was admitted under the Hospitalist Service yesterday. Nephrology Service was called for further help in the management of this patient. I saw and evaluated the patient today morning on the bedside. He was sitting on the sofa. He was still complaining of persistent lower extremity edema and cellulitis in the lower extremity. He was started on IV diuretics and according to the intake and output record he is not making much urine. PAST MEDICAL HISTORY: 1. Chronic kidney disease Stage III, best baseline creatinine of 2. 2. History of chronic combined systolic and diastolic congestive heart failure. LV ejection fraction of around 30%. Severe aortic stenosis. 3. Atrial fibrillation, on aspirin. 4. History of V-tach status post permanent pacemaker and AICD. 5. Coronary artery disease. 6. Hyperlipidemia. 7. Diabetes mellitus Type 2, insulin dependent. 8. Obstructive sleep apnea. 9. Peripheral neuropathy. 10.Seizure disorder. 11.Metastatic melanoma to left ankle and left inguinal region. 12.History of basal cell carcinoma. 13.BPH. 14.Gastroesophageal reflux disease. 15.Recent emesis and bacteremia. PAST SURGICAL HISTORY: 1. Status post EGD in the past. 2. Status post colonoscopy. 3. Status post pacemaker placement. 4. Left inguinal hernia repair. 5. Scalp melanoma removal in the past. 6. Recent PICC line placement. ALLERGIES: No known drug allergies. FAMILY HISTORY: No significant family history of endstage renal disease. Positive history of bladder cancer in the mother. SOCIAL HISTORY: Patient lives at home. Denies any smoking, illicit drug abuse or alcohol abuse. REVIEW OF SYSTEMS: Constitutional: He denies any fevers or chills. Eyes: He denies any blurry vision or double vision. ENT: Denies any dysphagia or odynophagia. Cardiovascular: Reports congestive heart failure and worsening lower extremity edema. Respiratory: He reports mild shortness of breath. GI: Denies any nausea or vomiting. Genitourinary: He reports decreased urine output. Musculoskeletal: He reports pain and erythema of the lower extremities. Skin: He reports erythema in the legs. Hematologic and oncologic: He denies any easy bleeding or bruising,Metastatic Melanoma. All other review of systems is negative. PHYSICAL EXAMINATION: GENERAL: Patient is awake, alert, oriented x3, morbidly obese. VITAL SIGNS: Temperature is 97.2 degrees Fahrenheit, blood pressure is 102/57, pulse is 80, respiratory rate of 18, saturating 99% on room air at 2 liters. HEAD AND NECK: Ocular muscles are intact. Pupils equally round and reactive to light. He has significantly elevated JVD. CARDIOVASCULAR: S1 and S2, regular rate, 3+ edema of the bilateral lower extremities all the way up to the thighs. RESPIRATORY: Decreased breath sounds bilaterally at the bases. ABDOMEN: Obese. I could not appreciate any organomegaly. GENITOURINARY: No inguinal hernia was noted. There is no Brown catheter at this time. MUSCULOSKELETAL: Erythema of the lower extremities, the left is worse than right. Lt ankle Melanoma EXTREMITIES: Lower extremity edema as mentioned above. MOLD UNLOADER: No focal deficit. Power is 5/5 in all extremities. LABORATORY DATA: CBC showed a WBC of 11 yesterday, is 9.1 today, hemoglobin is 9.1, platelets are 239,000. BMP showed a sodium of 134, potassium 4.6, chloride 102, bicarbonate is 25, BUN 106, creatinine is 3.4. Calcium is 7.8, magnesium is 2.1. C-reactive protein is 8.2. IMAGING: Renal ultrasound was done, it showed a technically difficult study and essentially negative ultrasound. Right lower extremity Doppler was done, it showed no DVT in the right lower extremity. CURRENT INPATIENT MEDICATIONS: The patient was initially on Cefazolin which was has been switched to IV Vancomycin and Zosyn. He is on Tylenol p.r.n., Allopurinol 300 mg p.o. daily, aspirin 81 mg daily, Lipitor 40 mg p.o. q.h.s., Calcitriol 0.25 mcg p.o. daily, Carbamazepine 400 mg p.o. q. 2 days. He is on Coreg 6.25 mg p.o. twice a day, I have decreased the dose to 3.125 mg p.o. twice a day because of soft blood pressures. I gave him a dose of Diuril 500 mg IV x1 dose. He is already on Lasix 80 mg IV q. 8 hourly. He is on Neurontin 100 mg p.o. daily, Heparin sub q., insulin Lispro sliding scale, levothyroxine 25 mcg p.o. daily, omeprazole 20 mg p.o. daily, Flomax 0.4 mg p.o. h.s. ASSESSMENT AND PLAN: 1. Acute renal failure superimposed on chronic kidney disease, most likely secondary to combination of decompensated congestive heart failure and low blood pressures. The patient is already on IV diuretic. I am going to have the Brown catheter placed as well and antihypertensive regimen is being decreased as mentioned below. 2. Acute on chronic combined systolic and diastolic congestive heart failure. Patient has an LVEF of around 30% on previous records and Grade 2 diastolic dysfunction. He is significantly volume overloaded. He is to continue diuretic. However, I am decreasing the Coreg dose to 3.125 mg p.o. twice a day. 3. BPH, there is a risk of urinary retention and the patient is aggressively diuresed as well. Continue Flomax. Patient is getting the Brown catheter placed as well. 4. History of chronic gout secondary to chronic kidney disease. Patient is being diuresed. I would continue the Allopurinol 300 mg p.o. daily because of the risk of acute gout attack. 5. Secondary hyperparathyroidism, continue current dose of Calcitriol. 6. Hypothyroidism, continue current dose of levothyroxine 25 mcg p.o. daily. 7. Recent MSSA bacteremia and cellulitis of the lower extremities. Continue current dose of Vancomycin and Zosyn at this time. Cultures are pending. 8. History of seizure disorder, continue current dose of carbamazepine. 9. Metastatic Melanoma: Management as per Heme/Onc. MTDD
[2020-08-11] MEDS: carBAMazepine 200MG TABLET PO SCH ×2 (09:39→21:36)
[2020-08-11] MEDS: OMEPRAZOLE 20 MG CAP PO SCH (09:39)
[2020-08-11] MEDS: CALCITRIOL 0.25 MCG CAP (S0169) PO SCH (09:40)
[2020-08-11] MEDS: allopurinoL 300 MG TAB PO SCH (09:40)
--- NOTE | 2020-08-11 10:46 | IPNPDOC ---
Text Note Date of Service The patient was seen on 08/11/20. NOTE Subjective: Patient is a 75-year-old male who presented to the emergency room at the direction of his administration manager for suspected CHF exacerbation. Patient had seen his administration manager and their office today and was told that he had an increase in approximately 19 pounds since his last visit lower extremities had revealed significant edema. The patient was admitted to the emergency room for further evaluation. Patient was admitted to the hospital service for further evaluation and treatment. Patient was seen and examined at the bedside. Patient reports that they have slept well. They deny any nausea, vomiting, chest pain, shortness breath, palpitations. They deny any abdominal pain. It was placed yesterday without any significant urine output. Right lower extremity shows improvement of erythema. Left lower extremity appears to show the persistent melanoma at his medial malleolus. Objective: Vitals (See below) General: Patient is lying in bed, appears comfortable, awake, alert and oriented 3 HEENT: NC, AT CVS: +S1S2 Lungs: Air entry is fair bilaterally without any evidence of wheezing, crackles or rhonchi Abdomen: Soft, nondistended and nontender Extremities: Lower show still reveal 2+ pitting edema extending up to the thighs and into the abdomen Skin: Right lower show any with erythema that seems to be slightly improved left lower extremity with medial malleolus with evidence of melanoma - As per patient's this is been an ongoing problem; melanoma on left calcaneus has been resected Imaging: ECHO 07/07/20: 1. Severe focal thickening and focal calcific deposits of a 3-cusp aortic valve. Severe reduction in aortic cusp mobility. Severe aortic valve stenosis. No aortic regurgitation. 2. Severe left ventricle dilatation at both end-diastole and end-systole. Moderate global LV hypokinesis. Severe reduction in overall LV systolic function. LVEF 30% by visual estimate. Grade 2 LV diastolic dysfunction (pseudo- normal filling pattern). 3. Moderate mitral annular calcification. Mild mitral stenosis. Very mild mitral regurgitation. 4. Mild left atrial dilatation. 5. Suggestive of moderate elevation of estimated right ventricle systolic pressure. 6. Normal right ventricle size and systolic function. Normal right atrial size.Suggestive of normal CVP. 7. Minute amount of left atrial to right atrial shunting at mid atrial level consistent with either a tiny atrial septal defect or a patent foramen ovale. 8. No pericardial effusion. 9. Presence of cardiac rhythm management leads including an ICD coursing towards the right ventricle apex. CXR 08/09: There are no acute infiltrates or pleural effusions. The lung coffey are clear. Cardiomegaly, unchanged. Pacemaker, unchanged. Vascular US 08/09: There is no right lower extremity deep vein thrombus. Renal US 08/09: Technically difficult study. Essentially negative renal ultrasound. Assessment and plan: Acute on Chronic Systolic and Diastolic CHF exacerbation - Patient clinically still appears to be volume overloaded - Hx of CHF; EF 30%; Grade 2 diastolic dysfunction / Severe AV stenosis - Elevated BNP - Imaging reviewed - c/w strict ins/outs, daily weights, fluid restrictions - c/w Furosemide / - Nephrology on consultation JENNI on CKD - Likely 2/2 cardiorenal syndrome - Still appears grossly volume overloaded - UA pending - Renal US negative - Will avoid nephrotoxic medications - Nephrology on consultation Hyponatremia - Likely 2/2 fluid overload - Will need to continue diuresis s/p Leukocytosis - possibly 2/2 reactive etiology, possibly 2/2 cellulitis - Right lingerie with evidence of cellulitis, left lower extremity with evidence of purulent discharge - Wound cultures that blood cultures 08/10: pending - CRP improving - c/w Vanco + Zosyn - Consulted ID Recent Staph Aureus bacteremia - Scheduled to complete Cefazolin infusion on 08/19; discontinued and started Vanco / Zosyn (See above) - Follows with Dr. Kim as an outpatient Chronic A fib - Currently patient is rate controlled - c/w Carvedilol - c/w ASA 81 Hx of V tach s/p PPM and AICD - c/w Carvedilol HTN - BP well controlled - Will hold Losartan - c/w Carvedilol CAD; no stents - c/w ASA, Atorvastatin, Carvedilol, DLP - c/w Atorvastatin Obesity - BMI of 41.0 - Complicating medical care IDDM2 - c/w ISS VENTURA on CPAP - Allow home CPAP use while inpatient Hypothyroidism - c/w Levothyroxine Neuropathy - c/w Gabapentin at reduced dose Seizure disorder - c/w Carbamazepine Gout - c/w Allopurinol Metastatic melanoma - L ankle / L inguinal region - Follows with oncology as an outpatient Basal Cell CA BPH - c/w Tamsulosin GERD - c/w Omeprazole DVT prophylaxis - c/w Heparin Disposition: - Awaiting clinical improvement VS,David, I+O VS, David, I+O Laboratory Tests 08/11/20 05:18 Vital Signs Date Time Temp Pulse Resp B/P (MAP) Pulse Ox O2 Delivery O2 Flow Rate FiO2 08/11/20 09:00 2.0 08/11/20 09:00 87 106/53 08/11/20 07:33 97.1 23 98 Nasal Cannula I&O- Last 24 Hours up to 6 AM 08/11/20 05:59 Intake Total 440 ml Output Total 700 ml Balance -260 ml SIS WILCOX MD Aug 11, 2020 10:46
[2020-08-11 11:31] LABS: APPEARANCE, URINE CLOUDY (CLEAR); BACTERIA, URINE AUTO 1+ (NEGATIVE); BILIRUBIN, URINE AUTO 2+ (NEGATIVE); BLOOD, URINE BLOOD 3+ (NEGATIVE); COLOR, URINE AMBER (YELLOW); GLUCOSE, URINE (UA) AUTO NEGATIVE (NEGATIVE); KETONE, URINE AUTO NEGATIVE (NEGATIVE); LEUKOCYTE ESTERASE, URINE AUTO 1+ (NEGATIVE); MUCUS, URINE SMALL (NEGATIVE); NITRITE, URINE AUTO NEGATIVE (NEGATIVE); PROTEIN, URINE AUTO 2+ mg/dL (NEGATIVE); RBC, URINE AUTO TNTC /HPF (0-3); SPECIFIC GRAVITY URINE AUTO 1.014 (1.002-1.035); SQUAMOUS EPITHELIAL CELL UR AU 1 /HPF (0-6); UROBILINOGEN, URINE AUTO 0.2 mg/dL (0.0-2.0); WBC, URINE AUTO TNTC /HPF (0-3)
--- NOTE | 2020-08-11 13:43 | ECHO ---
DATE OF PROCEDURE: 08/10/2020 Age: 75 Gender: Male Height: 65 inches Weight: 244 pounds Body Surface Area: 2.15 m2 PATIENT LOCATION: Inpatient PCU Room 3222. REFERRING PHYSICIAN: Joesph Malik MD. INDICATION: CHF. MEASUREMENTS: 2D Measurements: RV - 5.2 cm LV - 6.0 cm Septum 1.4 cm Posterior wall 1.4 cm Aortic Root 3.5 cm LA 4.7 cm LVEF 20% Doppler Measurements: AV 3.11 m/s LVOT 0.56 m/s LVOT diameter 2.8 cm Mean AV gradient 23 mmHg Dimensionless index 0.18 MV-E 114, A 53, EA ratio 2.3 Early mitral deceleration time 145 msec E prime medial 5.3, A prime medial 3.7, E prime lateral 6.1 Average E/E prime ratio 20/PCWP 26.7 mmHg PV 0.58 m/s Pulmonary artery acceleration time 79 msec RVSP 54 mmHg IVC 2.3 cm COMMENTS: Sinus rhythm with atrial sensing and tracking and consistent biventricular stimulation (paced QRS complexes with RBBB configuration and rightward axis). A technically challenging study in light of the patient's body habitus, but diagnostically useful information was still obtained. Mildly hypertrophied and moderately severely dilated left ventricle with akinesis of the septum and hypokinesis of other left ventricular parham. Severe impairment of global resting systolic function. At least moderately prominently dilated left atrium with grade 2 LV diastolic dysfunction and significantly elevated estimated mean left atrial pressure. At least moderately dilated right heart chambers with hypokinesis of right ventricular wall motion and at least moderately severe pulmonary hypertension. Dilated inferior vena cava with reduced respiratory collapse in keeping with elevated central venous pressure/right heart failure. Normal aortic dimensions. Severe calcific aortic stenosis without obvious insufficiency. Severe degenerative changes of the mitral valvular apparatus with low flow appearance to leaflet motion but no restriction to suggest stenosis. The mean diastolic gradient across the mitral valve was within normal limits. At least moderate to severe mitral insufficiency. Normal appearing tricuspid valve with at least moderate to moderately severe tricuspid insufficiency. Three pacing leads can be visualized traversing right heart structures. The coronary sinus lead appeared to have an associated very mobile structure that may well have been a thrombus. Could not rule out a vegetation. Very small posterior pericardial effusion. MTDD
[2020-08-11] MEDS ORDERED: LORazepam 2 MG/ML VIAL IV PRN (13:55)
[2020-08-11] MEDS ORDERED: SCOPOLAMINE 1MG TRANSDERMAL PATCH TOP PRN (13:55)
--- NOTE | 2020-08-11 14:41 | IPNPDOC ---
Text Note Date of Service The patient was seen on 08/11/20. NOTE Interval update: - After extensive discussion with the family; it was decided that the patient will be transitioned to comfort measures - Nonessential medications were discontinued - Medications for pain and anxiety along were instituted - MOLST form was updated VS,Fishbone, I+O VS, Fishbone, I+O Laboratory Tests 08/11/20 05:18 Vital Signs Date Time Temp Pulse Resp B/P (MAP) Pulse Ox O2 Delivery O2 Flow Rate FiO2 08/11/20 14:00 99 Nasal Cannula 2.0 08/11/20 12:00 96.3 83 19 107/69 (82) I&O- Last 24 Hours up to 6 AM 08/11/20 06:00 Intake Total 440 ml Output Total 500 ml Balance -60 ml SIS WILCOX MD Aug 11, 2020 14:41
[2020-08-11] MEDS: MORPHINE 2 MG/ML 1ML VIAL (J2270) IV PRN (19:22)
[2020-08-11] MEDS: GABAPENTIN 100 MG CAP PO SCH (21:36)
--- NOTE | 2020-08-11 22:39 | IPN ---
NEPHROLOGY PROGRESS NOTE DATE: 08/11/2020 SUBJECTIVE: The patient was seen and examined today morning at the bedside. He was laying in the bed. His condition deteriorated overnight. His renal function is worsening. The patient was encephalopathic and uremic when I saw him. Despite aggressive IV diuretics and placement of a Brown catheter, the patient did not make much urine. And as reported by nursing staff, the patient was not even able to eat his breakfast today morning. OBJECTIVE: VITAL SIGNS: Temperature is 96.3 degrees Fahrenheit, blood pressure 107/69, pulse is 83, respiratory rate of 19, saturating 99% on nasal cannula at 2 liters. INTAKE AND OUTPUT: Urine output recorded as 300 mL yesterday, 500 mL so far today since overnight. Weight in the bed scale is 117.8 kg. PHYSICAL EXAMINATION: GENERAL APPEARANCE: The patient is laying in the bed, having some twitches of the upper extremities, drowsy and sleepy, answers very few questions. HEAD AND NECK: Pupils are equally round and reactive to light. Mucous membranes are moist. Neck is supple. He has moderately elevated jugular venous distention. CARDIOVASCULAR: S1, S2, 3+ edema of the bilateral lower extremities. RESPIRATORY: Decreased breath sounds bilaterally at the bases. Inspiratory crackles bilaterally at the bases. ABDOMEN: Distended. Abdominal wall edema was noted. GENITOURINARY: He has an indwelling Brown catheter and he has metastatic melanoma lesion in the left groin. MUSCULOSKELETAL: Large melanoma on the medial aspect of the left heel was noted. CAPACITY MANAGEMENT SPECIALIST: The patient has asterixis. He is obtunded and confused and answers few questions. LAB REVIEW: CBC showed a white blood cell count of 9.1, hemoglobin 9.7, platelet count 251. BMP showed sodium of 131, potassium 5.1, chloride 100, bicarbonate 25, BUN 106, creatinine is 3.8, calcium 7.8, magnesium 2.2. C-reactive protein 7.2. Microbiology blood cultures are pending. Would cultures are pending as well. IMAGING: No new imaging available at this time. CURRENT INPATIENT MEDICATIONS: The patient's medications were all reviewed by myself. He continues to be on Vancomycin and Zosyn. He was on Lasix 80 mg IV q. 8 hourly. ASSESSMENT AND PLAN: 1. Acute oliguric renal failure despite aggressive IV diuretics, the patient is not making much urine. He is getting encephalopathic and uremic. I discussed the patient's prognosis with his and daughter over the phone today and I explained to them that the patient has metastatic melanoma. He has severe aortic stenosis, decompensated congestive heart failure, fluid overload, acute renal failure. Doing hemodialysis on this patient would actually prolong his misery. I recommended against doing dialysis and the patient's family also agreed to make the patient a DNR and comfort measures only. The patient's signed the comfort measures with the Hospitalist Team. I would not offer hemodialysis to this patient with multiple comorbidities and metastatic cancer. 2. [id number] combined systolic and diastolic congestive heart failure - The patient has aortic stenosis, low EF, grade 2 diastolic dysfunction. He did not respond to IV diuretics. Unfortunately our options are very limited at this time. 3. Metastatic melanoma the patient's previous images were noted. The patient has left ankle and left inguinal region melanoma and it is in the pelvic region as well based upon previous imaging. 4. Disposition - The patient is comfort measures only. Nephrology Service is going to sign off at this moment.
[2020-08-12] MEDS: MORPHINE 2 MG/ML 1ML VIAL (J2270) IV PRN (05:03)
[2020-08-12] MEDS: carBAMazepine 200MG TABLET PO SCH (08:33)
--- NOTE | 2020-08-12 16:52 | DS.PDOC ---
Discharge Summary General Date of Admission Aug 09, 2020 at 16:32 Date of Discharge 08/12/2020 Discharge Summary PROCEDURES PERFORMED DURING STAY: [None]. ADMITTING DIAGNOSES / DISCHARGE DIAGNOSES: Acute on Chronic Systolic and Diastolic CHF exacerbation Acute metabolic encephalopathy Oliguric renal failure on CKD - Likely 2/2 cardiorenal syndrome; family did not want to proceed with dialysis Hyponatremia - Likely 2/2 fluid overload Cellulitis / Draining ulceration Recent Staph Aureus bacteremia Chronic A fib Hx of V tach s/p PPM and AICD HTN CAD; no stents DLP Obesity IDDM2 VENTURA on CPAP Hypothyroidism Neuropathy Seizure disorder Gout Metastatic melanoma Basal Cell CA BPH GERD DVT prophylaxis COMPLICATIONS/CHIEF COMPLAINT: Fluid overload HISTORY OF PRESENT ILLNESS / HOSPITAL COURSE: Patient is a 75-year-old male who presented to the emergency room at the direction of his health information internship for suspected CHF exacerbation. Patient had seen his health information internship and their office today and was told that he had an increase in approximately 19 pounds since his last visit lower extremities had revealed significant edema. The patient was admitted to the emergency room for further evaluation. Patient was admitted to the hospital service for further evaluation and treatment. After extensive discussion with the family it was decided that the patient will be transitioned to comfort measures given his multiple comorbidities metastatic melanoma, wound infections, bed bound status and pain. Nonessential medications were discontinued and medications for pain and anxiety alone were instituted. MOLST form was updated. [facility]ta was called to deactivate AICD on 4 AM. Patient ultimately on 08/12/2020 at 2:47PM. DISCHARGE MEDICATIONS: Please see below. ALLERGIES: Please see below. DISPOSITION: TIME SPENT ON DISCHARGE: 35 minutes. Vital Signs/I&Os Vital Signs Date Time Temp Pulse Resp B/P (MAP) Pulse Ox O2 Delivery O2 Flow Rate FiO2 08/12/20 05:13 15 Nasal Cannula 08/11/20 20:00 2.0 08/11/20 14:00 99 08/11/20 12:00 96.3 83 107/69 (82) I&O- Last 24 Hours up to 6 AM 08/12/20 05:59 Intake Total 540 ml Output Total 400 ml Balance 140 ml Microbiology Microbiology 08/11/20 Blood Culture - Preliminary, Resulted No growth after 24 hours . All specim... 08/11/20 Blood Culture - Preliminary, Resulted No growth after 24 hours . All specim... 08/10/20 Gram Stain - Final, Resulted 08/10/20 Wound Culture, Resulted Pending Discharge Medications Scheduled Allopurinol (Zyloprim) 300 Mg Tab, 300 MG PO DAILY, (Reported) Aspirin (Aspirin EC) 81 Mg Tablet.dr, 81 MG PO QHS, (Reported) Atorvastatin Calcium (Atorvastatin Calcium) 40 Mg Tab, 40 MG PO QHS, (Reported) Calcitriol (Calcitriol) 0.25 Mcg Cap, 0.25 MCG PO DAILY, (Reported) Carbamazepine (Carbamazepine) 200 Mg Tab, 200 MG PO QAM, (Reported) Carbamazepine (Carbamazepine) 200 Mg Tablet, 400 MG PO Q2D, (Reported) HS ON EVEN DAYS Carbamazepine (Carbamazepine) 200 Mg Tablet, 200 MG PO Q2D, (Reported) HS ON ODD DAYS Carvedilol (Carvedilol) 6.25 Mg Tablet, 6.25 MG PO BID, (Reported) Cefazolin Sodium (Cefazolin Sodium) 10 Gm Vial, 1 GM IV BID, (Reported) WAS DUE FOR DOSE AT 1000 Gabapentin (Gabapentin) 300 Mg Cap, 300 MG PO QHS, (Reported) Insulin NPH Hum/Reg Insulin Hm (Novolin 70-30 Flexpen) 100 Unit/1 Ml Insuln.pen, 33 UNIT BID, (Reported) Levothyroxine Sodium (Levo-T) 25 Mcg Tablet, 25 MCG PO DAILY, (Reported) Losartan Potassium (Losartan Potassium) 50 Mg Tablet, 50 MG PO DAILY, (Reported) Omeprazole (Omeprazole) 20 Mg Cap, 20 MG PO DAILY, (Reported) Tamsulosin Hcl (Tamsulosin HCl) 0.4 Mg Capsule, 0.4 MG PO QHS, (Reported) Torsemide (Torsemide) 20 Mg Tab, 20 MG PO BID, (Reported) Scheduled PRN Acetaminophen (Acetaminophen) 325 Mg Tablet, 650 MG PO QID PRN for PAIN / FEVER, (Reported) Allergies Coded Allergies: No Known Allergies (Unverified , 04/18/14) SIS WILCOX MD Aug 12, 2020 16:52
== END 2020-08-12 14:47 | disposition expired | DRG 291 ==
LOC: M ED 12:55 → M ED INP 16:32 → ENRESERV 16:46 → M PCU 17:49
PROVIDERS: ADMIT Internal Medicine; ATTEND Internal Medicine
DX: I13.0 Hypertensive heart and chronic kidney disease with heart failure and stage 1 through stage 4 chronic kidney disease, or unspecified chronic kidney disease (principal); I50.43 Acute on chronic combined systolic (congestive) and diastolic (congestive) heart failure; G93.41 Metabolic encephalopathy; G40.919 Epilepsy, unspecified, intractable, without status epilepticus; N17.9 Acute kidney failure, unspecified; C79.89 Secondary malignant neoplasm of other specified sites; I48.20 Chronic atrial fibrillation, unspecified; N25.81 Secondary hyperparathyroidism of renal origin; Z68.41 Body mass index [BMI] 40.0-44.9, adult; E87.1 Hypo-osmolality and hyponatremia; L03.116 Cellulitis of left lower limb; E87.70 Fluid overload, unspecified; I35.0 Nonrheumatic aortic (valve) stenosis; Z66 Do not resuscitate; Z51.5 Encounter for palliative care; E78.5 Hyperlipidemia, unspecified; I25.10 Atherosclerotic heart disease of native coronary artery without angina pectoris; E11.65 Type 2 diabetes mellitus with hyperglycemia; E11.22 Type 2 diabetes mellitus with diabetic chronic kidney disease; E11.42 Type 2 diabetes mellitus with diabetic polyneuropathy; N18.30 Chronic kidney disease, stage 3 unspecified; G47.33 Obstructive sleep apnea (adult) (pediatric); N40.0 Benign prostatic hyperplasia without lower urinary tract symptoms; K21.9 Gastro-esophageal reflux disease without esophagitis; D72.829 Elevated white blood cell count, unspecified; M10.30 Gout due to renal impairment, unspecified site; C44.91 Basal cell carcinoma of skin, unspecified; E66.9 Obesity, unspecified; B95.61 Methicillin susceptible Staphylococcus aureus infection as the cause of diseases classified elsewhere; Z95.810 Presence of automatic (implantable) cardiac defibrillator; Z20.822 Contact with and (suspected) exposure to COVID-19; Z79.4 Long term (current) use of insulin; Z79.899 Other long term (current) drug therapy